=== PATIENT | male | born 1945 | race Caucasian/White ===

== ENCOUNTER → 2023-10-05 12:52 | Outpatient (REF) | payer MEDICARE, OTHER, SELFPAY | LOC: REG 12:52 | PROVIDERS: ATTENDING PHYSICIAN Orthopaedic Surgery; FAMILY PHYSICIAN Internal Medicine | DX: R05.3 Chronic cough (principal); Z96.652 Presence of left artificial knee joint; M97.12XA Periprosthetic fracture around internal prosthetic left knee joint, initial encounter | CPT/HCPCS: 71046; 73552; 73564 ==

== ENCOUNTER 2023-10-26 14:13 | Emergency (ER) | payer MEDICARE, OTHER, SELFPAY ==
[2023-10-26] VITALS (8 sets, daily range): BP systolic 136–202; BP diastolic 71–86
--- NOTE | 2023-10-26 14:41 | ED.GENMED ---
History of Present Illness
General
Chief Complaint: Urinary Symptoms
Source: patient
Exam Limitations: none
Time Seen by Provider: 10/26/23 14:14
Nursing documentation reviewed up to this point in time: agreed with
Travel History
Have you had any contact with someone who has COVID-19?: No
Do you have any symptoms of coronavirus? Fever > 100 degrees, chills, cough, shortness of breath, sore throat, loss of taste or smell, muscle aches, or headache?: No
History of Present Illness
History of Present Illness:
This is a 78-year-old male with a past medical history of stroke, myasthenia gravis, Parkinson's, A-fib on Eliquis, femoral shaft fracture presenting to emergency department today with concerns of dark-colored urine. Patient states that he
currently is being seen by a home nurse to help with his recovery from his recent hospitalization. Patient states that he was discharged from the hospital on September 07 for a femoral periprosthetic fracture. Patient was admitted for pain control
and no Ortho intervention at that time. Patient states that he is currently on bedrest, and today, when his urine was being collected, the nurse noted that the urine was very dark, recommended coming to the emergency department for further
evaluation. Patient himself notes that his urine started out as a little dark a few days ago, and has been progressively getting darker. Patient denies dysuria, flank pain, fevers or chills, chest pain, shortness of breath, left femur pain, lower
extremity swelling, or other concerning signs or symptoms.
Past History
Past History
ED Past Medical History: GERD, HTN, Hypercholesterolemia and Other (Parkinson's disease, myasthenia gravis)
ED Past Surgical History: Orthopedic
Patient has exhibited threatening behavior?: No
Social History
Tobacco: Non-smoker
Alcohol: None
Drug: None
Personal:
Living: with family
Employment: Retired
Family History
Family History: Other
Review of Systems
Review of Systems
All Other Systems: ROS reviewed and negative except as documented in HPI and ROS
Phy Exam
Physical Exam
Physical Exam:
General: Patient is well-appearing and is in no acute distress
Skin: Warm and dry, no rashes or lesions
Cardiac: Heart rate is bradycardic, no murmurs
Peripheral vascular: Patient has no lower extremity edema, patient has 2+ dorsalis pedis and posterior tibial pulses.
Pulm: Normal respiratory effort, no wheezes, no rales, no rhonchi
Abdomen: No abdominal tenderness
Musculoskeletal: Left leg seen in immobilizer, no bony tenderness to palpation
Neuro: Patient is awake and alert x 3. Patient does have some word finding difficulties which she states is a part of his baseline deficit from previous stroke.
Course
Orders/Labs/Results
Orders:
Orders
10/26/23 14:34
CPK [Creatine Phosphokinase] Urgent
Complete Blood Count/With Diff Urgent
Comprehensive Metabolic Panel Urgent
Urinalysis Reflex To Culture Urgent
Date Specimen was Collected: 10/26/23
Time Specimen was Collected: 14:28
Urine Microscopic Reflex Cult Urgent
Urine Culture Urgent
GERMAN Source: U
Specimen Description:
Date Specimen was Collected: 10/26/23
Time Specimen was Collected: 14:28
10/26/23 16:05
CT Abd/pel Without Iv Or Oral Urgent
Comment:
Reason For Exam: painless hematuria
Abnormal Lab Results
10/26/23
14:34
RBC 4.45 L 10^6/uL
(4.70-6.10)
RDW 15.0 H %
(11.5-14.5)
Immature Gran % 0.6 H %
(0-0.5)
Lymphocytes % 18.1 L %
(20.5-51.1)
Chloride 111 H mmol/L
(98-107)
BUN 21 H mg/dl
(9-20)
Creatine Kinase 43 L U/L
(55-170)
Urine Ketones Trace A
(Negative)
Ur Occult Blood Reflex 4+ A
(Negative)
Urine Bilirubin 1+ A
(Negative)
Leukocyte Esterase Rfl Trace A
(Negative)
Urine RBC >100 A /HPF
(0-2)
Urine WBC (Reflex) 11-15 A /HPF
(0-5)
Urine Albumin (Reflex) 1+ A
(Neg - Trace)
10/26/23 14:34
10/26/23 14:34
Vital Signs
Initial and Last Documented VS:
Initial Vital Signs
Pulse Resp BP
55 9 136/73
10/26/23 14:16 10/26/23 14:16 10/26/23 14:16
Last Documented Vital Signs
Temp Pulse Resp BP Pulse Ox
98 F 55 16 185/81 99
10/26/23 14:18 10/26/23 18:00 10/26/23 17:45 10/26/23 18:00 10/26/23 18:00
MDM/Problems Addressed
Differential Diagnosis Includes:
Differentials include dehydration, nephrolithiasis, acute cystitis, rhabdomyolysis, biliary obstruction
MDM/Problems Addressed:
Dark-colored urine
Chronic conditions affecting care: HTN, Arrhythmia, Neurological disorder (Parkinson's, myasthenia gravis) and Other (Hyperlipidemia on atorvastatin)
Acute Exacerbation and/or Progression of Chronic Illness: HTN
*Pulse Oximetry
Patient hypoxic: no
*Critical Care Note
Total Time (30-74mins, 75-104mins- exclusive of procedures): Not Applicable
Data Reviewed
Review of Other/Old Records Reveals: Records (Reviewed discharge summary from 09/07/2023)
Patient Management
Escalation/DeEscalation of care consider admission/obs:
This is a 78-year-old male with a past medical history of stroke, myasthenia gravis, Parkinson's, A-fib on Eliquis, femoral shaft fracture presenting to emergency department today with concerns of dark-colored urine. Patient himself notes that his
urine started out as a little dark a few days ago, and has been progressively getting darker. Patient denies dysuria, flank pain, fevers or chills, chest pain, shortness of breath, left femur pain, lower extremity swelling. Urinalysis and micro
revealed red blood cells but no evidence of UTI. Urine culture pending. CT of the abdomen and pelvis revealed bilateral nephrolithiasis but no ureteral obstruction. also showed moderate distention of the rectum, as well as bilateral pleural
effusions. No findings on CT to explain hematuria. Patient does take Xarelto for clot prevention following femur fracture. This is prescribed by Dr. Santos. Saw patient with Dr. Cade, we believe that his current hematuria as a result of
spontaneous bleeding from his Xarelto. Due to the risk of decreased urinary output and clot from patient, advised patient to stop his Xarelto for 3 days and follow-up with Dr. Santos regarding when to restart the Xarelto. We made cardiology
physician on-call aware of this plan, she will forward plan and information Dr. Santos. Patient medically stable for discharge.
ED Attending Note
-
Portions of this chart may have been created with voice recognition software.� Occasional wrong word or��sound alike� substitutions may have occurred due to the inherent limitations of voice recognition software.
Discharge Plan
Departure
Patient Disposition: Home (Routine Discharge)
Date of Disposition: 10/26/23
Time of Disposition: 19:17
Patient with high blood pressure during this ER visit?: Yes
Condition: Good
Discharge Problem:
Hematuria
Instructions: Blood in the Urine (Hematuria), Adult (DC), Cough, Adult (DC), BLOOD PRESSURE
Prescriptions:
No Action
prednisone 10 MG tablet
12 mg PO Q48H
mycophenolate mofetil 500 MG tablet
1,000 mg PO Q12H
pyridostigmine bromide 60 MG tablet
30 mg PO HS
Rx Instructions:
Give at 2200
docusate sodium 100 MG capsule
300 mg PO PRN PRN (Reason: CONSTIPATION)
pyridostigmine bromide 60 MG tablet
90 mg PO TID@,,16
amiodarone [Pacerone] 200 MG tablet
100 mg PO DAILY
losartan 50 MG tablet
100 mg PO HS
escitalopram oxalate 10 MG tablet
10 mg PO DAILY
melatonin 5 MG tablet
5 mg PO HS
acetaminophen [Tylenol Extra Strength] 500 mg tablet
1,000 mg PO Q6HPRN PRN (Reason: mild pain) Qty: 1 0RF
atorvastatin 20 mg Tablet
20 mg PO QPM
carbidopa-levodopa 50-200 mg Tablet Extended Release
1 tab PO HS
Rx Instructions:
give at 2200
carbidopa-levodopa 25-100 mg Tablet
1.5 tab PO TID@,,16
polyethylene glycol 3350 [Miralax] 17 gram/dose powder
4 g PO DAILY PRN (Reason: CONSTIPATION)
hydrocodone-acetaminophen 5-325 mg Tablet
1 tab PO Q4H PRN (Reason: pain)
lorazepam 0.5 mg Tablet
0.5 mg PO BID PRN (Reason: left knee pain)
memantine 5 mg Tablet
5 mg PO BID
Xarelto 20 mg Tablet
20 mg PO DAILY
quetiapine 25 mg Tablet
12.5 mg PO HS Qty: 0 0RF
Rx Instructions:
can attempt to wean off
Referrals:
Tomas Venegas DO [Family Provider] -
Activity Restrictions/Additional Instructions:
Please follow up with your primary care provider.
Please withhold your Xarelto for 3 days. Please follow up with Dr. Santos regarding when to restart the xarelto.
Please return to the emergency department should you experience DECREASED URINARY OUTPUT, CLOTS IN YOUR URINE, PAIN WITH URINATION, CHEST PAIN, SHORTNESS OF BREATH, FLANK PAIN, DIZZINESS OR OTHER CONCERNING SIGNS OR SYMPTOMS.
Interventions
Interventions:
*Risk Screen - Suicide Last Done: 10/26/23 14:18
*General Assessment Last Done: 10/26/23 14:18
*Neglect/Abuse Screening Last Done: 10/26/23 14:18
ED- Fall Risk Assessment Last Done: 10/26/23 14:18
*ED COVID-19 Vaccine History Last Done: 10/26/23 14:18
ED-Male Genitourinary Assessment Last Done: 10/26/23 14:22
[2023-10-26 14:47] LABS: % Basophils 0.3 % (0-2); % Eosinophils 2.7 % (0-6); % Immature Granulocytes 0.6 % (0-0.5); % Lymphocytes 18.1 % (20.5-51.1); % Monocytes 7.9 % (1.7-9.3); % Neutrophils 70.4 % (42.2-75.2); Absolute Eosinophils 0.2 10^3/uL (0-0.7); Absolute Lymphocytes 1.2 10^3/uL (1.2-3.4); Absolute Monocytes 0.5 10^3/uL (0.1-0.6); Absolute Neutrophils 4.6 10^3/uL (1.4-6.5); Hematocrit 39.1 % (39.0-52.0); Mean Corp Hgb Conc. 33.2 g/dL (33.0-37.0); Mean Corpuscular Hgb 29.2 pg (27.0-31.0); Mean Corpuscular Volume 87.9 fL (80.0-94.0); Mean Platelet Volume 9.1 fL (7.4-10.4); Nucleated Red Blood Cells % 0 % (-); Platelet Count 186 10^3/uL (130-400); Red Blood Cell Count 4.45 10^6/uL (4.70-6.10); White Blood Cell Count 6.6 10^3/uL (4.8-10.8)
[2023-10-26 14:49] LABS: Urine Albumin 1+ (Neg - Trace); Urine Bilirubin 1+ (Negative); Urine Character Very Cloudy (Clear); Urine Color Yellow; Urine Glucose Negative (Negative); Urine Ketone Trace (Negative); Urine Leukocyte Trace (Negative); Urine Nitrite Negative (Negative); Urine Occult Blood 4+ (Negative); Urine Specific Gravity 1.025 (<1.030); Urine Urobilinogen Negative (Neg - 1+)
[2023-10-26 15:03] LABS: Urine Calcium Oxalate Crystals Present
[2023-10-26 15:05] LABS: Urine Red Blood Cell >100 /HPF (0-2)
[2023-10-26 15:06] LABS: ALT (SGPT) < 10 U/L (0-50); AST (SGOT) 23 U/L (17-59); Albumin 3.7 g/dl (3.5-5.0); Alkaline Phosphatase 109 U/L (38-126); Blood Urea Nitrogen 21 mg/dl (9-20); Calcium 8.6 mg/dl (8.4-10.2); Carbon Dioxide 27 mmol/L (22-30); Chloride 111 mmol/L (98-107); Creatine Phosphokinase 43 U/L (55-170); Glucose 77 mg/dl (70-99); Potassium 4.1 mmol/L (3.5-5.1); Sodium 137 mmol/L (135-145); Total Protein 6.4 g/dl (6.3-8.2); eGFR > 60.00
== END 2023-10-26 19:31 | disposition home or self-care (01) ==
LOC: EMR 14:13
PROVIDERS: Physician Assistant; EMERGENCY PHYSICIAN Emergency Medicine; FAMILY PHYSICIAN Internal Medicine
DX: R31.9 Hematuria, unspecified (principal); I10 Essential (primary) hypertension; G70.00 Myasthenia gravis without (acute) exacerbation; G20.A1 Parkinson's disease without dyskinesia, without mention of fluctuations; E78.00 Pure hypercholesterolemia, unspecified
CPT/HCPCS: 99284; 74176; 80053; 81003; 81015; 82550; 85025; 87086

== ENCOUNTER → 2024-03-21 13:05 | Outpatient (REF) | payer MEDICARE, OTHER, SELFPAY | LOC: RCS 13:05 | PROVIDERS: ATTENDING PHYSICIAN Internal Medicine Interventional Cardiology; FAMILY PHYSICIAN Internal Medicine | DX: I35.0 Nonrheumatic aortic (valve) stenosis (principal) | CPT/HCPCS: 93306 ==

== ENCOUNTER 2024-04-04 14:40 | Emergency (ER) | payer MEDICARE, OTHER, SELFPAY ==
[2024-04-04 14:48] VITALS: BP 105/57
[2024-04-04 15:20] LABS: % Basophils 0.2 % (0-2); % Eosinophils 0.2 % (0-6); % Immature Granulocytes 0.4 % (0-0.5); % Lymphocytes 14.4 % (20.5-51.1); % Monocytes 5.3 % (1.7-9.3); % Neutrophils 79.5 % (42.2-75.2); Absolute Lymphocytes 0.8 10^3/uL (1.2-3.4); Absolute Monocytes 0.3 10^3/uL (0.1-0.6); Absolute Neutrophils 4.2 10^3/uL (1.4-6.5); Hemoglobin 13.1 g/dL (13.0-18.0); Mean Corp Hgb Conc. 34.5 g/dL (33.0-37.0); Mean Corpuscular Volume 84.3 fL (80.0-94.0); Mean Platelet Volume 9.1 fL (7.4-10.4); Nucleated Red Blood Cells % 0 % (-); Platelet Count 164 10^3/uL (130-400); Red Blood Cell Count 4.51 10^6/uL (4.70-6.10); Red Cell Dist. Width 13.4 % (11.5-14.5); White Blood Cell Count 5.3 10^3/uL (4.8-10.8)
[2024-04-04 15:36] LABS: Urine Albumin 1+ (Neg - Trace); Urine Bilirubin 1+ (Negative); Urine Character Slightly Cloudy (Clear); Urine Color Yellow; Urine Glucose Negative (Negative); Urine Ketone 1+ (Negative); Urine Leukocyte 1+ (Negative); Urine Nitrite Positive (Negative); Urine Occult Blood 4+ (Negative); Urine Urobilinogen 1+ (Neg - 1+)
[2024-04-04 15:39] LABS: ALT (SGPT) < 10 U/L (0-50); AST (SGOT) 21 U/L (17-59); Albumin 4.3 g/dl (3.5-5.0); Alkaline Phosphatase 63 U/L (38-126); Blood Urea Nitrogen 23 mg/dl (9-20); Calcium 9.1 mg/dl (8.4-10.2); Carbon Dioxide 24 mmol/L (22-30); Chloride 111 mmol/L (98-107); Glucose 95 mg/dl (70-99); Potassium 4.3 mmol/L (3.5-5.1); Sodium 138 mmol/L (135-145); Total Protein 6.6 g/dl (6.3-8.2); eGFR > 60.00
[2024-04-04 15:52] LABS: Urine Red Blood Cell >100 /HPF (0-2); Urine Squamous Cell 0-2 /LPF (Few)
[2024-04-04 15:53] LABS: Urine Bacteria Many (Negative)
[2024-04-04 16:39] VITALS: BP 158/67
[2024-04-04 18:00] VITALS: BP 171/87
--- NOTE | 2024-04-04 18:44 | ED.GENMED ---
History of Present Illness
General
Chief Complaint: Male Genito-Urinary Symptoms
Source: patient
Exam Limitations: none
Time Seen by Provider: 04/04/24 18:06
History of Present Illness
History of Present Illness:
This is a 78 year old male that comes in with c/o hematuria. States that 6-7 months ago he had blood in his urine. State that this went away and he saw Dr. Miller. State that he did have kidney stones that he took out and the blood went away.
States that he doesn't feel if he has stones. Then last month he started with bleeding again and the urine when she empties his urinal in the morning is bloody. States that he has also had some chest discomfort in the past 2 weeks and yesterday when
he was walking he had to stop and rest as he was SOB. States that he has also had a little dizziness. Denies any fever, chills, abd pain, nausea, vomiting, diarrhea, headache, urinary burning.
Past History
Past History
ED Past Medical History: Arrthythmia (Atrial fib), CVA (No residual weakness), GERD, HTN, Hypercholesterolemia, Psychiatric (Anxiety) and Other (Parkinson's disease, myasthenia gravis, Diverticulitis, Renal calculus, Left femur fracture, Vertigo)
ED Past Surgical History: Orthopedic (Hand surgery, Left total knee replacement, ) and Other (Cataracts, Right inguinal hernia)
Patient has exhibited threatening behavior?: No
Social History
Tobacco: Non-smoker
Alcohol: Occasional
Drug: None
Personal:
Living: with family
Employment: Retired
Family History
Family History: Other
Review of Systems
Review of Systems
All Other Systems: ROS reviewed and negative except as documented in HPI and ROS
Constitutional: Reports no symptoms; Denies fever or chills
EENT: Reports no symptoms
Respiratory: Reports trouble breathing; Denies cough
Cardiac: Reports chest pain
ABD/GI: Denies abdominal pain, nausea, vomiting or diarrhea
: Reports bleeding; Denies dysuria, frequency or urgency
Musculoskeletal: Reports no symptoms
Skin: Reports no symptoms
Neurological: Reports dizzy; Denies headache
Psychiatric: Reports no symptoms
Phy Exam
General Physical Exam
General Presentation: no apparent distress
General age: appears stated age
General Skin: warm and dry
General Habitus: elderly
General Mental: alert
General Hydration: appears well hydrated
ENT Exam
ENT Exam: TM's normal, pharynx normal and neck supple
Eye Exam
Eye Exam: EOMI
Cardiovascular Exam
Cardiovascular Exam: regular rate/rhythm, no edema, normal peripheral pulses and other (Murmur)
Pulmonary Exam
Pulmonary Exam: lungs clear, no respiratory distress, no rales, no crackles, no rhonchi, no wheezing and no cough
Gastrointestinal Exam
Gastrointestinal Exam: normal bowel sounds, non tender, soft, no organomegaly, no pulsatile mass and non distended
Musculoskeletal Exam
Musculoskeletal Exam: full ROM and no edema
Skin Exam
Skin Exam: normal color, warm/dry, no rash, no petechia and other (MOHs surgery left sided of the face next to nose)
Psychiatric Exam
Psychiatric Exam: normal mood/affect
Course
Orders/Labs/Results
Orders:
Orders
04/04/24 15:10
Complete Blood Count/With Diff Urgent
Comprehensive Metabolic Panel Urgent
Urinalysis Reflex To Culture Urgent
Date Specimen was Collected: 04/04/24
Time Specimen was Collected: 14:50
Urine Microscopic Reflex Cult Urgent
Urine Culture Urgent
GERMAN Source: U
Specimen Description:
Date Specimen was Collected: 04/04/24
Time Specimen was Collected: 14:50
04/04/24 18:34
CT Abd/pel Without Iv Or Oral Urgent
Comment:
Reason For Exam: Hematuria, Renal calcullus history
0.9% Sodium Chloride 1000 ml [Nss] 1,000 ml IV BOLUS
04/04/24 18:35
Electrocardiogram (*1) Urgent
Reason for Study: Shortness of Breath
EKG- Treatment ONCE
CR Chest - 2 Views Urgent
Comment:
Reason For Exam: SOB
04/04/24 19:01
Troponin I Urgent
Abnormal Lab Results
04/04/24
15:10
RBC 4.51 L 10^6/uL
(4.70-6.10)
Hct 38.0 L %
(39.0-52.0)
Absolute Lymphs (auto) 0.8 L 10^3/uL
(1.2-3.4)
Neutrophils % 79.5 H %
(42.2-75.2)
Lymphocytes % 14.4 L %
(20.5-51.1)
Chloride 111 H mmol/L
(98-107)
BUN 23 H mg/dl
(9-20)
Urine Ketones 1+ A
(Negative)
Ur Occult Blood Reflex 4+ A
(Negative)
Urine Nitrite (Reflex) Positive A
(Negative)
Urine Bilirubin 1+ A
(Negative)
Leukocyte Esterase Rfl 1+ A
(Negative)
Urine RBC >100 A /HPF
(0-2)
Urine Bacteria (Reflex) Many A
(Negative)
Urine Albumin (Reflex) 1+ A
(Neg - Trace)
04/04/24 15:10
04/04/24 15:10
Chloride slightly elevated. Dehydration. Urine negative for infection. Positive for blood, Troponin <0.012
Vital Signs
Initial and Last Documented VS:
Initial Vital Signs
Temp Pulse Resp BP Pulse Ox
98.3 F 59 18 105/57 99
04/04/24 14:48 04/04/24 14:48 04/04/24 14:48 04/04/24 14:48 04/04/24 14:48
Last Documented Vital Signs
Temp Pulse Resp BP Pulse Ox
98 F 57 19 192/78 98
04/04/24 18:00 04/04/24 20:43 04/04/24 20:43 04/04/24 19:07 04/04/24 20:43
MDM/Problems Addressed
Differential Diagnosis Includes:
Renal calculus,
MDM/Problems Addressed:
This is a 78 year old male that comes in with c/o hematuria. States that this started about a month ago and has gotten worse. State that he also was very SOB yesterday with walking and occasionally some left sided chest discomfort that patient was
thinking came from his fracture ribs a year ago.
Will get labs. chest x-ray, CT abd pelvis for stones. IV fluids and urine
Back into see patient and . Explained that his chest x-ray is negative for any acute disease. His CT shows that he has stones in the Kidney but none in the ureters. Encouraged patient to increase his water intake to 8-8oz glasses daily. Follow
up with the Urologist and his Hotel Supplies Salesperson for his SOB and chest discomfort. Return with any concerns.
Chronic conditions affecting care:
Parkinson's Myasthenia Gravis, Atrial fib, Renal calculus
Acute Exacerbation and/or Progression of Chronic Illness:
Renal calculus
*Radiology
Radiology exam reviewed: preliminary read by ED provider (Chest-Negative for active disease. ), radiology read reviewed (CT-Bilateral nephrolithiasis. No evidence for ureteral calcululs. Huperdense cyst in the left kidney, stable dating back to CT
urography examination of May 17, 2022. Stable moderate sized right renal cyst. Prostate gland is enlarged and extends into the base of the bladder. Mild to moderate) and all reviewed NAD by ED Provider (CT cont- gaseous distention of the clon
within the anterior abdomen, which likely represents sigmoid colon extending into the upper abdomen. Moderate to severe distention of the rectum with stool, transverse dimension of 7.3cm. NO convincing evidence for stercoral colitis. Bony
degenerative changes )
*Pulse Oximetry
Patient hypoxic: no
*Critical Care Note
Total Time (30-74mins, 75-104mins- exclusive of procedures): Not Applicable
ED Attending Note
-
Portions of this chart may have been created with voice recognition software.� Occasional wrong word or��sound alike� substitutions may have occurred due to the inherent limitations of voice recognition software.
Discharge Plan
Departure
Patient Disposition: Home (Routine Discharge)
Date of Disposition: 04/04/24
Time of Disposition: 21:00
Patient with high blood pressure during this ER visit?: Yes
Condition: Good
Covid-19: Not Applicable
Discharge Problem:
Hematuria
Instructions: Blood in the Urine (Hematuria), Adult (DC), BLOOD PRESSURE
Prescriptions:
No Action
prednisone 10 MG tablet
12 mg PO Q48H
mycophenolate mofetil 500 MG tablet
1,000 mg PO Q12H
pyridostigmine bromide 60 MG tablet
30 mg PO HS
Rx Instructions:
Give at 2200
docusate sodium 100 MG capsule
300 mg PO PRN PRN (Reason: CONSTIPATION)
pyridostigmine bromide 60 MG tablet
90 mg PO TID@08,12,16
amiodarone [Pacerone] 200 MG tablet
100 mg PO DAILY
losartan 50 MG tablet
100 mg PO HS
escitalopram oxalate 10 MG tablet
10 mg PO DAILY
melatonin 5 MG tablet
5 mg PO HS
acetaminophen [Tylenol Extra Strength] 500 mg tablet
1,000 mg PO Q6HPRN PRN (Reason: mild pain) Qty: 1 0RF
atorvastatin 20 mg Tablet
20 mg PO QPM
carbidopa-levodopa 50-200 mg Tablet Extended Release
1 tab PO HS
Rx Instructions:
give at 2200
carbidopa-levodopa 25-100 mg Tablet
1.5 tab PO TID@08,12,16
polyethylene glycol 3350 [Miralax] 17 gram/dose powder
4 g PO DAILY PRN (Reason: CONSTIPATION)
hydrocodone-acetaminophen 5-325 mg Tablet
1 tab PO Q4H PRN (Reason: pain)
lorazepam 0.5 mg Tablet
0.5 mg PO BID PRN (Reason: left knee pain)
memantine 5 mg Tablet
5 mg PO BID
Xarelto 20 mg Tablet
20 mg PO DAILY
quetiapine 25 mg Tablet
12.5 mg PO HS Qty: 0 0RF
Rx Instructions:
can attempt to wean off
Referrals:
Jose Miller MD [Active] - Call in 1-3 days for appt
Tomas Venegas DO [Family Provider] -
Activity Restrictions/Additional Instructions:
As discussed, your blood work shows that you are slightly Dehydrate. Please increase your water intake to 8-8oz glasses daily. Your CT shows that you have stones in the kidneys but not in the ureter. Please follow up with the Urologist. Please also
follow up with the Hotel Supplies Salesperson for your shortness of breath and the twinge you are feeling in your heart. IF YOU HAVE INCREASED PAIN, WORSENING SHORTNESS OF BREATH, OR YOU HAVE ANY OTHER CONCERNS PLEASE RETURN TO THE EMERGENCY ROOM.
Interventions
Interventions:
*Risk Screen - Suicide Last Done: 04/04/24 14:48
*General Assessment Last Done: 04/04/24 14:48
*Neglect/Abuse Screening Last Done: 04/04/24 14:48
ED- Fall Risk Assessment Last Done: 04/04/24 19:32
*ED COVID-19 Vaccine History Last Done: 04/04/24 14:48
ED-Male Genitourinary Assessment Last Done: 04/04/24 19:05
Discharge Date and Time
Print Language: BULGARIAN
[2024-04-04 18:53] VITALS: BMI 23.6
[2024-04-04] MEDS: NSS 1000 IV (19:03)
[2024-04-04 19:07] VITALS: BP 192/78
[2024-04-04 19:29] LABS: Troponin I < 0.012 ng/ml
[2024-04-04 21:03] VITALS: BP 153/70
== END 2024-04-04 21:16 | disposition home or self-care (01) ==
LOC: EMR 14:40
PROVIDERS: Clinical Nurse Specialist Family Health; Emergency Medicine; EMERGENCY PHYSICIAN Emergency Medicine; FAMILY PHYSICIAN Internal Medicine
DX: R31.9 Hematuria, unspecified (principal); I10 Essential (primary) hypertension
CPT/HCPCS: 99285; 96360; 71046; 74176; 80053; 81003; 81015; 84484; 85025; 87086; 93005

== ENCOUNTER → 2024-06-11 13:57 | Outpatient (REF) | payer MEDICARE, OTHER, SELFPAY | LOC: HWRAD 13:57 | PROVIDERS: ATTENDING PHYSICIAN Internal Medicine | DX: R05.3 Chronic cough (principal) | CPT/HCPCS: 71046 ==

== ENCOUNTER 2024-07-19 09:48 | Outpatient (REF) | payer MEDICARE, OTHER, SELFPAY | END 2024-07-20 13:18 | disposition home or self-care (01) | LOC: RST 09:48 | PROVIDERS: ATTENDING PHYSICIAN Internal Medicine; REFERRING PHYSICIAN Psychiatry & Neurology Neurology | DX: R13.10 Dysphagia, unspecified (principal); Z87.19 Personal history of other diseases of the digestive system | CPT/HCPCS: 74230; 92611 ==

== ENCOUNTER → 2024-09-20 15:52 | Outpatient (REF) | payer MEDICARE, OTHER, SELFPAY | LOC: RAD 15:52 | PROVIDERS: ATTENDING PHYSICIAN Internal Medicine | DX: R05.3 Chronic cough (principal) | CPT/HCPCS: 71260; Q9967 ==

== ENCOUNTER 2024-10-01 06:17 | Day surgery (SDC) | payer MEDICARE, OTHER, SELFPAY ==
[2024-10-01] VITALS (8 sets, daily range): BP systolic 87–164; BP diastolic 52–81; BMI 22.5
[2024-10-01 13:34] LABS: Blood Urea Nitrogen 14 mg/dl (9-20); Calcium 7.5 mg/dl (8.4-10.2); Carbon Dioxide 27 mmol/L (22-30); Chloride 104 mmol/L (98-107); Estimated Creatinine Clearance 73 ml/min; Glucose 90 mg/dl (70-99); Potassium 3.1 mmol/L (3.5-5.1); Sodium 140 mmol/L (135-145); eGFR > 60.00
[2024-10-01 19:12] LABS: Brochalveolar Lavage Color Yellow; Brochalveolar Lavage Volume 19 ml
[2024-10-01 19:13] LABS: Brochalveolar Lavage Character Turbid (Clear)
[2024-10-01 20:03] LABS: BAL Lymphocytes 0.5 %; BAL Neutrophils 99.5 %
== END 2024-10-01 17:30 | disposition home or self-care (01) ==
LOC: SDS 06:17
PROVIDERS: ATTENDING PHYSICIAN Internal Medicine Critical Care Medicine
DX: J18.9 Pneumonia, unspecified organism (principal); R05.3 Chronic cough; R09.89 Other specified symptoms and signs involving the circulatory and respiratory systems; R91.8 Other nonspecific abnormal finding of lung field
CPT/HCPCS: 31645; 31624; 88305; 71045; 80048; 87015; 87070; 87077; 87102; 87106; 87116; 87186; 87205; 88112; 89051

== ENCOUNTER → 2024-10-17 10:08 | Outpatient (REF) | payer MEDICARE, OTHER, SELFPAY | LOC: HWRCS 10:08 | PROVIDERS: ATTENDING PHYSICIAN Internal Medicine Interventional Cardiology; FAMILY PHYSICIAN Internal Medicine | DX: I10 Essential (primary) hypertension (principal); I48.0 Paroxysmal atrial fibrillation | CPT/HCPCS: 93306 ==

== ENCOUNTER → 2025-01-17 14:13 | Outpatient (REF) | payer MEDICARE, OTHER, SELFPAY | LOC: HWRAD 14:13 | PROVIDERS: ATTENDING PHYSICIAN Internal Medicine Critical Care Medicine; FAMILY PHYSICIAN Internal Medicine | DX: J47.9 Bronchiectasis, uncomplicated (principal) | CPT/HCPCS: 71046 ==

== ENCOUNTER 2025-02-13 18:39 | Emergency (ER) | payer MEDICARE, OTHER, SELFPAY ==
[2025-02-13 18:50] VITALS: BP 113/56
[2025-02-13 20:27] VITALS: BP 177/70
[2025-02-13 20:30] VITALS: BP 177/70; BMI 21.3
--- NOTE | 2025-02-13 20:37 | ED.GENMED ---
History of Present Illness
General
Chief Complaint: Fall
Time Seen by Provider: 02/13/25 20:36
History of Present Illness
History of Present Illness:
REVIEW OF OLD RECORDS
The patient has history of myasthenia gravis, Parkinson's, A-fib on Eliquis and the patient had a bronc in September 2024 related to pneumonia with abnormal CT
Note:
CHIEF COMPLAINT(S)
Fall with new bruising.
HISTORY OF PRESENT ILLNESS
The patient is a 79-year-old female with a history of Parkinsons disease, and currently on the blood thinner Eliquis (Apixaban). She presented after falling on a concrete patio. The exact mechanism of the fall is unclear to the patient, but it seems
related to a loss of balance while using her walker. Her spouse reports she was trying to step up when she stumbled backward. The patient did not strike her head and is experiencing no neck pain. She did not recall chest pain or rib pain upon the
fall. Notably, there is new bruising on the abdomen, right elbow, and right biceps area, which occurred today.
ADDITIONAL HISTORY OBTAINED FROM SOURCES OTHER THAN THE PATIENT
Per the patient�s spouse, the patient did not strike her head during the fall and had older bruising from a fall the previous Tuesday. The spouse also reported the patient has been experiencing mucus due to bronchial issues and was treated by
Pat with Levaquin recently.
CHRONIC MEDICAL CONDITIONS SIGNIFICANTLY AFFECTING CARE
- Parkinsons disease
- Coagulation modification therapy with Eliquis
- History of bronchial issues
PHYSICAL EXAM
- Musculoskeletal: Decreased range of motion at the shoulder due to a pre-existing rotator cuff issue. New bruising observed on the right elbow, right biceps area, and abdomen.
- Respiratory: Lungs are coarse, but air movement is adequate with no wheezing heard. Oxygen saturation levels are between 97-99%.
- Abdominal: Tenderness noted in the liver area with some discomfort upon palpation. Generalized bruising noted on the abdomen.
- General: Well appearing in no distress
- HEENT: Moist oral mucosa
- Cardiovascular: No murmurs, normal heart rate, regular rhythm, No chest wall tenderness
- Pulmonary: No respiratory distress, breath sounds are clear and equal
- Abdomen: Soft with no peritoneal signs, no tenderness
- Neurologic: Excellent strength all extremities, no coordination deficits
- Psychiatric: Appropriate mental status, normal insight and judgement
- Extremities: Nontender, no edema, moves all extremities equally
- Skin: Ecchymosis noted to the right side of the torso near the right upper quadrant but no significant abdominal tenderness
PROBLEM LIST
Acute:
- Fall with resultant bruising
- Recent development of bruising
Chronic:
- Parkinsons disease
- Bronchial issues
PLAN
- Proceed with a computed tomography (CT) scan with contrast to assess for any internal injuries.
- Continue monitoring oxygen saturation and pulmonary status given recent bronchial issues.
DIFFERENTIAL DIAGNOSIS
The Differential Diagnosis includes, in no particular order and is not limited to:
1. Trauma-induced internal injury
2. Coagulopathy-related bruising
3. Musculoskeletal pain due to the fall
4. Respiratory infection or continuation of bronchial issues
5. Exacerbation of a chronic condition
6. Urinary tract infection
7. Pneumonia
8. Acute kidney injury
9. Liver function alteration related to coagulation
10. Soft tissue injury
CARE-UPDATE
02/13/25 - 23:[address] scan and X-ray confirmed a small, non-displaced fracture of the seventh right rib. Despite the injury, the patient reports only moderate discomfort, declining narcotic pain relief initially, though a prescription for Percocet is
provided for potential nighttime pain management issues. There was minimal tenderness noted upon palpation, but the patient reported difficulty laying on the right side at night since the fall last week, suggesting the fracture might have occurred
during that incident. The patient will also use an incentive spirometer to exercise the lungs and is advised to follow up with a reliability technicians for ongoing respiratory concerns potentially unrelated to acute infection. A dose of Percocet is
administered in the clinic for immediate relief before the patients discharge.
CARE-UPDATE
02/13/25 - 23:15
Review of imaging confirms a right-sided rib fracture at the 7th rib and persistent pneumonia noted on CT. Further evaluation and management of the pneumonia are warranted.
Past History
Past History
ED Past Medical History: Arrthythmia (Atrial fib), CVA (No residual weakness), GERD, HTN, Hypercholesterolemia, Psychiatric (Anxiety) and Other (Parkinson's disease, myasthenia gravis, Diverticulitis, Renal calculus, Left femur fracture, Vertigo)
ED Past Surgical History: Orthopedic (Hand surgery, Left total knee replacement, ) and Other (Cataracts, Right inguinal hernia)
Patient has exhibited threatening behavior?: No
Social History
Tobacco: Non-smoker
Alcohol: Occasional
Drug: None
Personal:
Living: with family
Employment: Retired
Family History
Family History: Other
Phy Exam
Physical Exam
Physical Exam:
See HPI
Course
Orders/Labs/Results
Orders:
Orders
02/13/25 18:53
Ribs, Right 3 View W/PA Chest [CR Ribs-right 3 Vw W/pa Chest*] Urgent
Comment:
Reason For Exam: pain, fall
02/13/25 20:45
Chest/Abd/Pelvis w Contrast CT [CT Chest/abd/pel W Iv Cont] Urgent
Comment:
Reason For Exam: trauma R ecchymosis pain eliquis
02/13/25 20:47
Comprehensive Metabolic Panel Urgent
02/13/25 20:48
Complete Blood Count/With Diff Urgent
02/13/25 23:16
Oxycodone/Acetaminophen [Percocet 5/325] 1 tablet PO NOW STA
Abnormal Lab Results
02/13/25 02/13/25
20:47 20:48
RBC 3.23 L 10^6/uL
(4.70-6.10)
Hgb 8.9 L g/dL
(13.0-18.0)
Hct 27.7 L %
(39.0-52.0)
MCHC 32.1 L g/dL
(33.0-37.0)
RDW 16.7 H %
(11.5-14.5)
Abs Immat Gran (auto) 0.1 H 10^3/uL
(0-0.05)
Absolute Lymphs (auto) 0.5 L 10^3/uL
(1.2-3.4)
Immature Gran % 1.0 H %
(0-0.5)
Neutrophils % 85.4 H %
(42.2-75.2)
Lymphocytes % 7.4 L %
(20.5-51.1)
Potassium 3.2 L mmol/L
(3.5-5.1)
Chloride 111 H mmol/L
(98-107)
Calcium 7.4 L mg/dl
(8.4-10.2)
Total Protein 5.6 L g/dl
(6.3-8.2)
Albumin 3.0 L g/dl
(3.5-5.0)
02/13/25 20:48
02/13/25 20:47
Vital Signs
Initial and Last Documented VS:
Initial Vital Signs
Temp Pulse Resp BP Pulse Ox
37.0 C 65 18 113/56 95
02/13/25 18:50 02/13/25 18:50 02/13/25 18:50 02/13/25 18:50 02/13/25 18:50
Last Documented Vital Signs
Temp Pulse Resp BP Pulse Ox
36.8 C 54 18 170/76 99
02/13/25 20:30 02/13/25 21:15 02/13/25 21:15 02/13/25 21:00 02/13/25 21:15
*Pulse Oximetry
Patient hypoxic: no (98% room air)
*Communication Equipment Repairer Interpretation
Rate: normal
Interpretation: normal
Heart Rate: 55
Rhythm: sinus
*Critical Care Note
Total Time (30-74mins, 75-104mins- exclusive of procedures): Not Applicable
ED Attending Note
-
Portions of this chart may have been created with voice recognition software.� Occasional wrong word or��sound alike� substitutions may have occurred due to the inherent limitations of voice recognition software.
Discharge Plan
Departure
Patient Disposition: Home (Routine Discharge)
Date of Disposition: 02/13/25
Time of Disposition: 23:17
Patient with high blood pressure during this ER visit?: Yes
Discharge Problem:
Fractured rib
Instructions: BLOOD PRESSURE, Rib Fracture
Prescriptions:
New
oxycodone-acetaminophen [Percocet] 5-325 mg tablet
1 tab PO Q6HPRN PRN (Reason: pain) Qty: 10 0RF
No Action
prednisone 10 MG tablet
15 mg PO Q48H
mycophenolate mofetil 500 MG tablet
1,000 mg PO HS
pyridostigmine bromide 60 MG tablet
30 mg PO HS
Rx Instructions:
Give at 2200
pyridostigmine bromide 60 MG tablet
90 mg PO TID@08,12,16
amiodarone [Pacerone] 200 MG tablet
100 mg PO DAILY
losartan 50 MG tablet
100 mg PO HS
escitalopram oxalate 10 MG tablet
10 mg PO DAILY
acetaminophen [Tylenol Extra Strength] 500 mg tablet
1,000 mg PO Q6HPRN PRN (Reason: mild pain) Qty: 1 0RF
atorvastatin 20 mg Tablet
20 mg PO QPM
carbidopa-levodopa 25-100 mg Tablet
2 tab PO TID@08,,16
Xarelto 20 mg Tablet
20 mg PO DAILY
carbidopa-levodopa 50-200 mg Tablet Extended Release
1 tab PO HS
mycophenolate mofetil [CellCept] 500 mg Tablet
1,500 mg PO DAILY
pantoprazole 40 mg Tablet,Delayed Release (Dr/Ec)
40 mg PO DAILY
cholecalciferol (vitamin D3) [Vitamin D3] 25 mcg (1,000 unit) Tablet
3,000 unit PO DAILY
mecobalamin (vitamin B12) [B12 Active] 1,000 mcg Tablet,Chewable
3,000 mcg PO DAILY
ipratropium-albuterol 0.5 mg-3 mg(2.5 mg base)/3 mL Solution For Nebulization
3 ml INHALATION TID PRN (Reason: cough)
Referrals:
Tomas Venegas DO [Family Provider, Internal Medicine]
Activity Restrictions/Additional Instructions:
You have a nondisplaced fracture of the right seventh rib. Follow-up your primary care doctor and also follow-up with your reliability technicians as CT imaging continues to show signs of bibasilar pneumonia. Your white blood cell count is normal. Use the
incentive spirometer that you have at home multiple times a day. Return here if worse or other concerns.
Interventions
Interventions:
ED-Musculoskeletal Assessment Last Done: 02/13/25 20:30
ED- Neurological Assessment Last Done: 02/13/25 20:30
ED-Skin Assessment Last Done: 02/13/25 20:30
Discharge Date and Time
Print Language: ROMANSH
[2025-02-13 21:00] VITALS: BP 170/76
[2025-02-13 21:06] LABS: % Eosinophils 0.3 % (0-6); % Lymphocytes 7.4 % (20.5-51.1); % Monocytes 5.9 % (1.7-9.3); % Neutrophils 85.4 % (42.2-75.2); Absolute Immature Granulocytes 0.1 10^3/uL (0-0.05); Absolute Lymphocytes 0.5 10^3/uL (1.2-3.4); Absolute Monocytes 0.4 10^3/uL (0.1-0.6); Absolute Neutrophils 5.2 10^3/uL (1.4-6.5); Hematocrit 27.7 % (39.0-52.0); Hemoglobin 8.9 g/dL (13.0-18.0); Mean Corp Hgb Conc. 32.1 g/dL (33.0-37.0); Mean Corpuscular Hgb 27.6 pg (27.0-31.0); Mean Corpuscular Volume 85.8 fL (80.0-94.0); Mean Platelet Volume 9.1 fL (7.4-10.4); Nucleated Red Blood Cells % 0 % (-); Platelet Count 175 10^3/uL (130-400); Red Blood Cell Count 3.23 10^6/uL (4.70-6.10); Red Cell Dist. Width 16.7 % (11.5-14.5); White Blood Cell Count 6.1 10^3/uL (4.8-10.8)
[2025-02-13 21:28] LABS: ALT (SGPT) < 10 U/L (0-50); AST (SGOT) 18 U/L (17-59); Alkaline Phosphatase 62 U/L (38-126); Blood Urea Nitrogen 15 mg/dl (9-20); Calcium 7.4 mg/dl (8.4-10.2); Carbon Dioxide 26 mmol/L (22-30); Chloride 111 mmol/L (98-107); Estimated Creatinine Clearance 62 ml/min; Glucose 90 mg/dl (70-99); Potassium 3.2 mmol/L (3.5-5.1); Sodium 142 mmol/L (135-145); Total Bilirubin 1.1 mg/dl (0.2-1.3); Total Protein 5.6 g/dl (6.3-8.2); eGFR > 60.00
[2025-02-13 22:16] VITALS: BP 187/85
[2025-02-13 23:00] VITALS: BP 166/86
[2025-02-13] MEDS: PERCOCET 5/325 1 TABLET PO (23:23)
== END 2025-02-13 23:45 | disposition home or self-care (01) ==
LOC: EMR 18:39
PROVIDERS: EMERGENCY PHYSICIAN Emergency Medicine; FAMILY PHYSICIAN Internal Medicine
DX: S22.31XA Fracture of one rib, right side, initial encounter for closed fracture (principal); S30.1XXA Contusion of abdominal wall, initial encounter; S50.01XA Contusion of right elbow, initial encounter; W18.30XA Fall on same level, unspecified, initial encounter; E78.00 Pure hypercholesterolemia, unspecified; G20.A1 Parkinson's disease without dyskinesia, without mention of fluctuations; G70.00 Myasthenia gravis without (acute) exacerbation; I10 Essential (primary) hypertension; I48.91 Unspecified atrial fibrillation; Z79.01 Long term (current) use of anticoagulants; Z86.73 Personal history of transient ischemic attack (TIA), and cerebral infarction without residual deficits
CPT/HCPCS: 99284; 71101; 71260; 74177; 80053; 85025; Q9967

== ENCOUNTER 2025-03-13 15:25 | Inpatient (IN) | payer MEDICARE, OTHER, SELFPAY ==
[2025-03-13] VITALS (11 sets, daily range): BP systolic 135–172; BP diastolic 60–85; BMI 22.7
[2025-03-13 12:40] LABS: Hematocrit 28.2 % (39.0-52.0); Hemoglobin 8.8 g/dL (13.0-18.0); Mean Corp Hgb Conc. 31.2 g/dL (33.0-37.0); Mean Corpuscular Volume 88.4 fL (80.0-94.0); Nucleated Red Blood Cells % 0 % (-); Platelet Count 205 10^3/uL (130-400); Red Cell Dist. Width 15.7 % (11.5-14.5)
[2025-03-13 13:14] LABS: ALT (SGPT) < 10 U/L (0-50); AST (SGOT) 28 U/L (17-59); Albumin 3.0 g/dl (3.5-5.0); Alkaline Phosphatase 62 U/L (38-126); Blood Urea Nitrogen 18 mg/dl (9-20); Calcium 5.6 mg/dl (8.4-10.2); Carbon Dioxide 20 mmol/L (22-30); Chloride 116 mmol/L (98-107); Estimated Creatinine Clearance 67 ml/min; Glucose 94 mg/dl (70-99); Potassium 3.5 mmol/L (3.5-5.1); Sodium 142 mmol/L (135-145); Total Protein 5.5 g/dl (6.3-8.2); eGFR > 60.00
--- NOTE | 2025-03-13 13:21 | ED.GENMED ---
History of Present Illness
General
Chief Complaint: Abnormal Lab Value
Source: patient, records and spouse
Time Seen by Provider: 03/13/25 12:42
History of Present Illness
History of Present Illness:
79-year-old male with past medical history of Parkinson's disease, myasthenia gravis, previous CVA, atrial fibrillation, hypertension, hyperlipidemia, renal insufficiency presenting to the emergency department at request of primary care provider for
hypocalcemia and hypokalemia found on a outpatient labs a few days ago, noting patient has had frequent falls over the last few weeks and patient self reporting generalized weakness. Patient without any other concerns denying any fevers,
chills, rigors, nausea, vomiting, bowel changes or urinary symptoms. Patient notes that he does have a history of a low calcium but never as low as the last couple of days. No recent medication changes. No other concerns presently
Past History
Past History
ED Past Medical History: Arrthythmia (Atrial fib), CVA (No residual weakness), GERD, HTN, Hypercholesterolemia, Valvular disease, Psychiatric (Anxiety) and Other (Parkinson's disease, myasthenia gravis, Diverticulitis, Renal calculus, Left femur
fracture, Vertigo)
ED Past Surgical History: Orthopedic (Hand surgery, Left total knee replacement, ) and Other (Cataracts, Right inguinal hernia)
Patient has exhibited threatening behavior?: No
Social History
Tobacco: Non-smoker
Alcohol: Occasional
Drug: None
Personal:
Living: with family
Employment: Retired
Family History
Family History: Other
Review of Systems
Review of Systems
All Other Systems: ROS reviewed and negative except as documented in HPI and ROS
Phy Exam
Physical Exam
Physical Exam:
GENERAL: Alert , in no apparent distress, appears older than stated age
HEAD: Normocephalic atraumatic
EYE: Clear conjunctiva
NECK: Supple
ENT: o/p clr, mmm.
CARDIAC: Borderline bradycardic rate and rhythm with rates hanging around 56 bpm to 65 bpm
LUNGS:, Intermittent cough, diffuse rhonchi which patient notes is chronic due to known bronchopneumonia
ABDOMEN: Soft, without focal tenderness, no r/g, no cvat
NEUROLOGICAL: Alert and oriented, no focal neuro deficits
SKIN: Warm and dry, skin intact.
MUSCULOSKELETAL: 1+ pitting edema bilateral lower extremities to the mid lower leg, well perfused.
PSYCH: Normal and appropriate interaction.
Scores
Heart Failure Risk
Heart Failure Risk Score: Not Applicable
Heart Score for Chest Pain Patients
STEMI patient?: Not applicable
Withdrawal Assessment of Alcohol
Withdrawal Assessment Completed?: Not applicable
Course
Orders/Labs/Results
Orders:
Orders
03/13/25 12:09
Electrocardiogram (*1) Urgent
Reason for Study: Chest Pain
EKG- Treatment ONCE
03/13/25 12:11
Complete Blood Count/With Diff Urgent
Comprehensive Metabolic Panel Urgent
Magnesium Urgent
Comment: ADD ON
TSH Urgent
Comment: ADD ON
03/13/25 12:58
Add On- LAB Urgent
Tests Added?: TSH/parathyroid hormone
03/13/25 13:32
Add On- LAB Urgent
Tests Added?: magnesium
03/13/25 13:45
Calcium CHLORIDE [Calcium Chloride 10% Syringe] 1,000 mg 0.9% Sodium Chloride 50 ml [Nss] 50 ml IV NOW
03/13/25 13:59
Magnesium Sulfate 2 Gram/50 ml [Magnesium Sulfate] 2 gram in 50 ml IV NOW
03/13/25 14:21
Magnesium Oxide 500 mg PO NOW STA
03/13/25 14:26
Pft Nif [RESP] Routine
Special Instructions: q6h for 24hr
Speech Therapy Eval & Treat Routine
03/13/25 14:54
Acetaminophen [Tylenol] 1,000 mg PO Q6HPRN PRN mild pain
Tramadol HCl [Ultram] 50 mg PO Q8HPRN PRN moderarte pain
03/13/25 14:58
NEUROLOGY CONSULT Routine
Consulting Provider: Robert Rodriguez
Was physician already notified: Yes
Reason for consult: Myesthenia Gravis and Parkinsonism
03/13/25 14:59
Admit/Transfer Patient As Directed
Co-Sign Provider:
Level of Care: Inpatient admission
Assign to:: Telemetry
Physician / Group: Hospitalists
Diagnosis: Hypocalcemia, Hypomagnesemia, myasthenia gravis, Parkinson's disease
Reason for Telemetry: Arrhythmia
Other Reason for Telemetry: Hypocalcemia and hypomagnesemia monitoring QTc
Date to Stop Telemetry: 03/16/25
Time to Stop Telemetry: 11:00
Reason for Hospitalization: Hypocalcemia, Hypomagnesemia, myasthenia gravis, Parkinson's disease
Expected length of stay greater than two midnights?: Yes
ELOS- Estimated Length of Stay in days: 4
I certify the patient meets the requirements for IP care: Yes
03/13/25 15:00
PRN Pain Medication Management As Directed
May give lesser potent ordered pain med per pt: Yes
preference::
Protocol:: Medication orders for pain may be administered in a
manner that supports deferring to patient preference
when the pt is:
- Requesting an ordered lesser potent pain medication.
Least to most potent pain medications are defined
as: acetaminophen < NSAID < tramadol < opioids
(morphine, oxycodone, hydromorphone).
- Requesting a lesser dose of the same medication IF
ORDERED.
- Requesting a less intrusive route of administration
if both routes are prescribed by the provider (PO <
IV).
03/13/25 16:00
Carbidopa/Levodopa [Sinemet 25-100] 2 tablet PO TID@
Prednisone [Deltasone] 12.5 mg PO ONCE ONE
Pyridostigmine [Mestinon] 90 mg PO TID@
03/13/25 17:22
Parathyroid Hormone [Intact PTH Includes Calcium] Routine
03/13/25 17:23
Calcium, Ionized [Ionized Calcium] Urgent
03/13/25 17:25
Vitamin D, 25-OH Urgent
03/13/25 18:00
Atorvastatin [Lipitor] 20 mg PO QPM
03/13/25 20:00
Apixaban [Eliquis] 5 mg PO BID
Ipratropium/Albuterol Sulfate [Duoneb] 3 ml INH R BID
Magnesium Oxide 500 mg PO BID
03/13/25 22:00
Carbidopa/Levodopa Cr [Sinemet Cr 50/200 (Extended Release)] 1 tablet PO HS
Losartan [Cozaar] 100 mg PO HS
Melatonin 5 mg PO HS
Mycophenolate Mofetil See Dose Instructions PO HS
Pyridostigmine [Mestinon] 30 mg PO HS
03/14/25 08:00
Amiodarone [Pacerone] 100 mg PO DAILY
Cholecalciferol (Vitamin D3) [Vitamin D3 (Cholecalciferol)] 75 mcg PO DAILY
Cyanocobalamin [Vitamin B-12] 3,000 mcg PO DAILY
Escitalopram Oxalate [Lexapro] 10 mg PO DAILY
Pantoprazole [Protonix] 40 mg PO DAILY
mecobalamin (vitamin B12) [B12 Active] 3,000 mcg PO DAILY
mycophenolate mofetil See Dose Instructions PO DAILY
03/14/25 12:00
Cholecalciferol (Vitamin D3) [VITAMIN D3 (cholecalciferol)] 75,000 mcg PO DAILY@1200
03/15/25 08:00
Prednisone [Deltasone] 12.5 mg PO Q48H
03/16/25 11:00
DC Protocol for Telemetry ONCE
Abnormal Lab Results
03/13/25
12:11
RBC 3.19 L 10^6/uL
(4.70-6.10)
Hgb 8.8 L g/dL
(13.0-18.0)
Hct 28.2 L %
(39.0-52.0)
MCHC 31.2 L g/dL
(33.0-37.0)
RDW 15.7 H %
(11.5-14.5)
Absolute Lymphs (auto) 0.5 L 10^3/uL
(1.2-3.4)
Neutrophils % 82.8 H %
(42.2-75.2)
Lymphocytes % 9.3 L %
(20.5-51.1)
Chloride 116 H mmol/L
(98-107)
Carbon Dioxide 20 L mmol/L
(22-30)
Calcium 5.6 L* mg/dl
(8.4-10.2)
Magnesium 0.8 L* mg/dl
(1.6-2.3)
Total Bilirubin 1.5 H mg/dl
(0.2-1.3)
Total Protein 5.5 L g/dl
(6.3-8.2)
Albumin 3.0 L g/dl
(3.5-5.0)
03/13/25 12:11
03/13/25 12:11
Vital Signs
Initial and Last Documented VS:
Initial Vital Signs
Temp Pulse Resp BP Pulse Ox
97.8 F 59 16 135/73 99
03/13/25 12:06 03/13/25 12:06 03/13/25 12:06 03/13/25 12:06 03/13/25 12:06
Last Documented Vital Signs
Temp Pulse Resp BP Pulse Ox
98.1 F 57 18 163/72 97
03/13/25 16:39 03/13/25 16:39 03/13/25 16:39 03/13/25 16:39 03/13/25 16:39
MDM/Problems Addressed
Differential Diagnosis Includes:
Hypocalcemia
Hypomagnesemia
Medication side effects
hypoparathyroidism
Renal Insufficiency
Vitamin D Deficiency
Bowel Malabsoprtion
MDM/Problems Addressed:
79-year-old male presenting to the ER for evaluation of reportedly abnormal calcium and potassium level. I reviewed the labs from [facility] with the which showed a potassium of 3.2 and a calcium of 5.6. Patient is in no acute distress,
hemodynamically stable. EKG reviewed does show a slightly prolonged QT which could be related to his hypocalcemia. Patient is getting frequent nebulizer treatments due to known bronchopneumonia, suspect this could be a potential cause for his
slightly low potassium. Will repeat labs here. If calcium remains significantly out of normal range patient may require admission for further repletion and monitoring.
Chronic conditions affecting care: Neurological disorder and Kidney disease
Acute Exacerbation and/or Progression of Chronic Illness: Neurological disorder
*Pulse Oximetry
SaO2: 97
Oxygen Mode of Delivery: Room air
Patient hypoxic: no
*EKG
Heart Rate: 56
Rate: bradycardiac
Rhythm: sinus
Interval: first degree heart block and long QT
Ischemia: non-specific ST changes
*Coal Cutting Machine Operator Interpretation
Rate: bradycardiac
Heart Rate: 59
Rhythm: sinus
*Critical Care Note
Total Time (30-74mins, 75-104mins- exclusive of procedures): Not Applicable
Data Reviewed
Review of Other/Old Records Reveals: Labs and Records
Source: patient, records and spouse
Patient Management
Discussion with other providers: Hospitalist
Escalation/DeEscalation of care consider admission/obs:
Patient's calcium here remains 5.6, potassium within normal limits. Given his significant hypocalcemia we will plan for admission. IV repletion ordered. Additional labs ordered. Hospitalist team notified and accepts for continued evaluation and
treatment.
ED Attending Note
-
Portions of this chart may have been created with voice recognition software.� Occasional wrong word or��sound alike� substitutions may have occurred due to the inherent limitations of voice recognition software.
Discharge Plan
Departure
Patient Disposition: Admit
Date of Disposition: 03/13/25
Time of Disposition: 13:21
Presentation/result/management discussed w/ accepting MD/DO: Hospitalist
Discharge Problem:
Hypocalcemia
Interventions
Interventions:
*Risk Screen - Suicide Last Done: 03/13/25 12:06
*General Assessment Last Done: 03/13/25 12:06
*Neglect/Abuse Screening Last Done: 03/13/25 12:06
*ED- Fall Risk Assessment Last Done: 03/13/25 12:06
*ED COVID-19 Vaccine History Last Done: 03/13/25 16:26
*Nursing Disposition Last Done: 03/13/25 15:32
Discharge Date and Time
Discharge Date/Time: 03/13/25 15:56
--- NOTE | 2025-03-13 13:26 | HPS.HSE ---
Family Physician
-
Family Physician: Tomas Venegas
Chief Complaint
-
Generalized weakness
History of Present Illness
Patient is a 79-year-old man with a history of atrial fibrillation, CVA, GERD, hypertension, hypercholesterolemia, anxiety, Parkinson's, myasthenia gravis, diverticulitis, renal calculus, and vertigo who presented to the emergency department with
generalized weakness. He has been having mental haziness for approximately 1 week prior to his presentation. Around 2 days ago he had a hallucination where he was convinced that he was having a discussion with people in his house who gave him a
piece of paper in his hand. The patient was convinced that he was given a piece of paper and opened his hand to show it to his and there was nothing there. He also states that he has movements and objects that cross his vision at times and
this is occurred for the past few months. His believes that he is stating that his eyes get lazy and he gets double vision due to his myasthenia gravis. He has had recent falls and there was a bruise on his right lower leg proximal to the
popliteal fossa of his posterior thigh from a recent fall at home. He has had swollen legs for the past 3 weeks to 1 month at approximately 1+ edema. Lab work in the emergency department showed a calcium of 5.6 indicating hypocalcemia. Patient was
also hypomagnesemic with a magnesium level of 0.8. He has a raspy cough and crackles scattered throughout both lung muir. His oxygen saturation was within normal limits and vitals unremarkable. Patient had a hemoglobin of 8.8 which is his
normal baseline based on prior hospital visits. The patient was admitted for hypocalcemia, hypomagnesemia, and generalized weakness.
Medical History
Past Medical History
Past Medical History: Reports Arrhythmia (Atrial fibrillation), CVA (No residual weakness), GERD, HTN and Hypercholesterolemia
Additional Past Medical History:
Anxiety
Parkinson's disease
Myasthenia gravis
Diverticulitis
Renal calculus
Left femur fracture
Vertigo
Past Surgical History: Reports Orthopedic (Hand surgery, left total knee replacement) and Other (Right inguinal hernia repair)
Additional Past Surgical History:
Cataract surgery
Social History
Tobacco: Non-smoker
Alcohol: Occasional
Drug: None
Personal:
Living: With Family
Employment: Retired
Family History
Family History: Not pertinent
Allergies / Home Medications
Allergies reflects when Allergies were last updated in [facility].
Home Medications with original date entered in [facility]
Allergy/Medication List:
Allergies
Allergy/AdvReac Type Severity Reaction Status Date / Time
cephalexin Allergy Itching Verified 03/13/25 12:04
haloperidol (From Haldol) Allergy hallucinati Verified 03/13/25 12:04
ons
lorazepam (From Ativan) Allergy hallucinati Verified 03/13/25 12:04
ons
Home Medications
mycophenolate mofetil 500 mg tablet 1,000 mg PO HS IMMUNE suppressant 12/17/20
prednisone 10 mg tablet 15 mg PO Q48H Anti-inflammatory 12/17/20
pyridostigmine bromide 60 mg tablet 30 mg PO HS MYASTHENIA 05/04/21
pyridostigmine bromide 60 mg tablet 90 mg PO TID@,,16 MYASTHENIA 05/18/21
amiodarone 200 mg tablet (Pacerone) 100 mg PO DAILY Arrhythmia 09/23/21
escitalopram oxalate 10 mg tablet 10 mg PO DAILY Depression 03/01/22
losartan 50 mg tablet 100 mg PO HS Blood Pressure 03/01/22
acetaminophen 500 mg tablet (Tylenol Extra Strength) 1,000 mg (2 x 500 mg) PO Q6HPRN PRN mild pain #1 tab 03/18/22
atorvastatin 20 mg tablet 20 mg PO QPM High Cholesterol 07/20/22
carbidopa 25 mg-levodopa 100 mg tablet 2 tab PO TID@,,16 Neurological Condition 07/20/22
rivaroxaban 20 mg tablet (Xarelto) 20 mg PO DAILY Blood Clot Prevention/Tx 08/31/23
carbidopa ER 50 mg-levodopa 200 mg tablet,extended release 1 tab PO HS 10/01/24
cholecalciferol (vitamin D3) 25 mcg (1,000 unit) tablet (Vitamin D3) 3,000 unit PO DAILY 10/01/24
ipratropium 0.5 mg-albuterol 3 mg (2.5 mg base)/3 mL nebulization soln 3 ml inhalation TID PRN cough 10/01/24
mecobalamin (vitamin B12) 1,000 mcg chewable tablet (B12 Active) 3,000 mcg PO DAILY 10/01/24
mycophenolate mofetil 500 mg tablet (CellCept) 1,500 mg PO DAILY 10/01/24
pantoprazole 40 mg tablet,delayed release 40 mg PO DAILY 10/01/24
oxycodone-acetaminophen 5 mg-325 mg tablet (Percocet) 1 tab PO Q6HPRN PRN pain #10 tabs 02/13/25
Review of Systems
-
Constitutional: Reports No Symptoms
EENT: Reports No Symptoms
Respiratory: Reports Cough
Cardiac: Reports No Symptoms
Abdomen/GI: Reports Other (Occasional loose stools)
: Reports No Symptoms
Musculoskeletal: Reports Edema (Lower leg edema bilaterally)
Skin: Reports No Symptoms
Neurological: Reports Weakness and Other (History of recent fall)
Endocrine: Reports No Symptoms
Hematologic/Lymphatic: Reports No Symptoms
Psych: Reports Calm
Physical Exam
Vital Signs
Vital Signs
Temp Pulse Resp BP Pulse Ox
97.8 F 56 18 155/69 97
03/13/25 12:06 03/13/25 12:30 03/13/25 12:30 03/13/25 12:30 03/13/25 13:21
Physical Exam
General: Well Developed, Well Nourished, No Apparent Distress, Comfortable and Good Appetite
HEENT: NormoCephalic, Anicteric, Moist mucous membranes, Atraumatic and No Ptosis; No Hearing Impaired, Deaf or Thyromegaly
Respiratory: Rhonchi (Scattered throughout both lung muir) and Crackles (Scattered throughout both lung muir)
Cardiac: S1/S2 and Bradycardia; No Murmur, Rub, Gallop, JVD or HJR
Breast: Deferred by me
GI: Soft, Non Tender, Non Distended and Normal Bowel Sounds
Rectal: Deferred by Provider
Genito-urinary: Deferred by me
Musculoskeletal: No Clubbing, No Cyanosis, Edema, Left Lower Extremity (1+) and Edema, Right Lower Extremity (1+)
Skin: Warm and Dry; No Rash or Jaundice
Neuro: Awake, Alert, Oriented and AO x 3
Hematologic/Lymphatic: No Lymphadenopathy
Psych: Calm
Laboratory Results
-
03/13/25 12:11
03/13/25 12:11
Laboratory Results
Total Bilirubin 1.5 mg/dl (0.2-1.3) H 03/13/25 12:11
AST 28 U/L (17-59) 03/13/25 12:11
ALT < 10 U/L (0-50) 03/13/25 12:11
Alkaline Phosphatase 62 U/L (38-126) 03/13/25 12:11
Impression/Plan
-
IMPRESSION + PLAN:
- Hypocalcemia:
Replete calcium
Check parathyroid hormone
Check vitamin D
- Hypomagnesemia:
Magnesium oxide ordered
Will avoid IV magnesium for the time being as it may precipitate myasthenic crisis
- Parkinson's disease:
Continue Cabidopa-Levodopa at patient's home regimen
Neurology consulted for optimization of medications
- Myasthenia gravis:
Recent history of falls may be secondary to poorly controlled myasthenia gravis
Continue home pyridostigmine regimen
Continue prednisone home regimen
Neurology consulted for optimization of myasthenia gravis medications
- Atrial fibrillation
Continue amiodarone
Continue Xarelto
- GERD
Continue pantoprazole
- Essential hypertension
Continue losartan
- Hypercholesterolemia
Continue atorvastatin
- Anxiety
Continue escitalopram
FULL CODE STATUS
DVT prophylaxis: Xarelto
[2025-03-13 13:59] LABS: Magnesium 0.8 mg/dl (1.6-2.3)
[2025-03-13] MEDS: CALCIUM CHLORIDE 10% SYRINGE 60 MG IV (14:00)
--- NOTE | 2025-03-13 15:03 | CON.NEURO4 ---
Addendum entered and electronically signed by Robert Rodriguez MD 03/13/25 16:23:
Studies reviewed.
I have personally examined the patient. I reviewed and agree with the [employer] ASSISTANT DEPARTMENT HEAD's Note.
My addenda:
Awake, alert, interactive. No acute distress.
Speech intact.
Follows 2-step requests w/o difficulty. No tremor.
Extra-ocular movements grossly intact.
Facial movements full and symmetric. Hearing intact to normal conversational volume.
Normal UE movements bilaterally.
Neck: full ROM.
Chest: no dyspnea
Heart: no JVD
Ext: (-) Clubbing, (-) Cyanosis
IMPRESSIONS/RECOMMENDATIONS:
Abrupt onset of gait worsening with abnormal metabolic changes
Most likely secondary to orthostatic hypotension worsening in the patient with previously diagnosed parkinsonism and myasthenia gravis.
As an outpatient, patient should be considered for Rozanolixizumab
Patient should be continued on current dosing of pyridostigmine although there is the risk that this is producing sialorrhea
Patient should be continued on usual carbidopa/levodopa
Would add rotigotine patch to the patient's current therapy for Parkinson's disease as the patient has been experiencing freezing episodes by report and continued swallowing difficulty
Would avoid magnesium by IV. Instead patient should receive magnesium by mouth
Check barium swallow study and consult speech therapy due to routine underlying aspiration
Continue the patient's apixaban and atorvastatin to reduce future stroke risk
Provide abdominal binder
D/W patient / family
All questions answered.
Will continue to follow peripherally. Patient should be followed by his usual neurologists.
Original Note:
Consultation - Neurology 4
-
CONSULTING PHYSICIAN: Robert Rodriguez MD
REFERRING PHYSICIAN: Hospitalists/Dr. Alvarez MD Resident
DICTATED BY: ROVERTO Sheridan
DATE/TIME OF REQUEST: 03/13/25
DATE/TIME OF CONSULTATION: 03/13/25
Reason for Consultation: Myasthenia Gravis and magnesium repletion
History of Present Illness:
This is a 79-year-old male with a PMH of antibody positive myasthenia gravis, parkinson's disease confirmed by GUIDO scan, L MCA ischemic stroke, and Afib (apixaban) who has presented to the hospital with report of hypocalcemia and hypokalemia in
outpatient blood work. Patient is followed as an outpatient by Neurology Dr. Tomas for myasthenia gravis and Dr. Adam for parkinson's disease at [place]. Patient's notes that he has been sick for almost a year with bacterial pneumonia;
he has completed several courses of antibiotics for this. Additionally, he has fallen 7 times in the past few weeks. Lately, she notes that he has been having 'freezing' episodes several times a day lasting 1-2 minutes. He has also notes a
light-headed sensation every time he stands up, ongoing for 1.5 weeks. He has a history of orthostasis, he wears compression stockings for this. He has trouble finding his words and can be soft spoken at times, but speech has seemed at baseline. He
denies any difficulty swallowing, no coughing with oral intake. He does note frequent drooling, he always put a paper towel under his mouth to soak up the saliva. They report that he had a and it demonstrated aspiration. He has diplopia
intermittently, about 3 times per week. Short term memory isn't great. His mycophenolate was increased by 500mg in the morning about 6 months ago reportedly due to overall physical deterioration, there was no noticeable difference in the patient.
His prednisone was also decreased down to 12.5mg about 1.5 months ago. He has difficulty walking up stairs in the last 1.5 weeks as well.
Past Medical History: L MCA ischemic stroke s/p tPA 2020, myasthenia gravis, Parkinson's disease, Afib (apixaban), HTN, HLD, valvular disease, GERD, anxiety, diverticulitis, vertigo, left femur fracture, peripheral neuropathy
Surgical History: Hand surgery, L TKR, b/l cataract removal, right inguinal hernia repair
Family History: Reviewed and noncontributory.
Social History: Denies tobacco and illicit drug use. Occasional alcohol.
Allergies: Cephalexin, haloperidol, lorazepam.
Home Medications: See below.
Review of Symptoms:
Patient denies any fever, headache, chest pain, GI or symptoms.
�Per the HPI.�All systems are reviewed negative except above.
Physical Exam:
The patient is afebrile, abdomen is nondistended, breathing is labored and rhonchi audible, skin is warm and dry, +2 RLE and +1 LLE edema.
Neurologic Examination:
The patient is awake, alert and oriented x 3. He is able to follow commands and answer questions appropriately. There is no aphasia or dysarthria. On cranial nerve assessment, pupils are 3 mm bilateral, round and reactive to light and
accommodation. Visual muir are full. Extraocular movements are intact. Prolonged upgaze produces right eye exotropia, reports diplopia. No ptosis. +Masked facies. Facial sensations are intact and bilaterally symmetrical, there is no facial
asymmetry. Hearing is intact bilaterally to normal conversation volume. Tongue palate and uvula are midline. No tongue fasciculations. Motor strengths are 4/5 proximal bilateral upper extremities, 5/5 proximal right lower, and 4/5 proximal left
lower extremities on medical research [place] scale. Neck extension 4/5, neck flexion 5-/5. Distal strength in upper and lowers is 5.5. There is no drift or involuntary movement noted. Deep tendon reflexes are 2+ bilateral upper and lower
extremities and Babinski is absent bilaterally. Sensations of pain, touch, temperature and vibration are intact and bilaterally symmetrical. There was no extinction noted on double simultaneous stimulation. Coordination is intact by finger to nose
bilaterally.
Lab Results: See below.
Neuro Imaging: None.
Differentials for the patient's presentation include:
1. Concern for poor control of myasthenia gravis given recurrent pneumonia in the setting of silent aspiration and proximal weakness.
2. Parkinson's disease also contributing to aspiration. Frequent freezing episodes.
3. Orthostatic hypotension.
4. Electrolyte abnormalities.
Patient has the following risk factors for their symptoms: MG, PD, hx stroke
Recommendations:
-Would talk to Dr. Tomas about starting a more aggressive treatment for myasthenia gravis as an outpatient to get better control of his symptoms.
-Would talk to Dr. Haas about starting a rotigotine patch in addition to current carbidopa/levodopa schedule to try to get better control of his Parkinson's disease.
-Would wear an abdominal binder daily when OOB for orthostasis.
-Patient would benefit from a repeat video swallow study.
-Would prefer magnesium replacement orally if possible rather than IV.
Discussed patient care with: Dr. Rodriguez, the patient
Vital Signs and Labs
-
Vital Signs and Labs:
Vital Signs
Temp Pulse Resp BP Pulse Ox
97.8 F 66 16 136/85 98
03/13/25 12:06 03/13/25 15:32 03/13/25 15:32 03/13/25 15:32 03/13/25 15:32
Lab Results
03/13/25 12:11
03/13/25 12:11
Sodium 142 mmol/L (135-145) 03/13/25 12:11
Potassium 3.5 mmol/L (3.5-5.1) 03/13/25 12:11
BUN 18 mg/dl (9-20) 03/13/25 12:11
Glucose 94 mg/dl (70-99) 03/13/25 12:11
Calcium 5.6 mg/dl (8.4-10.2) L* 03/13/25 12:11
Medications
-
Active Medications
Generic Name Dose Route Start Last Admin
Trade Name Freq PRN Reason Stop Dose Admin
Acetaminophen 1,000 mg 03/13/25 14:54
Acetaminophen 500 Mg Tablet PO 04/10/25 14:53
Q6HPRN PRN
mild pain
Albuterol/Ipratropium 3 ml 03/13/25 20:00
Ipratropium 0.5/Albuterol 3 Mg (3 Ml Ampul) INH
R BID LISBETH
Protocol
Amiodarone HCl 100 mg 03/14/25 08:00
Amiodarone 200 Mg Tablet PO 04/11/25 07:59
DAILY LISBETH
Apixaban 5 mg 03/13/25 20:00
Apixaban (Eliquis) 5 Mg Tablet PO 04/10/25 19:59
BID LISBETH
Atorvastatin Calcium 20 mg 03/13/25 18:00
Atorvastatin (Lipitor) 20 Mg Tablet PO 04/10/25 17:59
QPM LISBETH
Carbidopa/Levodopa 1 tablet 03/13/25 22:00
Carbidopa (50 Mg)/Levodopa (200 Mg) Extended Release Tablet PO 04/10/25 21:59
HS LISBETH
Carbidopa/Levodopa 2 tablet 03/13/25 16:00
Carbidopa (25 Mg)/Levodopa (100 Mg) Regular Release Tablet PO 04/10/25 15:59
TID@08,12,16 LISBETH
Cholecalciferol 25 mcg/ 75 mcg 03/14/25 08:00
Cholecalciferol 50 mcg PO 04/11/25 07:59
DAILY LISBETH
Cyanocobalamin 3,000 mcg 03/14/25 08:00
Cyanocobalamin 1,000 Mcg Tablet PO 04/11/25 07:59
DAILY LISBETH
Escitalopram Oxalate 10 mg 03/14/25 08:00
Escitalopram 10 Mg Tablet PO 04/11/25 07:59
DAILY LISBETH
Losartan Potassium 100 mg 03/13/25 22:00
Losartan 50 Mg Tablet PO 04/10/25 21:59
HS LISBETH
Magnesium Oxide 500 mg 03/13/25 20:00
Magnesium Oxide 500 Mg Tablet PO 04/10/25 19:59
BID LISBETH
Melatonin 5 mg 03/13/25 22:00
Melatonin 5 Mg Tablet PO 04/10/25 21:59
HS LISBETH
Non-Formulary Medication 1,500 mg 03/14/25 08:00
Mycophenolate Mofetil PO 04/11/25 07:59
DAILY LISBETH
Non-Formulary Medication 1,000 mg 03/13/25 22:00
Mycophenolate Mofetil PO 04/10/25 21:59
HS LISBETH
Pantoprazole Sodium 40 mg 03/14/25 08:00
Pantoprazole 40 Mg Delayed Release Tablet PO 04/11/25 07:59
DAILY LISBETH
Prednisone 10 mg/ Prednisone 2 12.5 mg 03/15/25 08:00
.5 mg PO 04/12/25 07:59
Q48H LISBETH
Prednisone 10 mg/ Prednisone 2 12.5 mg 03/13/25 16:00
.5 mg PO 03/13/25 16:01
ONCE ONE
Pyridostigmine Barnard 30 mg 03/13/25 22:00
Pyridostigmine 60 Mg Tablet PO 04/10/25 21:59
HS LISBETH
Pyridostigmine Barnard 90 mg 03/13/25 16:00
Pyridostigmine 60 Mg Tablet PO 04/10/25 15:59
TID@ LISBETH
Tramadol HCl 50 mg 03/13/25 14:54
Tramadol Hcl 50 Mg Tablet PO 04/10/25 14:53
Q8HPRN PRN
moderate pain
Home Medications
�Medication �Instructions �Recorded
mycophenolate mofetil 500 mg tablet 1,000 mg PO HS IMMUNE suppressant 12/17/20
prednisone 10 mg tablet 12.5 mg PO Q48H Anti-inflammatory 12/17/20
pyridostigmine bromide 60 mg tablet 30 mg PO HS MYASTHENIA 05/04/21
pyridostigmine bromide 60 mg tablet 90 mg PO TID@08,,16 MYASTHENIA 05/18/21
amiodarone 200 mg tablet (Pacerone) 100 mg PO DAILY Arrhythmia 09/23/21
escitalopram oxalate 10 mg tablet 10 mg PO DAILY Depression 03/01/22
losartan 50 mg tablet 100 mg PO HS Blood Pressure 03/01/22
acetaminophen 500 mg tablet 1,000 mg (2 x 500 mg) PO Q6HPRN 03/18/22
(Tylenol Extra Strength) PRN mild pain #1 tab
atorvastatin 20 mg tablet 20 mg PO QPM High Cholesterol 07/20/22
carbidopa 25 mg-levodopa 100 mg 2 tab PO TID@08,12,16 Neurological 07/20/22
tablet Condition
carbidopa ER 50 mg-levodopa 200 mg 1 tab PO HS 10/01/24
tablet,extended release
cholecalciferol (vitamin D3) 25 3,000 unit PO DAILY@1200 10/01/24
mcg (1,000 unit) tablet (Vitamin
D3)
ipratropium 0.5 mg-albuterol 3 mg 3 ml inhalation R BID 10/01/24
(2.5 mg base)/3 mL nebulization
soln
mecobalamin (vitamin B12) 1,000 3,000 mcg PO DAILY 10/01/24
mcg chewable tablet (B12 Active)
mycophenolate mofetil 500 mg 1,500 mg PO DAILY 10/01/24
tablet (CellCept)
pantoprazole 40 mg tablet,delayed 40 mg PO DAILY 10/01/24
release
apixaban 5 mg tablet (Eliquis) 5 mg PO BID 03/13/25
melatonin 5 mg tablet 5 mg PO HS 03/13/25
tramadol 50 mg tablet 50 mg PO Q8HPRN PRN moderarte pain 03/13/25
[2025-03-13 15:51] LABS: TSH 0.99 uIU/ml (0.47-4.68)
--- NOTE | 2025-03-13 16:05 | CM ---
CM met with pt and spouse bedside
They reside in a 2SH with 1 [place], full flight to 2nd floor
Pt is indep at baseline
Has a WW/SPC and shower chair for use as needed
[facility]
If VN needs on dc, [facility] is provider choice
PCP- Tomas Yanez
Rx- [facility]
Discharge Disposition- home, follow for needs
[2025-03-13] MEDS: MESTINON PO (16:39)
[2025-03-13] MEDS: SINEMET 25-100 PO (16:39)
--- NOTE | 2025-03-13 16:45 | PTCARENOTE ---
Received pt from ED via stretcher. Stretcher placed next to bed, pt able to stand and pivot into bed with assist x1 and RW. Assessed and oriented to room. quality assurance monitor final placed. Pt at bedside. Will cont to monitor.
[2025-03-13] MEDS: MAGNESIUM OXIDE 500 MG PO ×2 (17:34→20:28)
[2025-03-13 17:48] LABS: Calcium 6.5 mg/dl (8.4-10.2)
--- NOTE | 2025-03-13 17:50 | PTCARENOTE ---
Lab informed this RN of critical calcium value, result= 6.5. Resident made aware.
[2025-03-13 18:03] LABS: Vitamin D, 25-OH*** 48.9 ng/mL (30-80)
[2025-03-13] MEDS: DUONEB 3 ML INH (19:15)
[2025-03-13] MEDS: SINEMET CR 50/200 (EXTENDED RELEASE) 1 TABLET PO (20:25)
[2025-03-13] MEDS: COZAAR 100 MG PO (20:26)
[2025-03-13] MEDS: MESTINON 30 MG PO (20:27)
[2025-03-13] MEDS: LIPITOR 20 MG PO (20:27)
[2025-03-13] MEDS: MELATONIN 5 MG PO (20:28)
[2025-03-13] MEDS: ELIQUIS 5 MG PO (20:28)
[2025-03-13] MEDS: NON-FORMULARY ITEM PO (20:29)
[2025-03-13] MEDS: NON-FORMULARY ITEM 1000 MG PO (20:39)
[2025-03-14 02:52] VITALS: BP 164/76
--- NOTE | 2025-03-14 07:25 | W.PN.HOSP.TC ---
Addendum entered and electronically signed by Tomasz Branch DO 03/15/25 12:00:
CDI: Chronic anemia, paroxysmal AF, neurogenic orthostatic hypotension presumed
Original Note:
Today's Communication/Plan
-
Continue magnesium and calcium repletion -follow with labs
Appreciate neurology recommendations -will avoid IV magnesium
Neurology added rotigotine patch for Parkinson's disease
Speech and swallow recommended regular diet with thin liquids
Will provide an abdominal binder due to history of orthostatic hypotension
Consideration of midodrine 5 mg 3 times a day if patient remains hemodynamically unstable despite abdominal binder
Assessment / Plan
Assessment / Plan
HPI: This is a 79-year-old male with a PMH of antibody positive myasthenia gravis, parkinson's disease confirmed by GUIDO scan, L MCA ischemic stroke, and Afib (apixaban) who has presented to the hospital with report of hypocalcemia and hypokalemia in
outpatient blood work.
Assessment/Plan:
- Symptomatic hypocalcemia: Unresolved�improving
Replete calcium -IV calcium given
Parathyroid hormone within normal limits
Vitamin D levels within normal limits
Calcium was 6.5 with ionized calcium at 0.95 on 03/13/2025
- Symptomatic hypomagnesemia: Unresolved�monitoring
Magnesium oxide ordered
Will avoid IV magnesium for the time being as it may precipitate myasthenic crisis
- Parkinson's disease: Monitoring
Continue Cabidopa-Levodopa at patient's home regimen
Neurology consulted for optimization of medications
Appreciate neurology recommendations -they are under the impression that worsening gait may be secondary to orthostatic hypotension worsening in this patient diagnosed with parkinsonism and myasthenia gravis. They recommend consideration of
outpatient Rozanolixizumab. They recommend continuing current dose of pyridostigmine and his usual carbidopa/levodopa.
Neurology added rotigotine patch for the patient's Parkinson's disease as the patient has been experience frequent freezing episodes and continued swallowing difficulty
Speech and swallow study ordered due to concerns of microaspiration -they recommended regular solids and thin liquids
- Myasthenia gravis: Monitoring
Recent history of falls may be secondary to poorly controlled myasthenia gravis
Continue home pyridostigmine regimen
Continue prednisone home regimen
Neurology consulted for optimization of myasthenia gravis medications
- Atrial fibrillation: Monitoring
Continue amiodarone
Continue Xarelto
- GERD: Monitoring
Continue pantoprazole
- Essential hypertension: Monitoring
Continue losartan
- Hypercholesterolemia: Monitoring
Continue atorvastatin
- Anxiety: Monitoring
Continue escitalopram
FULL CODE STATUS
Stress Ulcer Prophylaxis: Pantoprazole
DVT Prophylaxis: Xarelto
Imaging:
Procedures:
Anticipated Discharge: 24 - 48 hours
Subjective/Interval History
-
Date of Service: March 14, 2025
Met with patient at the bedside. He is polite in conversation but clearly a bit frustrated due to the fact that he did not eat this morning or last night. I informed the patient that we held off on placing diet orders until we had a speech and
swallow evaluation done. I discussed with the patient that we will select a diet appropriate for him as there is concerns that he may be aspirating some of his food which may be the reason for his ongoing respiratory infections.
Objective Data
-
Labs:
Labs
03/14/25 08:31
03/14/25 08:31
Vital Signs:
Vital Signs
Temp Pulse Resp BP Pulse Ox
97.1 F 57 14 164/76 94
03/14/25 02:52 03/14/25 07:39 03/14/25 07:39 03/14/25 02:52 03/14/25 07:39
I&O
03/13/25 03/14/25 03/15/25
06:59 06:59 06:59
Output Total 275 / 275
Balance -275 / -275
Review of Systems
-
History Source: Patient
Constitutional: Reports No Symptoms
Respiratory: Reports Cough
Cardiac: Reports No Symptoms
Abdomen/GI: Reports No Symptoms
Breast: Reports No Symptoms
Genitourinary: Reports No Symptoms
Musculoskeletal: Reports Muscle Weakness
Skin: Reports No Symptoms
Neuro: Reports No Symptoms
Endocrine: Reports No Symptoms
Physical Exam
-
General: Well Developed, Well Nourished, No Apparent Distress and Comfortable
HEENT: Normocephalic, Atraumatic and Moist Mucous Membranes
Respiratory: Rhonchi, Crackles and Decreased Breath Sounds (Bilaterally in the lung bases)
Cardiac: Regular Rhythm; Negative Murmur, Rub or Gallop
GI: Soft, Nontender, Nondistended and Normal Bowel Sounds
Musculoskeletal: No Clubbing, No Cyanosis and No Edema
Skin: Warm and Dry; Negative Rash, Ulcers or Lesions
Neuro: Awake, Alert, Oriented and AO x 3
Psych: Calm
[2025-03-14 07:30] VITALS: BP 171/76
[2025-03-14] MEDS: DUONEB 3 ML INH ×2 (07:36→19:42)
--- NOTE | 2025-03-14 07:52 | W.PN.NEURO.1 ---
Today's Communication / Plan
-
.
Neuro Assessment/Plan
Assessment
Abrupt onset of gait worsening with abnormal metabolic changes
Most likely secondary to orthostatic hypotension worsening in the patient with previously diagnosed parkinsonism and myasthenia gravis.
Plan
As an outpatient, patient should be considered for Rozanolixizumab
Patient should be continued on current dosing of pyridostigmine although there is the risk that this is producing sialorrhea
Patient should be continued on usual carbidopa/levodopa
Added rotigotine patch to the patient's current therapy for Parkinson's disease as the patient has been experiencing freezing episodes by report and continued swallowing difficulty
Would avoid magnesium by IV. Instead patient should receive magnesium by mouth
Check barium swallow study and consult speech therapy due to routine underlying aspiration
Continue the patient's apixaban and atorvastatin to reduce future stroke risk
Provide abdominal binder due to prior history of orthostatic hypotension
Would add midodrine 5 mg 3 times a day if systolic blood pressure less than or equal to 90 at any time
Will follow as needed.
Subjective/Objective
Subjective Data
Date of Service: March 14, 2025
Objective Data
Vital Signs
Temp Pulse Resp BP Pulse Ox
36.2 C 57 14 164/76 94
03/14/25 02:52 03/14/25 07:39 03/14/25 07:39 03/14/25 02:52 03/14/25 07:39
Lab Results
03/13/25 12:11
03/13/25 12:11
Sodium 142 mmol/L (135-145) 03/13/25 12:11
Potassium 3.5 mmol/L (3.5-5.1) 03/13/25 12:11
BUN 18 mg/dl (9-20) 03/13/25 12:11
Glucose 94 mg/dl (70-99) 03/13/25 12:11
Calcium 6.5 mg/dl (8.4-10.2) L* 03/13/25 17:22
Patient Allergies
cephalexin Allergy (Verified 03/13/25 17:09)
ItchingAND REDNESS
haloperidol (From Haldol) Allergy (Verified 03/13/25 12:04)
hallucinations
lorazepam (From Ativan) Allergy (Verified 03/13/25 12:04)
hallucinations
Data Reviewed
-
Labs: Report Reviewed
Reviewed with: Nurse Practioner
Old Records: Summarized
Past History
Past History
ED Past Medical History: Arrthythmia (Atrial fib), CVA (No residual weakness), GERD, HTN, Hypercholesterolemia, Valvular disease, Psychiatric (Anxiety) and Other (Parkinson's disease, myasthenia gravis, Diverticulitis, Renal calculus, Vertigo,
orthostatic hypotension)
ED Past Surgical History: Orthopedic (Hand surgery, Left total knee replacement, left femoral fracture) and Other (Cataracts, Right inguinal hernia)
Patient has exhibited threatening behavior?: No
Social History
Tobacco: Non-smoker
Alcohol: Occasional
Drug: None
Personal:
Living: with family
Employment: Retired
Family History
Family History: Other (Reviewed and noncontributory)
Medications
-
Medications:
Generic Name Dose Route Start Last Admin
Trade Name Freq PRN Reason Stop Dose Admin
Acetaminophen 1,000 mg 03/13/25 14:54
Acetaminophen 500 Mg Tablet PO 04/10/25 14:53
Q6HPRN PRN
mild pain
Albuterol/Ipratropium 3 ml 03/13/25 20:00 03/14/25 07:36
Ipratropium 0.5/Albuterol 3 Mg (3 Ml Ampul) INH 3 ml
R BID LISBETH Administration
Protocol
Amiodarone HCl 100 mg 03/14/25 08:00
Amiodarone 200 Mg Tablet PO 04/11/25 07:59
DAILY LISBETH
Apixaban 5 mg 03/13/25 20:00 03/13/25 20:28
Apixaban (Eliquis) 5 Mg Tablet PO 04/10/25 19:59 5 mg
BID LISBETH Administration
Atorvastatin Calcium 20 mg 03/13/25 20:00 03/13/25 20:27
Atorvastatin (Lipitor) 20 Mg Tablet PO 04/10/25 19:59 20 mg
QPM LISBETH Administration
Carbidopa/Levodopa 1 tablet 03/13/25 22:00 03/13/25 20:25
Carbidopa (50 Mg)/Levodopa (200 Mg) Extended Release Tablet PO 04/10/25 21:59 1 tablet
HS LISBETH Administration
Carbidopa/Levodopa 2 tablet 03/13/25 16:00 03/13/25 16:39
Carbidopa (25 Mg)/Levodopa (100 Mg) Regular Release Tablet PO 04/10/25 15:59 Not Given
TID@08,12,16 LISBETH
Cholecalciferol 25 mcg/ 75 mcg 03/14/25 08:00
Cholecalciferol 50 mcg PO 04/11/25 07:59
DAILY LISBETH
Cyanocobalamin 3,000 mcg 03/14/25 08:00
Cyanocobalamin 1,000 Mcg Tablet PO 04/11/25 07:59
DAILY LISBETH
Escitalopram Oxalate 10 mg 03/14/25 08:00
Escitalopram 10 Mg Tablet PO 04/11/25 07:59
DAILY LISBETH
Losartan Potassium 100 mg 03/13/25 22:00 03/13/25 20:26
Losartan 50 Mg Tablet PO 04/10/25 21:59 100 mg
HS LISBETH Administration
Magnesium Oxide 500 mg 03/13/25 20:00 03/13/25 20:28
Magnesium Oxide 500 Mg Tablet PO 04/10/25 19:59 500 mg
BID LISBETH Administration
Melatonin 5 mg 03/13/25 22:00 03/13/25 20:28
Melatonin 5 Mg Tablet PO 04/10/25 21:59 5 mg
HS LISBETH Administration
Mycophenolate 0 mg 03/14/25 08:00
Mofetil 1500 Mg (3 X PO 04/11/25 07:59
500 Mg Tablets)Po DAILY LISBETH
Daily
Mycophenolate 0 mg 03/13/25 22:00 03/13/25 20:39
Mofetil 1,000 Mg ( 2 PO 04/10/25 21:59 1,000 mg
X 500 Mg Tablets)Po HS LISBETH Administration
Hs
Pantoprazole Sodium 40 mg 03/14/25 08:00
Pantoprazole 40 Mg Delayed Release Tablet PO 04/11/25 07:59
DAILY LISBETH
Prednisone 10 mg/ Prednisone 2 12.5 mg 03/15/25 08:00
.5 mg PO 04/12/25 07:59
Q48H LISBETH
Pyridostigmine [place] 30 mg 03/13/25 22:00 03/13/25 20:27
Pyridostigmine 60 Mg Tablet PO 04/10/25 21:59 30 mg
HS LISBETH Administration
Pyridostigmine [place] 90 mg 03/13/25 16:00 03/13/25 16:39
Pyridostigmine 60 Mg Tablet PO 04/10/25 15:59 Not Given
TID@08,12,16 LISBETH
Sodium Chloride 0 flush 03/13/25 18:00
Sodium Chloride 0.9% (Flush) Syringe IV 04/10/25 17:59
PER PROTOCOL LISBETH
Tramadol HCl 50 mg 03/13/25 14:54
Tramadol Hcl 50 Mg Tablet PO 04/10/25 14:53
Q8HPRN PRN
moderate pain
[2025-03-14] MEDS: NON-FORMULARY ITEM 1500 MG PO (08:50)
[2025-03-14] MEDS: ELIQUIS 5 MG PO ×2 (08:51→20:33)
[2025-03-14] MEDS: MAGNESIUM OXIDE 500 MG PO (08:51)
[2025-03-14] MEDS: VITAMIN D3 (cholecalciferol) 75 MCG PO (08:52)
[2025-03-14] MEDS: PACERONE 100 MG PO (08:54)
[2025-03-14] MEDS: LEXAPRO 10 MG PO (08:55)
[2025-03-14] MEDS: VITAMIN B-12 3000 MCG PO (08:55)
[2025-03-14] MEDS: PROTONIX 40 MG PO (08:55)
[2025-03-14] MEDS: NEUPRO 1 MG TRANSDERM (08:57)
[2025-03-14] MEDS: MESTINON 90 MG PO ×3 (09:00→15:50)
[2025-03-14] MEDS: SINEMET 25-100 2 TABLET PO ×3 (09:01→15:51)
--- NOTE | 2025-03-14 09:15 | PTOTSP ---
Speech Language Pathology
Pt seen for clinical bedside swallow evaluation. Known to [employer] service at from 2 previous VSEs (07/19/24 and 07/06/16) in addition to outpatient therapy for voice and aphasia and during inpatient hospitalizations. Most recent VSE completed
07/19/24 with findings of mild pharyngeal dysphagia. Varying degrees of penetration noted with no aspiration, and recommendations were for regular solids/thin liquids. Also recommended GI given backflow from esophagus into pyriform sinuses.
This date, P.O. trials of puree, regular solids, and thin liquids provided. Adequate mastication, bolus formation, and A-P transit noted with no oral residue. No overt signs of aspiration.
Recommend:
(1) Regular solids/thin liquids
(2) General aspiration precautions
(3) Esophageal precautions
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 Please reconsult as indicated
[2025-03-14 09:51] LABS: Hematocrit 28.7 % (39.0-52.0); Hemoglobin 9.1 g/dL (13.0-18.0); Mean Corp Hgb Conc. 31.7 g/dL (33.0-37.0); Mean Corpuscular Volume 87.5 fL (80.0-94.0); Platelet Count 208 10^3/uL (130-400); Red Cell Dist. Width 15.5 % (11.5-14.5)
[2025-03-14 10:06] LABS: ALT (SGPT) 12 U/L (0-50); AST (SGOT) 25 U/L (17-59); Albumin 3.1 g/dl (3.5-5.0); Alkaline Phosphatase 88 U/L (38-126); Blood Urea Nitrogen 15 mg/dl (9-20); Calcium 6.0 mg/dl (8.4-10.2); Carbon Dioxide 20 mmol/L (22-30); Chloride 115 mmol/L (98-107); Estimated Creatinine Clearance 67 ml/min; Glucose 70 mg/dl (70-99); Magnesium 0.8 mg/dl (1.6-2.3); Potassium 3.0 mmol/L (3.5-5.1); Sodium 143 mmol/L (135-145); Total Protein 5.6 g/dl (6.3-8.2); eGFR > 60.00
--- NOTE | 2025-03-14 10:20 | PTCARENOTE ---
Critical lab result received for patient.
Calcium 6.0
Magnesium .08
Provider informed via tiger text and acknowledgement received. Patient shows not acute distress or alteration in mental status.
[2025-03-14] MEDS: MAGNESIUM OXIDE 1000 MG PO ×3 (10:41→20:37)
[2025-03-14] MEDS: CALCIUM CHLORIDE 10% SYRINGE 60 MG IV ×2 (10:45→20:32)
--- NOTE | 2025-03-14 10:53 | CM ---
Patient seen at bedside
Regular diet today
PLAN: home, CM to follow for needs
--- NOTE | 2025-03-14 10:59 | CM ---
Patient seen at bedside
seen by ST
Regular diet this am
neurology consult
tt hospitalist PT/OT orders
states has had [facility] in past
PLAN: tbd, follow hospital progress, CM to follow for needs
[2025-03-14 11:30] VITALS: BP 118/60
[2025-03-14] MEDS: KCL 270 MEQ IV ×2 (12:02→16:14)
--- NOTE | 2025-03-14 13:04 | PTCARENOTE ---
Critical lab result received
Calcium 6.0
Magnesium .08
Provider informed via tiger text and acknowledgement received.
[2025-03-14 16:00] VITALS: BP 157/73
[2025-03-14] MEDS: LIPITOR PO (18:23)
[2025-03-14 19:21] VITALS: BP 157/77
[2025-03-14 19:45] LABS: Hepatitis C Antibody Negative (Negative)
[2025-03-14] MEDS: MESTINON 30 MG PO (20:32)
[2025-03-14] MEDS: COZAAR 100 MG PO (20:33)
[2025-03-14] MEDS: LIPITOR 20 MG PO (20:33)
[2025-03-14] MEDS: MELATONIN 5 MG PO (20:38)
[2025-03-14] MEDS: SINEMET CR 50/200 (EXTENDED RELEASE) 1 TABLET PO (20:39)
[2025-03-14] MEDS: NON-FORMULARY ITEM 1000 MG PO (21:02)
[2025-03-14 23:43] VITALS: BP 151/72
[2025-03-15] VITALS (8 sets, daily range): BP systolic 87–182; BP diastolic 49–88; PULSE 73–76
[2025-03-15] MEDS: DUONEB 3 ML INH ×2 (07:28→22:00)
--- NOTE | 2025-03-15 07:30 | W.PN.HOSP.TC ---
Today's Communication/Plan
-
Continuing to replete calcium. It was 6.2 today.
Magnesium improved today to 1.0 - continue to replete
Patient diet regular solids with thin liquids based on swallow study
Assessment / Plan
Assessment / Plan
HPI: This is a 79-year-old male with a PMH of antibody positive myasthenia gravis, parkinson's disease confirmed by GUIDO scan, L MCA ischemic stroke, and Afib (apixaban) who has presented to the hospital with report of hypocalcemia and hypokalemia in
outpatient blood work.
Assessment/Plan:
- Symptomatic hypocalcemia: Unresolved�improving
Replete calcium -IV calcium given
Parathyroid hormone within normal limits
Vitamin D levels within normal limits
Calcium was 6.5 with ionized calcium at 0.95 on 03/13/2025, calcium 6.2 on 03/15/2025
- Symptomatic hypomagnesemia: Unresolved�monitoring
Magnesium oxide 1000 mg 3 times daily
Will avoid IV magnesium for the time being as it may precipitate myasthenic crisis
Magnesium was 1.0 on 03/15/2025
-Leukopenia: Monitoring
Patient was leukopenic on 03/15/2025 with a white blood cell count of 3.6
Likely secondary due to hemodilution as the patient has been receiving copious fluids with calcium supplementation
- Parkinson's disease: Monitoring
Continue Cabidopa-Levodopa at patient's home regimen
Neurology consulted for optimization of medications
Appreciate neurology recommendations -they are under the impression that worsening gait may be secondary to orthostatic hypotension worsening in this patient diagnosed with parkinsonism and myasthenia gravis. They recommend consideration of
outpatient Rozanolixizumab. They recommend continuing current dose of pyridostigmine and his usual carbidopa/levodopa.
Neurology added rotigotine patch for the patient's Parkinson's disease as the patient has been experience frequent freezing episodes and continued swallowing difficulty
Speech and swallow study ordered due to concerns of microaspiration -they recommended regular solids and thin liquids. Spoke to [employer] about consideration of video swallow study and they did not feel that it was warranted based on prior studies
conducted in July.
- Myasthenia gravis: Monitoring
Recent history of falls may be secondary to poorly controlled myasthenia gravis
Continue home pyridostigmine regimen
Continue prednisone home regimen
Neurology consulted for optimization of myasthenia gravis medications
- Atrial fibrillation: Monitoring
Continue amiodarone
Continue Xarelto
- GERD: Monitoring
Continue pantoprazole
- Essential hypertension: Monitoring
Continue losartan
- Hypercholesterolemia: Monitoring
Continue atorvastatin
- Anxiety: Monitoring
Continue escitalopram
FULL CODE STATUS
Stress Ulcer Prophylaxis: Pantoprazole
DVT Prophylaxis: Xarelto
Anticipated Discharge: > 48 hours
Subjective/Interval History
-
Date of Service: March 15, 2025
Met with patient at the bedside. He is feeling much better today and believes that he is approaching his baseline. He is happy that he got to eat this morning and has been eating regularly since his diet was ordered. His will join him later
on in the afternoon and he is happy about that. He hopes to get out of bed and be able to walk if possible.
Objective Data
-
Labs:
Laboratory Results
03/15/25
08:02
WBC 3.6 L
Hgb 8.0 L
Hct 25.3 L
Plt Count 177
Sodium 143
Potassium 3.4 L
Chloride 119 H
Carbon Dioxide 22
BUN 11
Creatinine 0.9
Glucose 72
Calcium 6.2 L*
Total Bilirubin 1.3
AST 19
ALT < 10
Alkaline Phosphatase 75
Vital Signs:
Vital Signs
Temp Pulse Resp BP Pulse Ox
97.9 F 60 20 182/81 95
03/15/25 07:30 03/15/25 07:58 03/15/25 07:30 03/15/25 07:58 03/15/25 07:28
I&O
03/14/25 03/15/25 03/16/25
06:59 06:59 06:59
Intake Total 1100 / 1100
Output Total 275 / 275 175 / 175
Balance -275 / -275 925 / 925
Review of Systems
-
History Source: Patient
Constitutional: Reports No Symptoms
EENT: Reports No Symptoms Reported
Respiratory: Reports Cough
Cardiac: Reports No Symptoms
Abdomen/GI: Reports No Symptoms
Breast: Reports No Symptoms
Genitourinary: Reports No Symptoms
Musculoskeletal: Reports No Symptoms
Skin: Reports No Symptoms
Neuro: Reports No Symptoms
Endocrine: Reports No Symptoms
Hematologic / Lymphatic: Reports No Symptoms
Allergy / Immunology: Reports No Symptoms
Physical Exam
-
General: Well Developed, Well Nourished, No Apparent Distress and Comfortable
HEENT: Normocephalic, Atraumatic and Moist Mucous Membranes
Respiratory: Clear to Auscultation, Rhonchi and Crackles; Negative Wheezes or Rales
Cardiac: Regular Rhythm and S1/S2
Breast: Deferred by me
GI: Soft, Nontender, Nondistended and Normal Bowel Sounds
Musculoskeletal: No Clubbing, No Cyanosis and No Edema
Skin: Warm and Dry
Neuro: Awake, Alert, Oriented and AO x 3
Psych: Calm
[2025-03-15] MEDS: MAGNESIUM OXIDE 1000 MG PO ×3 (07:56→21:36)
[2025-03-15] MEDS: PROTONIX 40 MG PO (07:56)
[2025-03-15] MEDS: DELTASONE 12.5 MG PO (07:57)
[2025-03-15] MEDS: LEXAPRO 10 MG PO (07:57)
[2025-03-15] MEDS: VITAMIN B-12 3000 MCG PO (07:57)
[2025-03-15] MEDS: ELIQUIS 5 MG PO ×2 (07:57→21:36)
[2025-03-15] MEDS: PACERONE 100 MG PO (07:58)
[2025-03-15] MEDS: VITAMIN D3 (cholecalciferol) 75 MCG PO (07:58)
[2025-03-15] MEDS: NEUPRO 1 MG TRANSDERM (07:58)
[2025-03-15] MEDS: NON-FORMULARY ITEM 1500 MG PO (07:59)
[2025-03-15] MEDS: MESTINON 90 MG PO ×3 (08:01→16:34)
[2025-03-15] MEDS: SINEMET 25-100 2 TABLET PO ×3 (08:04→16:33)
[2025-03-15 08:30] LABS: Hematocrit 25.3 % (39.0-52.0); Hemoglobin 8.0 g/dL (13.0-18.0); Mean Corp Hgb Conc. 31.6 g/dL (33.0-37.0); Mean Corpuscular Volume 89.1 fL (80.0-94.0); Platelet Count 177 10^3/uL (130-400); Red Cell Dist. Width 15.2 % (11.5-14.5)
[2025-03-15 09:20] LABS: ALT (SGPT) < 10 U/L (0-50); AST (SGOT) 19 U/L (17-59); Albumin 2.8 g/dl (3.5-5.0); Alkaline Phosphatase 75 U/L (38-126); Blood Urea Nitrogen 11 mg/dl (9-20); Calcium 6.2 mg/dl (8.4-10.2); Carbon Dioxide 22 mmol/L (22-30); Chloride 119 mmol/L (98-107); Estimated Creatinine Clearance 74 ml/min; Glucose 72 mg/dl (70-99); Magnesium 1.0 mg/dl (1.6-2.3); Potassium 3.4 mmol/L (3.5-5.1); Sodium 143 mmol/L (135-145); Total Protein 5.2 g/dl (6.3-8.2); eGFR > 60.00
[2025-03-15] MEDS: CALCIUM CHLORIDE 10% SYRINGE 70 MG IV ×2 (10:12→15:47)
[2025-03-15] MEDS: KCL 270 MEQ IV ×2 (10:12→15:39)
--- NOTE | 2025-03-15 10:57 | CM ---
Addendum entered by Stephanie Fletcher 03/15/25 15:11:
Met with patient and
Daughter Silvia called ([phone]) requested clinicals to be faxed to [facility] as they will review (Daughter works at [employer])
Spoke with Maggie at [facility] and faxed clinicals to [phone] and stated they will review & that the social media marketing manager Ashley will get back to (Ashley [phone])
Original Note:
Patient seen at bedside
PT rec SNF
options reviewed with patient and
[email or web address].gov packet left in patient room as would like to look at this & will let CM know what facilities to add in careport.
no pre-auth required
IMM explained & signed. In chart
PLAN: SNF, pending acceptance/bed availability, when stable
--- NOTE | 2025-03-15 11:31 | PN.CDI ---
CDI
- -
CDI:
Physician Documentation Request
Admit Date: 03/13/25 15:25
Dear Doctor Alvarez,
Patient presents to ED with abnormal outpatient lab work and complaints of generalized weakness.
Patient found to have hypocalcemia, hypomagnesemia. Patient has a history of Parkinson's disease and Myasthenia gravis.
Neurology consulted and states 'abrupt onset of gait worsening with abnormal metabolic changes. Most likely secondary to orthostatic hypotension worsening in the patient with previously diagnosed parkinsonism and myasthenia gravis'
Could you please further specify regarding orthostatic hypotension
Neurogenic orthostatic hypotension
Orthostatic hypotension only
Other
Use of terms such as suspected, likely, concern for, or probable (associated with a specific diagnosis that is being evaluated, monitored, or treated as if it exists) are acceptable and can be coded in the inpatient setting, when documented at the
time of discharge.
Thank you,
Kimberly Dawson RN BSN
CDI Specialist
tiger text
Please use your independent medical judgment in providing your response.
--- NOTE | 2025-03-15 11:45 | PN.CDI ---
CDI
- -
CDI:
Physician Documentation Request
Admit Date: 03/13/25 15:25
Dear Doctor Alvarez,
Progress notes include a diagnosis of 'Atrial fibrillation: monitoring continue amiodarone, continue Xarelto'
Please provide further specificity regarding atrial fibrillation:
Paroxysmal atrial fibrillation - terminates spontaneously or with intervention within 7 days of onset
Persistent atrial fibrillation - episodes of continuous AF that last more than 7 days and do not self-terminate
Other - please specify
Use of terms such as suspected, likely, concern for, or probable (associated with a specific diagnosis that is being evaluated, monitored, or treated as if it exists) are acceptable and can be coded in the inpatient setting, when documented at the
time of discharge.
Thank you,
Kimberly Dawson RN, BSN
CDI Specialist
tiger text
Please use your independent medical judgment in providing your response.
--- NOTE | 2025-03-15 11:50 | PN.CDI ---
CDI
- -
CDI:
Physician Documentation Request
Admit Date: 03/13/25 15:25
Dear Doctor Alvarez,
Patient admitted with hypocalcemia and hypomagnesemia.
H/H results:
Laboratory Tests
03/13/25 03/14/25 03/15/25
12:11 08:31 08:02
Hgb 8.8 L 9.1 L 8.0 L
Hct 28.2 L 28.7 L 25.3 L
Could you please provide a diagnosis that supports the above lab abnormalities and additional evaluation, monitoring:
Anemia - please specify type
Abnormal lab value clinically insignificant
Other
Use of terms such as suspected, likely, concern for, or probable (associated with a specific diagnosis that is being evaluated, monitored, or treated as if it exists) are acceptable and can be coded in the inpatient setting, when documented at the
time of discharge.
Thank you,
Kimberly Dawson RN, BSN
CDI Specialist
tiger text
Please use your independent medical judgment in providing your response.
[2025-03-15] MEDS: DUONEB INH (19:32)
[2025-03-15] MEDS: LIPITOR 20 MG PO (21:36)
[2025-03-15] MEDS: SINEMET CR 50/200 (EXTENDED RELEASE) 1 TABLET PO (21:36)
[2025-03-15] MEDS: COZAAR 100 MG PO (21:36)
[2025-03-15] MEDS: MELATONIN 5 MG PO (21:37)
[2025-03-15] MEDS: MESTINON 30 MG PO (21:37)
[2025-03-15] MEDS: NON-FORMULARY ITEM 1000 MG PO (21:37)
[2025-03-16] VITALS (7 sets, daily range): BP systolic 91–172; BP diastolic 56–78; PULSE 64
[2025-03-16 05:47] LABS: Hematocrit 24.3 % (39.0-52.0); Hemoglobin 7.7 g/dL (13.0-18.0); Mean Corp Hgb Conc. 31.7 g/dL (33.0-37.0); Mean Corpuscular Volume 89.3 fL (80.0-94.0); Platelet Count 172 10^3/uL (130-400); Red Cell Dist. Width 15.3 % (11.5-14.5)
[2025-03-16 06:20] LABS: ALT (SGPT) < 10 U/L (0-50); AST (SGOT) 19 U/L (17-59); Albumin 2.7 g/dl (3.5-5.0); Alkaline Phosphatase 70 U/L (38-126); Blood Urea Nitrogen 13 mg/dl (9-20); Calcium 7.8 mg/dl (8.4-10.2); Carbon Dioxide 25 mmol/L (22-30); Chloride 117 mmol/L (98-107); Estimated Creatinine Clearance 74 ml/min; Glucose 91 mg/dl (70-99); Magnesium 1.3 mg/dl (1.6-2.3); Potassium 4.1 mmol/L (3.5-5.1); Sodium 141 mmol/L (135-145); Total Protein 5.1 g/dl (6.3-8.2); eGFR > 60.00
[2025-03-16] MEDS: DUONEB 3 ML INH ×2 (07:17→19:36)
[2025-03-16] MEDS: VITAMIN D3 (cholecalciferol) 75 MCG PO (09:36)
[2025-03-16] MEDS: PROTONIX 40 MG PO (09:37)
[2025-03-16] MEDS: VITAMIN B-12 3000 MCG PO (09:37)
[2025-03-16] MEDS: PACERONE 100 MG PO (09:37)
[2025-03-16] MEDS: MAGNESIUM OXIDE 1000 MG PO ×3 (09:37→21:19)
[2025-03-16] MEDS: LEXAPRO 10 MG PO (09:37)
[2025-03-16] MEDS: NEUPRO 1 MG TRANSDERM (09:38)
[2025-03-16] MEDS: ELIQUIS 5 MG PO ×2 (09:38→21:21)
[2025-03-16] MEDS: NON-FORMULARY ITEM 1500 MG PO (09:40)
[2025-03-16] MEDS: CALCIUM CHLORIDE 10% SYRINGE 60 MG IV ×2 (09:45→21:27)
[2025-03-16] MEDS: SINEMET 25-100 2 TABLET PO ×3 (10:19→17:09)
--- NOTE | 2025-03-16 10:52 | W.PN.HOSP.TC ---
Today's Communication/Plan
-
Continue to replete patient's calcium and magnesium.
Transition from IV calcium to oral calcium for repletion.
Monitor clinical status, calcium level, and magnesium level to assess response to therapy.
Assessment / Plan
Assessment / Plan
HPI: This is a 79-year-old male with a PMH of antibody positive myasthenia gravis, parkinson's disease confirmed by GUIDO scan, L MCA ischemic stroke, and Afib (apixaban) who has presented to the hospital with report of hypocalcemia and hypokalemia in
outpatient blood work.
Assessment/Plan:
- Symptomatic hypocalcemia: Unresolved�improving
Etiology�suspected secondary to hypomagnesemia
Replete calcium - continue IV calcium today; plan to transition to p.o. calcium tomorrow
Parathyroid hormone within normal limits
Vitamin D levels within normal limits
Calcium was 6.5 with ionized calcium at 0.95 (03/13), Ca 6.2 03/15/25, Ca 7.8 today
- Symptomatic hypomagnesemia: Unresolved�improving
Magnesium oxide 1000 mg 3 times daily
Will avoid IV magnesium for the time being as it may precipitate myasthenic crisis
Magnesium 1.3 today (03/16), improving from 1.0 yesterday (03/15)
-Leukopenia: Monitoring
WBC 4.2 today (03/16), slightly increased from 3.6 yesterday
Etiology�likely secondary due to hemodilution as the patient has been receiving copious fluids with calcium supplementation
- Parkinson's disease: Monitoring
Continue Cabidopa-Levodopa at patient's home regimen
Neurology consulted for optimization of medications
Appreciate neurology recommendations -they are under the impression that worsening gait may be secondary to orthostatic hypotension worsening in this patient diagnosed with parkinsonism and myasthenia gravis. They recommend consideration of
outpatient Rozanolixizumab. They recommend continuing current dose of pyridostigmine and his usual carbidopa/levodopa.
Neurology added rotigotine patch for the patient's Parkinson's disease as the patient has been experience frequent freezing episodes and continued swallowing difficulty
Speech and swallow study ordered due to concerns of microaspiration - they recommended regular solids and thin liquids. Spoke to [employer]PER[employer] about consideration of video swallow study and they did not feel that it was warranted based on prior studies
conducted in July.
- Myasthenia gravis: Monitoring
Recent history of falls may be secondary to poorly controlled myasthenia gravis
Continue home pyridostigmine regimen
Continue prednisone home regimen
Neurology consulted for optimization of myasthenia gravis medications
- Atrial fibrillation: Monitoring
Continue amiodarone
Continue apixaban
- GERD: Monitoring
Continue pantoprazole
- Essential hypertension: Monitoring
Losartan dose reduced from 100 mg p.o. HS to 50 mg p.o. HS due to hypotension
- Hypercholesterolemia: Monitoring
Continue atorvastatin
- Anxiety: Monitoring
Continue escitalopram
FULL CODE STATUS
Stress Ulcer Prophylaxis: Pantoprazole
DVT Prophylaxis: Apixaban
Anticipated Discharge: Within 24 hours
Subjective/Interval History
-
Date of Service: March 16, 2025
Patient is seen at the bedside on hospital day #4. Nursing reports NAEO. Patient reports he has been feeling weak the last few days. Patient states that overall he feels 'a little bit better.'
Objective Data
-
Labs:
Laboratory Results
03/16/25
05:30
WBC 4.2 L
Hgb 7.7 L
Hct 24.3 L
Plt Count 172
Sodium 141
Potassium 4.1
Chloride 117 H
Carbon Dioxide 25
BUN 13
Creatinine 0.9
Glucose 91
Calcium 7.8 L D
Total Bilirubin 1.1
AST 19
ALT < 10
Alkaline Phosphatase 70
Vital Signs:
Vital Signs
Temp Pulse Resp BP Pulse Ox
97.7 F 49 17 163/78 97
03/16/25 07:48 03/16/25 07:48 03/16/25 07:48 03/16/25 07:48 03/16/25 07:48
I&O
03/15/25 03/16/25 03/17/25
06:59 06:59 06:59
Intake Total 1100 / 1100 1520 / 1520
Output Total 175 / 175 850 / 850
Balance 925 / 925 670 / 670
Review of Systems
-
History Source: Patient
Constitutional: Denies Fever, Fatigue or Chills
EENT: Reports No Symptoms Reported
Respiratory: Reports Cough
Cardiac: Denies Chest Pain, Palpitations or Syncope
Abdomen/GI: Denies Abdominal Pain, Nausea, Vomiting or Diarrhea
Neuro: Reports Weakness (Weakness 'last few days')
Physical Exam
-
General: No Apparent Distress and Comfortable
HEENT: Normocephalic, Atraumatic and Other (Patient reports subjective twitching after tapping on his cheeks (facial nerve) bilaterally ([place] sign))
Respiratory: Clear to Auscultation, Crackles (Fine crackles at the lung bases posteriorly) and Non Labored Respirations; Negative Wheezes or Accessory Resp Muscle Use
Cardiac: Regular Rhythm, S1/S2 and Murmur (Soft precordial systolic murmur); Negative Rub, Gallop, Tachycardic or Bradycardic
GI: Soft, Nontender and Normal Bowel Sounds
Musculoskeletal: No Cyanosis and No Edema
Skin: Warm and Dry
Neuro: AO x 3
Psych: Calm
[2025-03-16] MEDS: MESTINON 90 MG PO ×3 (10:59→17:06)
[2025-03-16] MEDS: MESTINON 30 MG PO (21:19)
[2025-03-16] MEDS: COZAAR 50 MG PO (21:20)
[2025-03-16] MEDS: SINEMET CR 50/200 (EXTENDED RELEASE) 1 TABLET PO (21:20)
[2025-03-16] MEDS: MELATONIN 5 MG PO (21:20)
[2025-03-16] MEDS: LIPITOR 20 MG PO (21:21)
[2025-03-16] MEDS: NON-FORMULARY ITEM 1000 MG PO (21:22)
[2025-03-17] VITALS (8 sets, daily range): BP systolic 102–177; BP diastolic 60–85; PULSE 60
[2025-03-17 05:51] LABS: Hematocrit 25.1 % (39.0-52.0); Hemoglobin 7.8 g/dL (13.0-18.0); Mean Corp Hgb Conc. 31.1 g/dL (33.0-37.0); Mean Corpuscular Volume 90.0 fL (80.0-94.0); Platelet Count 182 10^3/uL (130-400); Red Cell Dist. Width 15.3 % (11.5-14.5)
[2025-03-17 06:20] LABS: ALT (SGPT) 11 U/L (0-50); AST (SGOT) 18 U/L (17-59); Albumin 2.8 g/dl (3.5-5.0); Alkaline Phosphatase 74 U/L (38-126); Blood Urea Nitrogen 12 mg/dl (9-20); Calcium 8.0 mg/dl (8.4-10.2); Carbon Dioxide 24 mmol/L (22-30); Chloride 116 mmol/L (98-107); Estimated Creatinine Clearance 74 ml/min; Glucose 74 mg/dl (70-99); Magnesium 1.5 mg/dl (1.6-2.3); Potassium 4.3 mmol/L (3.5-5.1); Sodium 142 mmol/L (135-145); Total Protein 5.1 g/dl (6.3-8.2); eGFR > 60.00
[2025-03-17] MEDS: DUONEB 3 ML INH (07:38)
[2025-03-17] MEDS: ELIQUIS 5 MG PO ×2 (08:08→21:20)
[2025-03-17] MEDS: VITAMIN D3 (cholecalciferol) 75 MCG PO (08:08)
[2025-03-17] MEDS: OSCAL CAL 500 500 MG PO ×2 (08:14→21:21)
[2025-03-17] MEDS: MAGNESIUM OXIDE 1000 MG PO ×3 (08:14→21:21)
[2025-03-17] MEDS: DELTASONE 12.5 MG PO (08:14)
[2025-03-17] MEDS: PACERONE 100 MG PO (08:15)
[2025-03-17] MEDS: LEXAPRO 10 MG PO (08:15)
[2025-03-17] MEDS: PROTONIX 40 MG PO (08:15)
[2025-03-17] MEDS: VITAMIN B-12 3000 MCG PO (08:15)
[2025-03-17] MEDS: NEUPRO 1 MG TRANSDERM (08:16)
[2025-03-17] MEDS: NON-FORMULARY ITEM 1500 MG PO (08:22)
[2025-03-17] MEDS: MESTINON 90 MG PO ×3 (08:29→16:16)
[2025-03-17] MEDS: SINEMET 25-100 2 TABLET PO ×3 (08:29→16:20)
--- NOTE | 2025-03-17 09:22 | W.PN.HOSP.TC ---
Today's Communication/Plan
-
Improving calcium and magnesium levels. Continue oral calcium and magnesium repletion.
Monitor clinical status, calcium level, and magnesium level to assess response to therapy.
Plan for discharge to SNF later today.
Assessment / Plan
Assessment / Plan
HPI: This is a 79-year-old male with a PMH of antibody positive myasthenia gravis, parkinson's disease confirmed by GUIDO scan, L MCA ischemic stroke, and Afib (apixaban) who has presented to the hospital with report of hypocalcemia and hypokalemia in
outpatient blood work.
Assessment/Plan:
- Symptomatic hypocalcemia: Unresolved�improving
Etiology�suspected secondary to hypomagnesemia
Replete calcium -start p.o. calcium today; discontinued IV calcium yesterday
Parathyroid hormone within normal limits
Vitamin D levels within normal limits
Calcium was 6.5 with ionized calcium at 0.95 (03/13), improving to calcium of 8.0 today
- Symptomatic hypomagnesemia: Unresolved�improving
Magnesium oxide 1000 mg 3 times daily
Will avoid IV magnesium for the time being as it may precipitate myasthenic crisis
Magnesium 1.3 today (03/16), improving from 1.0 yesterday (03/15)
Plan for follow-up upon discharge, as follows:
- Continue magnesium oxide 1000 mg 3 times daily
- Repeat magnesium levels at 3 days and 7 days after discharge
- Once magnesium is within normal range, decrease magnesium oxide dosage to 1000 mg daily, or per PCP recommendation
-Leukopenia: Monitoring
WBC 4.4 today (03/17), slightly increased from 4.2 yesterday
Etiology�likely secondary due to hemodilution as the patient has been receiving copious fluids with calcium supplementation
- Parkinson's disease: Monitoring
Continue Cabidopa-Levodopa at patient's home regimen
Neurology consulted for optimization of medications
Appreciate neurology recommendations -they are under the impression that worsening gait may be secondary to orthostatic hypotension worsening in this patient diagnosed with parkinsonism and myasthenia gravis. They recommend consideration of
outpatient Rozanolixizumab. They recommend continuing current dose of pyridostigmine and his usual carbidopa/levodopa.
Neurology added rotigotine patch for the patient's Parkinson's disease as the patient has been experience frequent freezing episodes and continued swallowing difficulty
Speech and swallow study ordered due to concerns of microaspiration - they recommended regular solids and thin liquids. Spoke to [employer] about consideration of video swallow study and they did not feel that it was warranted based on prior studies
conducted in July.
- Myasthenia gravis: Monitoring
Recent history of falls may be secondary to poorly controlled myasthenia gravis
Continue home pyridostigmine regimen
Continue prednisone home regimen
Neurology consulted for optimization of myasthenia gravis medications
- Atrial fibrillation: Monitoring
Continue amiodarone
Continue apixaban
- GERD: Monitoring
Continue pantoprazole
Recommend gastroenterology follow-up outpatient for dysphagia workup
- Essential hypertension: Monitoring
Continue losartan 50 mg p.o. HS (reduced dose yesterday due to hypotension)
- Hypercholesterolemia: Monitoring
Continue atorvastatin
- Anxiety: Monitoring
Continue escitalopram
- Lower extremity edema bilaterally
Compression stockings to improve circulation
FULL CODE STATUS
Stress Ulcer Prophylaxis: Pantoprazole
DVT Prophylaxis: Apixaban
Disposition: SNF placement pending, per CM
Anticipated Discharge: Today
Subjective/Interval History
-
Date of Service: March 17, 2025
Patient seen at the bedside on hospital day #5. Nursing reports NAEO. Patient states he is 'not bad, can't complain. Feeling a little bit better.' No current complaints.
Objective Data
-
Labs:
Laboratory Results
03/17/25
05:03
WBC 4.4 L
Hgb 7.8 L
Hct 25.1 L
Plt Count 182
Sodium 142
Potassium 4.3
Chloride 116 H
Carbon Dioxide 24
BUN 12
Creatinine 0.9
Glucose 74
Calcium 8.0 L
Total Bilirubin 0.9
AST 18
ALT 11
Alkaline Phosphatase 74
Vital Signs:
Vital Signs
Temp Pulse Resp BP Pulse Ox
97.8 F 60 16 155/72 96
03/17/25 07:00 03/17/25 07:38 03/17/25 07:38 03/17/25 07:00 03/17/25 07:00
I&O
03/16/25 03/17/25 03/18/25
06:59 06:59 06:59
Intake Total 1520 / 1520 540 / 540 240 / 240
Output Total 850 / 850 550 / 550 550 / 550
Balance 670 / 670 -10 / -10 -310 / -310
Review of Systems
-
History Source: Patient
Constitutional: Denies Fever, Fatigue or Chills
EENT: Reports No Symptoms Reported
Respiratory: Reports Cough (Chronic cough, unchanged) and Wheezing; Denies Trouble Breathing
Cardiac: Denies Chest Pain, Palpitations or Syncope
Abdomen/GI: Denies Abdominal Pain, Nausea, Vomiting or Diarrhea
Genitourinary: Reports No Symptoms
Musculoskeletal: Denies Muscle Pain, Muscle Weakness or Other (Denies muscle spasms)
Skin: Reports No Symptoms
Physical Exam
-
General: Well Developed, Well Nourished, No Apparent Distress and Comfortable
HEENT: Normocephalic and Atraumatic
Respiratory: Clear to Auscultation, Wheezes (Diffuse) and Non Labored Respirations; Negative Crackles or Accessory Resp Muscle Use
Cardiac: Regular Rhythm, S1/S2 and Murmur (Soft systolic murmur heard loudest precordial)
Musculoskeletal: Edema, Right Lower Extrem (2+ pitting edema into willis) and Edema, Left Lower Extrem (2+ pitting edema into willis); Negative No Cyanosis
Skin: Warm and Dry
Neuro: Awake, AO x 3, No Motor Deficits and No Sensory Deficits; Negative Slurred Speech
Psych: Calm
--- NOTE | 2025-03-17 14:07 | CM ---
Pt is cleared for discharge to [facility], however they do not take admissions over the weekend.
CM spoke with pt's daughter who works at the facility who advised that transfer can take place tomorrow.
CM will f/u in AM to confirm acceptance and arrange transport.
[2025-03-17] MEDS: SINEMET CR 50/200 (EXTENDED RELEASE) 1 TABLET PO (21:22)
[2025-03-17] MEDS: COZAAR 50 MG PO (21:22)
[2025-03-17] MEDS: MELATONIN 5 MG PO (21:22)
[2025-03-17] MEDS: LIPITOR 20 MG PO (21:22)
[2025-03-17] MEDS: MESTINON 30 MG PO (21:23)
[2025-03-17] MEDS: NON-FORMULARY ITEM 2 MG PO (21:23)
[2025-03-18 03:05] VITALS: BP 158/75
[2025-03-18 06:37] LABS: Hematocrit 24.6 % (39.0-52.0); Hemoglobin 7.7 g/dL (13.0-18.0); Mean Corp Hgb Conc. 31.3 g/dL (33.0-37.0); Mean Corpuscular Volume 90.1 fL (80.0-94.0); Nucleated Red Blood Cells % 0 % (-); Platelet Count 184 10^3/uL (130-400); Red Cell Dist. Width 15.1 % (11.5-14.5)
[2025-03-18 07:00] LABS: Blood Urea Nitrogen 13 mg/dl (9-20); Calcium 7.5 mg/dl (8.4-10.2); Carbon Dioxide 30 mmol/L (22-30); Chloride 114 mmol/L (98-107); Estimated Creatinine Clearance 83 ml/min; Glucose 81 mg/dl (70-99); Potassium 4.1 mmol/L (3.5-5.1); Sodium 141 mmol/L (135-145); eGFR > 60.00
--- NOTE | 2025-03-18 07:27 | W.PN.HOSP.TC ---
Addendum entered and electronically signed by Keya Devlin MD 03/18/25 15:50:
I saw and evaluated the patient independently. I reviewed the resident�s note and agree with findings and plan as documented by Dr. Pino.
GENERAL: well developed, well nourished, male in no apparent distress
HEENT: NC/AT
HEART: regular rate and rhythm, +S1, +S2, murmur
LUNGS : clear to auscultation bilaterally--loose sounding cough
ABDOM: soft, nontender, nondistended, + bowel sounds
EXT: no cyanosis, clubbing-- + pedal edema
NEUROLOGIC: sitting in the chair--nonfocal
Symptomatic hypocalcemia--unclear cause--possibly due to hypomagnesemia--repleting all--on oral meds--off IV--Parathyroid hormone within normal limits--Vitamin D levels within normal limits
Symptomatic hypomagnesemia-- Unresolved�improving--cont repletion--Repeat magnesium levels at 3 days and 7 days after discharge- Once magnesium is within normal range, decrease magnesium oxide dosage to 1000 mg daily, or per PCP recommendation
Leukopenia--resolved--likely secondary due to hemodilution as the patient has been receiving copious fluids with calcium supplementation
Parkinson's disease-�stable--cont sinemet--apprec neuro--worsening gait may be secondary to orthostatic hypotension worsening in this patient diagnosed with parkinsonism and myasthenia gravis--cont pyridostigmine and added rotigotine patch
Myasthenia gravis--�stable--falls may be secondary to poorly controlled myasthenia gravis--cont pyridostigmine, prednisone
Orthostatic hypotension�stable--losartan reduced
Paroxysmal Atrial fibrillation--cont amio, eliquis
GERD--cont PPI--f/u with GI
Essential hypertension--losartan at reduced dose
Hypercholesterolemia--cont lipitor
Anxiety--cont lexapro
Lower extremity edema bilaterally--Compression stockings to improve circulation
DVT proph
code status--FULL CODE STATUS
Original Note:
Today's Communication/Plan
-
Patient is medically stable and appropriate for discharge�we will move forward with discharge planning
Magnesium now within normal limits and calcium continues to follow -continue oral supplementation -plan to reduce magnesium to once daily after 3 days postdischarge.
Losartan reduced to 50 mg
Assessment / Plan
Assessment / Plan
HPI: This is a 79-year-old male with a PMH of antibody positive myasthenia gravis, parkinson's disease confirmed by GUIDO scan, L MCA ischemic stroke, and Afib (apixaban) who has presented to the hospital with report of hypocalcemia and hypokalemia in
outpatient blood work.
Assessment/Plan:
- Symptomatic hypocalcemia: Unresolved�improving
Etiology�suspected secondary to hypomagnesemia
Replete calcium -start p.o. calcium today; discontinued IV calcium yesterday
Parathyroid hormone within normal limits
Vitamin D levels within normal limits
Calcium was 6.5 with ionized calcium at 0.95 (03/13), stable at 7.5 on 03/18/2025
- Symptomatic hypomagnesemia: Unresolved�improving
Magnesium oxide 1000 mg 3 times daily
Will avoid IV magnesium for the time being as it may precipitate myasthenic crisis
Magnesium 1.3 on 03/16, improved to 1.9 on 03/18/2025
Plan for follow-up upon discharge, as follows:
- Continue magnesium oxide 1000 mg 3 times daily
- Repeat magnesium levels at 3 days and 7 days after discharge
- Once magnesium is within normal range, decrease magnesium oxide dosage to 1000 mg daily, or per PCP recommendation
-Leukopenia: Monitoring-resolved
WBC 4.8 today (03/18), slightly increased from 4.4 yesterday
Etiology�likely secondary due to hemodilution as the patient has been receiving copious fluids with calcium supplementation
- Parkinson's disease: Monitoring�stable
Continue Cabidopa-Levodopa at patient's home regimen
Neurology consulted for optimization of medications
Appreciate neurology recommendations -they are under the impression that worsening gait may be secondary to orthostatic hypotension worsening in this patient diagnosed with parkinsonism and myasthenia gravis. They recommend consideration of
outpatient Rozanolixizumab. They recommend continuing current dose of pyridostigmine and his usual carbidopa/levodopa.
Neurology added rotigotine patch for the patient's Parkinson's disease as the patient has been experience frequent freezing episodes and continued swallowing difficulty
Speech and swallow study ordered due to concerns of microaspiration - they recommended regular solids and thin liquids. Spoke to C[employer]IED [employer]ICAL [employer]IM[employer]ST about consideration of video swallow study and they did not feel that it was warranted based on prior studies
conducted in July.
- Myasthenia gravis: Monitoring�stable
Recent history of falls may be secondary to poorly controlled myasthenia gravis
Continue home pyridostigmine regimen
Continue prednisone home regimen
Neurology consulted for optimization of myasthenia gravis medications
-Orthostatic hypotension: Monitoring�stable
Minimally symptomatic though positive on orthostatic vitals
Losartan has been reduced to 50 mg to maintain hemodynamics
- Atrial fibrillation: Monitoring�stable
Continue amiodarone
Continue apixaban
- GERD: Monitoring�stable
Continue pantoprazole
Recommend gastroenterology follow-up outpatient for dysphagia workup
- Essential hypertension: Monitoring�stable
Continue losartan 50 mg p.o. HS (reduced dose yesterday due to hypotension)
- Hypercholesterolemia: Monitoring
Continue atorvastatin
- Anxiety: Monitoring
Continue escitalopram
- Lower extremity edema bilaterally
Compression stockings to improve circulation
FULL CODE STATUS
Stress Ulcer Prophylaxis: Pantoprazole
DVT Prophylaxis: Apixaban
Disposition: SNF
Anticipated Discharge: Today
Subjective/Interval History
-
Date of Service: March 18, 2025
Met with patient at the bedside. Overall, he is doing well and offers no complaints at the present time. He is aware that he is likely to be discharged today to a long-term facility and is looking forward to his upcoming discharge. He
believes that he is ready to go home and hopes that he will be able to gain more strength in the outpatient setting and possibly return home.
Objective Data
-
Labs:
Laboratory Results
03/18/25
06:16
WBC 4.8
Hgb 7.7 L
Hct 24.6 L
Plt Count 184
Sodium 141
Potassium 4.1
Chloride 114 H
Carbon Dioxide 30
BUN 13
Creatinine 0.8
Glucose 81
Calcium 7.5 L
Vital Signs:
Vital Signs
Temp Pulse Resp BP Pulse Ox
97.6 F 54 16 158/75 98
03/18/25 03:05 03/18/25 03:05 03/18/25 03:05 03/18/25 03:05 03/18/25 03:05
I&O
03/17/25 03/18/25 03/19/25
06:59 06:59 06:59
Intake Total 540 / 540 1200 / 1200
Output Total 550 / 550 1150 / 1150
Balance -10 / -10 50 / 50
Physical Exam
-
General: Well Developed, Well Nourished and No Apparent Distress
HEENT: Normocephalic and Atraumatic
Respiratory: Wheezes, Rhonchi and Crackles; Negative Clear to Auscultation or Rales
Cardiac: S1/S2 and Murmur (Systolic murmur over the second right intercostal space)
GI: Soft, Nontender, Nondistended and Normal Bowel Sounds
Skin: Warm and Dry; Negative Rash or Ulcers
Neuro: Awake, Alert, Oriented and AO x 3
Psych: Calm
[2025-03-18 07:42] VITALS: BP 167/78
[2025-03-18] MEDS: NON-FORMULARY ITEM 1500 MG PO (08:07)
[2025-03-18] MEDS: MAGNESIUM OXIDE 1000 MG PO (08:11)
[2025-03-18] MEDS: VITAMIN D3 (cholecalciferol) 75 MCG PO (08:11)
[2025-03-18] MEDS: VITAMIN B-12 3000 MCG PO (08:12)
[2025-03-18] MEDS: PACERONE 100 MG PO (08:13)
[2025-03-18] MEDS: PROTONIX 40 MG PO (08:13)
[2025-03-18] MEDS: LEXAPRO 10 MG PO (08:14)
[2025-03-18] MEDS: ELIQUIS 5 MG PO (08:14)
[2025-03-18] MEDS: OSCAL CAL 500 500 MG PO (08:14)
[2025-03-18] MEDS: NEUPRO 1 MG TRANSDERM (08:15)
[2025-03-18] MEDS: SINEMET 25-100 2 TABLET PO ×2 (08:19→12:36)
[2025-03-18] MEDS: MESTINON 90 MG PO ×2 (08:19→12:34)
[2025-03-18 10:05] LABS: Magnesium 1.9 mg/dl (1.6-2.3)
--- NOTE | 2025-03-18 10:41 | CM ---
Addendum entered by Stephanie Fletcher 03/18/25 12:29:
transport 3:30pm. Shelley notified
Original Note:
Patient seen at bedside
IMM explained & in chart
spoke with Daughter Shelley ([phone]) at [facility] (admissions today)
daughter works at [facility]
stated can accept today & bed available at [facility] 7th floor
PLAN: [facility]
Report #: [phone]
Fax #: [phone]
transportation forms on chart, requested 3pm transport
[2025-03-18 11:13] VITALS: BP 117/62
[2025-03-18 15:00] VITALS: BP 156/77
--- NOTE | 2025-03-18 15:00 | W.DCSUMMARY ---
Addendum entered and electronically signed by Keya Devlin MD 03/18/25 15:53:
Read, reviewed, and agree. See same day progress note for additional details. Time spent coordinating care, DC planning, review of DC plan of care with resident, transition of care, review of records in EMR, med rec, consults, notes, d/w
consultants, nursing, family, and CM = 40 minutes
Patient is actually being discharged to acute rehab at [facility] as documented below.
Original Note:
Discharge Summary
Discharge Data
Date of Admission: 03/13/25
Date of Discharge: 03/18/25
-
Pending Results: No
Hospital Course
Discharging Physician : Dr. Devlin
Disposition : SNF
Primary care physician : Tomas Venegas
Principal Discharge diagnosis : Symptomatic hypocalcemia
Chronic Discharge diagnosis :
Atrial fibrillation
CVA
GERD
Hypertension
Hypercholesterolemia
Anxiety
Parkinson's disease
Diverticulitis
Renal calculus
Left femur fracture
Vertigo
Hospital Course : Patient is a 79-year-old man with a history of atrial fibrillation, CVA, GERD, hypertension, hypercholesterolemia, anxiety, Parkinson's, myasthenia gravis, diverticulitis, renal calculus, and vertigo who presented to the emergency
department with generalized weakness. He has been having mental haziness for approximately 1 week prior to his presentation. Around 2 days ago he had a hallucination where he was convinced that he was having a discussion with people in his house
who gave him a piece of paper in his hand. The patient was convinced that he was given a piece of paper and opened his hand to show it to his and there was nothing there. He also states that he has movements and objects that cross his vision
at times and this is occurred for the past few months. His believes that he is stating that his eyes get lazy and he gets double vision due to his myasthenia gravis. He has had recent falls and there was a bruise on his right lower leg
proximal to the popliteal fossa of his posterior thigh from a recent fall at home. He has had swollen legs for the past 3 weeks to 1 month at approximately 1+ edema. Lab work in the emergency department showed a calcium of 5.6 indicating
hypocalcemia. Patient was also hypomagnesemic with a magnesium level of 0.8. He has a raspy cough and crackles scattered throughout both lung muir. His oxygen saturation was within normal limits and vitals unremarkable. Patient had a
hemoglobin of 8.8 which is his normal baseline based on prior hospital visits. The patient was admitted for symptomatic hypocalcemia, symptomatic hypomagnesemia, and generalized weakness.
Upon admission the patient was given IV calcium with oral magnesium supplementation. IV magnesium was avoided due to risk of precipitating a myasthenic crisis. There was also consideration of worsening orthostasis due to the history of generalized
weakness with frequent falls. Orthostatic vitals were taken and were found to be positive for orthostatic hypotension. Patient remained on his home medication regimen of prednisone, pyridostigmine, MMF. Neurology was consulted for further
optimization of his myasthenia gravis medications and they recommended addition of outpatient Rozanolixizumab. Throughout his hospital course the patient had coarse lung sounds with rhonchi and crackles spread throughout bilateral lung muir.
Patient maintained adequate oxygen saturation throughout his hospital visit and stated that he has been having this cough with lung symptoms for over 8 months. He was not on any antibiotic. There was possible consideration of pneumonia due to
aspiration secondary to to his neuromuscular disorders and his speech and swallow evaluation was ordered. Patient passed the speech and swallow evaluation and had a recent video swallow exam done which was unremarkable. Speech had concerns of risk
of reverse aspiration and we recommend that the patient follow-up with gastroenterology in the outpatient setting after discharge. The patient believes that he is ready for discharge to a half-way facility and would like to be discharged.
The patient has reached maximal benefit from this hospital admission and the patient is appropriate for discharge at the present time. There are no barriers that would impede the patient from being discharged from the hospital at the present time.
The patient should follow-up with their primary care provider within 1 week following discharge. Patient should follow-up with his neurologist within 1 to 2 weeks after discharge. It is recommended that the patient follow-up with gastroenterology
after his discharge for further assessment of reverse aspiration. Rotigotine added by neurology for the patient's Parkinson's disease as the patient has been experiencing frequent freezing episodes and continued swallowing difficulty. Repeat BMP and
magnesium in 3 days AND again in 7 days for follow-up evaluation of electrolyte levels.
Important imaging findings : Not applicable
Procedure findings : Not applicable
Discharge Plan
-
Patient Disposition: Residential/SNF
Discharge Diagnosis/Procedures: Hypocalcemia; Hypomagnesemia
Condition: Fair
Diet: As tolerated
Activity: As tolerated
Driving Restrictions: As prior to admission
Bathing Restrictions: None
Blood Work: Repeat BMP and magnesium in 3 days AND again in 7 days for follow-up evaluation of electrolyte levels
Others Tests: High-resolution CT scan to evaluate for interstitial lung disease related to possible amiodarone toxicity
Activity Restrictions/Additional Instructions:
Patient is encouraged to obtain follow-up care, as detailed below:
Follow-up with PCP in 1 week for evaluation of electrolytes following repeat BMPs. Once magnesium levels are within normal limits, consider reducing magnesium oxide supplement to 1000 mg p.o. daily.
Follow-up with PCP in 1 week for consideration of high-resolution CT scan to evaluate for interstitial lung disease related to possible amiodarone toxicity. Consider pulmonology follow-up based on the results.
Follow-up with gastroenterology for consideration of EGD, upper GI series, and manometry due to concern for reverse aspiration and/or chronic dysphagia.
Follow-up with neurology for consideration of Rozanolixizumab for myasthenia gravis.
Referrals:
Robert Rodriguez MD [Active, Neurology]
Tomas Venegas DO [Family Provider, Internal Medicine]
Additional Discharge Medication Instructions: Continue magnesium oxide 1000 mg p.o. 3 times daily for magnesium repletion until follow-up magnesium levels are obtained. Once magnesium levels are within normal limits, reduce magnesium oxide
supplement to 1000 mg p.o. daily.
Continue calcium carbonate 500 mg p.o. twice daily for calcium maintenance.
Continue new reduced dose of losartan 50 mg p.o. at bedtime, as orthostatic hypotension was present on prior dose of losartan 100 mg p.o. at bedtime.
Continue new medication of rotigotine, pending follow-up with neurology.
Prescriptions:
New
magnesium oxide 500 mg magnesium Tablet
1,000 mg PO TID 7 Days Qty: 42 0RF
calcium carbonate 500 mg calcium (1,250 mg) Tablet
500 mg PO BID 90 Days Qty: 180 0RF
Neupro 1 mg/24 hour Patch 24 Hour
1 mg transdermal DAILY 30 Days Qty: 30 0RF
losartan 50 mg Tablet
50 mg PO HS 90 Days Qty: 90 0RF
Continued
prednisone 10 MG tablet
12.5 mg PO Q48H
mycophenolate mofetil 500 MG tablet
1,000 mg PO HS
pyridostigmine bromide 60 MG tablet
30 mg PO HS
pyridostigmine bromide 60 MG tablet
90 mg PO TID@,,16
amiodarone [Pacerone] 200 MG tablet
100 mg PO DAILY
escitalopram oxalate 10 MG tablet
10 mg PO DAILY
acetaminophen [Tylenol Extra Strength] 500 mg tablet
1,000 mg PO Q6HPRN PRN (Reason: mild pain) Qty: 1 0RF
atorvastatin 20 mg Tablet
20 mg PO QPM
carbidopa-levodopa 25-100 mg Tablet
2 tab PO TID@,,16
carbidopa-levodopa 50-200 mg Tablet Extended Release
1 tab PO HS
mycophenolate mofetil [CellCept] 500 mg Tablet
1,500 mg PO DAILY
pantoprazole 40 mg Tablet,Delayed Release (Dr/Ec)
40 mg PO DAILY
cholecalciferol (vitamin D3) [Vitamin D3] 25 mcg (1,000 unit) Tablet
3,000 unit PO DAILY@1200
mecobalamin (vitamin B12) [B12 Active] 1,000 mcg Tablet,Chewable
3,000 mcg PO DAILY
ipratropium-albuterol 0.5 mg-3 mg(2.5 mg base)/3 mL Solution For Nebulization
3 ml INHALATION R BID
tramadol 50 mg Tablet
50 mg PO Q8HPRN PRN (Reason: moderate pain)
melatonin 5 mg Tablet
5 mg PO HS
Eliquis 5 mg Tablet
5 mg PO BID
Discontinued
losartan 50 MG tablet
100 mg PO HS
Discharge Orders:
Discharge Patient (As Directed); Ordered 03/18/25
Ordered By: Yoly Pino
Discharge Date and Time
Print Language: ARMENIAN
== END 2025-03-18 16:14 | DRG 57 ==
LOC: 3 WEST ACU 15:25
PROVIDERS: Physician Assistant Medical; ADMITTING PHYSICIAN Internal Medicine; ATTENDING PHYSICIAN Internal Medicine; CONSULT PHYSICIAN Psychiatry & Neurology Neurology; EMERGENCY PHYSICIAN Student in an Organized Health Care Education/Training Program; FAMILY PHYSICIAN Internal Medicine
DX: G90.3 Multi-system degeneration of the autonomic nervous system (principal); G20.A1 Parkinson's disease without dyskinesia, without mention of fluctuations; G70.00 Myasthenia gravis without (acute) exacerbation; E83.51 Hypocalcemia; Z91.81 History of falling; K21.9 Gastro-esophageal reflux disease without esophagitis; I12.9 Hypertensive chronic kidney disease with stage 1 through stage 4 chronic kidney disease, or unspecified chronic kidney disease; N18.30 Chronic kidney disease, stage 3 unspecified; E78.00 Pure hypercholesterolemia, unspecified; F41.9 Anxiety disorder, unspecified; E83.42 Hypomagnesemia; I48.0 Paroxysmal atrial fibrillation; Z79.01 Long term (current) use of anticoagulants; Z11.52 Encounter for screening for COVID-19
CPT/HCPCS: 80048; 80053; 82306; 82330; 83735; 83970; 84100; 84443; 85025; 85027; 86803; 92610; 93005; 94640; 96365; 97116; 97162; 97167; 99285

== ENCOUNTER 2025-05-31 16:57 | Inpatient (IN) | payer MEDICARE, OTHER, SELFPAY ==
[2025-05-31] VITALS (8 sets, daily range): BP systolic 96–151; BP diastolic 59–78; BMI 23.6
[2025-05-31 12:07] LABS: Hematocrit 24.8 % (39.0-52.0); Hemoglobin 7.9 g/dL (13.0-18.0); Mean Corp Hgb Conc. 31.9 g/dL (33.0-37.0); Mean Corpuscular Volume 82.9 fL (80.0-94.0); Platelet Count 178 10^3/uL (130-400); Red Cell Dist. Width 15.6 % (11.5-14.5)
[2025-05-31 12:14] LABS: COVID-19 Antigen Negative (Negative)
[2025-05-31 12:16] LABS: ALT (SGPT) < 10 U/L (0-50); AST (SGOT) 17 U/L (17-59); Albumin 2.9 g/dl (3.5-5.0); Alkaline Phosphatase 59 U/L (38-126); Blood Urea Nitrogen 28 mg/dl (9-20); Calcium 7.9 mg/dl (8.4-10.2); Carbon Dioxide 23 mmol/L (22-30); Chloride 111 mmol/L (98-107); Estimated Creatinine Clearance 53 ml/min; Glucose 85 mg/dl (70-99); Potassium 3.7 mmol/L (3.5-5.1); Sodium 137 mmol/L (135-145); Total Protein 5.4 g/dl (6.3-8.2); eGFR > 60.00
--- NOTE | 2025-05-31 12:44 | ED.GENMED ---
History of Present Illness
<Ember Martinez [employer] - Last Filed: 05/31/25 19:19>
General
Chief Complaint: Abnormal Lab Value
Source: patient
Exam Limitations: none
Time Seen by Provider: 05/31/25 12:04
Nursing documentation reviewed up to this point in time: agreed with
History of Present Illness
History of Present Illness:
79-year-old male with history of CVA, expressive aphasia, myasthenia gravis, A-fib on Eliquis, HTN, HLD, GERD, renal insufficiency presents for abnormal WBC on lab work done yesterday.
has lab results from yesterday: WBC 2.3 Hgb 7.5 (copy of report scanned into chart).
Pt states he feels 'tired.' His appetite has been 'OK' per family. Denies fever/chills, n/v/d/c. Denies CP, SOB, abdominal pain.
and daughter state he's had blood in his urine intermittently for past week and he's been more weak and lethargic past week.
at bedside reports for past year pt has had a cough, found to have Pseudomonas by bronchoscopy and treated, has had chronic junky cough since. Followed by pulmonary. On nebulizations, Percussion vest ATBX as needed.
He also has had low Hgb for past year and 'they can't find out why.' Has had comprehensive workup with no answers. PCP has referred them to GI and they haven't yet made appointment.
Past History
<Ember Martinez [employer] - Last Filed: 05/31/25 19:19>
Past History
ED Past Medical History: Arrthythmia (Atrial fib), CVA (No residual weakness), GERD, HTN, Hypercholesterolemia, Valvular disease, Psychiatric (Anxiety) and Other (Parkinson's disease, myasthenia gravis, Diverticulitis, Renal calculus, Vertigo,
orthostatic hypotension)
ED Past Surgical History: Orthopedic (Hand surgery, Left total knee replacement, left femoral fracture) and Other (Cataracts, Right inguinal hernia)
Patient has exhibited threatening behavior?: No
Social History
Tobacco: Non-smoker
Alcohol: Occasional
Drug: None
Personal:
Living: with family
Employment: Retired
Family History
Family History: Other (Reviewed and noncontributory)
Review of Systems
<Ember Martinez, [employer] - Last Filed: 05/31/25 19:19>
Review of Systems
Allergies reviewed?: Yes
All Other Systems: ROS reviewed and negative except as documented in HPI and ROS
Phy Exam
<Ember Martinez, [employer] - Last Filed: 05/31/25 19:19>
Physical Exam
Physical Exam:
GENERAL: No acute distress. A&Ox3.
CONSTITUTIONAL: Afebrile.
EYES: clear, conjunctivae normal
ENMT: moist mucus membranes, Pharynx nl
RESPIRATORY: Regular respirations, nonlabored, lungs with coarse rhonchi on expiration, intermittent junky cough. No hypoxemia
CARDIOVASCULAR: Regular rate and rhythm, no murmurs, no rubs.
GI: Soft, nontender, normal BS
Rectal: stool heme neg
MUSCULOSKELETAL: Moves with ease. Well perfused. No edema
SKIN: Warm, dry, pink, cheeks flushed
PSYCH: Depressed mood and affect. Well kept, interactive and appropriate
NEUROLOGIC: Awake, mildly ill-appearing, oriented. No focal neurological deficits
Course
<Ember Martinez, [employer] - Last Filed: 05/31/25 19:19>
Orders/Labs/Results
Orders:
Orders
05/31/25 Breakfast
Cholesterol Lowering
At Your Request: Full Participation
05/31/25 11:44
Type And Crossmatch [Type+Screen] Urgent
COVID-19 Antigen Urgent
Source: Nasal Swab
Complete Blood Count/With Diff Urgent
Comprehensive Metabolic Panel Urgent
Ferritin Urgent
Folate Urgent
Comment: ADDON
Iron Urgent
Comment: ADDON
Magnesium Urgent
Comment: ADD ON
TSH Reflex To Free T4 Urgent
Comment: ADD ON
Total Iron Binding Urgent
Comment: ADDON
Vitamin B12 Urgent
Comment: ADDON
Influenza A+B Rapid Molecular Urgent
GERMAN Source: Nasal Swab
Specimen Description:
05/31/25 11:45
CR Chest - 2 Views Urgent
Comment:
Reason For Exam: cough
05/31/25 14:06
CT Abd/pelvis W Iv Cont Urgent
Comment:
Reason For Exam: hematuria
05/31/25 14:24
Urinalysis Reflex To Culture Urgent
Date Specimen was Collected: 05/31/25
Time Specimen was Collected: 14:23
Urine Microscopic Reflex Cult Urgent
Urine Culture Urgent
GERMAN Source: U
Specimen Description:
Date Specimen was Collected: 05/31/25
Time Specimen was Collected: 14:23
05/31/25 14:25
NT-proBNP Urgent
Troponin I Urgent
05/31/25 15:26
Furosemide [Lasix] 40 mg IV NOW STA
05/31/25 15:28
Electrocardiogram (*1) Urgent
Reason for Study: Fatigue / Weakness
EKG- Treatment ONCE
05/31/25 16:10
Ciprofloxacin 400 mg/[id number] [Cipro 400 mg] 200 ml IV NOW
05/31/25 16:34
Add On- LAB Stat
Tests Added?: iron, b12, ferritin, folate, TIBC
Hemetest Stools As Directed
05/31/25 16:36
Admit/Transfer Patient As Directed
Co-Sign Provider:
Level of Care: Inpatient admission
Assign to:: Telemetry
Physician / Group: [facility]
Diagnosis: UTI
Reason for Telemetry: Arrhythmia
Date to Stop Telemetry: 06/03/25
Time to Stop Telemetry: 11:00
Reason for Hospitalization: UTi
Expected length of stay greater than two midnights?: Yes
ELOS- Estimated Length of Stay in days: 4
I certify the patient meets the requirements for IP care: Yes
PRN Pain Medication Management As Directed
May give lesser potent ordered pain med per pt: Yes
preference::
Protocol:: Medication orders for pain may be administered in a
manner that supports deferring to patient preference
when the pt is:
- Requesting an ordered lesser potent pain medication.
Least to most potent pain medications are defined
as: acetaminophen < NSAID < tramadol < opioids
(morphine, oxycodone, hydromorphone).
- Requesting a lesser dose of the same medication IF
ORDERED.
- Requesting a less intrusive route of administration
if both routes are prescribed by the provider (PO <
IV).
05/31/25 16:38
Code Status As Directed
Resuscitation Status: Full Code
05/31/25 16:46
Add On- LAB Routine
Tests Added?: mag level
05/31/25 17:37
Acetaminophen [Tylenol] 650 mg PO Q4HPRN PRN
Bisacodyl [Dulcolax] 10 mg RECTAL [id number] PRN
Docusate W/Senna [Senokot-S] 1 tablet PO BIDPRN PRN
Polyethylene Glycol Powder [Miralax] 17 grams PO DAILYPRN PRN
05/31/25 17:37
CARDIOLOGY CONSULT Routine
Consulting Provider: Dante Song
Was physician already notified: Yes
Activity As Directed
Activity Level: As Tolerated
Intake/ Output As Directed
Frequency: Per unit guidelines
Vital Signs As Directed
Frequency: Per unit guidelines
Weight As Directed
Frequency: Daily
Ot Eval And Treat Routine
Pt Eval And Treat Routine
Activity Level: As Tolerated
05/31/25 18:00
Atorvastatin [Lipitor] 20 mg PO QPM
Piperacillin/Tazo 3.375 Gram [Zosyn] 3.375 gram in 50 ml IV Q6H
Polyethylene Glycol Powder [Miralax] 17 grams PO DAILY
05/31/25 19:30
Calcium Carbonate/Vitamin D3 [Oscal 500 + D] 1,000 mg PO BID@1229,1930
05/31/25 20:00
Apixaban [Eliquis] 5 mg PO BID
Docusate Sodium [Colace] 100 mg PO BID
Magnesium Oxide 800 mg PO BID
Sennosides [Senokot] 8.6 mg PO BID
05/31/25 22:00
Carbidopa/Levodopa Cr [Sinemet Cr 50/200 (Extended Release)] 1 tablet PO HS
Losartan [Cozaar] 100 mg PO HS
Melatonin 5 mg PO HS
Mycophenolate Mofetil 1,000 mg PO HS
Pyridostigmine [Mestinon] 30 mg PO HS
06/01/25 06:00
Basic Metabolic Panel IN AM
Cardiovascular Evaluation IN AM
Complete Blood Count/No Diff IN AM
Magnesium IN AM
06/01/25 08:00
Escitalopram Oxalate [Lexapro] 10 mg PO DAILY
FOLic ACID [Folvite] 1 mg PO DAILY
Mycophenolate Mofetil 1,500 mg PO DAILY
Pantoprazole [Protonix] 40 mg PO DAILY
Prednisone [Deltasone] 10 mg PO Q48H
Pyridostigmine [Mestinon] 90 mg PO TID@08,12,1630
06/01/25 08:30
Carbidopa/Levodopa [Sinemet 25-100] 2 tablet PO TID@0830,1230,1630
06/01/25 12:30
Cyanocobalamin [Vitamin B-12] 3,000 mcg PO DAILY@1230
06/02/25 06:00
Basic Metabolic Panel IN AM
Complete Blood Count/No Diff IN AM
06/03/25 06:00
Basic Metabolic Panel IN AM
Complete Blood Count/No Diff IN AM
06/03/25 11:00
DC Protocol for Telemetry ONCE
06/04/25 06:00
Basic Metabolic Panel IN AM
06/05/25 06:00
Basic Metabolic Panel IN AM
Abnormal Lab Results
05/31/25 05/31/25
11:44 14:24
WBC 3.7 L 10^3/uL
(4.8-10.8)
RBC 2.99 L 10^6/uL
(4.70-6.10)
Hgb 7.9 L g/dL
(13.0-18.0)
Hct 24.8 L %
(39.0-52.0)
MCH 26.4 L pg
(27.0-31.0)
MCHC 31.9 L g/dL
(33.0-37.0)
RDW 15.6 H %
(11.5-14.5)
Absolute Lymphs (auto) 0.2 L 10^3/uL
(1.2-3.4)
Neutrophils % 82.8 H %
(42.2-75.2)
Lymphocytes % 5.1 L %
(20.5-51.1)
Monocytes % 11.0 H %
(1.7-9.3)
Chloride 111 H mmol/L
(98-107)
BUN 28 H mg/dl
(9-20)
Calcium 7.9 L mg/dl
(8.4-10.2)
Magnesium 1.4 L mg/dl
(1.6-2.3)
Iron 30 L ug/dl
(49-181)
TIBC 180 L ug/dl
(261-462)
% Saturation 16 L %
(20-50)
Ferritin 571.0 H ng/ml
(17.9-464.0)
Total Protein 5.4 L g/dl
(6.3-8.2)
Albumin 2.9 L g/dl
(3.5-5.0)
Vitamin B12 > 1000 H pg/ml
(239-931)
Urine Ketones 1+ A
(Negative)
Ur Occult Blood Reflex 4+ A
(Negative)
Urine Nitrite (Reflex) Positive A
(Negative)
Leukocyte Esterase Rfl 1+ A
(Negative)
Urine RBC >100 A /HPF
(0-2)
Urine Bacteria (Reflex) Many A
(Negative)
Urine Albumin (Reflex) 3+ A
(Neg - Trace)
05/31/25 11:44
05/31/25 11:44
Vital Signs
Initial and Last Documented VS:
Initial Vital Signs
Temp Pulse Resp BP Pulse Ox
97.6 F 61 16 105/61 95
05/31/25 11:25 05/31/25 11:25 05/31/25 11:25 05/31/25 11:25 05/31/25 11:25
Last Documented Vital Signs
Temp Pulse Resp BP Pulse Ox
97.5 F 57 18 141/69 96
05/31/25 17:51 05/31/25 17:51 05/31/25 17:51 05/31/25 17:51 05/31/25 17:51
Promotions Assistant consulted with Physician
Promotions Assistant consulted with physician?: Yes
Name of Physician Consulted: Salma
<Cally Marsh MD - Last Filed: 05/31/25 16:52>
Orders/Labs/Results
Orders:
Orders
05/31/25 Breakfast
Cholesterol Lowering
At Your Request: Full Participation
05/31/25 11:44
Type And Crossmatch [Type+Screen] Urgent
COVID-19 Antigen Urgent
Source: Nasal Swab
Complete Blood Count/With Diff Urgent
Comprehensive Metabolic Panel Urgent
Ferritin Urgent
Folate Urgent
Comment: ADDON
Iron Urgent
Comment: ADDON
Magnesium Urgent
Comment: ADD ON
TSH Reflex To Free T4 Urgent
Comment: ADD ON
Total Iron Binding Urgent
Comment: ADDON
Vitamin B12 Urgent
Comment: ADDON
Influenza A+B Rapid Molecular Urgent
GERMAN Source: Nasal Swab
Specimen Description:
05/31/25 11:45
CR Chest - 2 Views Urgent
Comment:
Reason For Exam: cough
05/31/25 14:06
CT Abd/pelvis W Iv Cont Urgent
Comment:
Reason For Exam: hematuria
05/31/25 14:24
Urinalysis Reflex To Culture Urgent
Date Specimen was Collected: 05/31/25
Time Specimen was Collected: 14:23
Urine Microscopic Reflex Cult Urgent
Urine Culture Urgent
GERMAN Source: U
Specimen Description:
Date Specimen was Collected: 05/31/25
Time Specimen was Collected: 14:23
05/31/25 14:25
NT-proBNP Urgent
Troponin I Urgent
05/31/25 15:26
Furosemide [Lasix] 40 mg IV NOW STA
05/31/25 15:28
Electrocardiogram (*1) Urgent
Reason for Study: Fatigue / Weakness
EKG- Treatment ONCE
05/31/25 16:10
Ciprofloxacin 400 mg/[id number] [Cipro 400 mg] 200 ml IV NOW
05/31/25 16:34
Add On- LAB Stat
Tests Added?: iron, b12, ferritin, folate, TIBC
Hemetest Stools As Directed
05/31/25 16:36
Admit/Transfer Patient As Directed
Co-Sign Provider:
Level of Care: Inpatient admission
Assign to:: Telemetry
Physician / Group: [facility]
Diagnosis: UTI
Reason for Telemetry: Arrhythmia
Date to Stop Telemetry: 06/03/25
Time to Stop Telemetry: 11:00
Reason for Hospitalization: UTi
Expected length of stay greater than two midnights?: Yes
ELOS- Estimated Length of Stay in days: 4
I certify the patient meets the requirements for IP care: Yes
PRN Pain Medication Management As Directed
May give lesser potent ordered pain med per pt: Yes
preference::
Protocol:: Medication orders for pain may be administered in a
manner that supports deferring to patient preference
when the pt is:
- Requesting an ordered lesser potent pain medication.
Least to most potent pain medications are defined
as: acetaminophen < NSAID < tramadol < opioids
(morphine, oxycodone, hydromorphone).
- Requesting a lesser dose of the same medication IF
ORDERED.
- Requesting a less intrusive route of administration
if both routes are prescribed by the provider (PO <
IV).
05/31/25 16:38
Code Status As Directed
Resuscitation Status: Full Code
05/31/25 16:46
Add On- LAB Routine
Tests Added?: mag level
05/31/25 17:37
Acetaminophen [Tylenol] 650 mg PO Q4HPRN PRN
Bisacodyl [Dulcolax] 10 mg RECTAL [id number] PRN
Docusate W/Senna [Senokot-S] 1 tablet PO BIDPRN PRN
Polyethylene Glycol Powder [Miralax] 17 grams PO DAILYPRN PRN
05/31/25 17:37
CARDIOLOGY CONSULT Routine
Consulting Provider: Dante Song
Was physician already notified: Yes
Activity As Directed
Activity Level: As Tolerated
Intake/ Output As Directed
Frequency: Per unit guidelines
Vital Signs As Directed
Frequency: Per unit guidelines
Weight As Directed
Frequency: Daily
Ot Eval And Treat Routine
Pt Eval And Treat Routine
Activity Level: As Tolerated
05/31/25 18:00
Atorvastatin [Lipitor] 20 mg PO QPM
Piperacillin/Tazo 3.375 Gram [Zosyn] 3.375 gram in 50 ml IV Q6H
Polyethylene Glycol Powder [Miralax] 17 grams PO DAILY
05/31/25 19:30
Calcium Carbonate/Vitamin D3 [Oscal 500 + D] 1,000 mg PO BID@1230,1930
05/31/25 20:00
Apixaban [Eliquis] 5 mg PO BID
Docusate Sodium [Colace] 100 mg PO BID
Magnesium Oxide 800 mg PO BID
Sennosides [Senokot] 8.6 mg PO BID
05/31/25 22:00
Carbidopa/Levodopa Cr [Sinemet Cr 50/200 (Extended Release)] 1 tablet PO HS
Losartan [Cozaar] 100 mg PO HS
Melatonin 5 mg PO HS
Mycophenolate Mofetil 1,000 mg PO HS
Pyridostigmine [Mestinon] 30 mg PO HS
06/01/25 06:00
Basic Metabolic Panel IN AM
Cardiovascular Evaluation IN AM
Complete Blood Count/No Diff IN AM
Magnesium IN AM
06/01/25 08:00
Escitalopram Oxalate [Lexapro] 10 mg PO DAILY
FOLic ACID [Folvite] 1 mg PO DAILY
Mycophenolate Mofetil 1,500 mg PO DAILY
Pantoprazole [Protonix] 40 mg PO DAILY
Prednisone [Deltasone] 10 mg PO Q48H
Pyridostigmine [Mestinon] 90 mg PO TID@08,12,1630
06/01/25 08:30
Carbidopa/Levodopa [Sinemet 25-100] 2 tablet PO TID@0830,1230,1630
06/01/25 12:30
Cyanocobalamin [Vitamin B-12] 3,000 mcg PO DAILY@1230
06/02/25 06:00
Basic Metabolic Panel IN AM
Complete Blood Count/No Diff IN AM
06/03/25 06:00
Basic Metabolic Panel IN AM
Complete Blood Count/No Diff IN AM
06/03/25 11:00
DC Protocol for Telemetry ONCE
06/04/25 06:00
Basic Metabolic Panel IN AM
06/05/25 06:00
Basic Metabolic Panel IN AM
Abnormal Lab Results
05/31/25 05/31/25
11:44 14:24
WBC 3.7 L 10^3/uL
(4.8-10.8)
RBC 2.99 L 10^6/uL
(4.70-6.10)
Hgb 7.9 L g/dL
(13.0-18.0)
Hct 24.8 L %
(39.0-52.0)
MCH 26.4 L pg
(27.0-31.0)
MCHC 31.9 L g/dL
(33.0-37.0)
RDW 15.6 H %
(11.5-14.5)
Absolute Lymphs (auto) 0.2 L 10^3/uL
(1.2-3.4)
Neutrophils % 82.8 H %
(42.2-75.2)
Lymphocytes % 5.1 L %
(20.5-51.1)
Monocytes % 11.0 H %
(1.7-9.3)
Chloride 111 H mmol/L
(98-107)
BUN 28 H mg/dl
(9-20)
Calcium 7.9 L mg/dl
(8.4-10.2)
Magnesium 1.4 L mg/dl
(1.6-2.3)
Iron 30 L ug/dl
(49-181)
TIBC 180 L ug/dl
(261-462)
% Saturation 16 L %
(20-50)
Ferritin 571.0 H ng/ml
(17.9-464.0)
Total Protein 5.4 L g/dl
(6.3-8.2)
Albumin 2.9 L g/dl
(3.5-5.0)
Vitamin B12 > 1000 H pg/ml
(239-931)
Urine Ketones 1+ A
(Negative)
Ur Occult Blood Reflex 4+ A
(Negative)
Urine Nitrite (Reflex) Positive A
(Negative)
Leukocyte Esterase Rfl 1+ A
(Negative)
Urine RBC >100 A /HPF
(0-2)
Urine Bacteria (Reflex) Many A
(Negative)
Urine Albumin (Reflex) 3+ A
(Neg - Trace)
05/31/25 11:44
05/31/25 11:44
Vital Signs
Initial and Last Documented VS:
Initial Vital Signs
Temp Pulse Resp BP Pulse Ox
97.6 F 61 16 105/61 95
05/31/25 11:25 05/31/25 11:25 05/31/25 11:25 05/31/25 11:25 05/31/25 11:25
Last Documented Vital Signs
Temp Pulse Resp BP Pulse Ox
97.5 F 57 18 141/69 96
05/31/25 17:51 05/31/25 17:51 05/31/25 17:51 05/31/25 17:51 05/31/25 17:51
<Ember Martinez [employer] - Last Filed: 05/31/25 19:19>
MDM/Problems Addressed
Differential Diagnosis Includes:
kidney stones, UTI, bladder cancer
CHF, pneumonia
MDM/Problems Addressed:
79-year-old male with history of CVA, expressive aphasia, myasthenia gravis, A-fib on Eliquis, HTN, HLD, GERD, renal insufficiency presents for abnormal WBC on lab work done yesterday.
has lab results from yesterday: WBC 2.3 Hgb 7.5 (copy of report scanned into chart).
Pt states he feels 'tired.' His appetite has been 'OK' per family. Denies fever/chills, n/v/d/c. Denies CP, SOB, abdominal pain.
and daughter state he's had blood in his urine intermittently for past week and he's been more weak and lethargic past week.
at bedside reports for past year pt has had a cough, found to have Pseudomonas by bronchoscopy and treated, has had chronic junky cough since. Followed by pulmonary. On nebulizations, Percussion vest ATBX as needed.
He also has had low Hgb for past year and 'they can't find out why.' Has had comprehensive workup with no answers. PCP has referred them to GI and they haven't yet made appointment.
CBC: WBC 3.7 Hgb 7.9
CMP: No clinically significant abnormality.
COVID-negative
2:20 p.m.
Pt urinated 300 ml tea colored urine
Awaiting CT scan
CXR report: Findings suggest congestive heart failure
3:10 PM:
EKG: Junctional rhythm, new since EKG of 03/2025 of NSR
UA: 4+ occult blood, greater than 100 RBCs, positive nitrates, positive leukocytes., Many bacteria, unable to count white blood cells due to field obscured by RBCs.
BNP 3230
Troponin 0.012
CT abd/pelvis w IV contrast Radiology report read: There are consolidations in both lower lobes which were seen previously and appear unchanged. This makes acute pneumonia unlikely, and more likely chronic atelectasis
There is a calculus in the right hemipelvis which appears to be in the bladder lumen versus right UVJ. There is no hydronephrosis to suggest renal obstruction.
There is much stool in the colon suggesting constipation
Plan: Treat for CHF, UTI/Hemorrhagic Cystitis, ?R UVJ calclulus vs bladder calculus, EKG w new Junctional Rhythm
Cipro IV, allergy to cephalexin listed, he's had fluoroquinolones in the past, normal QT interval
Case Discussed with Dr. Marsh who agrees with assessment and plan
4:00 P>M>
Hospitalist notified of admission
<Ember Martinez NP - Last Filed: 05/31/25 19:19>
*Pulse Oximetry
SaO2: 95
Oxygen Mode of Delivery: Room air
Patient hypoxic: no
*Critical Care Note
Total Time (30-74mins, 75-104mins- exclusive of procedures): Not Applicable
ED Attending Note
<Ember Martinez NP - Last Filed: 05/31/25 19:19>
-
Portions of this chart may have been created with voice recognition software.� Occasional wrong word or��sound alike� substitutions may have occurred due to the inherent limitations of voice recognition software.
<Cally Marsh MD - Last Filed: 05/31/25 16:52>
ED Attending Note
Patient seen and examined by attending physician: Yes
I performed the substantive portion of visit, reviewed & personally made and approve the management plan that is documented in note by myself or ANNAMARIE.: Yes
ED Attending Note:
Patient appears chronically ill and pale. Patient complains of blood in his urine. CAT scan report reviewed by me which shows a likely renal calculus and bladder.
Patient appears comfortable in no acute distress. He is breathing comfortably. Abdomen is soft and nontender throughout
Discharge Plan
Departure
Patient Disposition: Admit
Date of Disposition: 05/31/25
Time of Disposition: 15:54
Presentation/result/management discussed w/ accepting MD/DO: Hospitalist
Discharge Problem:
CHF (congestive heart failure), Hematuria, Acute UTI
Interventions
Interventions:
*Risk Screen - Suicide Last Done: 05/31/25 11:25
*General Assessment Last Done: 05/31/25 11:25
*Neglect/Abuse Screening Last Done: 05/31/25 11:25
*ED- Fall Risk Assessment Last Done: 05/31/25 11:30
*ED COVID-19 Vaccine History Last Done: 05/31/25 11:30
*Nursing Disposition Last Done: 05/31/25 17:25
Discharge Date and Time
Discharge Date/Time: 05/31/25 17:26
[2025-05-31 12:54] LABS: Nucleated Red Blood Cells % 0 % (-)
[2025-05-31 14:35] LABS: Urine Character Slightly Cloudy (Clear)
[2025-05-31 14:55] LABS: Urine Red Blood Cell >100 /HPF (0-2)
[2025-05-31 14:56] LABS: Troponin I < 0.012 ng/ml
--- NOTE | 2025-05-31 16:02 | HPS.HSE ---
Addendum entered and electronically signed by Stacy Frederick MD 05/31/25 16:49:
see update note for addendum
Original Note:
Family Physician
-
Family Physician: Tomas Venegas
Chief Complaint
-
generalized weakness
History of Present Illness
79-year-old male with history of CVA, expressive aphasia, myasthenia gravis, A-fib on Eliquis, HTN, HLD, GERD, renal insufficiency, Pseudomonas presents for abnormal WBC on lab work done yesterday. his wbc was 2.63 and hgb of 7.5. Pt states he feels
'tired and weak. As per , his cheeks are flushed which is abnormal for him. His temperature the beginning of the week was normal. Patient has a chronic cough. Noted blood in the urine at times this week. Denies fever/chills, n/v/d/c. Denies
CP, SOB, abdominal pain. Patient last 20 pounds in 6 months.
Concern for urinary tract infection. Patient received a dose of Lasix, Cipro in the ER. Admitted for further management
Medical History
Past Medical History
Past Medical History: Reports Other
Additional Past Medical History:
GERD, hypertension, colon polyps, hypercholesteremia, TIA, diverticulosis, change pain, Parkinson disease, myasthenia gravis, A-fib, CVA, renal insufficiency, kidney stones, bacterial pneumonia
Past Surgical History: Reports Other
Additional Past Surgical History:
Tonsillectomy, repair of middle finger left hand, left wrist surgery, left TKR, open right inguinal hernia repair #, right knee injury,
Social History
Tobacco: Non-smoker
Alcohol: None
Drug: None
Personal:
Living: With Family
Family History
Family History: Not pertinent
Allergies / Home Medications
Allergies reflects when Allergies were last updated in [employer].
Home Medications with original date entered in [employer]
Allergy/Medication List:
Allergies
Allergy/AdvReac Type Severity Reaction Status Date / Time
cephalexin Allergy ItchingAND Verified 05/31/25 11:30
REDNESS
haloperidol (From Haldol) Allergy hallucinati Verified 05/31/25 11:30
ons
lorazepam (From Ativan) Allergy hallucinati Verified 05/31/25 11:30
ons
Home Medications
mycophenolate mofetil 500 mg tablet 1,000 mg PO HS Autoimmune Disorder 12/17/20
prednisone 10 mg tablet 12.5 mg PO Q48H Anti-inflammatory 12/17/20
pyridostigmine bromide 60 mg tablet 30 mg PO HS myasthenia gravis 05/04/21
pyridostigmine bromide 60 mg tablet 90 mg PO TID@08,12,1630 myasthenia gravis 05/18/21
amiodarone 200 mg tablet (Pacerone) 100 mg PO DAILY Arrhythmia 09/23/21
escitalopram oxalate 10 mg tablet 10 mg PO DAILY Depression 03/01/22
atorvastatin 20 mg tablet 20 mg PO QPM High Cholesterol 07/20/22
mycophenolate mofetil 500 mg tablet (CellCept) 1,500 mg PO DAILY Autoimmune Disorder 10/01/24
pantoprazole 40 mg tablet,delayed release 40 mg PO DAILY Gastrointestinal Issue 10/01/24
melatonin 5 mg tablet 5 mg PO HS Sleep 03/13/25
apixaban 5 mg tablet (Eliquis) 5 mg PO BID 05/31/25
calcium 600 mg (as carbonate)-vitamin D3 10 mcg (400 unit) tablet (Calcium 600 + D(3)) 2 tab PO BID@1230,1930 05/31/25
carbidopa 25 mg-levodopa 100 mg tablet 2 tab PO TID@0830,1230,1630 05/31/25
carbidopa ER 50 mg-levodopa 200 mg tablet,extended release 1 tab PO HS 05/31/25
cyanocobalamin (vitamin B-12) 1,000 mcg tablet 3,000 mcg PO DAILY@1230 05/31/25
folic acid 1 mg tablet 1 mg PO DAILY 05/31/25
losartan 50 mg tablet 100 mg PO HS 05/31/25
magnesium oxide 800 mg PO BID 05/31/25
Review of Systems
-
Constitutional: Reports No Symptoms
EENT: Reports No Symptoms
Respiratory: Reports No Symptoms
Cardiac: Reports No Symptoms
Abdomen/GI: Reports No Symptoms
: Reports Bleeding and Dark Urine
Musculoskeletal: Reports No Symptoms
Skin: Reports No Symptoms
Neurological: Reports Weakness
Endocrine: Reports No Symptoms
Hematologic/Lymphatic: Reports No Symptoms
Psych: Reports No Symptoms
Physical Exam
Vital Signs
Vital Signs
Temp Pulse Resp BP Pulse Ox
97.6 F 55 18 137/67 97
05/31/25 11:25 05/31/25 15:30 05/31/25 15:30 05/31/25 15:00 05/31/25 15:30
Physical Exam
General: Well Developed, Well Nourished and No Apparent Distress
HEENT: NormoCephalic, Moist mucous membranes and Atraumatic
Respiratory: Rhonchi
Cardiac: S1/S2 and Regular Rhythm; No Murmur or Rub
GI: Soft, Non Tender, Non Distended and Normal Bowel Sounds; No Organomegaly
Rectal: Deferred by Provider
Musculoskeletal: No Clubbing, No Cyanosis and Other (Bilateral lower extremities edema)
Skin: No Rash
Neuro: Nonfocal/grossly intact
Laboratory Results
-
05/31/25 11:44
05/31/25 11:44
Laboratory Results
Total Bilirubin 0.7 mg/dl (0.2-1.3) 05/31/25 11:44
AST 17 U/L (17-59) 05/31/25 11:44
ALT < 10 U/L (0-50) 05/31/25 11:44
Alkaline Phosphatase 59 U/L (38-126) 05/31/25 11:44
Troponin I < 0.012 ng/ml 05/31/25 14:25
Data Reviewed
-
Diagnostic Radiology: Report Reviewed by me
CT Scan: Report Reviewed by me
Lab Data: Labs Reviewed by me
Impression/Plan
-
# Generalized weakness secondary to urinary tract infection
- IV Zosyn continued
- Tylenol p.o. for fever or pain
- PT/OT consulted
- CT abdomen pelvis with impression There are consolidations in both lower lobes which were seen previously and appear unchanged. This makes acute pneumonia unlikely, and more likely chronic atelectasisThere is a calculus in the right hemipelvis
which appears to be in the bladder lumen versus right UVJ. There is no hydronephrosis to suggest renal obstruction.There is much stool in the colon suggesting constipation
- Chest x-ray with congestive heart failure
#New junctional rhythm
-EKG with junctional rhythm
- Cardiology consulted
# Concern for CHF
- Patient received a dose of Lasix in ER
- Strict DEVONTE, daily weight
- Recent echo with impression of EF of 555 to 60%
-cards consulted
# Anemia of chronic disease
#leukopenia
- Hemoglobin stable at 7.9,wbc 2.7
- No active bleeding
- Continue to monitor
-obtain iron, TIBC,b12, ferritin, folate
-hemetest stool
#Parkinson's disease
- Carbidopa continue
#chronic cough secondary pseudomonas aeruginosa
-follows pulmonary as outpatient.
#Myasthenia gravis--�stable
-cont pyridostigmine, prednisone
#Paroxysmal Atrial fibrillation--cont amio, eliquis
#GERD
-cont PPI
#Essential hypertension
-losartan continued
#Hypercholesterolemia--cont Lipitor
#Anxiety--cont lexapro
#DVT proph-eliquis
#code status--FULL CODE STATUS
[2025-05-31] MEDS: LASIX 40 MG IV (16:29)
[2025-05-31] MEDS: CIPRO 400 MG 200 IV (16:29)
--- NOTE | 2025-05-31 16:37 | W.PN.UPDATE ---
Update Note
Progress Note Update
I saw and examined the patient.
The QC TECH Yomi's note was reviewed and I agree with the note.
Comment: 79 y/o M, hx of PD, Myasthenia gravis, Anxiety, GERD, HLD, PAF, CVA with aphasia presents to ER for abnormal CBC. Patient was noted to have Hb of 7.5. Family reports chronic anemia without answer but no GI evaluation performed as of yet.
For the past week, patient has felt tired and had limited appetite. Family notes that patients urine has had intermittent mix of blood. No fever/chills/abd pain, no CP or SOB.
Recently patient was treated with abx for pseudomonas in lungs diagnosed after bronchoscopy procedure; has lingering 'junky cough' - takes nebs and percussive therapy at home.
in ER, patient ruled in for acute CHF and also UTI - started on IV abx and IV Lasix. Cardiology consulted.
Exam:
General: Well Developed, Well Nourished and No Apparent Distress, lower body weight
HEENT: Normocephalic, Moist mucous membranes and Atraumatic
Respiratory: Rhonchi, no wheeze or crackles
Cardiac: S1/S2 and Regular Rhythm; No Murmur or Rub
GI: Soft, Non Tender, Non Distended and Normal Bowel Sounds; No Organomegaly
Rectal: Deferred by Provider
Musculoskeletal: No Clubbing, No Cyanosis and Other (Bilateral lower extremities edema)
Skin: No Rash
Neuro: Nonfocal/grossly intact
Assessment:
Generalized weakness
acute UTI With hematuria
- empiric Zosyn, pending culture
- CT with calculus in the right hemipelvis which appears to be in the bladder lumen versus right UVJ. There is no hydronephrosis to suggest renal obstruction
- PT/OT
New Junctional rhythm on EKG
HX of Parox A. Fib
- check lytes
- continue Eliquis
- hold Amiodarone
- [facility] cards consulted
- concern for CHF on labs/imaging but not specifically on exam - s/p IV Lasix. Follow Cards recs. May obtain Echo Tuesday.
acute blood loss anemia from hematuria on top of Chronic anemia
- unclear etiology
- anemia workup; heme test stools
- hematology evaluation
- eventual OP GI workup
History of Parkinson's disease
- continue Sinemet scheduled
History of hypomagnesemia - on replacement
Hx of Pseudomonas in respiratory cultures
- completed antibiotics
- continue nebs
- did not tolerate VEST therapy in past
- OP pulm f/u
Hx of Myasthenia gravis
- continue pyridostigmine, prednisone, CellCept
GERD - PPI
Essential HTN - continue ARB
Hypercholesterolemia
- continue statin
Anxiety/Depression - Lexapro
Hx of CVA with aphasia
DVT ppx: Eliquis
Code: Full
--- NOTE | 2025-05-31 17:01 | CON.CAR ---
Addendum entered and electronically signed by Dante Song MD 05/31/25 18:01:
I saw and examined the patient.
The Insulation Board Calender Operator's note was reviewed and I agree with the note.
Comment: Briefly, 79-year-old man past medical history of paroxysmal atrial fibrillation, prior CVA, moderate /AR, Parkinson's disease, myasthenia and bronchiectasis with prior Pseudomonas infection resents for evaluation of weakness, lethargy and
hematuria admitted for treatment of urinary tract infection. Initial ECG appeared to show a junctional rhythm and cardiology was consulted further evaluation.
Initial ECG with junctional rhythm at 55 bpm
Telemetry showing sinus bradycardia with heart rate in the 50s
Okay to hold amiodarone for now and monitor on telemetry
Also noted to have elevated proBNP greater than 3000
Patient does report dyspnea and received a dose of IV Lasix in the ER
Okay to continue gentle diuresis and monitor response�would plan for once daily IV Lasix
Follow renal function, electrolytes and daily weights
Rest per Amelia Rivera
Original Note:
Consultation
Consultation Request
Date/Time Consultation Performed: 05/31/25
Requesting Provider: Dr. Frederick
Performing Provider: Amelia Rivera PA-C for Dr. Song
Reason for Consultation: bradycardia
Medical History
-
Chief Complaint: fatigue, weakness
History of Present Illness:
Patient is a 79-year-old male with past medical history of paroxysmal atrial fibrillation on chronic Eliquis and amiodarone 100 mg daily, hypertension, aortic stenosis, hyperlipidemia, history of CVA, Parkinson's disease, bronchiectasis with
cultures growing out Pseudomonas in the past who presented to [facility] for evaluation of weakness and fatigue noted since this past weekend. He denies associated fevers or chills, chest pain. reports some noted dyspnea on exertion. She states
that his feet do have swelling at times. He denies palpitations or dizziness. By EKG, concern for junctional rhythm. He has known history of sinus bradycardia on his amiodarone. Being treated for UTI as urinalysis abnormal. Cardiology consulted
for evaluation
PMH:
Paroxysmal atrial fibrillation
Chronic amiodarone therapy
Chronic Eliquis therapy
Anemia
Aortic stenosis
Hypertension
Hyperlipidemia
History of CVA
History of intermittent hematuria
Parkinson's disease
Myasthenia gravis
Bronchiectasis with prior Pseudomonas infection
Past Medical History
Past Medical History: Other (in HPI)
Social History
Tobacco: Non-Smoker
Alcohol: Occasional
Personal:
Living: With Family
Employment: Retired
Family History
Family History: Diabetes and Hypertension
Allergies / Home Medications
Allergy/AdvReac Type Severity Reaction Status Date / Time
cephalexin Allergy ItchingAND Verified 05/31/25 11:30
REDNESS
haloperidol (From Haldol) Allergy hallucinati Verified 05/31/25 11:30
ons
lorazepam (From Ativan) Allergy hallucinati Verified 05/31/25 11:30
ons
�Medication �Instructions �Recorded �Confirmed �Type
mycophenolate mofetil 500 mg tablet 1,000 mg PO HS Autoimmune Disorder 12/17/20 05/31/25 History
prednisone 10 mg tablet 12.5 mg PO Q48H Anti-inflammatory 12/17/20 05/31/25 History
pyridostigmine bromide 60 mg tablet 30 mg PO HS myasthenia gravis 05/04/21 05/31/25 History
pyridostigmine bromide 60 mg tablet 90 mg PO TID@08,12,1630 myasthenia 05/18/21 05/31/25 History
gravis
amiodarone 200 mg tablet (Pacerone) 100 mg PO DAILY Arrhythmia 09/23/21 05/31/25 History
escitalopram oxalate 10 mg tablet 10 mg PO DAILY Depression 03/01/22 05/31/25 History
atorvastatin 20 mg tablet 20 mg PO QPM High Cholesterol 07/20/22 05/31/25 History
mycophenolate mofetil 500 mg 1,500 mg PO DAILY Autoimmune 10/01/24 05/31/25 History
tablet (CellCept) Disorder
pantoprazole 40 mg tablet,delayed 40 mg PO DAILY Gastrointestinal 10/01/24 05/31/25 History
release Issue
melatonin 5 mg tablet 5 mg PO HS Sleep 03/13/25 05/31/25 History
apixaban 5 mg tablet (Eliquis) 5 mg PO BID 05/31/25 05/31/25 History
calcium 600 mg (as 2 tab PO BID@1230,1930 05/31/25 05/31/25 History
carbonate)-vitamin D3 10 mcg (400
unit) tablet (Calcium 600 + D(3))
carbidopa 25 mg-levodopa 100 mg 2 tab PO TID@0830,1230,1630 05/31/25 05/31/25 History
tablet
carbidopa ER 50 mg-levodopa 200 mg 1 tab PO HS 05/31/25 05/31/25 History
tablet,extended release
cyanocobalamin (vitamin B-12) 3,000 mcg PO DAILY@1230 05/31/25 05/31/25 History
1,000 mcg tablet
folic acid 1 mg tablet 1 mg PO DAILY 05/31/25 05/31/25 History
losartan 50 mg tablet 100 mg PO HS 05/31/25 05/31/25 History
magnesium oxide 800 mg PO BID 05/31/25 05/31/25 History
Review of Systems
-
History Source: Patient and Family
All other systems: Negative unless noted
Physical Exam
Vital Signs
Temp Pulse Resp BP Pulse Ox
97.6 F 57 18 151/78 95
05/31/25 11:25 05/31/25 16:29 05/31/25 16:15 05/31/25 16:29 05/31/25 16:15
Lab Results
05/31/25 11:44
05/31/25 11:44
Troponin I < 0.012 ng/ml 05/31/25 14:25
Szz-R-Sjeuitnrqle Pept 3230 pg/ml 05/31/25 14:25
Physical Exam
General: No Apparent Distress, Comfortable and Other (frail appearing)
HEENT: Normocephalic, Anicteric and Moist Mucous Membranes
Respiratory: Rhonchi and Non Labored Respirations
Cardiac: S1/S2, Regular Rhythm, Murmur and Other (baylee)
GI: Soft, Non Tender, Non Distended and Normal Bowel Sounds
Musculoskeletal: No Clubbing, No Cyanosis and Edema (trace B/L LE edema)
Skin: Warm and Dry
Neuro: AO x 3
Impression / Plan
-
Primary Directional Drill Operator: Dr. Santos
Assessment:
Presentation with fatigue, weakness
Abnormal UA, concern for UTI
Sinus bradycardia
Elevated proBNP
Anemia
Paroxysmal atrial fibrillation
Chronic amiodarone therapy
Chronic Eliquis therapy
Aortic stenosis
Hypertension
Hyperlipidemia
History of CVA
History of intermittent hematuria
Parkinson's disease
Myasthenia gravis
Bronchiectasis with prior Pseudomonas infection
Hypoalbuminemia
ECHO 10/17/24: EF 55 to 60%, no regional wall motion abnormalities noted, stage II diastolic dysfunction, MAC, moderate MR, moderate with peak/mean gradients 47/30 mmHg, STEPHY 1.3 cm�, moderate TR, PAP 45 mmHg, small pericardial effusion
Plan:
- Patient presents with fatigue and weakness. UA abnormal with concern for UTI. Patient receiving IV antibiotics in ER
- Cardiology consulted as noted to have EKG with concern for junctional rhythm. On review of telemetry in ER, appears to be in his baseline sinus bradycardia. Will continue to follow on telemetry. Can consider holding outpatient Amio 100 mg daily
for now. He is not on beta-amandeep or calcium channel amandeep as an outpatient
- Continue Eliquis for now. He reports some hematuria as an outpatient, however has a history of this intermittently and is followed by Dr. Miller in the outpatient setting. hgb 7.9 and this appears to be close to baseline.
- proBNP elevated at 3200 and CXR read as findings of CHF. no evidence of effusions and patient breathing comfortably. by xray of abd/pelvis read more as atelectasis. he does not have history of CHF diagnosis, but does have mod MR//TR by last echo
10/2024. was given IV lasix 40mg x1 in ER. would hold off on additional diuresis for now and assess response
- trop negative
- check TSH
- repeat echo on Tuesday if still admitted to reassess EF and degree of known valvular disease
- PT/OT
- d/w family at bedside. d/w hospitalist
Data Reviewed
-
EKG: Tracing Personally Visualized and interpreted
Radiology: Report Reviewed by me
Medical Tests (Nuc Med, Echo etc): Report Reviewed by me
Labs: Labs Reviewed by me
Old Records: Reviewed
[2025-05-31 17:17] LABS: Iron 30 ug/dl (49-181); Magnesium 1.4 mg/dl (1.6-2.3)
[2025-05-31 17:26] LABS: Total Iron Binding Capacity 180 ug/dl (261-462)
[2025-05-31 17:53] LABS: Ferritin 571.0 ng/ml (17.9-464.0)
[2025-05-31 18:24] LABS: Folate 4.2 ng/ml (2.76-20); Vitamin B12 > 1000 pg/ml (239-931)
[2025-05-31] MEDS: MIRALAX 17 GRAMS PO (18:40)
[2025-05-31] MEDS: ZOSYN 50 IV ×2 (18:40→23:51)
[2025-05-31] MEDS: LIPITOR 20 MG PO (18:41)
[2025-05-31] MEDS: OSCAL 500 + D 1000 MG PO (20:07)
[2025-05-31] MEDS: ELIQUIS 5 MG PO (20:07)
[2025-05-31] MEDS: MAGNESIUM OXIDE 800 MG PO (20:07)
[2025-05-31] MEDS: SENOKOT PO (20:11)
[2025-05-31] MEDS: COLACE PO (20:11)
[2025-05-31] MEDS: MESTINON 30 MG PO (22:47)
[2025-05-31] MEDS: SINEMET CR 50/200 (EXTENDED RELEASE) 1 TABLET PO (22:48)
[2025-05-31] MEDS: COZAAR 100 MG PO (22:48)
[2025-05-31] MEDS: MELATONIN 5 MG PO (22:52)
[2025-05-31] MEDS: CELLCEPT 1000 MG PO (22:52)
[2025-06-01] VITALS (7 sets, daily range): BP systolic 83–125; BP diastolic 46–62; PULSE 55–60; O2SAT 93; BMI 22.2
--- NOTE | 2025-06-01 00:52 | PTCARENOTE ---
Received in bed and eating at change of shift. AAox3. No c/o pain or discomfort. Educated on using call pérez for assist. Call pérez within reach.
[2025-06-01] MEDS: ZOSYN 50 IV ×2 (06:07→13:04)
--- NOTE | 2025-06-01 06:32 | CON.ONC ---
Consultation
-
Date Consultation Requested: 05/31/25
Date Consultation Performed: 06/01/25
Requesting Provider: Stacy Frederick
Performing Provider: Junior
Reason for Consultation: Chronic anemia
Impression
Impression
Chronic anemia (suspect from inflammatory disease)
Parkinson's Disease
Hx CVA
UTI
Sinus bradycardia
Paroxysmal atrial fibrillation on Eliquis
Myasthenia gravis
Bronchiectasis with prior Pseudomonas infection
Plan
Plan
So far pattern suggests anemia of chronic inflammatory disease with elevated ferritin. Renal function normal.
Could be med related as a variety of his listed meds can be associated with anemia or alternatively a bone marrow disorder eg MDS.
Outpatient evaluation for bone marrow biopsy could be considered although his anemia has been pretty stable x 2 years.
He has a variety of comorbidities particularly Parkinson disease.
Await the rest of the inpatient anemia workup and we can go from there.
Will check sed rate & CRP as if they are very elevated that could be circumstantial evidence for anemia of chronic inflammatory disease.
Thanks. Will follow while inpatient.
Patient History
History of Present Illness
CC: fatigue, weakness
HPI: 79-year-old male with paroxysmal atrial fibrillation on Eliquis, history of CVA, Parkinson's disease, bronchiectasis who presented to [facility] with weakness and fatigue x few days. Possible UTI based on abnormal U/A. He denies fevers or chills.
Concern for junctional rhythm on ECG. Asked to evaluate patient for anemia which is chronic HgB ~ 8 since 08/2023. Current HgB 7.9. Patient denies bleeding.
Past-Medical/Surgical History
PMH:
Paroxysmal atrial fibrillation on amiodarone & Eliquis anticoagulation
Chronic Anemia
Parkinson's disease
Aortic stenosis
Hypertension
Hyperlipidemia
History of CVA
History of intermittent hematuria
Myasthenia gravis
Bronchiectasis with prior Pseudomonas infection
SH:
Tobacco: Non-Smoker
Alcohol: Occasional
Personal:
Living: With Family
Employment: Retired
Patient Medication
�Medication �Instructions �Recorded �Confirmed �Last Taken �Type
mycophenolate mofetil 500 mg tablet 1,000 mg PO HS Autoimmune Disorder 12/17/20 05/31/25 05/30/25 History
prednisone 10 mg tablet 12.5 mg PO Q48H Anti-inflammatory 12/17/20 05/31/25 05/30/25 History
pyridostigmine bromide 60 mg tablet 30 mg PO HS myasthenia gravis 05/04/21 05/31/25 05/30/25 History
pyridostigmine bromide 60 mg tablet 90 mg PO TID@08,12,1630 myasthenia 05/18/21 05/31/25 05/31/25 History
gravis
amiodarone 200 mg tablet (Pacerone) 100 mg PO DAILY Arrhythmia 09/23/21 05/31/25 05/31/25 History
escitalopram oxalate 10 mg tablet 10 mg PO DAILY Depression 03/01/22 05/31/25 05/31/25 History
atorvastatin 20 mg tablet 20 mg PO QPM High Cholesterol 07/20/22 05/31/25 05/30/25 History
mycophenolate mofetil 500 mg 1,500 mg PO DAILY Autoimmune 10/01/24 05/31/25 05/31/25 History
tablet (CellCept) Disorder
pantoprazole 40 mg tablet,delayed 40 mg PO DAILY Gastrointestinal 10/01/24 05/31/25 05/31/25 History
release Issue
melatonin 5 mg tablet 5 mg PO HS Sleep 03/13/25 05/31/25 05/30/25 History
apixaban 5 mg tablet (Eliquis) 5 mg PO BID 05/31/25 05/31/25 05/31/25 History
calcium 600 mg (as 2 tab PO BID@1230,1930 05/31/25 05/31/25 05/30/25 History
carbonate)-vitamin D3 10 mcg (400
unit) tablet (Calcium 600 + D(3))
carbidopa 25 mg-levodopa 100 mg 2 tab PO TID@0830,1230,1630 05/31/25 05/31/25 05/31/25 History
tablet
carbidopa ER 50 mg-levodopa 200 mg 1 tab PO HS 05/31/25 05/31/25 05/30/25 History
tablet,extended release
cyanocobalamin (vitamin B-12) 3,000 mcg PO DAILY@1230 05/31/25 05/31/25 05/31/25 History
1,000 mcg tablet
folic acid 1 mg tablet 1 mg PO DAILY 05/31/25 05/31/25 05/31/25 History
losartan 50 mg tablet 100 mg PO HS 05/31/25 05/31/25 05/31/25 History
magnesium oxide 800 mg PO BID 05/31/25 05/31/25 05/31/25 History
Active Medications
Generic Name Dose Route Start Last Admin
Trade Name Freq PRN Reason Stop Dose Admin
Acetaminophen 650 mg 05/31/25 17:37
Acetaminophen 325 Mg Tablet PO 06/28/25 17:36
Q4HPRN PRN
mild pain/SPANN/temp> 100.4F
Apixaban 5 mg 05/31/25 20:00 05/31/25 20:07
Apixaban (Eliquis) 5 Mg Tablet PO 06/28/25 19:59 5 mg
BID LISBETH Administration
Atorvastatin Calcium 20 mg 05/31/25 18:00 05/31/25 18:41
Atorvastatin (Lipitor) 20 Mg Tablet PO 06/28/25 17:59 20 mg
QPM LISBETH Administration
Bisacodyl 10 mg 05/31/25 17:37
Bisacodyl 10 Mg Rectal Suppository RECTAL 06/28/25 17:36
[id number] PRN
constipation
Calcium/Vitamin D 1,000 mg 05/31/25 19:30 05/31/25 20:07
Calcium Carbonate 500 Mg/Vitamin D 5 Mcg (200 Units) Tablet PO 06/28/25 19:29 1,000 mg
BID@1230,1930 LISBETH Administration
Carbidopa/Levodopa 1 tablet 05/31/25 22:00 05/31/25 22:48
Carbidopa (50 Mg)/Levodopa (200 Mg) Extended Release Tablet PO 06/28/25 21:59 1 tablet
HS LISBETH Administration
Carbidopa/Levodopa 2 tablet 06/01/25 08:30
Carbidopa (25 Mg)/Levodopa (100 Mg) Regular Release Tablet PO 06/29/25 08:29
TID@0830,1230,1630 LISBETH
Cyanocobalamin 3,000 mcg 06/01/25 12:30
Cyanocobalamin (Vitamin B-12) 500 Mcg Tablet PO 06/29/25 12:29
DAILY@1230 LISBETH
Docusate Sodium 100 mg 05/31/25 20:00 05/31/25 20:11
Docusate Sodium 100 Mg Capsule PO 06/28/25 19:59 Not Given
BID LISBETH
Escitalopram Oxalate 10 mg 06/01/25 08:00
Escitalopram 10 Mg Tablet PO 06/29/25 07:59
DAILY LISBETH
Folic Acid 1 mg 06/01/25 08:00
Folic Acid 1 Mg Tablet PO 06/29/25 07:59
DAILY LISBETH
Furosemide 40 mg 06/01/25 08:00
Furosemide 40 Mg (10 Mg/Ml) 4 Ml Vial IV 06/29/25 07:59
DAILY LISBETH
Piperacillin Sod/Tazobactam Sod 3.375 gram in 50 mls @ 100 mls/hr 05/31/25 18:00 06/01/25 06:07
Zosyn IV 50 mls
Q6H LISBETH Administration
Losartan Potassium 100 mg 05/31/25 22:00 05/31/25 22:48
Losartan 100 Mg Tablet PO 06/28/25 21:59 100 mg
HS LISBETH Administration
Magnesium Oxide 800 mg 05/31/25 20:00 05/31/25 20:07
Magnesium Oxide 400 Mg Tablet PO 06/28/25 19:59 800 mg
BID LISBETH Administration
Melatonin 5 mg 05/31/25 22:00 05/31/25 22:52
Melatonin 5 Mg Tablet PO 06/28/25 21:59 5 mg
HS LISBETH Administration
Mycophenolate Mofetil 1,000 mg 05/31/25 22:00 05/31/25 22:52
Mycophenolate 500 Mg Tablet PO 06/28/25 21:59 1,000 mg
HS LISBETH Administration
Mycophenolate Mofetil 1,500 mg 06/01/25 08:00
Mycophenolate 500 Mg Tablet PO 06/29/25 07:59
DAILY LISBETH
Pantoprazole Sodium 40 mg 06/01/25 08:00
Pantoprazole 40 Mg Delayed Release Tablet PO 06/29/25 07:59
DAILY LISBETH
Polyethylene Glycol 17 grams 05/31/25 17:37
Polyethylene Glycol Powder 17 Grams Packet PO 06/28/25 17:36
DAILYPRN PRN
constipation
Polyethylene Glycol 17 grams 05/31/25 18:00 05/31/25 18:40
Polyethylene Glycol Powder 17 Grams Packet PO 06/28/25 17:59 17 grams
DAILY LISBETH Administration
Prednisone 10 mg 06/01/25 08:00
Prednisone 10 Mg Tablet PO 06/29/25 07:59
Q48H LISBETH
Prednisone 2.5 mg 06/01/25 08:00
Prednisone 2.5 Mg Tablet PO 06/29/25 07:59
Q48H LISBETH
Pyridostigmine [place] 30 mg 05/31/25 22:00 05/31/25 22:47
Pyridostigmine 60 Mg Tablet PO 06/28/25 21:59 30 mg
HS LISBETH Administration
Pyridostigmine [place] 90 mg 06/01/25 08:00
Pyridostigmine 60 Mg Tablet PO 06/29/25 07:59
TID@08,12,1630 [facility]
Senna/Docusate Sodium 1 tablet 05/31/25 17:37
Docusate W/Senna (Natalie-Colace) Tablet PO 06/28/25 17:36
BIDPRN PRN
constipation
Sennosides 8.6 mg 05/31/25 20:00 05/31/25 20:11
Sennosides (Senokot) 8.6 Mg Tablet PO 06/28/25 19:59 Not Given
BID LISBETH
Sodium Chloride 0 flush 05/31/25 19:00
Sodium Chloride 0.9% (Flush) Syringe IV 06/28/25 18:59
PER PROTOCOL [facility]
Review of Systems
-
History Source: Patient
Constitutional: Reports Fatigue; Denies Fever
Respiratory: Reports No Symptoms
Cardiac: Reports No Symptoms
GI: Denies Bloody Stools or Black Stools
: Reports No Symptoms
Physical Exam
-
General: Conversant and Appears Chronically Ill
HEENT: Negative Jaundice
Cardiology: Normal Sinus Rhythm, S1, S2 and Murmur
Pulmonary: Clear
GI: Soft
Musculoskeletal: No Edema
Extremities: Other (parkinsonian rigidity)
Psych: Calm
Labs
Lab Results
WBC 3.7 10^3/uL (4.8-10.8) L 05/31/25 11:44
RBC 2.99 10^6/uL (4.70-6.10) L 05/31/25 11:44
Hgb 7.9 g/dL (13.0-18.0) L 05/31/25 11:44
Hct 24.8 % (39.0-52.0) L 05/31/25 11:44
MCV 82.9 fL (80.0-94.0) 05/31/25 11:44
MCH 26.4 pg (27.0-31.0) L 05/31/25 11:44
MCHC 31.9 g/dL (33.0-37.0) L 05/31/25 11:44
RDW 15.6 % (11.5-14.5) H 05/31/25 11:44
Plt Count 178 10^3/uL (130-400) 05/31/25 11:44
MPV 9.0 fL (7.4-10.4) 05/31/25 11:44
Abs Immat Gran (auto) 0.0 10^3/uL (0-0.05) 05/31/25 11:44
Absolute Neuts (auto) 3.1 10^3/uL (1.4-6.5) 05/31/25 11:44
Absolute Lymphs (auto) 0.2 10^3/uL (1.2-3.4) L 05/31/25 11:44
Absolute Monos (auto) 0.4 10^3/uL (0.1-0.6) 05/31/25 11:44
Absolute Eos (auto) 0.0 10^3/uL (0-0.7) 05/31/25 11:44
Absolute Basos (auto) 0.0 10^3/uL (0-0.2) 05/31/25 11:44
Immature Gran % 0.3 % (0-0.5) 05/31/25 11:44
Neutrophils % 82.8 % (42.2-75.2) H 05/31/25 11:44
Lymphocytes % 5.1 % (20.5-51.1) L 05/31/25 11:44
Monocytes % 11.0 % (1.7-9.3) H 05/31/25 11:44
Eosinophils % 0.3 % (0-6) 05/31/25 11:44
Basophils % 0.5 % (0-2) 05/31/25 11:44
Creatinine 1.1 mg/dL (0.7-1.3) 05/31/25 11:44
Vital Signs
Vital Signs
Temp Pulse Resp BP Pulse Ox
97.7 F 54 18 113/60 95
06/01/25 03:04 06/01/25 03:04 06/01/25 03:04 06/01/25 03:04 06/01/25 03:04
[2025-06-01 08:44] LABS: Hematocrit 25.8 % (39.0-52.0); Hemoglobin 8.2 g/dL (13.0-18.0); Mean Corp Hgb Conc. 31.8 g/dL (33.0-37.0); Mean Corpuscular Volume 83.0 fL (80.0-94.0); Platelet Count 179 10^3/uL (130-400); Red Cell Dist. Width 15.6 % (11.5-14.5); Reticulocyte Count 0.8 % (0.4-2.8)
[2025-06-01 09:05] LABS: Blood Urea Nitrogen 29 mg/dl (9-20); Calcium 8.1 mg/dl (8.4-10.2); Carbon Dioxide 23 mmol/L (22-30); Chloride 111 mmol/L (98-107); Estimated Creatinine Clearance 45 ml/min; Glucose 81 mg/dl (70-99); HDL Cholesterol 29 mg/dl; LDH 195 U/L (120-246); LDL Cholesterol, Calculated 19 mg/dl; Magnesium 1.6 mg/dl (1.6-2.3); Potassium 3.9 mmol/L (3.5-5.1); Sodium 138 mmol/L (135-145); Very Low Density Lipoprotein 11 mg/dl (0-30); eGFR > 60.00
[2025-06-01 09:21] LABS: C-Reactive Protein 148.60 mg/L (0.0-10.00)
[2025-06-01] MEDS: DELTASONE 2.5 MG PO (10:00)
[2025-06-01] MEDS: MAGNESIUM OXIDE 800 MG PO ×2 (10:00→21:14)
[2025-06-01] MEDS: DELTASONE 10 MG PO (10:01)
[2025-06-01] MEDS: FOLVITE 1 MG PO (10:01)
[2025-06-01] MEDS: COLACE 100 MG PO ×2 (10:01→21:14)
[2025-06-01] MEDS: LEXAPRO 10 MG PO (10:01)
[2025-06-01] MEDS: MIRALAX 17 GRAMS PO (10:01)
[2025-06-01] MEDS: CELLCEPT 1500 MG PO (10:03)
[2025-06-01] MEDS: LASIX 40 MG IV (10:03)
[2025-06-01] MEDS: ELIQUIS 5 MG PO ×2 (10:03→21:15)
[2025-06-01] MEDS: PROTONIX 40 MG PO (10:05)
[2025-06-01] MEDS: SENOKOT 8.6 MG PO ×2 (10:05→21:15)
[2025-06-01] MEDS: MESTINON 90 MG PO ×3 (10:13→17:27)
[2025-06-01] MEDS: SINEMET 25-100 2 TABLET PO ×3 (10:16→17:24)
[2025-06-01] MEDS: OSCAL 500 + D 1000 MG PO ×2 (13:07→21:16)
[2025-06-01] MEDS: VITAMIN B-12 3000 MCG PO (13:09)
--- NOTE | 2025-06-01 13:47 | W.PN.HOSP.TC ---
Today's Communication/Plan
-
IV Lasix; follow cards rec, Echo Tuesday
stop Abx with negative Urine cultures
PT/OT
Assessment / Plan
Assessment / Plan
Assessment:
Generalized weakness
acute UTI With hematuria
- Urine culture no growth, will stop Abx and observe
- CT with calculus in the right hemipelvis which appears to be in the bladder lumen versus right UVJ. There is no hydronephrosis to suggest renal obstruction
- PT/OT pending
Acute HFpEF
- CXR with pulm edema and elevated BNP
- IV Lasix 40mg daily; requires intensive monitoring of I/Os, weights, lytes
- Echo Tuesday
- DCA cards following
New Junctional rhythm on EKG
HX of Parox A. Fib
- continue Eliquis
- hold Amiodarone
- DCA cards following
acute blood loss anemia from hematuria on top of Chronic anemia - suspected anemia of chronic disease
- hematology following
- eventual OP GI workup
- monitor CBC
History of Parkinson's disease
- continue Sinemet scheduled
History of hypomagnesemia - on replacement
Hx of Pseudomonas in respiratory cultures
- completed antibiotics
- continue nebs
- did not tolerate VEST therapy in past
- OP pulm f/u
Hx of Myasthenia gravis
- continue pyridostigmine, prednisone, CellCept
GERD - PPI
Essential HTN - continue ARB
Hypercholesterolemia
- continue statin
Anxiety/Depression - Lexapro
Hx of CVA with aphasia
DVT ppx: Eliquis
Code: Full
Anticipated Discharge: > 48 hours
Subjective/Interval History
-
Date of Service: June 01, 2025
resting comfortably, no complaints at present
Objective Data
-
Labs:
Laboratory Results
06/01/25
07:45
WBC 3.5 L
Hgb 8.2 L
Hct 25.8 L
Plt Count 179
Sodium 138
Potassium 3.9
Chloride 111 H
Carbon Dioxide 23
BUN 29 H
Creatinine 1.2
Glucose 81
Calcium 8.1 L
Total Bilirubin 0.9
Vital Signs:
Vital Signs
Temp Pulse Resp BP Pulse Ox
97.7 F 56 18 102/56 98
06/01/25 11:17 06/01/25 11:17 06/01/25 11:17 06/01/25 11:17 06/01/25 11:17
I&O
05/31/25 06/01/25 06/02/25
06:59 06:59 06:59
Intake Total 1060 / 1060
Output Total 325 / 325
Balance -325 / -325 1060 / 1060
Physical Exam
-
General: No Apparent Distress
HEENT: Normocephalic and Atraumatic
Respiratory: Negative Wheezes
Cardiac: Regular Rhythm and S1/S2
GI: Soft
Neuro: AO x 3
Psych: Calm
Data Reviewed
-
Total Time Spent with Patient (in minutes): 51
Labs: Labs Reviewed by me
--- NOTE | 2025-06-01 16:35 | W.PN.CARDCBS ---
Today's Communication / Plan
-
Continue gentle IV diuresis
Hopefully transition to oral diuretic in the next 24 to 48 hours
Impression / Plan
-
Primary Director Risk: Dr. Santos
Assessment:
Presentation with fatigue, weakness
Abnormal UA, concern for UTI
Sinus bradycardia
Elevated proBNP
Anemia
Paroxysmal atrial fibrillation
Chronic amiodarone therapy
Chronic Eliquis therapy
Aortic stenosis
Hypertension
Hyperlipidemia
History of CVA
History of intermittent hematuria
Parkinson's disease
Myasthenia gravis
Bronchiectasis with prior Pseudomonas infection
Hypoalbuminemia
ECHO 10/17/24: EF 55 to 60%, no regional wall motion abnormalities noted, stage II diastolic dysfunction, MAC, moderate MR, moderate with peak/mean gradients 47/30 mmHg, STEPHY 1.3 cm�, moderate TR, PAP 45 mmHg, small pericardial effusion
Plan:
- Patient presents with fatigue and weakness. Admitted for possible UTI.
- Cardiology consulted as noted to have EKG with concern for junctional rhythm. On review of telemetry in ER, appears to be in his baseline sinus bradycardia. Will continue to follow on telemetry. Ok to hold outpatient Amio
- Continue Eliquis
- proBNP elevated at 3200 and CXR suggestive of pulmonary edema
- He does not have history of CHF diagnosis, but does have mod MR//TR by last echo 10/2024. was given IV lasix 40mg x1 in ER. would hold off on additional diuresis for now and assess response
- Continue gentle IV diuresis
- Follow renal function and electrolytes
- If still inpatient Tuesday will arrange for echo. Otherwise can be done as an outpatient.
Progress Note - Director Risk
Subjective
Date of Service: June 01, 2025
No acute overnight events. Patient is resting comfortably in bed. No cardiac complaints.
Objective
Labs:
06/01/25 07:45
06/01/25 07:45
Labs
Hgb 8.2 g/dL (13.0-18.0) L 06/01/25 07:45
Hct 25.8 % (39.0-52.0) L 06/01/25 07:45
Plt Count 179 10^3/uL (130-400) 06/01/25 07:45
Sodium 138 mmol/L (135-145) 06/01/25 07:45
Potassium 3.9 mmol/L (3.5-5.1) 06/01/25 07:45
BUN 29 mg/dl (9-20) H 06/01/25 07:45
Creatinine 1.2 mg/dL (0.7-1.3) 06/01/25 07:45
Glucose 81 mg/dl (70-99) 06/01/25 07:45
Troponins
05/31/25
14:25
Troponin I < 0.012
Vital Signs and I&O:
Vital Signs
Temp Pulse Resp BP Pulse Ox
97.7 F 57 18 88/50 97
06/01/25 11:17 06/01/25 15:39 06/01/25 15:39 06/01/25 15:39 06/01/25 15:39
Vital Signs
Temp Pulse Resp BP Pulse Ox
97.7 F 57 18 88/50 97
06/01/25 11:17 06/01/25 15:39 06/01/25 15:39 06/01/25 15:39 06/01/25 15:39
Intake & Output
05/30/25 05/31/25 06/01/25 06/02/25
06:59 06:59 06:59 06:59
Intake Total 1060 / 1060
Output Total 325 / 325
Balance -325 / -325 1060 / 1060
Physical Exam
Physical Exam
Gen: NAD, AA, frail
HEENT: NC/AT, sclera anicteric
Neck: No JVD
CV: RRR, NL s1/s2, 2/6 DOUG
Lungs: Scattered rhonchi on room air
Abd: S/ND
Ext: No LE edema
Skin: Warm, dry
Neuro: Non-focal
[2025-06-01] MEDS: LIPITOR 20 MG PO (17:27)
[2025-06-01] MEDS: COZAAR PO (21:13)
[2025-06-01] MEDS: MESTINON 30 MG PO (21:13)
[2025-06-01] MEDS: MELATONIN 5 MG PO (21:13)
[2025-06-01] MEDS: SINEMET CR 50/200 (EXTENDED RELEASE) 1 TABLET PO (21:14)
[2025-06-01] MEDS: CELLCEPT 1000 MG PO (21:15)
[2025-06-02] VITALS (7 sets, daily range): BP systolic 95–114; BP diastolic 55–76; BMI 21.5
[2025-06-02 07:49] LABS: Hematocrit 25.1 % (39.0-52.0); Hemoglobin 8.1 g/dL (13.0-18.0); Mean Corp Hgb Conc. 32.3 g/dL (33.0-37.0); Mean Corpuscular Volume 84.2 fL (80.0-94.0); Platelet Count 188 10^3/uL (130-400); Red Cell Dist. Width 15.4 % (11.5-14.5)
[2025-06-02 08:01] LABS: Blood Urea Nitrogen 25 mg/dl (9-20); Calcium 7.8 mg/dl (8.4-10.2); Carbon Dioxide 28 mmol/L (22-30); Chloride 109 mmol/L (98-107); Estimated Creatinine Clearance 44 ml/min; Glucose 103 mg/dl (70-99); Potassium 3.3 mmol/L (3.5-5.1); Sodium 138 mmol/L (135-145); eGFR > 60.00
[2025-06-02] MEDS: MIRALAX PO (09:46)
[2025-06-02] MEDS: CELLCEPT 1500 MG PO (09:47)
[2025-06-02] MEDS: COLACE 100 MG PO ×2 (09:47→19:56)
[2025-06-02] MEDS: FOLVITE 1 MG PO (09:47)
[2025-06-02] MEDS: LEXAPRO 10 MG PO (09:47)
[2025-06-02] MEDS: ELIQUIS 5 MG PO ×2 (09:47→19:56)
[2025-06-02] MEDS: SENOKOT 8.6 MG PO ×2 (09:47→19:57)
[2025-06-02] MEDS: PROTONIX 40 MG PO (09:47)
[2025-06-02] MEDS: MAGNESIUM OXIDE 800 MG PO ×2 (09:48→19:57)
[2025-06-02] MEDS: SINEMET 25-100 2 TABLET PO ×3 (09:53→17:24)
[2025-06-02] MEDS: MESTINON 90 MG PO ×3 (09:53→17:24)
--- NOTE | 2025-06-02 11:41 | W.PN.HOSP.TC ---
Today's Communication/Plan
-
compression therapy
reduce ARB
hold IV Lasix; d/w Cardiology
Echo Tuesday
Hb stable
Assessment / Plan
Assessment / Plan
Assessment:
Generalized weakness
Hematuria
- Urine culture no growth, will stop Abx and observe
- CT with calculus in the right hemipelvis which appears to be in the bladder lumen versus right UVJ. There is no hydronephrosis to suggest renal obstruction. Calculus could be cause of hematuria
- PT/OT: SNF vs home/VN
Acute HFpEF
- CXR with pulm edema and elevated BNP
- stopped IV Lasix with orthostasis
- Echo Tuesday; will help determine outpatient oral dosing
- DCA cards following
New Junctional rhythm on EKG
HX of Parox A. Fib
- continue Eliquis
- hold Amiodarone
- DCA cards following
acute blood loss anemia from hematuria on top of Chronic anemia - suspected anemia of chronic disease
- hematology following; family can follow with [place] outpatient
- eventual OP GI workup
- monitor CBC
History of Parkinson's disease
Orthostasis
- continue Sinemet scheduled
- add compression
History of hypomagnesemia - on replacement
Hx of Pseudomonas in respiratory cultures
- completed antibiotics
- continue nebs
- did not tolerate VEST therapy in past
- OP pulm f/u
Hx of Myasthenia gravis
- continue pyridostigmine, prednisone, CellCept
GERD - PPI
Essential HTN - with orthostasis; will reduce Losartan from 100mg HS to 25mg HS
Hypercholesterolemia
- continue statin
Anxiety/Depression - Lexapro
Hx of CVA with aphasia
Hypokalemia
DVT ppx: Eliquis
Code: Full
Anticipated Discharge: > 48 hours
Subjective/Interval History
-
Date of Service: June 02, 2025
slightly orthostatic last evening
Objective Data
-
Labs:
Laboratory Results
06/02/25
06:49
WBC 4.6 L
Hgb 8.1 L
Hct 25.1 L
Plt Count 188
Sodium 138
Potassium 3.3 L
Chloride 109 H
Carbon Dioxide 28
BUN 25 H
Creatinine 1.2
Glucose 103 H
Calcium 7.8 L
Vital Signs:
Vital Signs
Temp Pulse Resp BP Pulse Ox
98.4 F 55 18 105/76 99
06/02/25 11:35 06/02/25 11:35 06/02/25 11:35 06/02/25 11:35 06/02/25 11:35
I&O
06/01/25 06/02/25 06/03/25
06:59 06:59 06:59
Intake Total 1700 / 1700
Output Total 325 / 325 300 / 300
Balance -325 / -325 1400 / 1400
Physical Exam
-
General: No Apparent Distress and Appears Chronically Ill
HEENT: Normocephalic and Atraumatic
Respiratory: Rhonchi (chronic)
Cardiac: Regular Rhythm and S1/S2
GI: Soft
Genito-urinary: No Costovertebral Tender
Neuro: AO x 3
Psych: Calm
Data Reviewed
-
Total Time Spent with Patient (in minutes): 42
Labs: Labs Reviewed by me
--- NOTE | 2025-06-02 11:54 | CM ---
Per Attending, waiting for a call back from daughter on her wishes of home vs SNF
Case Management will monitor and support discharge needs when identified
Plan: home w/ Home Health/PT vs. SNF
[2025-06-02] MEDS: VITAMIN B-12 3000 MCG PO (13:24)
[2025-06-02] MEDS: OSCAL 500 + D 1000 MG PO ×2 (13:28→17:24)
--- NOTE | 2025-06-02 13:39 | W.PN.CARDCBS ---
Today's Communication / Plan
-
Agree with holding further diuretics
Check echo in a.m.
Repeat ECG
Impression / Plan
-
Primary Drupal Programmer: Dr. Santos
Assessment:
Presentation with fatigue, weakness
Abnormal UA, concern for UTI
Sinus bradycardia
Elevated proBNP
Anemia
Paroxysmal atrial fibrillation
Chronic amiodarone therapy
Chronic Eliquis therapy
Aortic stenosis
Hypertension
Hyperlipidemia
History of CVA
History of intermittent hematuria
Parkinson's disease
Myasthenia gravis
Bronchiectasis with prior Pseudomonas infection
Hypoalbuminemia
ECHO 10/17/24: EF 55 to 60%, no regional wall motion abnormalities noted, stage II diastolic dysfunction, MAC, moderate MR, moderate with peak/mean gradients 47/30 mmHg, STEPHY 1.3 cm�, moderate TR, PAP 45 mmHg, small pericardial effusion
Plan:
- Patient presents with fatigue and weakness. Admitted for possible UTI.
- Cardiology consulted as noted to have EKG with concern for junctional rhythm. On review of telemetry in ER, appears to be in his baseline sinus bradycardia. Will continue to follow on telemetry. Ok to hold outpatient amio
- Continue Eliquis
- proBNP elevated at 3200 and CXR suggestive of pulmonary edema
- He does not have history of CHF diagnosis, but does have mod MR//TR by last echo 10/2024.
- Was given IV lasix, but this is on hold for hypotension/orthostasis
- Would consider discharging on PRN lasix PO 20mg daily
- If still inpatient Tuesday will arrange for echo. Otherwise can be done as an outpatient.
Progress Note - Drupal Programmer
Subjective
Date of Service: June 02, 2025
No acute overnight events. Some low blood pressure readings this a.m. for which further Lasix and losartan were held. Patient tells me he was asymptomatic with this.
Objective
Labs:
06/02/25 06:49
06/02/25 06:49
Labs
Hgb 8.1 g/dL (13.0-18.0) L 06/02/25 06:49
Hct 25.1 % (39.0-52.0) L 06/02/25 06:49
Plt Count 188 10^3/uL (130-400) 06/02/25 06:49
Sodium 138 mmol/L (135-145) 06/02/25 06:49
Potassium 3.3 mmol/L (3.5-5.1) L 06/02/25 06:49
BUN 25 mg/dl (9-20) H 06/02/25 06:49
Creatinine 1.2 mg/dL (0.7-1.3) 06/02/25 06:49
Glucose 103 mg/dl (70-99) H 06/02/25 06:49
Troponins
05/31/25
14:25
Troponin I < 0.012
Vital Signs and I&O:
Vital Signs
Temp Pulse Resp BP Pulse Ox
98.4 F 55 18 105/76 99
06/02/25 11:35 06/02/25 11:35 06/02/25 11:35 06/02/25 11:35 06/02/25 11:35
Vital Signs
Temp Pulse Resp BP Pulse Ox
98.4 F 55 18 105/76 99
06/02/25 11:35 06/02/25 11:35 06/02/25 11:35 06/02/25 11:35 06/02/25 11:35
Intake & Output
05/31/25 06/01/25 06/02/25 06/03/25
06:59 06:59 06:59 06:59
Intake Total 1700 / 1700
Output Total 325 / 325 300 / 300
Balance -325 / -325 1400 / 1400
Physical Exam
Physical Exam
Gen: NAD, AA, frail
HEENT: NC/AT, sclera anicteric
Neck: No JVD
CV: RRR, NL s1/s2
Lungs: Scattered rhonchi on room air
Abd: S/ND
Ext: No LE edema
Skin: Warm, dry
Neuro: Non-focal
[2025-06-02] MEDS: LIPITOR 20 MG PO (17:24)
[2025-06-02] MEDS: CELLCEPT 1000 MG PO (19:58)
[2025-06-02] MEDS: MESTINON 30 MG PO (19:58)
[2025-06-02] MEDS: MELATONIN 5 MG PO (19:58)
[2025-06-02] MEDS: SINEMET CR 50/200 (EXTENDED RELEASE) 1 TABLET PO (19:58)
[2025-06-02] MEDS: COZAAR 25 MG PO (21:14)
[2025-06-03] VITALS (8 sets, daily range): BP systolic 83–136; BP diastolic 43–74; PULSE 65; BMI 21.5
[2025-06-03] MEDS: PROTONIX 40 MG PO (07:28)
[2025-06-03] MEDS: ELIQUIS 5 MG PO ×2 (07:28→21:16)
[2025-06-03] MEDS: COLACE 100 MG PO ×2 (07:28→21:16)
[2025-06-03] MEDS: LEXAPRO 10 MG PO (07:30)
[2025-06-03] MEDS: DELTASONE 10 MG PO (07:30)
[2025-06-03] MEDS: DELTASONE 2.5 MG PO (07:30)
[2025-06-03] MEDS: MAGNESIUM OXIDE 800 MG PO ×2 (07:31→21:16)
[2025-06-03] MEDS: FOLVITE 1 MG PO (07:31)
[2025-06-03] MEDS: SENOKOT 8.6 MG PO ×2 (07:31→21:16)
[2025-06-03] MEDS: CELLCEPT 1500 MG PO (07:32)
[2025-06-03] MEDS: MIRALAX PO ×2 (07:33→07:43)
[2025-06-03] MEDS: SINEMET 25-100 2 TABLET PO ×3 (07:35→17:40)
[2025-06-03] MEDS: MESTINON 90 MG PO ×3 (07:38→17:38)
[2025-06-03 07:41] LABS: Hematocrit 26.4 % (39.0-52.0); Hemoglobin 8.4 g/dL (13.0-18.0); Mean Corp Hgb Conc. 31.8 g/dL (33.0-37.0); Mean Corpuscular Volume 85.4 fL (80.0-94.0); Platelet Count 179 10^3/uL (130-400); Red Cell Dist. Width 15.4 % (11.5-14.5)
[2025-06-03 08:05] LABS: Blood Urea Nitrogen 25 mg/dl (9-20); Calcium 7.9 mg/dl (8.4-10.2); Carbon Dioxide 28 mmol/L (22-30); Chloride 109 mmol/L (98-107); Estimated Creatinine Clearance 44 ml/min; Glucose 64 mg/dl (70-99); Potassium 3.8 mmol/L (3.5-5.1); Sodium 139 mmol/L (135-145); eGFR > 60.00
--- NOTE | 2025-06-03 09:52 | W.PN.HOSP.TC ---
Today's Communication/Plan
-
.
Assessment / Plan
Assessment / Plan
Physical Exam
General: No Apparent Distress and Appears Chronically Ill
HEENT: Normocephalic and Atraumatic
Respiratory: Rhonchi (chronic)
Cardiac: Regular Rhythm and S1/S2
GI: Soft, not tender.
Genito-urinary: No Costovertebral Tender
Neuro: AO x 3
Psych: Calm
Assessment:
# Orthostatic hypotension
suspect secondary to autonomic dysregulation associated with Parkinson disease
He continued to have orthostatic hypotension despite holding BP medications, will do low dose midodrine if ACTH stimulation test is negative
Generalized weakness
Hematuria
- Urine culture no growth, dc Abx and observe
- CT with calculus in the right hemipelvis which appears to be in the bladder lumen versus right UVJ. There is no hydronephrosis to suggest renal obstruction. Calculus could be cause of hematuria
- PT/OT: SNF vs home/VN
Acute HFpEF
- CXR with pulm edema and elevated BNP
- stopped IV Lasix with orthostasis
- Echo showed left ventricular ejection fraction 55 to 60%, moderate aortic stenosis with mean pressure gradient of 25, mild to moderate aortic insufficiency, moderate tricuspid regurgitation with estimated pulmonary artery pressure of 50 mmHg.
Small pericardial effusion. No significant changes from October 2024 echocardiogram.
- DCA cards following
# HX of Parox A. Fib
tele is reviewed by cardiology, it appears to be in his baseline sinus bradycardia.
- continue Eliquis
- ok to continue holding Amiodarone
- DCA cards following
acute blood loss anemia from hematuria on top of Chronic anemia - suspected anemia of chronic disease
- hematology following; family can follow with [place] outpatient
- eventual OP GI workup
- monitor CBC
History of Parkinson's disease
- continue Sinemet scheduled
- added compression
History of hypomagnesemia - on replacement
Hx of Pseudomonas in respiratory cultures
- completed antibiotics
- continue nebs
- did not tolerate VEST therapy in past
- OP pulm f/u
Hx of Myasthenia gravis
- continue pyridostigmine, prednisone, CellCept
GERD - PPI
Essential HTN - with orthostasis; will reduce Losartan from 100mg HS to 25mg HS
Hypercholesterolemia
- continue statin
Anxiety/Depression - Lexapro
Hx of CVA with aphasia
Hypokalemia
DVT ppx: Eliquis
Code: Full
Total time spent to see the patient, examine the patient, review data lab result, discuss treatment plan with patient, nursing staff around 55 minutes
Anticipated Discharge: 24 - 48 hours
Subjective/Interval History
-
Date of Service: June 03, 2025
Objective Data
-
Labs:
Laboratory Results
06/03/25
05:53
WBC 3.8 L
Hgb 8.4 L
Hct 26.4 L
Plt Count 179
Sodium 139
Potassium 3.8
Chloride 109 H
Carbon Dioxide 28
BUN 25 H
Creatinine 1.2
Glucose 64 L
Calcium 7.9 L
Vital Signs:
Vital Signs
Temp Pulse Resp BP Pulse Ox
98.8 F 85 16 119/60 97
06/03/25 07:00 06/03/25 07:00 06/03/25 07:00 06/03/25 07:00 06/03/25 07:00
I&O
06/02/25 06/03/25 06/04/25
06:59 06:59 06:59
Intake Total 1700 / 1700
Output Total 300 / 300 200 / 200
Balance 1400 / 1400 -200 / -200
--- NOTE | 2025-06-03 11:22 | W.PN.ONC2 ---
Today's Communication / Plan
-
Monitor CBC, clinical status while inpatient
Outpatient hematology follow-up after discharge
Impression
Impression
Patient is a 79-year-old male with PMH of chronic anemia, Parkinson's disease, CVA, paroxysmal A-fib on Eliquis, myasthenia gravis on mycophenolate, and bronchiectasis with prior Pseudomonas infection who presented to the [facility] ED with weakness and
fatigue. Patient is being evaluated for possible heart failure vs infection. Heme-onc was consulted for anemia.
Chronic normocytic anemia
- Suspect anemia of chronic disease given normocytic, elevated ferritin, low iron low TIBC, normal reticulocytes, elevated inflammatory markers, no signs of hemolysis in setting of multiple comorbidities
- Anemia and mild leukopenia possibly related to long-term use of mycophenolate for MG
- Labs: Hgb 8.4, stable from 7.9 on admission; ferritin 571; TIBC 180; iron 30; MCV 85.4; CRP 148.6; ESR 98; retic 0.8; T. bili 0.9; LDH 195; WBC 3.8
Plan
Plan
Chronic normocytic anemia�suspect anemia of chronic disease
Plan for outpatient follow-up for further laboratory evaluation and possible bone marrow biopsy
Monitor CBC, clinical status while inpatient
Subjective/Objective
Chief Complaint
Fatigue, weakness
Subjective
Patient is seen at the bedside on hospital day #4. Patient states he is not feeling well. Reports fatigue and a cough approximately 1 month. Patient states he has been taking mycophenolate for myasthenia gravis for approximately 5 to 6 years.
Patient does not follow with anyone specifically for anemia. Denies lightheadedness or shortness of breath.
Vital Signs:
Vital Signs
Temp Pulse Resp BP Pulse Ox
98.8 F 85 16 119/60 97
06/03/25 07:00 06/03/25 07:00 06/03/25 07:00 06/03/25 07:00 06/03/25 07:00
Lab Results:
Laboratory Data
WBC 3.8 10^3/uL (4.8-10.8) L 06/03/25 05:53
Hgb 8.4 g/dL (13.0-18.0) L 06/03/25 05:53
Plt Count 179 10^3/uL (130-400) 06/03/25 05:53
eGFR > 60.00 06/03/25 05:53
Physical Exam
HEENT: No Jaundice
Cardiology: S1 and S2; No Murmur or Rub/gallop
Pulmonary: Clear
Extremities: Pulses Present and Other (Scattered mild bruising on upper extremities; cool upper extremities, though patient states this is normal for him); No Phlebitic Signs
Neuro: Non Focal
Review of Systems
Review of Systems
Constitutional: Reports Fatigue; Denies Fever
Respiratory: Denies Dyspnea
Hem/Lymphatic: Reports Easy Bruising
[2025-06-03] MEDS: OSCAL 500 + D 1000 MG PO ×2 (13:13→21:18)
[2025-06-03] MEDS: VITAMIN B-12 3000 MCG PO (13:13)
--- NOTE | 2025-06-03 15:19 | W.PN.CARDCBS ---
Today's Communication / Plan
-
Start midodrine
discharge on PRN low dose Lasix
Impression / Plan
-
Primary Director Speech And Hearing: Dr. Santos
Assessment:
Presentation with fatigue, weakness
Abnormal UA, concern for UTI
Sinus bradycardia
Elevated proBNP
hypotension
Anemia
Paroxysmal atrial fibrillation
Chronic amiodarone therapy
Chronic Eliquis therapy
Aortic stenosis
Hypertension
Hyperlipidemia
History of CVA
History of intermittent hematuria
Parkinson's disease
Myasthenia gravis
Bronchiectasis with prior Pseudomonas infection
Hypoalbuminemia
ECHO 10/17/24: EF 55 to 60%, no regional wall motion abnormalities noted, stage II diastolic dysfunction, MAC, moderate MR, moderate with peak/mean gradients 47/30 mmHg, STEPHY 1.3 cm�, moderate TR, PAP 45 mmHg, small pericardial effusion
Echo 06/03/2025: EF 55 to 60%, small pericardial effusion, moderate , mean gradient 25 mmHg, STEPHY 1.3 cm�, mild to moderate AI, mild MR, moderate TR, PAP 58 mmHg, no significant change compared to echo 10/2024
Plan:
- Patient presents with fatigue and weakness. Admitted for possible UTI.
- Cardiology consulted as noted to have EKG with concern for junctional rhythm. On review of telemetry in ER, appears to be in his baseline sinus bradycardia.
- Telemetry personally reviewed today, sinus rhythm/sinus bradycardia 50s to 60s. Outpatient amiodarone remains on hold, resume at discharge
- Continue Eliquis
- proBNP elevated at 3200 and CXR suggestive of pulmonary edema
-Developed hypotension/orthostasis on IV Lasix and currently Lasix on hold.
-Weight down 13 pounds since admission
-Creatinine stable at 1.2
-Home losartan is also on hold. He had been on 100 mg in the home setting and dose was reduced to 25 mg in hospital but still had low BP so med on hold.
-BP today 83/43, improved to 111/66
- He does not have history of CHF diagnosis
-Will start midodrine 5 mg 3 times daily with hope that we can restart cardiac meds with if BP higher
- He has an appointment with Dr. Santos on 06/06 that he would like to attend
Progress Note - Director Speech And Hearing
Subjective
Date of Service: June 03, 2025
No shortness of breath
Blood pressures remain low at times
Objective
Labs:
06/03/25 05:53
06/03/25 05:53
Labs
Hgb 8.4 g/dL (13.0-18.0) L 06/03/25 05:53
Hct 26.4 % (39.0-52.0) L 06/03/25 05:53
Plt Count 179 10^3/uL (130-400) 06/03/25 05:53
Sodium 139 mmol/L (135-145) 06/03/25 05:53
Potassium 3.8 mmol/L (3.5-5.1) 06/03/25 05:53
BUN 25 mg/dl (9-20) H 06/03/25 05:53
Creatinine 1.2 mg/dL (0.7-1.3) 06/03/25 05:53
Glucose 64 mg/dl (70-99) L 06/03/25 05:53
Vital Signs and I&O:
Vital Signs
Temp Pulse Resp BP Pulse Ox
97.6 F 57 20 111/66 96
06/03/25 11:25 06/03/25 11:35 06/03/25 11:25 06/03/25 11:35 06/03/25 11:25
Vital Signs
Temp Pulse Resp BP Pulse Ox
97.6 F 57 20 111/66 96
06/03/25 11:25 06/03/25 11:35 06/03/25 11:25 06/03/25 11:35 06/03/25 11:25
Intake & Output
06/01/25 06/02/25 06/03/25 06/04/25
06:59 06:59 06:59 06:59
Intake Total 1700 / 1700
Output Total 325 / 325 300 / 300 200 / 200
Balance -325 / -325 1400 / 1400 -200 / -200
Physical Exam
Physical Exam
GEN: No distress, awake, Ox3
HEENT: supple, anicteric, mmm
LUNGS: CTA, no wheezes/rales
CV: Reg, S1/S2, 2/6 systolic ejection murmur
ABD: soft, BS+, NT/ND
EXT: No edema
NEURO: Gross non-focal
SKIN: No rash
--- NOTE | 2025-06-03 16:33 | CM ---
digital community manager reviewed patient's chart and patient lives with spouse in a 2 story home with one step to enter, patient requires assist with adl's and uses a cane or walker with ambulation, patient was admitted in March and was sent to acute rehab at
[facility], housing case manager reached out to patient's daughter and she states that family would like to take patient to return to home with visiting nurses, and have selected [facility]. Referral sent.
[facility]
[phone]
[2025-06-03] MEDS: LIPITOR 20 MG PO (17:39)
[2025-06-03] MEDS: CELLCEPT 1000 MG PO (22:45)
[2025-06-03] MEDS: MELATONIN 5 MG PO (22:45)
[2025-06-03] MEDS: SINEMET CR 50/200 (EXTENDED RELEASE) 1 TABLET PO (22:48)
[2025-06-03] MEDS: MESTINON 30 MG PO (22:48)
[2025-06-04] VITALS (8 sets, daily range): BP systolic 77–114; BP diastolic 43–69; PULSE 53; O2SAT 96; BMI 21.8
--- NOTE | 2025-06-04 03:49 | PTCARENOTE ---
Pt was noted to have glucose of 64 on 06/03 day time. RN on surgical services assistant reported to DISPLAY FABRICATOR. Pt had no observed sx of hypoglycemia. Pt ate breakfast, lunch, and dinner. Pt refused glucose check. RN attempted with PCT for approx 10 min. Pt said 'I don't
want it. No, no, no.' Pt escalated in agitation even with pt education and team support. DISPLAY FABRICATOR notified of pt refusal.
--- NOTE | 2025-06-04 07:12 | PN.CDI ---
Addendum entered and electronically signed by Bebo Ann MD 06/04/25 07:33:
moderate protein calorie malnutrition of chronic illness
Original Note:
CDI
- -
CDI:
Physician Documentation Request
Admit Date: 05/31/25 16:57
Dear Doctor Marissa,
Patient admitted with generalized weakness.
06/02 Nutrition note, ' Pt's weight previous hospital visit listed as 167 lbs 04/02 reflective of a 20% weight loss in 3 months significant. With weight loss of > 7.5% in 3 months and observed muscle and fat wasting pt meets AND/ASPEN criteria for
moderate protein calorie malnutrition of chronic illness.
Please provide in your note the diagnosis associated with the above nutritional findings and your assessment:
Moderate protein calorie malnutrition
Mild protein calorie malnutrition
Other (please specify)
[place] Criteria ([facility] Hospitalist 2017)
2 or more criteria must be present for either
non severe or severe malnutrition
Note that the criteria differs related to the
presence of an acute or chronic illness
Acute Illness Chronic Illness
Energy Intake Non Severe: <75% for >7 days Non Severe: <75% for >1 month
Severe: <50% for >5 days Severe: <75% for >1 month
Weight Loss Non Severe: 1-2% over 1 week Non Severe: 5% over 1 month
5% over 1 month 7.5% over 3 months
1 year N/A 20% over 1 year
Severe: >2% over 1 week Severe: >5% over 1 month
>5% over 1 month >7.5% over 3 months
>7.5% over 3 months >10% over 6 months
1 year N/A >20% over 1 year
Body Fat Non Severe: Mild Decrease Non Severe: Mild Loss
Severe: Moderate Decrease Severe: Severe Loss
Muscle Mass Non Severe: Mild Decrease Non Severe: Mild Loss
Severe: Moderate Decrease Severe: Severe Loss
Fluid Accumulation Non Severe: Mild Accumulation Non Severe: Mild Accumulation
Severe: Moderate to severe Severe: Moderate to severe
accumulation accumulation
Reduced Chief Radiology Strength Non Severe: N/A Non Severe: N/A
Severe: Measurably reduced Severe: Measurably reduced
Use of terms such as suspected, likely, concern for, or probable (associated with a specific diagnosis that is being evaluated, monitored, or treated as if it exists) are acceptable and can be coded in the inpatient setting, when documented at the
time of discharge.
Thank you,
Tequila FUNG,RN,CCDS
CDI Specialist
Available via [place] text
Please use your independent medical judgment in providing your response.
--- NOTE | 2025-06-04 07:22 | PN.CDI ---
Addendum entered and electronically signed by Bebo Ann MD 06/04/25 07:34:
'Stage 1 bilateral buttock pressure injuries, POA.'
Original Note:
CDI
- -
CDI:
Physician Documentation Request
Admit Date: 05/31/25 16:57
Dear Doctor Marissa,
Patient admitted with generalized weakness.
06/02 Nursing skin assessment, 'Stage 1 bilateral buttock pressure injuries, POA.'
Physician documentation of the type and location of wounds is required for compliant documentation. Based on the above clinical findings and your assessment, please provide the following in your progress note:
Type (etiology) of ulcer/wound:
- Pressure (decubitus) ulcer
- Other
- Unable to determine
For a pressure ulcer, please also include the stage* of the ulcer:
- Stage 1 - Skin intact, non-blanchable redness
- Stage 2 - Partial thickness loss of dermis, includes intact or open blister
- Stage 3 - Full thickness tissue not including bone, tendon or muscle
- Stage 4 - Full thickness tissue loss, including exposed bone, tendon or muscle
- Unstageable - Full thickness loss in which the base of the ulcer is covered by slough (yellow, jerry, dooley, green or brown) and/or eschar (jerry, brown or black) in the wound bed.
- Unable to determine
Use of terms such as suspected, likely, concern for, or probable (associated with a specific diagnosis that is being evaluated, monitored, or treated as if it exists) are acceptable and can be coded in the inpatient setting, when documented at the
time of discharge.
Thank you,
Tequila FUNG,RN,CCDS
CDI Specialist
available via [place] text
Please use your independent medical judgment in providing your response.
*Source: National Pressure Ulcer Advisory Panel (NPUAP)
--- NOTE | 2025-06-04 07:32 | PN.CDI ---
Addendum entered and electronically signed by Bebo Ann MD 06/04/25 08:01:
Neurogenic orthostatic hypotension due to Parkinson disease
Original Note:
CDI
- -
CDI:
Physician Documentation Request
Admit Date: 05/31/25 16:57
Dear Doctor Marissa,
Patient admitted with generalized weakness.
06/03 PN, 'Orthostatic hypotension ....suspect secondary to autonomic dysregulation associated with Parkinson disease He continued to have orthostatic hypotension despite holding BP medications, will do low dose midodrine if ACTH stimulation test is
negative.... added compression.'
Please clarify which of the following is the most likely etiology of the above symptoms and treatment rendered:
Neurogenic orthostatic hypotension due to Parkinson disease
Autonomic dysregulation only
Other
Use of terms such as suspected, likely, concern for, or probable (associated with a specific diagnosis that is being evaluated, monitored, or treated as if it exists) are acceptable and can be coded in the inpatient setting, when documented at the
time of discharge.
Thank you,
Tequila FUNG,RN,CCDS
CDI Specialist
Available via [place] text
Please use your independent medical judgment in providing your response.
[2025-06-04 08:33] LABS: Blood Urea Nitrogen 26 mg/dl (9-20); Calcium 8.2 mg/dl (8.4-10.2); Carbon Dioxide 28 mmol/L (22-30); Chloride 110 mmol/L (98-107); Estimated Creatinine Clearance 49 ml/min; Glucose 75 mg/dl (70-99); Potassium 3.7 mmol/L (3.5-5.1); Sodium 140 mmol/L (135-145); eGFR > 60.00
[2025-06-04] MEDS: CELLCEPT 1500 MG PO (08:52)
[2025-06-04] MEDS: COLACE 100 MG PO (08:52)
[2025-06-04] MEDS: PROTONIX 40 MG PO (08:52)
[2025-06-04] MEDS: MAGNESIUM OXIDE 800 MG PO (08:54)
[2025-06-04] MEDS: SENOKOT 8.6 MG PO (08:55)
[2025-06-04] MEDS: FOLVITE 1 MG PO (08:55)
[2025-06-04] MEDS: ELIQUIS 5 MG PO (08:55)
[2025-06-04] MEDS: LEXAPRO 10 MG PO (08:56)
[2025-06-04] MEDS: MIRALAX PO (09:00)
[2025-06-04] MEDS: SINEMET 25-100 2 TABLET PO ×3 (09:05→15:41)
[2025-06-04] MEDS: MESTINON 90 MG PO ×3 (09:05→15:41)
--- NOTE | 2025-06-04 09:29 | W.PN.HOSP.TC ---
Today's Communication/Plan
-
c/w Midodrine
check ortho vitals after Midodrine dose.
Assessment / Plan
Assessment / Plan
Physical Exam
General: No Apparent Distress and Appears Chronically Ill
HEENT: Normocephalic and Atraumatic
Respiratory: Rhonchi (chronic)
Cardiac: Regular Rhythm and S1/S2
GI: Soft, not tender.
Genito-urinary: No Costovertebral Tender
Neuro: AO x 3
Psych: Calm
Assessment:
# Orthostatic hypotension
suspect secondary to autonomic dysregulation associated with Parkinson disease
He continued to have orthostatic hypotension despite holding BP medications, will do low dose midodrine.
Will update his primary neurologist at [place] [facility] [phone]
Generalized weakness
Hematuria
- Urine culture no growth, dc Abx and observe
- CT with calculus in the right hemipelvis which appears to be in the bladder lumen versus right UVJ. There is no hydronephrosis to suggest renal obstruction. Calculus could be cause of hematuria
- PT/OT: SNF vs home/VN
Acute HFpEF
- CXR with pulm edema and elevated BNP
- stopped IV Lasix with orthostasis
- Echo showed left ventricular ejection fraction 55 to 60%, moderate aortic stenosis with mean pressure gradient of 25, mild to moderate aortic insufficiency, moderate tricuspid regurgitation with estimated pulmonary artery pressure of 50 mmHg.
Small pericardial effusion. No significant changes from October 2024 echocardiogram.
- DCA cards following
# HX of Parox A. Fib
tele is reviewed by cardiology, it appears to be in his baseline sinus bradycardia.
- continue Eliquis
- ok to continue holding Amiodarone
- DCA cards following
acute blood loss anemia from hematuria on top of Chronic anemia - suspected anemia of chronic disease
- hematology following; family can follow with [facility]
- eventual OP GI workup
- monitor CBC
History of Parkinson's disease
- continue Sinemet scheduled
- added compression
History of hypomagnesemia - on replacement
Hx of Pseudomonas in respiratory cultures
- completed antibiotics
- continue nebs
- did not tolerate VEST therapy in past
- OP pulm f/u
Hx of Myasthenia gravis
- continue pyridostigmine, prednisone, CellCept
GERD - PPI
Essential HTN - with significant hypotension ( orthostatic- symptomatic). Stopped Losartan.
Hypercholesterolemia
- continue statin
Anxiety/Depression - Lexapro
Hx of CVA with aphasia
Hypokalemia
DVT ppx: Eliquis
Code: Full
Total time spent to see the patient, examine the patient, review data lab result, discuss treatment plan with patient, , nursing staff around 55 minutes
Anticipated Discharge: 24 - 48 hours
Subjective/Interval History
-
Date of Service: June 04, 2025
He is feeling better
No chest pain
No sob
Objective Data
-
Labs:
Laboratory Results
06/04/25
06:45
Sodium 140
Potassium 3.7
Chloride 110 H
Carbon Dioxide 28
BUN 26 H
Creatinine 1.1
Glucose 75
Calcium 8.2 L
Vital Signs:
Vital Signs
Temp Pulse Resp BP Pulse Ox
97.1 F 50 16 106/57 91
06/04/25 08:10 06/04/25 08:56 06/04/25 08:10 06/04/25 08:56 06/04/25 08:10
I&O
06/03/25 06/04/25 06/05/25
06:59 06:59 06:59
Intake Total 1260 / 1260
Output Total 200 / 200 150 / 150
Balance -200 / -200 1110 / 1110
[2025-06-04] MEDS: OSCAL 500 + D 1000 MG PO ×2 (12:10→21:37)
[2025-06-04] MEDS: VITAMIN B-12 3000 MCG PO (12:14)
--- NOTE | 2025-06-04 12:19 | W.PN.CARDCBS ---
Today's Communication / Plan
-
Monitor orthostatic vital signs
Midodrine 5 mg 3 times daily
Compression stockings
PT/OT
Discharge planning
Impression / Plan
-
Primary Field Service Poultry Technician: Dr. Santos
Assessment:
Presentation with fatigue, weakness
Abnormal UA, concern for UTI
Sinus bradycardia
Elevated proBNP
hypotension
Anemia
Paroxysmal atrial fibrillation
Chronic amiodarone therapy
Chronic Eliquis therapy
Aortic stenosis
Hypertension
Hyperlipidemia
History of CVA
History of intermittent hematuria
Parkinson's disease
Myasthenia gravis
Bronchiectasis with prior Pseudomonas infection
Hypoalbuminemia
ECHO 10/17/24: EF 55 to 60%, no regional wall motion abnormalities noted, stage II diastolic dysfunction, MAC, moderate MR, moderate with peak/mean gradients 47/30 mmHg, STEPHY 1.3 cm�, moderate TR, PAP 45 mmHg, small pericardial effusion
Echo 06/03/2025: EF 55 to 60%, small pericardial effusion, moderate , mean gradient 25 mmHg, STEPHY 1.3 cm�, mild to moderate AI, mild MR, moderate TR, PAP 58 mmHg, no significant change compared to echo 10/2024
Plan:
Autonomic dysfunction/orthostatic hypotension with generalized weakness with history of Parkinson's and myasthenia gravis
-Orthostatic hypotension despite holding blood pressure medications
-Agree with addition of midodrine which can be uptitrated
-Compression stockings and abdominal binder
-PT/OT.
Sinus bradycardia with history of PAF
- Outpatient amiodarone held and remains in sinus rhythm/sinus bradycardia.
- Avoid use of AV kinsey blocking agents.
- Will continue to hold amiodarone and reassess as an outpatient.
- Continue Eliquis 5mg BID
History of acute blood loss anemia from hematuria with chronic anemia
-Hemoglobin stable at 8.4 g/dL.
- Cautious monitoring on Eliquis
- Hematology consult for anemia reviewed with plan for outpatient evaluation
Mild heart failure with preserved ejection fraction/diastolic dysfunction, moderate
- proBNP elevated at 3200 and CXR suggestive of pulmonary edema
-Briefly received IV Lasix with decreased weight down 13 pounds this admission
-No further diuretics at this time. If blood pressures improved with midodrine could consider adding Lasix 20mg M/W/
Myasthenia gravis on pyridostigmine, prednisone, CellCept
Parkinson's on Sinemet
- He has an appointment with Dr. Santos on 06/06-this will likely need to be rescheduled.
Progress Note - Field Service Poultry Technician
Subjective
Date of Service: June 04, 2025
Patient seen and examined. Complains of generalized fatigue and lightheadedness. No chest pain or pressure. Denies shortness of breath.
Objective
Labs:
06/03/25 05:53
06/04/25 06:45
Labs
Hgb 8.4 g/dL (13.0-18.0) L 06/03/25 05:53
Hct 26.4 % (39.0-52.0) L 06/03/25 05:53
Plt Count 179 10^3/uL (130-400) 06/03/25 05:53
Sodium 140 mmol/L (135-145) 06/04/25 06:45
Potassium 3.7 mmol/L (3.5-5.1) 06/04/25 06:45
BUN 26 mg/dl (9-20) H 06/04/25 06:45
Creatinine 1.1 mg/dL (0.7-1.3) 06/04/25 06:45
Glucose 75 mg/dl (70-99) 06/04/25 06:45
Vital Signs and I&O:
Vital Signs
Temp Pulse Resp BP Pulse Ox
97.1 F 51 18 92/43 98
06/04/25 08:10 06/04/25 11:29 06/04/25 11:29 06/04/25 11:29 06/04/25 11:29
Vital Signs
Temp Pulse Resp BP Pulse Ox
97.1 F 51 18 92/43 98
06/04/25 08:10 06/04/25 11:29 06/04/25 11:29 06/04/25 11:29 06/04/25 11:29
Intake & Output
06/02/25 06/03/25 06/04/25 06/05/25
06:59 06:59 06:59 06:59
Intake Total 1700 / 1700 1260 / 1260
Output Total 300 / 300 200 / 200 150 / 150
Balance 1400 / 1400 -200 / -200 1110 / 1110
Physical Exam
Physical Exam
GEN: Frail 79-year-old gentleman who appears older than stated age. Awake alert and oriented x 3. On room air.
HEENT: mmm
LUNGS: Bronchovesicular breath sounds decreased but clear
CV: Reg, S1/S2, 2/6 systolic ejection murmur
ABD: soft, BS+, NT/ND
EXT: No edema
--- NOTE | 2025-06-04 12:32 | CM ---
Patient to return to home with [facility] when stable.
[facility]
[phone]
--- NOTE | 2025-06-04 13:05 | PTCARENOTE ---
Sitting BP 81/55 hr 51 Standing BP 77/46 hr 52. Pt asyptomatic . Hospitalist and Lead Simulation Modeling Engineer notified. Abd binder placed . Pt out of bed in chair denies any dizzyness.
--- NOTE | 2025-06-04 13:17 | W.PN.ONC2 ---
Today's Communication / Plan
-
Plan for outpatient hematology follow-up upon discharge
Impression
Impression
Patient is a 79-year-old male with PMH of chronic anemia, Parkinson's disease, CVA, paroxysmal A-fib on Eliquis, myasthenia gravis on mycophenolate, and bronchiectasis with prior Pseudomonas infection who presented to the [facility] ED with weakness and
fatigue. Patient is being evaluated for hypotension related to possible heart failure vs infection. Heme-onc was consulted for anemia.
Chronic normocytic anemia
- Suspect anemia of chronic disease given normocytic, elevated ferritin, low iron low TIBC, normal reticulocytes, elevated inflammatory markers, no signs of hemolysis in setting of multiple comorbidities
- Anemia and mild leukopenia possibly related to long-term use of mycophenolate for MG
- No new labs 06/04
- Prior labs: Hgb 8.4, stable from 7.9 on admission; ferritin 571; TIBC 180; iron 30; MCV 85.4; CRP 148.6; ESR 98; retic 0.8; T. bili 0.9; LDH 195; WBC 3.8
Plan
Plan
Chronic normocytic anemia�suspect anemia of chronic disease
Plan for outpatient follow-up for further laboratory evaluation and possible bone marrow biopsy
Monitor CBC, clinical status while inpatient
Subjective/Objective
Chief Complaint
Fatigue, weakness
Subjective
Patient is seen while sitting in the chair on hospital day #5. Feeling about the same as yesterday. No current complaints. Denies fatigue, shortness of breath, or lightheadedness. Discussed with patient the plan for outpatient hematology
follow-up for workup of chronic anemia.
Vital Signs:
Vital Signs
Temp Pulse Resp BP Pulse Ox
97.1 F 52 18 77/46 98
06/04/25 08:10 06/04/25 12:35 06/04/25 11:29 06/04/25 12:35 06/04/25 11:29
Lab Results:
Laboratory Data
WBC 3.8 10^3/uL (4.8-10.8) L 06/03/25 05:53
Hgb 8.4 g/dL (13.0-18.0) L 06/03/25 05:53
Plt Count 179 10^3/uL (130-400) 06/03/25 05:53
eGFR > 60.00 06/04/25 06:45
Physical Exam
HEENT: No Jaundice
Cardiology: S1 and S2
Pulmonary: Clear
Extremities: Pulses Present
Neuro: Non Focal
Review of Systems
Review of Systems
Constitutional: Denies Fever or Fatigue
Respiratory: Denies Dyspnea
Cardiovascular: Denies Other (Denies lightheadedness)
[2025-06-04] MEDS: LIPITOR 20 MG PO (17:47)
[2025-06-04] MEDS: COLACE PO ×2 (21:34→21:55)
[2025-06-04] MEDS: SENOKOT PO ×2 (21:34→21:57)
[2025-06-04] MEDS: MAGNESIUM OXIDE PO ×2 (21:34→21:56)
[2025-06-04] MEDS: ELIQUIS PO ×2 (21:34→21:56)
[2025-06-04] MEDS: CELLCEPT PO ×2 (21:37→21:57)
[2025-06-04] MEDS: MELATONIN PO ×2 (21:38→21:57)
[2025-06-04] MEDS: MESTINON PO ×2 (21:40→21:57)
[2025-06-04] MEDS: SINEMET CR 50/200 (EXTENDED RELEASE) PO ×2 (21:40→21:57)
--- NOTE | 2025-06-04 22:30 | PTCARENOTE ---
Pt was verbally combative and intentionally held prescribed medications in the mouth without swallowing. Medication pocketing was confirmed by second RN; oral cavity was checked and confirmed clear before proceeding by second RN. Pt remained
agitated and subsequently refused the remainder of medications. HOB maintained at > 30 degrees due to aspiration risk. Given pt's intentional behavior of not swallowing medications, further administration was withheld to prevent aspiration. SCREEN PRINTING PRESS OPERATOR was
notified.
[2025-06-05 03:20] VITALS: BP 98/69
[2025-06-05 06:00] VITALS: BMI 21.7
[2025-06-05 07:00] VITALS: BP 138/76
[2025-06-05] MEDS: DELTASONE 10 MG PO (09:08)
[2025-06-05] MEDS: LEXAPRO 10 MG PO (09:08)
[2025-06-05] MEDS: MIRALAX 17 GRAMS PO (09:08)
[2025-06-05] MEDS: PROTONIX 40 MG PO (09:08)
[2025-06-05] MEDS: SINEMET 25-100 2 TABLET PO ×3 (09:08→15:37)
[2025-06-05] MEDS: DELTASONE 2.5 MG PO (09:08)
[2025-06-05] MEDS: SENOKOT 8.6 MG PO (09:09)
[2025-06-05] MEDS: OSCAL 500 + D 1000 MG PO (09:09)
[2025-06-05] MEDS: COLACE 100 MG PO (09:10)
[2025-06-05] MEDS: CELLCEPT 1500 MG PO (09:10)
[2025-06-05] MEDS: FOLVITE 1 MG PO (09:10)
[2025-06-05] MEDS: MAGNESIUM OXIDE 800 MG PO (09:10)
[2025-06-05] MEDS: ELIQUIS 5 MG PO (09:11)
--- NOTE | 2025-06-05 09:27 | W.PN.HOSP.TC ---
Addendum entered and electronically signed by Bebo Ann MD 06/05/25 10:35:
Addendum
I called the and discussed discharge planning. With current PT recommending SNF, stated that her house setting is equipped to handle his status, she had similar situation before and she rather do home physical therapy. Updated case
outcomes manager staff.
Total discharge time spent to see the patient, examine the patient, review data and lab result, discuss discharge plan with patient, nursing staff around 65 minutes
Original Note:
Today's Communication/Plan
-
Possible dc today or tomorrow
Assessment / Plan
Assessment / Plan
Physical Exam
General: No Apparent Distress and Appears Chronically Ill
HEENT: Normocephalic and Atraumatic
Respiratory: Rhonchi (chronic)
Cardiac: Regular Rhythm and S1/S2
GI: Soft, not tender.
Genito-urinary: No Costovertebral Tender
Neuro: AO x 3
Psych: Calm
Assessment:
# Orthostatic hypotension
suspect secondary to autonomic dysregulation associated with Parkinson disease
He continued to have orthostatic hypotension despite holding BP medications, will do low dose midodrine.
Will update his primary neurologist at [place] Dr Kline [phone]
Generalized weakness
Hematuria
- Urine culture no growth, dc Abx and observe
- CT with calculus in the right hemipelvis which appears to be in the bladder lumen versus right UVJ. There is no hydronephrosis to suggest renal obstruction. Calculus could be cause of hematuria
- PT/OT: SNF vs home/VN
Acute HFpEF
- CXR with pulm edema and elevated BNP
- stopped IV Lasix with orthostasis
- Echo showed left ventricular ejection fraction 55 to 60%, moderate aortic stenosis with mean pressure gradient of 25, mild to moderate aortic insufficiency, moderate tricuspid regurgitation with estimated pulmonary artery pressure of 50 mmHg.
Small pericardial effusion. No significant changes from October 2024 echocardiogram.
- DCA cards following
# HX of Parox A. Fib
tele is reviewed by cardiology, it appears to be in his baseline sinus bradycardia.
- continue Eliquis
- ok to continue holding Amiodarone
- DCA cards following
acute blood loss anemia from hematuria on top of Chronic anemia - suspected anemia of chronic disease
- hematology following; family can follow with [place] outpatient
- eventual OP GI workup
- monitor CBC
History of Parkinson's disease
- continue Sinemet scheduled
- added compression
History of hypomagnesemia - on replacement
Hx of Pseudomonas in respiratory cultures
- completed antibiotics
- continue nebs
- did not tolerate VEST therapy in past
- OP pulm f/u
Hx of Myasthenia gravis
- continue pyridostigmine, prednisone, CellCept
GERD - PPI
Essential HTN - with significant hypotension ( orthostatic- symptomatic). Stopped Losartan.
Hypercholesterolemia
- continue statin
Anxiety/Depression - Lexapro
Hx of CVA with aphasia
Hypokalemia
DVT ppx: Eliquis
Code: Full
Total time spent to see the patient, examine the patient, review data lab result, discuss treatment plan with patient, , nursing staff around 55 minutes
Anticipated Discharge: Today
Subjective/Interval History
-
Date of Service: June 05, 2025
No chest pain
No sob
Objective Data
-
Labs:
Laboratory Results
06/05/25
09:10
Sodium Pending
Potassium Pending
Chloride Pending
Carbon Dioxide Pending
BUN Pending
Creatinine Pending
Glucose Pending
Calcium Pending
Vital Signs:
Vital Signs
Temp Pulse Resp BP Pulse Ox
97.5 F 54 18 138/76 93
06/05/25 07:00 06/05/25 07:00 06/05/25 07:00 06/05/25 07:00 06/05/25 07:00
I&O
06/04/25 06/05/25 06/06/25
06:59 06:59 06:59
Intake Total 1260 / 1260 720 / 720
Output Total 150 / 150
Balance 1110 / 1110 720 / 720
[2025-06-05 09:33] VITALS: BP 75/58; BP 84/44; BP 85/54; PULSE 102; PULSE 58; PULSE 59
[2025-06-05] MEDS: MESTINON 90 MG PO ×3 (09:33→15:36)
[2025-06-05 10:22] LABS: Blood Urea Nitrogen 26 mg/dl (9-20); Calcium 8.6 mg/dl (8.4-10.2); Carbon Dioxide 29 mmol/L (22-30); Chloride 109 mmol/L (98-107); Estimated Creatinine Clearance 48 ml/min; Glucose 72 mg/dl (70-99); Potassium 3.5 mmol/L (3.5-5.1); Sodium 141 mmol/L (135-145); eGFR > 60.00
[2025-06-05 11:58] VITALS: BP 85/50
--- NOTE | 2025-06-05 12:02 | W.DCSUMMARY ---
Discharge Summary
Discharge Data
Date of Admission: 05/31/25
Date of Discharge: 06/05/25
-
Pending Results: No
Hospital Course
79 years old male was admitted to the hospital with weakness, fatigue and abnormal blood counts. Patient had anemia and leukopenia. Patient was evaluated by microsoft bi developer. His leukopenia was felt to be secondary to mycophenolate. Director Of Security
recommended outpatient follow-up for further laboratory evaluation and possible bone marrow biopsy. Patient did not need blood transfusion. Lab showed Hgb 8.4, stable from 7.9 on admission; ferritin 571; TIBC 180; iron 30; MCV 85.4; CRP 148.6; ESR
98; retic 0.8; T. bili 0.9; LDH 195; WBC 3.8. Patient was diagnosed with a chronic normocytic anemia with no signs of hemolysis in the setting of multiple comorbidities. Urine culture did not show any growth. Patient did not have fever. Patient
was evaluated by motorcycle police for possible junctional rhythm. He was found to have sinus bradycardia and amiodarone was stopped. Echocardiogram showed left ventricular ejection fraction 55 to 60%, small pericardial effusion which was unchanged.
Moderate tricuspid regurgitation, estimated pulmonary artery pressure of 50 mmHg, mild concentric LVH, moderate aortic stenosis with mean pressure gradient of 25 mmHg, mild to moderate aortic insufficiency. Patient was noted to have significant
orthostatic hypotension, was secondary to neurogenic orthostasis due to underlying Parkinson disease. Patient was started on midodrine therapy. Patient felt better and was able to ambulate with assistance. Physical therapy recommended skilled
nursing facility placement. Discharge plan was discussed with patient's , caregiver. She wanted patient home with home care services and reported that house setting was appropriate for his level of function. Patient remained hemodynamically
stable. Patient was discharged home in stable condition
Discharge Plan
-
Patient Disposition: Home with Home Care
Discharge Diagnosis/Procedures: Neurogenic orthostatic hypotension due to Parkinson disease, started on midodrine therapy.
Sinus bradycardia, stopped amiodarone. You were evaluated by motorcycle police.
Anemia/leukopenia. You were evaluated by hematology and recommended outpatient follow-up.
Diet: As tolerated
Referrals:
Maco Santos MD [Active, Cardiology] - 06/06/25 1:00 pm
Tomas Venegas DO [Family Provider, Internal Medicine]
Prescriptions:
New
midodrine 5 mg Tablet
5 mg PO TID@0800,1300,1800 Qty: 90 0RF
Continued
prednisone 10 MG tablet
12.5 mg PO Q48H
mycophenolate mofetil 500 MG tablet
1,000 mg PO HS
pyridostigmine bromide 60 MG tablet
30 mg PO HS
pyridostigmine bromide 60 MG tablet
90 mg PO TID@
escitalopram oxalate 10 MG tablet
10 mg PO DAILY
atorvastatin 20 mg Tablet
20 mg PO QPM
mycophenolate mofetil [CellCept] 500 mg Tablet
1,500 mg PO DAILY
pantoprazole 40 mg Tablet,Delayed Release (Dr/Ec)
40 mg PO DAILY
melatonin 5 mg Tablet
5 mg PO HS
carbidopa-levodopa 50-200 mg Tablet Extended Release
1 tab PO HS
cyanocobalamin (vitamin B-12) 1,000 mcg Tablet
3,000 mcg PO DAILY@1230
folic acid 1 mg Tablet
1 mg PO DAILY
calcium carbonate-vitamin D3 [Calcium 600 + D(3)] 600 mg-10 mcg (400 unit) Tablet
2 tab PO BID@1229,1929
Eliquis 5 mg Tablet
5 mg PO BID
magnesium oxide 400 mg magnesium Tablet
800 mg PO BID
carbidopa-levodopa 25-100 mg Tablet
2 tab PO TID@0830,1229,1630
Discontinued
amiodarone [Pacerone] 200 MG tablet
100 mg PO DAILY
losartan 50 mg tablet
100 mg PO HS
Discharge Orders:
Discharge Patient (As Directed); Ordered 06/05/25
Ordered By: Bebo Ann
Discharge Date and Time
Discharge Date/Time: 06/05/25 17:23
Print Language: BURUNDIAN
--- NOTE | 2025-06-05 12:53 | CM ---
Updated clinicals faxed to [facility] this morning. Patient is for discharge home today with family supports and [facility]. Spouse to pick up operator later this evening, IMM completed and placed on chart.
[facility]
[phone]
[2025-06-05] MEDS: VITAMIN B-12 PO (13:15)
--- NOTE | 2025-06-05 13:34 | W.PN.CARDCBS ---
Addendum entered and electronically signed by Dante Song MD 06/05/25 13:55:
I saw and examined the patient.
The It Trainer's note was reviewed and I agree with the note.
Comment: Briefly, 79-year-old man past medical history of aortic stenosis, paroxysmal atrial fibrillation, prior CVA, bronchiectasis, myasthenia gravis, Parkinson's who presented with generalized weakness and was admitted for possible UTI
With concern for junctional rhythm amiodarone was held
Currently in sinus rhythm, okay to add back amiodarone at 100 mg daily
proBNP was initially elevated patient received 2 doses of IV Lasix
Subsequently developed hypotension and orthostasis and further diuretics were held
Echo here with normal LVEF, moderate , moderately elevated PA systolic pressures -unchanged from prior
Continue midodrine, compression stockings and abdominal binder for hypotension and orthostasis
If blood pressure does not improve may need to give a small bolus of IV fluids
Discussed with nursing at bedside
Original Note:
Today's Communication / Plan
-
Cardiology f/u arranged
Impression / Plan
-
Primary C Programmer: Dr. Santos
Assessment:
Presentation with fatigue, weakness
Abnormal UA, concern for UTI
Sinus bradycardia
Elevated proBNP
hypotension
Anemia
Paroxysmal atrial fibrillation
Chronic amiodarone therapy
Chronic Eliquis therapy
Aortic stenosis
Hypertension
Hyperlipidemia
History of CVA
History of intermittent hematuria
Parkinson's disease
Myasthenia gravis
Bronchiectasis with prior Pseudomonas infection
Hypoalbuminemia
ECHO 10/17/24: EF 55 to 60%, no regional wall motion abnormalities noted, stage II diastolic dysfunction, MAC, moderate MR, moderate with peak/mean gradients 47/30 mmHg, STEPHY 1.3 cm�, moderate TR, PAP 45 mmHg, small pericardial effusion
Echo 06/03/2025: EF 55 to 60%, small pericardial effusion, moderate , mean gradient 25 mmHg, STEPHY 1.3 cm�, mild to moderate AI, mild MR, moderate TR, PAP 58 mmHg, no significant change compared to echo 10/2024
Plan:
-Patient admitted with generalized weakness and concern for UTI on 05/31/2025 and then cardiology consulted for possible junctional rhythm.
-Telemetry reviewed by me and patient is mostly sinus bradycardia 06/05/2025.
-Outpatient dose of amiodarone 100 mg daily was stopped due to sinus bradycardia
-Patient also noted to be hypotensive and was started on midodrine 5 mg TID by hospitalist attending. Outpatient dose of losartan 50 mg daily was stopped this admission due to hypotension
-Patient felt to have autonomic dysfunction/orthostatic hypotension due to his Parkinson's disease and myasthenia gravis
-Patient with known paroxysmal A-fib and appeared to be in SR throughout this admission.
-Outpatient dose of Eliquis 5mg BID (age 79, Cre 1.1) has been continued
-Patient was seen in consultation by hematology for normocytic anemia and will follow-up with them as an outpatient
-Patient was given Lasix 40 mg IV daily on 05/31/2025 and 06/01/2025 and it was then stopped due to orthostasis, but in that time he had a 13 lb diuresis. Patient was not taking a diuretic prior to admission and he has not been started on Lasix at
time of discharge due to ongoing orthostasis
-Patient and anxious for discharge to home on 06/05/2025 because they have an appointment to see Dr. Lantigua in the office on 06-29. Patient was recommended skilled rehab, but patient and elected to go home with home PT as they are well
equipped at home to handle his needs given myasthenia gravis and Parkinson's disease diagnoses
Progress Note - C Programmer
Subjective
Date of Service: June 05, 2025
He wants to go home so he can go to outpatient cardiology appt tomorrow
Objective
Labs:
06/03/25 05:53
06/05/25 09:10
Labs
Hgb 8.4 g/dL (13.0-18.0) L 06/03/25 05:53
Hct 26.4 % (39.0-52.0) L 06/03/25 05:53
Plt Count 179 10^3/uL (130-400) 06/03/25 05:53
Sodium 141 mmol/L (135-145) 06/05/25 09:10
Potassium 3.5 mmol/L (3.5-5.1) 06/05/25 09:10
BUN 26 mg/dl (9-20) H 06/05/25 09:10
Creatinine 1.1 mg/dL (0.7-1.3) 06/05/25 09:10
Glucose 72 mg/dl (70-99) 06/05/25 09:10
Vital Signs and I&O:
Vital Signs
Temp Pulse Resp BP Pulse Ox
97.5 F 91 18 85/50 100
06/05/25 11:58 06/05/25 11:58 06/05/25 11:58 06/05/25 11:58 06/05/25 11:58
Vital Signs
Temp Pulse Resp BP Pulse Ox
97.5 F 91 18 50 100
06/05/25 11:58 06/05/25 11:58 06/05/25 11:58 06/05/25 11:58 06/05/25 11:58
Intake & Output
06/03/25 06/04/25 06/05/25 06/06/25
06:59 06:59 06:59 06:59
Intake Total 1260 / 1260 720 / 720
Output Total 200 / 200 150 / 150
Balance -200 / -200 1110 / 1110 720 / 720
[2025-06-05 16:12] VITALS: BP 106/62
== END 2025-06-05 17:23 | disposition home health service (06) | DRG 291 ==
LOC: 4 WEST ACU 16:57
PROVIDERS: Emergency Medicine; Registered Nurse; ADMITTING PHYSICIAN Internal Medicine; ATTENDING PHYSICIAN Internal Medicine; CONSULT PHYSICIAN Internal Medicine Cardiovascular Disease; EMERGENCY PHYSICIAN Emergency Medicine; FAMILY PHYSICIAN Internal Medicine; OTHER PHYSICIAN Internal Medicine Hematology & Oncology
DX: I11.0 Hypertensive heart disease with heart failure (principal); I50.31 Acute diastolic (congestive) heart failure; G90.3 Multi-system degeneration of the autonomic nervous system; D62 Acute posthemorrhagic anemia; I31.39 Other pericardial effusion (noninflammatory); E44.0 Moderate protein-calorie malnutrition; G20.A1 Parkinson's disease without dyskinesia, without mention of fluctuations; D63.8 Anemia in other chronic diseases classified elsewhere; D72.819 Decreased white blood cell count, unspecified; Z79.01 Long term (current) use of anticoagulants; G70.00 Myasthenia gravis without (acute) exacerbation; K21.9 Gastro-esophageal reflux disease without esophagitis; E78.00 Pure hypercholesterolemia, unspecified; F41.9 Anxiety disorder, unspecified; F32.A Depression, unspecified; I69.320 Aphasia following cerebral infarction; E87.6 Hypokalemia; Z88.1 Allergy status to other antibiotic agents; Z79.624 Long term (current) use of inhibitors of nucleotide synthesis; J47.9 Bronchiectasis, uncomplicated; I35.2 Nonrheumatic aortic (valve) stenosis with insufficiency; I48.0 Paroxysmal atrial fibrillation; Z96.652 Presence of left artificial knee joint; Z79.899 Other long term (current) drug therapy; Z11.52 Encounter for screening for COVID-19; L89.321 Pressure ulcer of left buttock, stage 1; L89.311 Pressure ulcer of right buttock, stage 1
CPT/HCPCS: 71046; 74177; 80048; 80053; 80061; 81003; 81015; 82247; 82248; 82607; 82728; 82746; 83010; 83540; 83550; 83615; 83735; 83880; 84443; 84484; 85025; 85027; 85045; 85652; 86140; 86850; 86880; 86900; 86901; 87086; 87502; 87811; 93005; 93306; 96374; 96375; 97163; 97167; 97530; 99285; Q9967

== ENCOUNTER 2025-06-19 16:21 | Inpatient (IN) | payer MEDICARE, OTHER, SELFPAY ==
[2025-06-19] VITALS (41 sets, daily range): BP systolic 85–135; BP diastolic 48–81; PULSE 48–52
--- NOTE | 2025-06-19 14:38 | EDRN ---
1438 Patient being prepared for intubation
Pharmacy preparing 20mg etomidate and 65mg rocuronium
1440 Time out for intubation with Dr. Lorenzana
1440 etomidate and rocuronium IVP by Dr. Lorenzana.
1443 intubation complete with 7.0 ETT 22 at lip confirmed with color change, bilateral lung sounds. Awaiting port CXR to visually confirm placement. Patient tolerated procedure.
--- NOTE | 2025-06-19 14:48 | ED.GENMED ---
History of Present Illness
General
Chief Complaint: Breathing Problem
Source: patient, records, previous radiology exam and previous hospital records
Exam Limitations: altered mental status
Time Seen by Provider: 06/19/25 14:27
Nursing documentation reviewed up to this point in time: agreed with
History of Present Illness
History of Present Illness:
79-year-old male myasthenia gravis heart failure admitted recently with congestive heart failure it appears that anemia, presents with shortness of breath pulse ox of 80% placed on supplemental oxygen and noninvasive ventilation when I evaluated the
patient he was tachypneic with shallow respirations on BiPAP appeared fatigued decision was made to intubate
His chest was loud shallow respirations very rhonchorous and lower extremity edema
Past History
Past History
ED Past Medical History: Arrthythmia (Atrial fib), CVA (No residual weakness), GERD, HTN, Hypercholesterolemia, Valvular disease, Psychiatric (Anxiety) and Other (Parkinson's disease, myasthenia gravis, Diverticulitis, Renal calculus, Vertigo,
orthostatic hypotension)
ED Past Surgical History: Orthopedic (Hand surgery, Left total knee replacement, left femoral fracture) and Other (Cataracts, Right inguinal hernia)
Patient has exhibited threatening behavior?: No
Social History
Tobacco: Non-smoker
Alcohol: Occasional
Drug: None
Personal:
Living: with family
Employment: Retired
Family History
Family History: Other (Reviewed and noncontributory)
Phy Exam
Physical Exam
Physical Exam:
Physical Exam
General: Ill-appearing male on BiPAP
Neck: JVD
Heart: Regular
Lungs: Shallow respirations with rhonchi and wheeze
Abdomen: Nontender
Neuro: Grossly nonfocal globally weak
Skin: no rash
Psychiatric: Unable to
Extremities: Edema as per
Scores
Heart Failure Risk
Heart Failure Risk Score: Yes
History of Stroke or TIA: Yes
History of intubation for respiratory distress: Yes
Heart rate on ED arrival >/= 110: No
SaO2 <90% on arrival on room air: Yes
HR >/=110 during 3min walk test (or too ill to perform test): Yes
ECG has acute ischemic changes: No
Urea >/=12mmol/L (BUN 33.6mg/dL): Yes
Serum CO2>/=35mmol/L: No
Troponin I or T elevated to NV Level (0.4mg/dL): No
NT-proBNP >/=5,000ng/L (5,000pg/ml): Yes
HF Risk Score: 8
Admission Status: VERY HIGH RISK 81.2% Consider admission to hospital
Course
Orders/Labs/Results
Orders:
Orders
06/19/25 14:27
EKG [Electrocardiogram (*1)] Urgent
Reason for Study: Chest Pain
06/19/25 14:28
EKG- Treatment ONCE
06/19/25 14:29
Cr Chest Portable [CR Chest Portable - 1 View] Urgent
Comment:
Reason For Exam: resp distress
Reason Study Needs to be Portable: Patient Unstable
06/19/25 14:30
ABG [Arterial Blood Gas] Urgent
%Oxygen/Room Air: 15
Complete Blood Count/With Diff Urgent
Comprehensive Metabolic Panel Urgent
NT-proBNP Urgent
PTT Urgent
Prothrombin Time Urgent
Troponin I Urgent
06/19/25 14:31
Etomidate [Amidate 20 mg] 20 mg IV NOW STA
Rocuronium [place] [Rocuronium] 65 mg IV NOW STA
06/19/25 14:32
Fentanyl Citrate/Pf [Sublimaze] 65 mcg IV NOW STA
06/19/25 14:45
FentaNYL 1,000 MCG/100 ML [Sublimaze] 1,000 mcg in 100 ml IV PER PROTOCOL
Indication:: Deep Sedation
Begin Infusion:: Now
Goal:: RASS </= -3, BIS 40-60, ventilator synchrony
Maximum dose in mcg/hr:: 300
Initial Dose in mcg/hr:: 20
Titration Instructions:: Titrate Q30 min until ventilator synchrony, RASS or BIS goal is met.
Titration Instructions:: If RASS >/= -2 or BIS > 60 or ventilator dyssynchrony:
Titration Instructions:: administer bolus dose and increase infusion by 25 mcg/hr.
Titration Instructions:: Administer analgesia bolus dose(s) & titrate analgesia prior to
Titration Instructions:: adjusting sedation.
Over-sedation Instructions:: if BIS < 40 and pt is synchronous with ventilator, decrease infusion by
Over-sedation Instructions:: 25 mcg/hr every 2 hours until BIS = 40-60.
Over-sedation Instructions:: Do not wean infusion to off if patient is receiving a continuous NMBA or
Over-sedation Instructions:: has received a bolus dose of NMBA within the past 3 hours.
Notify provider:: immediately if pt exhibits signs/symptoms of chest wall rigidity,
Notify provider:: hemodynamic instability, or agitation/pain despite maximum dosing.
Additional Instructions:: Patient MUST be mechanically ventilated.
06/19/25 15:03
Ipratropium/Albuterol Sulfate [Duoneb] 3 ml INH R NOW STA
06/19/25 15:29
Add On- LAB Routine
Tests Added?: differential to CBC
COVID-19 Antigen Urgent
Source: Nasal Swab
Influenza A+B Rapid Molecular Urgent
GERMAN Source: Nasal Swab
Specimen Description:
06/19/25 15:35
Blood Culture Urgent
GERMAN Source: Blood/Venous
Specimen Description:
Clindamycin Phosphate [Cleocin] 300 mg 0.9% Sodium Chloride [Nss] 50 ml IV NOW
Induced Sputum [RESP] Urgent
Quantity: 1
Abnormal Lab Results
06/19/25
14:30
WBC 1.7 L* 10^3/uL
(4.8-10.8)
RBC 2.86 L 10^6/uL
(4.70-6.10)
Hgb 7.7 L g/dL
(13.0-18.0)
Hct 24.3 L %
(39.0-52.0)
MCH 26.9 L pg
(27.0-31.0)
MCHC 31.7 L g/dL
(33.0-37.0)
RDW 16.4 H %
(11.5-14.5)
Plt Count 99 L 10^3/uL
(130-400)
PT 28.6 H Sec
(11.4-14.6)
APTT 70.5 H Sec
(23.4-35.0)
Chloride 113 H mmol/L
(98-107)
BUN 33 H mg/dl
(9-20)
Total Protein 5.6 L g/dl
(6.3-8.2)
Albumin 2.8 L g/dl
(3.5-5.0)
06/19/25 14:30
06/19/25 14:30
Vital Signs
Initial and Last Documented VS:
Initial Vital Signs
Temp Pulse Resp Pulse Ox
98.1 F 52 33 100
06/19/25 14:10 06/19/25 14:10 06/19/25 14:10 06/19/25 14:10
Last Documented Vital Signs
Temp Pulse Resp BP Pulse Ox
98.1 F 52 26 110/48 100
06/19/25 14:10 06/19/25 14:10 06/19/25 14:22 06/19/25 14:21 06/19/25 15:00
Procedures
Intubations
Procedure completed by: Brittney
Method of Intubation: glidescope
Tube size (cm): 7.5
Placement confirmed by: auscutation
Breath sounds after intubation: equal
Intubation complications: no complications
MDM/Problems Addressed
Differential Diagnosis Includes:
CHF pneumonia aspiration myasthenia combination
MDM/Problems Addressed:
Respiratory distress
Chronic conditions affecting care: Cardiomyopathy and Neurological disorder
Acute Exacerbation and/or Progression of Chronic Illness: Cardiomyopathy and Neurological disorder
*Pulse Oximetry
SaO2: 80
Oxygen Mode of Delivery: Room air
Patient hypoxic: yes
*EKG
Interpreted by ED Provider?: Yes
Interpretation: abnormal
Comparison EKG: no comparison EKG present
Heart Rate: 78
Rate: normal
Rhythm: sinus
Ischemia: non-specific ST changes
*Clinical Psychology Professor Interpretation
Interpretation: normal
Heart Rate: 78
Rhythm: sinus
*Critical Care Note
Total Time (30-74mins, 75-104mins- exclusive of procedures): 33
Data Reviewed
Review of Other/Old Records Reveals: Labs and Discharge Summary
Source: patient and ambulance crew
Update Note
Update Note:
315, update chest x-ray noted report pending labs back acute on chronic anemia proBNP and troponin are pending
Message sent to hospitalist and body shop supervisor will update family
3:25 PM discussed with she is concerned that he is aspirating he said malodorous breath, bringing up sputum
ED Attending Note
-
Portions of this chart may have been created with voice recognition software.� Occasional wrong word or��sound alike� substitutions may have occurred due to the inherent limitations of voice recognition software.
Discharge Plan
Departure
Patient Disposition: Admit
Date of Disposition: 06/19/25
Time of Disposition: 15:14
Admit to: ICU
Presentation/result/management discussed w/ accepting MD/DO: Hospitalist
Patient with high blood pressure during this ER visit?: No
Condition: Serious
Covid-19: Not Applicable
Discharge Problem:
Respiratory failure, Myasthenia gravis, Parkinson's disease, History of CVA (cerebrovascular accident), Paroxysmal A-fib, Acute diastolic (congestive) heart failure
Prescriptions:
No Action
prednisone 10 MG tablet
12.5 mg PO Q48H
mycophenolate mofetil 500 MG tablet
1,000 mg PO HS
pyridostigmine bromide 60 MG tablet
30 mg PO HS
pyridostigmine bromide 60 MG tablet
90 mg PO TID@
escitalopram oxalate 10 MG tablet
10 mg PO DAILY
atorvastatin 20 mg Tablet
20 mg PO QPM
mycophenolate mofetil [CellCept] 500 mg Tablet
1,500 mg PO DAILY
pantoprazole 40 mg Tablet,Delayed Release (Dr/Ec)
40 mg PO DAILY
melatonin 5 mg Tablet
5 mg PO HS
carbidopa-levodopa 50-200 mg Tablet Extended Release
1 tab PO HS
cyanocobalamin (vitamin B-12) 1,000 mcg Tablet
3,000 mcg PO DAILY@1230
folic acid 1 mg Tablet
1 mg PO DAILY
calcium carbonate-vitamin D3 [Calcium 600 + D(3)] 600 mg-10 mcg (400 unit) Tablet
2 tab PO BID@1229,1929
Eliquis 5 mg Tablet
5 mg PO BID
magnesium oxide 400 mg magnesium Tablet
800 mg PO BID
carbidopa-levodopa 25-100 mg Tablet
2 tab PO TID@0830,1230,1630
midodrine 5 mg Tablet
5 mg PO TID@0800,1300,1800 Qty: 90 0RF
ipratropium-albuterol 0.5 mg-3 mg(2.5 mg base)/3 mL solution for nebulization
3 ml INHALATION TID
Interventions
Interventions:
*Risk Screen - Suicide Last Done: 06/19/25 14:10
*General Assessment Last Done: 06/19/25 15:00
*Neglect/Abuse Screening Last Done: 06/19/25 15:00
*ED- Fall Risk Assessment Last Done: 06/19/25 15:00
ED- Cardiac Assessment Last Done: 06/19/25 15:00
ED- Pulmonary Assessment Last Done: 06/19/25 15:00
Discharge Date and Time
Print Language: GREEK
[2025-06-19] MEDS: SUBLIMAZE 100 IV (14:52)
[2025-06-19 14:53] LABS: Hematocrit 24.3 % (39.0-52.0); Hemoglobin 7.7 g/dL (13.0-18.0); Mean Corp Hgb Conc. 31.7 g/dL (33.0-37.0); Mean Corpuscular Volume 85.0 fL (80.0-94.0); Red Cell Dist. Width 16.4 % (11.5-14.5)
[2025-06-19 14:56] LABS: INR 2.64; PT 28.6 Sec (11.4-14.6)
[2025-06-19 14:58] LABS: APTT 70.5 Sec (23.4-35.0)
[2025-06-19] MEDS: ROCURONIUM 65 MG IV (15:01)
[2025-06-19] MEDS: AMIDATE 20 MG IV (15:01)
[2025-06-19] MEDS: SUBLIMAZE 65 MCG IV (15:05)
[2025-06-19 15:06] LABS: ALT (SGPT) < 10 U/L (0-50); AST (SGOT) 20 U/L (17-59); Albumin 2.8 g/dl (3.5-5.0); Alkaline Phosphatase 55 U/L (38-126); Blood Urea Nitrogen 33 mg/dl (9-20); Calcium 8.6 mg/dl (8.4-10.2); Carbon Dioxide 25 mmol/L (22-30); Chloride 113 mmol/L (98-107); Estimated Creatinine Clearance 58 ml/min; Glucose 76 mg/dl (70-99); Potassium 4.2 mmol/L (3.5-5.1); Sodium 139 mmol/L (135-145); Total Protein 5.6 g/dl (6.3-8.2); eGFR > 60.00
[2025-06-19 15:16] LABS: Troponin I < 0.012 ng/ml
--- NOTE | 2025-06-19 15:20 | HPS.HSE ---
Family Physician
-
Family Physician:
Chief Complaint
-
shortness of breath with SpO2 in 80's
History of Present Illness
Mr. Isac Segura is a 79 yo man with hx paroxysmal atrial fibrillation, Parkinson's disease, moderate , essential HTN, HLD, MG, bronchiectasis recent admission 05/31-06/05 for acute heart failure, pancytopenia presents to the ER with shortness of
breath and hypoxia.
Patient was placed on CPAP by EMS. He was noted to have rhonchi. Upon arrival to the ER he had shallow respirations on BiPAP and appeared fatigued, decision made to intubate.
History obtained by . Patient has a chronic cough and often needs to sleep sitting up. No recent fevers/chills. Over the past 2 days his cough became more pronounced. He has had decreased appetite over past 48 hours. No nausea/vomiting or
diarrhea. He has had progressive LE swelling which is new. He has not complained of any pain. He has balance issues from Parkinson's and myasthenia. Patient had stopped taking Midodrine because didn't see an effect on his blood pressure.
Denies significant dizziness although appeared weaker over past 2 days.
During last admission patient was felt to fluid overloaded. He was diuresed but then developed orthostatic hypotension and he was not discharged on Lasix. He was started on Midodrine. His prior amiodarone was stopped given concern for junctional
rhythm. TTE was obtained, unchanged from prior with normal LVEF and moderate .
Medical History
Past Medical History
Past Medical History: Reports Other
Additional Past Medical History:
GERD, hypertension, colon polyps, hypercholesteremia, TIA, diverticulosis, change pain, Parkinson disease, myasthenia gravis, A-fib, CVA, renal insufficiency, kidney stones, bacterial pneumonia
Past Surgical History: Reports Other
Additional Past Surgical History:
Tonsillectomy, repair of middle finger left hand, left wrist surgery, left TKR, open right inguinal hernia repair #, right knee injury,
Social History
Tobacco: Non-smoker
Alcohol: None
Drug: None
Personal:
Living: With Family
Family History
Family History: Not pertinent
Allergies / Home Medications
Allergies reflects when Allergies were last updated in [employer].
Home Medications with original date entered in [employer]
Allergy/Medication List:
Allergies
Allergy/AdvReac Type Severity Reaction Status Date / Time
cephalexin Allergy ItchingAND Verified 06/19/25 14:10
REDNESS
haloperidol (From Haldol) Allergy hallucinati Verified 06/19/25 14:10
ons
lorazepam (From Ativan) Allergy hallucinati Verified 06/19/25 14:10
ons
Home Medications
mycophenolate mofetil 500 mg tablet 1,000 mg PO HS Autoimmune Disorder 12/17/20
prednisone 10 mg tablet 12.5 mg PO Q48H Anti-inflammatory 12/17/20
pyridostigmine bromide 60 mg tablet 30 mg PO HS myasthenia gravis 05/04/21
pyridostigmine bromide 60 mg tablet 90 mg PO TID@08,12,1630 myasthenia gravis 05/18/21
escitalopram oxalate 10 mg tablet 10 mg PO DAILY Depression 03/01/22
atorvastatin 20 mg tablet 20 mg PO QPM High Cholesterol 07/20/22
mycophenolate mofetil 500 mg tablet (CellCept) 1,500 mg PO DAILY Autoimmune Disorder 10/01/24
pantoprazole 40 mg tablet,delayed release 40 mg PO DAILY Gastrointestinal Issue 10/01/24
melatonin 5 mg tablet 5 mg PO HS Sleep 03/13/25
apixaban 5 mg tablet (Eliquis) 5 mg PO BID 05/31/25
calcium 600 mg (as carbonate)-vitamin D3 10 mcg (400 unit) tablet (Calcium 600 + D(3)) 2 tab PO BID@1230,1930 05/31/25
carbidopa 25 mg-levodopa 100 mg tablet 2 tab PO TID@0830,1230,1630 05/31/25
carbidopa ER 50 mg-levodopa 200 mg tablet,extended release 1 tab PO HS 05/31/25
cyanocobalamin (vitamin B-12) 1,000 mcg tablet 3,000 mcg PO DAILY@1230 05/31/25
folic acid 1 mg tablet 1 mg PO DAILY 05/31/25
magnesium oxide 800 mg PO BID 05/31/25
midodrine 5 mg tablet 5 mg PO TID@0800,1300,1800 #90 tabs 06/05/25
ipratropium 0.5 mg-albuterol 3 mg (2.5 mg base)/3 mL nebulization soln 3 ml inhalation TID Lung/Breathing Issues 06/19/25
*awaiting med rec
Review of Systems
-
History Source: Patient
A 12 point ROS was completed and negative except as noted: Yes
Physical Exam
Vital Signs
Vital Signs
Temp Pulse Resp BP Pulse Ox
98.1 F 52 26 110/48 80
06/19/25 14:10 06/19/25 14:10 06/19/25 14:22 06/19/25 14:21 06/19/25 14:52
Physical Exam
General: Other (intubated, in no distress )
HEENT: PERRLA
Respiratory: Rales (bibasile ); No Wheezes
Cardiac: S1/S2, Regular Rhythm and Murmur
GI: Soft and Non Tender
Musculoskeletal: Edema, Left Lower Extremity and Edema, Right Lower Extremity
Skin: Warm and Dry; No Rash
Neuro: AO x 3
Psych: Calm
Laboratory Results
-
06/19/25 14:30
06/19/25 14:30
Laboratory Results
PT 28.6 Sec (11.4-14.6) H 06/19/25 14:30
INR 2.64 06/19/25 14:30
APTT 70.5 Sec (23.4-35.0) H 06/19/25 14:30
Total Bilirubin 1.3 mg/dl (0.2-1.3) 06/19/25 14:30
AST 20 U/L (17-59) 06/19/25 14:30
ALT < 10 U/L (0-50) 06/19/25 14:30
Alkaline Phosphatase 55 U/L (38-126) 06/19/25 14:30
Troponin I < 0.012 ng/ml 06/19/25 14:30
Data Reviewed
-
Diagnostic Radiology: Report Reviewed by me
Lab Data: Labs Reviewed by me
Impression/Plan
-
Mr. Isac Segura is a 79 yo man with hx paroxysmal atrial fibrillation, Parkinson's disease, moderate , essential HTN, HLD, MG, bronchiectasis recent admission 05/31-06/05 for acute heart failure, pancytopenia presents to the ER with shortness of
breath and hypoxia. Patient was placed on CPAP by EMS. He was noted to have rhonchi. Upon arrival to the ER he had shallow respirations on BiPAP and appeared fatigued, decision made to intubate.
Triage VS: T 98.1, P 52, RR 33, SpO2 100%
LABS: WBC 1.7, Hg 7.7, PLT , Na 139, K+ 4.2, Cl 113, CO2 25, BUN 33, Cr 1, liver enzymes WNL, Trop < 0.012, BNP 7180
Weight up 6kg from last admission
CXR with vascular congestion
Acute Hypoxic Respiratory Failure
VDRF
Concern for Pneumonia versus Heart failure preserved EF, Acute Exacerbation
-with increased sputum production and CXR appearance will continue IV Antibiotics
-admit to ICU
-Vent management per [facility]
-Sedation with IV Fentanyl
-continue IV Zosyn, 4.5G dosing given prior history Pseudomonas
-follow up blood cultures, sputum cultures
-F/U MRSA swab, Flu/Covid
-WEEKEND ANCHOR Inhalers
-patient is on Prednisone 12.5mg q 48 hours at home, start stress dose steroids
Heart Failure preserved EF, Acute Exacerbation
-concern heart failure contributing given weight gain and CXR appearance
-follow up procalcitonin
-Cardiology consulted, will evaluate prior to administration of Lasix given past issues of hypotension and concern for infection
Acute on Chronic Pancytopenia
-suspect reaction to above
-monitor with treatment of infection
Orthostatic Hypotension
-continue WEEKEND ANCHOR Midodrine, per , patient had stopped taking at home as didn't see a difference in his blood pressure
LE swelling
-LE US ordered
Paroxysmal Atrial Fibrillation
-continue WEEKEND ANCHOR Eliquis
Myasthenia Gravis
-continue WEEKEND ANCHOR Cellcept
Hyperlipidemia - WEEKEND ANCHOR statin
Parkinson's Disease - WEEKEND ANCHOR Sinemet
DVT PPx Lovenox
GI Ppx IV Protonix
FULL CODE
Total Critical Care Time 70 minutes. I was immediately available to the patient and staff. I personally examined, reviewed labs, diagnostic images/reports, interpretations, treatment plans, discussed patient care with other providers and family
or caregivers (if patient is unable to make decisions), entered orders as appropriate and documented the medical record.
[2025-06-19 15:28] LABS: Platelet Count 99 10^3/uL (130-400)
--- NOTE | 2025-06-19 15:37 | EDRN ---
Dr. Aguilar at bedside speaking with .
Respiratory at bedside to provide breathing treatment, obtain ABG and sputum culture.
--- NOTE | 2025-06-19 15:39 | EDRN ---
Patient's informed this RN that the patient will become agitated and pull at equipment.
Dr. Aguilar at bedside to discuss DNR status with . There will be no changes from previous admission, Full code
[2025-06-19 15:46] LABS: B.E. -0.7 mmol/L; HCO3 25.3 mmol/L (21-28); O2 Saturation % 97.1 % (94-98); PCO2 48 mmHg (35-48); PO2 320 mmHg (83-108)
[2025-06-19] MEDS: DUONEB 3 ML INH (15:54)
[2025-06-19] MEDS: SUBLIMAZE 75 MCG IV (15:55)
--- NOTE | 2025-06-19 15:56 | CON.INTV ---
Consultation
Consultation Request
Date/Time Consultation Requested: 06/19/2025
Date/Time Consultation Performed: 06/19/2025
Medical History
-
Chief Complaint: Shortness of breath
History of Present Illness:
Patient is currently intubated, mechanically ventilated and sedated. Unable to provide any history. Information mostly obtained from review of records and discussion with other healthcare providers as well as patient's spouse at bedside.
Patient was discharged from the hospital about a month ago for volume overload, suspected heart failure exacerbation and pancytopenia.. Reportedly, per patient's spouse, over the last few days he was having increasing cough and shortness of breath.
Patient was having rattling secretions in his airway but was having difficulty clearing it up. Patient's spouse also reports that lately sputum had been very foul-smelling, thick and dark in color. No reported fever or chills. Over the last
couple of days patient has had significantly decreased p.o. intake, lethargy and increasing lower extremity edema. Patient sleeps in a recliner and spouse is not aware of any orthopnea. No reported sick contacts.
Patient has chronic bronchiectasis and excessive mucus production. Lately he has not been on airway clearance measures. No reported diarrhea, hematemesis, hemoptysis, melena or hematochezia.
Past Medical History
Past Medical History: Reports Other
Additional Past Medical History:
GERD, hypertension, colon polyps, hypercholesteremia, TIA, diverticulosis, change pain, Parkinson disease, myasthenia gravis, A-fib, CVA, renal insufficiency, kidney stones, bacterial pneumonia
Past Surgical History: Reports Other
Additional Past Surgical History:
Tonsillectomy, repair of middle finger left hand, left wrist surgery, left TKR, open right inguinal hernia repair #, right knee injury,
Social History
Tobacco: Non-smoker
Alcohol: None
Drug: None
Personal:
Living: With Family
Family History
Family History: Not pertinent
Allergies / Home Medications
Allergies
Allergy/AdvReac Type Severity Reaction Status Date / Time
cephalexin Allergy ItchingAND Verified 06/19/25 15:41
REDNESS;
tolerated
piperacillin-tazobactam
haloperidol (From Haldol) Allergy hallucinati Verified 06/19/25 14:10
ons
lorazepam (From Ativan) Allergy hallucinati Verified 06/19/25 14:10
ons
Home Medications
�Medication �Instructions �Recorded �Confirmed �Last Taken �Type
mycophenolate mofetil 500 mg tablet 1,000 mg PO HS Autoimmune Disorder 12/17/20 06/19/25 06/18/25 History
prednisone 10 mg tablet 12.5 mg PO Q48H Anti-inflammatory 12/17/20 06/19/25 06/17/25 History
pyridostigmine bromide 60 mg tablet 30 mg PO HS myasthenia gravis 05/04/21 06/19/25 06/18/25 History
pyridostigmine bromide 60 mg tablet 90 mg PO TID@08,12,1630 myasthenia 05/18/21 06/19/25 06/18/25 History
gravis
escitalopram oxalate 10 mg tablet 10 mg PO DAILY Depression 03/01/22 06/19/25 06/18/25 History
atorvastatin 20 mg tablet 20 mg PO QPM High Cholesterol 07/20/22 06/19/25 06/18/25 History
mycophenolate mofetil 500 mg 1,500 mg PO DAILY Autoimmune 10/01/24 06/19/25 06/18/25 History
tablet (CellCept) Disorder
pantoprazole 40 mg tablet,delayed 40 mg PO DAILY Gastrointestinal 10/01/24 06/19/25 06/18/25 History
release Issue
melatonin 5 mg tablet 5 mg PO HS Sleep 03/13/25 06/19/25 06/18/25 History
apixaban 5 mg tablet (Eliquis) 5 mg PO BID 05/31/25 06/19/25 06/19/25 History
calcium 600 mg (as 2 tab PO BID@1230,1930 05/31/25 06/19/25 06/18/25 History
carbonate)-vitamin D3 10 mcg (400
unit) tablet (Calcium 600 + D(3))
carbidopa 25 mg-levodopa 100 mg 2 tab PO TID@0830,1230,1630 05/31/25 06/19/25 06/18/25 History
tablet
carbidopa ER 50 mg-levodopa 200 mg 1 tab PO HS 05/31/25 06/19/25 06/18/25 History
tablet,extended release
cyanocobalamin (vitamin B-12) 3,000 mcg PO DAILY@1230 05/31/25 06/19/25 06/18/25 History
1,000 mcg tablet
folic acid 1 mg tablet 1 mg PO DAILY 05/31/25 06/19/25 06/18/25 History
magnesium oxide 800 mg PO BID 05/31/25 06/19/25 06/18/25 History
midodrine 5 mg tablet 5 mg PO TID@0800,1300,1800 #90 tabs 06/05/25 06/19/25 06/18/25 Rx
ipratropium 0.5 mg-albuterol 3 mg 3 ml inhalation TID Lung/Breathing 06/19/25 06/19/25 06/18/25 History
(2.5 mg base)/3 mL nebulization Issues
soln
Review of Systems
Vitals / Labs / Diagnostic Testing
Vital Signs
Temp Pulse Resp BP Pulse Ox
98.1 F 52 12 110/48 100
06/19/25 14:10 06/19/25 15:54 06/19/25 15:54 06/19/25 14:21 06/19/25 15:54
Lab Data
06/19/25 14:30
06/19/25 14:30
Laboratory Results
06/19/25 06/19/25
14:30 15:40
PT 28.6 H
INR 2.64
APTT 70.5 H
pH 7.33 L
pCO2 48
pO2 320 H
HCO3 25.3
O2 Delivery Level
Diagnostic Testing:
Physical Exam
-
HEENT: Normocephalic
Cardiovascular: S1/S2, Murmur (Pansystolic murmur) and Peripheral Edema (2+ bilateral pitting edema)
Respiratory: Rhonchi
GI: Soft and Non Distended
Neurology: Other (Currently sedated with fentanyl)
Skin: Warm
General: Comfortable
Assessment
-
#1. Acute hypoxic respiratory failure
-S/p trial of BiPAP in emergency room, subsequently intubated and mechanically ventilated, 06/19
-Suspect respiratory failure is multifactorial, primarily related to excessive respiratory secretions, pneumonia with underlying bronchiectasis, volume overload as well as neuromuscular weakness due to myasthenia gravis and parkinsonism
-Continue volume assist-control. Serial ABG, follow-up chest x-ray in a.m.
-OG tube placed, hold off initiation of tube feeding for now
-Daily SAT and SBT
-Fentanyl/propofol for sedation
#2. Acute Pneumonia with h/o Chronic bronchiectasis
- Worsening right lower lobe consolidation noted on imaging. Patient has chronically consolidated lower lobes. Previous CT images from May as well as February 2025 suggestive of chronically consolidated lower lobes with bronchiectatic changes
- Reported increased difficulty expectorating lately with large volume sputum production.
- History of chronic pseudomonal colonization. Patient also immunocompromised with chronic steroid and mycophenolate use
- Check tracheal aspirate for cultures and sensitivities. Check MRSA screen. Blood cultures
- Initiate broad-spectrum antibiotic, IV vancomycin and Zosyn.
- Follow-up chest x-ray in a.m. Depending upon clinical course will consider bronchoscopy with bronchioloalveolar lavage
- Initiate hypertonic saline, 3%, nebulizer along with albuterol 3 times daily
- Mucinex via OG tube
#3. Suspect Acute on chronic HFpEF
- Patient has significantly elevated BNP, bilateral pedal edema as well as chest x-ray suggestive of pulmonary edema. Also reported history of moderate aortic stenosis.
- Blood pressure is borderline, might need pressor support with diuresis.
- Cardiology service on case
#4. Pulmonary HTN.
- Echocardiogram in 05/2025, pulmonary artery systolic pressure around 50, moderate tricuspid regurgitation noted.
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 Might have component of group III as well considering underlying mild obstructive airway disease, chronic
bronchiectasis.
#5. Paroxysmal Atril Fibrillation
- Chronically anticoagulated with Eliquis
- Has not been on any rate control medications
- Currently noted to have sinus bradycardia
#6. History of myasthenia gravis and parkinsonism
- Place OG tube and resume oral medications for myasthenia gravis as well as parkinsonism
- Resume Sinemet, pyridostigmine
- Prednisone switched to stress dose of hydrocortisone, 50 mg IV every 6
- Continue CellCept
- Continue mechanical ventilation for now
DVT prophylaxis. Eliquis resumed via G-tube
GI prophylaxis. IV Protonix
Other medical diagnoses:
- Orthostatic hypotension. Chronically on midodrine
- History of TIA/CVA
- Hypertension, hyperlipidemia
- Moderate aortic stenosis
- GERD
- Chronic pancytopenia
Critical Care time 62 mins -- The patient is admitted for acute critical illness for the treatment of vital organ failure and/or prevention of further life-threatening conditions. Total care includes time spent in review of history, physical exam,
medications, hemodynamic/ventilator parameters, laboratory data, imaging and discussion with house staff, pharmacy, respiratory therapy, auto driver, and nursing.
Data:
CXR 06/2025: Findings suggesting moderate diffuse right-sided pneumonia. Progressed.
Probable mild left lower lobe pneumonia. Progressed.
Mild cardiomegaly. Stable
ECHO 05/2025: 1. Ejection fraction is 55-60% by visual assessment.
2. Small pericardial effusion is seen.
3. Compared to a prior transthoracic echocardiogram study from October 2024 no significant changes are seen.
4. Thickened calcified trileaflet aortic valve with decreased leaflet excursion. Moderate aortic stenosis with mean pressure gradient of 25 mmHg. Using an left ventricular outflow tract diameter of 2.0 cm., the STEPHY = 1.3 cm2. Mild to moderate
aortic insufficiency.
5. Mild concentric left ventricular hypertrophy.
6. Moderate tricuspid regurgitation. Estimated pulmonary artery pressure of 50 mmHg assuming a right atrial pressure of [address] Chest 02/2025: Trace bilateral pleural effusions. Re-demonstration of confluent consolidation within the bilateral lower lobes, progressed. Patchy subpleural tree-in-bud/groundglass nodules throughout the lower lung zones bilaterally, right
greater than left. No pericardial effusions or enlarged lymph nodes in the thorax. Nondisplaced lateral right seventh rib fracture. Old left rib deformities.
Bronchoscopy 09/2024: Copious, bilateral exudates noted throughout the tracheobronchial tree. BAL performed. Pansensitive Pseudomonas and Layla noted on bronchioloalveolar lavage.
Spirometry 03/2023: Mild obstruction noted. Normal lung volumes. Mild diffusion impairment. FEV1 of 92% predicted.
[2025-06-19 16:09] LABS: Absolute Neutrophils -Man Diff 1.4 10^3/uL (1.4-6.5)
[2025-06-19 16:12] LABS: Anisocytosis 1+; Normal RBC Morphology No; Ovalocytes 1+; Platelets Checked Yes; Total Cells Counted 100
[2025-06-19 16:28] LABS: COVID-19 Antigen Negative (Negative)
[2025-06-19] MEDS: SOLU-CORTEF 100 MG IV (16:48)
[2025-06-19 16:57] LABS: Procalcitonin 0.91 ng/ml (0.0-0.25)
--- NOTE | 2025-06-19 17:51 | PTCARENOTE ---
Pt received from ED to room 3365. During a turn, pt became bradycardic to 30 bpm. MD called to bedside. Epinephrine gtt ordered but not started d/t heart rate increased to 50. Copious oral secretions noted during turn. Approx. 50ml thick,
clear-pink secretions via oropharyngeal suctioning.
[2025-06-19] MEDS: MESTINON TUBE (18:02)
[2025-06-19] MEDS: PROTONIX IV 40 MG IV (18:05)
[2025-06-19] MEDS: LIPITOR TUBE ×2 (18:05→19:29)
[2025-06-19] MEDS: NSS (PRESERVATIVE FREE) 10 ML IV (18:05)
[2025-06-19] MEDS: ROBITUSSIN TUBE ×2 (18:05→19:29)
[2025-06-19] MEDS: SINEMET 25-100 TUBE ×2 (18:05→19:29)
[2025-06-19] MEDS: VANCOCIN 540 MG IV (18:06)
[2025-06-19] MEDS: ZOSYN 100 IV (18:06)
[2025-06-19 18:30] LABS: B.E. -0.3 mmol/L; HCO3 25.4 mmol/L (21-28); O2 Saturation % 97.3 % (94-98); PCO2 46 mmHg (35-48); PO2 137 mmHg (83-108)
--- NOTE | 2025-06-19 18:39 | PHA.VAN.IN ---
Assessment
- Assessment
Renal Function: Appears similar to baseline
Concomitant Antimicrobials: piperacillin/tazobactam
AUC Dosing Plan
- Dosing Variables
Dosing Weight (kg): 66.5
Dosing CrCl (ml/min): 58
Vd coefficient (L/kg): 0.7
- Empiric Dosing
Initial / Loading Dose: vanc 2000 mg
Maintenance Regimen: vanc 1000 mg Q24H
Estimated AUC (mcg*h/mL): 420
Estimated Peak (mcg*h/mL): 30
Estimated Trough (mcg/ml): 9
Estimated Half Life (H): 13.2
- Monitoring
No levels ordered at this time: consider levels in next few days
MRSA Screen: Ordered per protocol
Pharmacokinetics Vancomycin I
- -
Patient Age: 79
Patient Sex: Male
Vancomycin Day #: 1
Indication: Pulmonary/Respiratory
Requesting Provider: Dr. Aguilar
Pertinent Antimicrobial Allergies:
cephalexin - itching and redness; tolerated piperacillin/tazobactam
Height / Weight:
Height 6 ft
Actual Weight 66.5 kg
Pertinent Past Medical History: myasthenia gravis
- Vital Signs / Lab Results
Temp Pulse Resp BP Pulse Ox
98.1 F 50 15 109/60 97
06/19/25 14:10 06/19/25 17:46 06/19/25 17:46 06/19/25 17:45 06/19/25 17:46
Lab Results - Hematology
06/19/25
14:30
WBC 1.7 L*
Band Neutrophils 15 H
Lab Results - Chemistry
06/19/25
14:30
BUN 33 H
Creatinine 1.0
Estimated Creat Clear 58
Albumin 2.8 L
Microbiology Results
06/19/25 16:08 Gram Stain - Preliminary
Sputum - Induced
06/19/25 15:42 Influenza Types A & B ([facility]) - Final
Nasal Swab Negative for Influenza A & B, NAAT
Negative results must be combined with clinical observations
and patient history.
Nucleic Acid Amplification test (NAAT)performed on the
[employer] platform.
[2025-06-19] MEDS: ADRENALIN 250 IV (19:09)
[2025-06-19] MEDS: SODIUM CHLORIDE 3% FOR INHALATION 1 VIAL INH (20:01)
[2025-06-19] MEDS: VENTOLIN NEBULES 2.5 MG INH (20:01)
[2025-06-19 20:06] LABS: Glucose - Point of Care 107 mg/dl (70-99)
[2025-06-19] MEDS: ELIQUIS 5 MG TUBE (20:39)
[2025-06-19 20:40] LABS: Triglycerides 48 mg/dl (10-149)
[2025-06-19] MEDS: ROBITUSSIN 200 MG TUBE (20:40)
[2025-06-19] MEDS: SUBLIMAZE 50 MCG IV ×2 (21:09→23:56)
[2025-06-19] MEDS: CELLCEPT 1000 MG TUBE (21:26)
--- NOTE | 2025-06-19 22:44 | PTCARENOTE ---
Patient intubated and sedated, opened eyes to tactile stimuli, able to follow some commnds; squeezes hands on command, then returns to resting. B/L LE edema +2-3 to b/l LEs, +PP b/l. ETT 7.5 @ 25 at the lip, vent settings 16/450/40%/5, patient
tolerating vent thus far. LS noted to have coarse, scattered rhonchi throughout. Thermoster mosley intact, draining clear yellow urine. Temp 94.4 earlier this shift, discussed with Woodrow LAYNE, teresita whitehead ordered and applied, temp increasing,
currently 95.9. OGT at 60 to LIWS. Patient currently with Fentanyl and Epi running to left fa IV.
Will continue to monitor patient closely.
[2025-06-20] VITALS (13 sets, daily range): BP systolic 82–130; BP diastolic 41–75; BMI 19.4
--- NOTE | 2025-06-20 00:07 | PTCARENOTE ---
Patient assessment overall unchanged. Patient continues on Fentanyl and Epi gtts. Core temp reached 97.3, teresita hugger off at this time. Will continue to monitor patient closely.
[2025-06-20] MEDS: SOLU-CORTEF 50 MG IV ×4 (00:27→22:59)
[2025-06-20] MEDS: ZOSYN 100 IV ×5 (00:28→22:59)
--- NOTE | 2025-06-20 00:35 | W.PN.UPDATE ---
Update Note
Progress Note Update
Procedure Note: Arterial Line�
� Right Wrist Arrow 20 (11/06)�
Diagnosis:��Acute hypoxic respiratory failure
IV Line Comments: Uneventful Procedure�
Jose Eduardo completed pre-procedure: Yes�
A-Line Comments: Sterile technique as per standard protocol, Ultrasound guided insertion�
Functioning�A-line in situ: Yes�
A-line Insertion Start Time:��0005
A-line in at:��0015
[2025-06-20] MEDS: DIPRIVAN 100 IV (01:30)
--- NOTE | 2025-06-20 01:40 | PTCARENOTE ---
Patient noted to be biting tube, agitated. Discussed with Woodrow LAYNE. Patient started on Propofol at this time. Will continue to monitor and titrate as needed.
[2025-06-20 04:06] LABS: B.E. -2.0 mmol/L; HCO3 23.7 mmol/L (21-28); O2 Saturation % 93.8 % (94-98); PCO2 44 mmHg (35-48); PO2 74 mmHg (83-108)
[2025-06-20 04:07] LABS: O2 Therapy VENT
[2025-06-20] MEDS: SUBLIMAZE 100 IV ×2 (04:14→15:48)
[2025-06-20 04:22] LABS: Hematocrit 23.2 % (39.0-52.0); Hemoglobin 7.1 g/dL (13.0-18.0); Mean Corp Hgb Conc. 30.6 g/dL (33.0-37.0); Mean Corpuscular Volume 88.2 fL (80.0-94.0); Nucleated Red Blood Cells % 1.0 % (-); Platelet Count 79 10^3/uL (130-400); Red Cell Dist. Width 16.8 % (11.5-14.5)
[2025-06-20 05:08] LABS: Blood Urea Nitrogen 31 mg/dl (9-20); Calcium 8.2 mg/dl (8.4-10.2); Carbon Dioxide 23 mmol/L (22-30); Chloride 116 mmol/L (98-107); Estimated Creatinine Clearance 57 ml/min; Glucose 121 mg/dl (70-99); Magnesium 1.8 mg/dl (1.6-2.3); Potassium 4.1 mmol/L (3.5-5.1); Sodium 141 mmol/L (135-145); eGFR > 60.00
--- NOTE | 2025-06-20 05:11 | PTCARENOTE ---
Patient continues on IV Fentanyl, Propofol, and Epi. Patient suctioned multiple times for large amount of jerry secretions. Assessment overall unchanged. Will continue to monitor.
[2025-06-20] MEDS: VANCOCIN 200 IV (06:21)
[2025-06-20] MEDS: NSS (PRESERVATIVE FREE) 10 ML IV (07:56)
[2025-06-20] MEDS: PROTONIX IV 40 MG IV (07:56)
[2025-06-20] MEDS: SUBLIMAZE 50 MCG IV ×3 (08:06→23:00)
--- NOTE | 2025-06-20 08:24 | OR.RPT ---
Operative Report
Operative Report
Bronchoscopy and BAL
Indication: Thick, copious, purulent respiratory secretions, respiratory failure
Consent: Verbal consent obtained from patient's spouse
Procedure: Patient was intubated, mechanically ventilated and sedated with fentanyl and propofol infusions. Timeout was performed, disposable bronchoscope was advanced through the ET tube. Paige was noted to be sharp and extensive secretions were
bubbling from right mainstem. Topical lidocaine was sprayed at the level of paige. Scope was then advanced into left mainstem. Thin serous secretions were noted throughout the airway tree on the left side and suctioning was performed. Scope was
then advanced into right mainstem where thick copious purulent appearing secretions were noted. Right upper lobe segments were patent with minimal secretions. Right middle lobe appeared somewhat narrowed but I was able to intubate with the scope
and segments were open with small volume purulent secretions noted. Bronchoscope was then advanced into right lower lobe which seemed to be the source of copious thick purulent appearing secretions. Extensive suctioning was performed. Scope was
then wedged in right lower lobe basilar segments. 30 mL of saline was injected and about 20 mL of cloudy appearing fluid was collected and sent for Gram stain and cultures. No active bleeding was noted at the end of procedure. Additional
suctioning was performed until airway tree appeared relatively open. Scope was then withdrawn and procedure completed
Time spent: 20 minutes
Complications: None
Date of procedure: 06/20/2025
[2025-06-20] MEDS: VENTOLIN NEBULES 2.5 MG INH ×3 (08:41→20:22)
[2025-06-20] MEDS: SODIUM CHLORIDE 3% FOR INHALATION 1 VIAL INH ×3 (08:41→20:22)
[2025-06-20] MEDS: SINEMET 25-100 2 TABLET TUBE ×3 (08:52→18:05)
[2025-06-20] MEDS: CELLCEPT 1500 MG TUBE (08:52)
[2025-06-20] MEDS: ROBITUSSIN 200 MG TUBE ×4 (08:52→20:19)
[2025-06-20] MEDS: LEXAPRO 10 MG TUBE (08:52)
[2025-06-20] MEDS: ELIQUIS 5 MG TUBE ×2 (08:52→20:19)
[2025-06-20] MEDS: MIRALAX 17 GRAMS TUBE (08:52)
[2025-06-20] MEDS: FOLVITE 1 MG TUBE (08:52)
--- NOTE | 2025-06-20 09:30 | PHA.VAN.FU ---
Vancomycin Assessment / Plan
- Assessment
Renal Function: Stable
Neutropenia: ANC 1900
Concomitant Antimicrobials: piperacillin/tazobactam
- Dosing Plan
Continue: Vanc 1000mg Q24H
- Monitoring Plan
No level(s) ordered at this time: consider levels in next few days
- Follow Up
Pharmacy will continue to follow.
Vancomycin Follow UP
- -
Patient Age: 79
Patient Sex: Male
Vancomycin Day #: 2
Indication: Pulmonary/Respiratory
Requesting Provider: Dr. Aguilar
Pertinent Antimicrobial Allergies:
cephalexin - itching and redness; tolerated piperacillin/tazobactam
Height / Weight:
Height 6 ft
Actual Weight 64.8 kg
IBW in k.6
Pertinent Past Medical History: myasthenia gravis, BMI ~19.4
- Vital Signs / Lab Results
Temp Pulse Resp BP Pulse Ox
99.3 F 68 18 106/65 93
06/20/25 08:00 06/20/25 08:44 06/20/25 08:44 06/20/25 04:00 06/20/25 08:45
Lab Results - Hematology
06/19/25 06/20/25
14:30 03:58
WBC 1.7 L* 2.0 L*
Band Neutrophils 15 H
Lab Results - Chemistry
06/19/25 06/20/25
14:30 03:58
BUN 33 H 31 H
Creatinine 1.0 1.0
Estimated Creat Clear 58 57
Albumin 2.8 L
Microbiology Results
06/19/25 16:08 Gram Stain - Preliminary
Sputum - Induced
06/19/25 15:42 Influenza Types A & B (LIVIER) - Final
Nasal Swab Negative for Influenza A & B, NAAT
Negative results must be combined with clinical observations
and patient history.
Nucleic Acid Amplification test (NAAT)performed on the
[employer] platform.
--- NOTE | 2025-06-20 11:31 | W.PN.HOSP.TC ---
Addendum entered and electronically signed by Curry Resendez MD 06/20/25 12:52:
Attending�addendum:
I saw and evaluated the patient. I reviewed the resident�s note and agree with findings and plan as documented in the resident�s note.��patient seen and examined at bedside, patient is intubated, sedated, admitted overnight with acute hypoxic
respiratory left secondary to CHF/pneumonia.
Physical�exam:
GENERAL : Patient is intubated
HEENT: Endotracheal tube in place
CHEST: Chest wall is nontender.
HEART: Regular rate and rhythm without murmurs.
LUNGS: Diffuse bilateral Rales and wheezing
ABDOMEN: Soft, positive bowel sounds, nontender, no organomegaly.
RECTAL: Deferred.
MUSCLES/EXTREMITIES: No abnormal range of motion, no swelling.SKIN: No rash, no excessive bruising, petechiae, or purpura.
NEUROLOGIC: Intubated
�
Assessment/plan:
Acute hypoxic respiratory failure secondary to CHF/pneumonia.
Continue mechanical ventilation.
Continue sedation/pressors.
IV antibiotic.
Status post bronchoscopy-pending BAL culture
Pancytopenia.
Likely secondary to mycophenolate
Paroxysmal A-fib.
Currently sinus
CODE STATUS: Full code
DVT prophylaxis: Eliquis
Diet: Tube feed
Disposition: Continue antibiotic, mechanical ventilation
�
Total time spent on today�s encounter was 74 minutes which included time spent in counseling the patient/family regarding diagnosis and treatment plan as listed above, goals of care, and symptom management. Case was discussed with nursing staff,
specialists, and care coordinators/case management. All labs and imaging personally reviewed by me. Remainder the time spent in detailed review of previous records, lab data, imaging, and other medical provider documentation.
Original Note:
Today's Communication/Plan
-
Bronchoscopic bronchoalveolar lavage
plan for lasix
Assessment / Plan
Assessment / Plan
Patient is a 79-year-old male with past medical history of paroxysmal atrial fibrillation on chronic Eliquis and amiodarone 100 mg daily, hypertension, aortic stenosis, hyperlipidemia, history of CVA, Parkinson's disease, bronchiectasis with
cultures growing out Pseudomonas in the past who was admitted to [facility] from 06/01 - 06/05/2025 and was treated for UTI as well as for CHF. CHF was felt to be new diagnosis, and patient was not on diuretic therapy prior to last
admission. patient received 2 doses of IV Lasix 40 mg daily and then became hypotensive prompting discontinuation of diuretic. He was not discharged on diuretic therapy. Echocardiogram showed preserved EF with moderate /AI and moderate TR.
Patient presents back to [facility] today due to worsening shortness of breath particularly over the last 1 to 2 days per . She also notes patient has a persistent cough which has been chronic, however significantly worsened over the last 48 hours.
She also notes that he had lower extremity edema as well as left upper extremity swelling in the same timeframe. She does not note fevers or chills, but poor appetite. He was started on midodrine last admission for orthostasis, however per
stopped taking as OP as did not see noticeable difference in BPs.
At ER Initially treated with noninvasive positive pressure ventilation but ultimately was intubated for increased work of breathing. Cardiology is consulted for acute heart failure with preserved ejection fraction.
Assessment and Plan:
Acute hypoxic respiratory failure
-S/p trial of BiPAP in emergency room, subsequently intubated and mechanically ventilated, 06/19
-Suspect respiratory failure secondary to pneumonia with underlying bronchiectasis, neuromuscular weakness due to myasthenia gravis and parkinsonism, volume overload from heart failure
-Xray on 06/20 :Bilateral opacities which base and part could represent pneumonia, without significant change.
-Continue volume assist-control
-Serial ABG
-Daily SAT and SBT
-Fentanyl/propofol for sedation
Acute Pneumonia with h/o Chronic bronchiectasis
- Worsening right lower lobe consolidation noted on imaging. Patient has chronically consolidated lower lobes. Previous CT images from May as well as February 2025 suggestive of chronically consolidated lower lobes with bronchiectatic changes
- Reported increased difficulty expectorating lately with large volume sputum production.
- History of chronic pseudomonal colonization
- Check tracheal aspirate for cultures and sensitivities. Check MRSA screen. Blood cultures
- continue IV vancomycin and Zosyn.
- Xray on 06/20 :Bilateral opacities which base and part could represent pneumonia, without significant change.
-bronchoscopy with bronchioloalveolar lavage on 06/20
- Initiate hypertonic saline, 3%, nebulizer along with albuterol 3 times daily
- Mucinex via OG tube
Suspect Acute on chronic HFpEF
- Patient has significantly elevated BNP
- bilateral pedal edema
- hx of moderate aortic stenosis.
- continue pressor and may need Lasix
- Cardiology service on case
#progressive Pancytopenia
Patient has a hx of pancytopenia that progressed on this admission
likely secondary to the above conditions vs medication related (mycophenolate mofetil)
Paroxysmal Atril Fibrillation
- Currently noted to have sinus bradycardia
- Chronically anticoagulated with Eliquis
- Has not been on any rate control medications
History of myasthenia gravis and parkinsonism
- Place OG tube and resume oral medications for myasthenia gravis as well as parkinsonism
- Resume Sinemet, pyridostigmine
- Prednisone switched to stress dose of hydrocortisone, 50 mg IV every 6
- Continue CellCept
- Continue mechanical ventilation for now
Other medical diagnoses:
- Orthostatic hypotension. Chronically on midodrine
- History of TIA/CVA
- Hypertension, hyperlipidemia
- Moderate aortic stenosis
- GERD
- Chronic pancytopenia
DVT prophylaxis. Eliquis resumed via G-tube
GI prophylaxis. IV Protonix
status full code
Anticipated Discharge: > 48 hours
Subjective/Interval History
-
Date of Service: June 20, 2025
Objective Data
-
Labs:
Laboratory Results
06/20/25
03:58
WBC 2.0 L*
Hgb 7.1 L
Hct 23.2 L
Plt Count 79 L D
HCO3 23.7
Sodium 141
Potassium 4.1
Chloride 116 H
Carbon Dioxide 23
BUN 31 H
Creatinine 1.0
Glucose 121 H
Calcium 8.2 L
Vital Signs:
Vital Signs
Temp Pulse Resp BP Pulse Ox
99.3 F 68 18 106/65 93
06/20/25 08:00 06/20/25 08:44 06/20/25 08:44 06/20/25 04:00 06/20/25 08:45
I&O
06/19/25 06/20/25 06/21/25
06:59 06:59 06:59
Intake Total 209.5 / 230.9 117.1 / 117.1
Output Total 700 / 700 530 / 530
Balance -490.5 / -469.1 -412.9 / -412.9
[2025-06-20] MEDS: MESTINON 90 MG TUBE ×2 (12:14→18:05)
--- NOTE | 2025-06-20 13:27 | W.PN.INTV ---
Today's Communication / Plan
Recommendations
- Status post bronchoscopy and BAL, follow-up on cultures
- Continue airway clearance with hypertonic saline, Mucinex and albuterol
- Initiate tube feeding
- Resume pyridostigmine
- Follow-up chest x-ray, ABG in a.m.
- SAT/SBT in a.m. if continues to improve
Assessment
-
Patient is currently intubated, mechanically ventilated and sedated. Unable to provide any history. Information mostly obtained from review of records and discussion with other healthcare providers as well as patient's spouse at bedside.
Patient was discharged from the hospital about a month ago for volume overload, suspected heart failure exacerbation and pancytopenia.. Reportedly, per patient's spouse, over the last few days he was having increasing cough and shortness of breath.
Patient was having rattling secretions in his airway but was having difficulty clearing it up. Patient's spouse also reports that lately sputum had been very foul-smelling, thick and dark in color. No reported fever or chills. Over the last
couple of days patient has had significantly decreased p.o. intake, lethargy and increasing lower extremity edema. Patient sleeps in a recliner and spouse is not aware of any orthopnea. No reported sick contacts.
Patient has chronic bronchiectasis and excessive mucus production. Lately he has not been on airway clearance measures. No reported diarrhea, hematemesis, hemoptysis, melena or hematochezia.
06/20 overview: Patient currently intubated, mechanically ventilated and sedated. Current infusions IV fentanyl, propofol and epinephrine infusion. Mechanical ventilation 450/16/40%/5, arterial blood gas 7.30 /. Copious thick secretions
noted through ET tube. Bronchoscopy and BAL performed with extensive suctioning of thick purulent secretions.
#1. Acute hypoxic respiratory failure
-S/p trial of BiPAP in emergency room, subsequently intubated and mechanically ventilated, 06/19
-Suspect respiratory failure is multifactorial, primarily related to excessive respiratory secretions, pneumonia with underlying bronchiectasis, volume overload as well as neuromuscular weakness due to myasthenia gravis and parkinsonism
-Continue volume assist-control. Serial ABG, follow-up chest x-ray in a.m.
-Fentanyl/propofol for sedation
-SAT/SBT in AM if respiratory status improving
#2. Shock with Acute Pneumonia with h/o Chronic bronchiectasis
- Worsening right lower lobe consolidation noted on imaging. Patient has chronically consolidated lower lobes. Previous CT images from May as well as February 2025 suggestive of chronically consolidated lower lobes with bronchiectatic changes
- Reported increased difficulty expectorating lately with large volume sputum production prior to admission
- Requiring low-dose epinephrine infusion. A-line in place. pH 7.34
- History of chronic pseudomonal colonization. Patient also immunocompromised with chronic steroid and mycophenolate use
- 06/20, bronchoscopy performed, BAL performed at right lower lobe. Preliminary gram-negative rods noted on tracheal aspirate.
- Continue IV vancomycin and cefepime. Follow-up on cultures
- Continue hypertonic saline, 3%, nebulizer along with albuterol 3 times daily
- Mucinex via OG tube
#3. Suspect Acute on chronic HFpEF
- Patient has significantly elevated BNP, bilateral pedal edema as well as chest x-ray suggestive of pulmonary edema. Also reported history of moderate aortic stenosis.
- Blood pressure is borderline, requiring intermittent pressor support, hold off diuresis for now
- Cardiology service on case
#4. Pulmonary HTN.
- Echocardiogram in 05/2025, pulmonary artery systolic pressure around 50, moderate tricuspid regurgitation noted.
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 Might have component of group III as well considering underlying mild obstructive airway disease, chronic
bronchiectasis.
#5. Paroxysmal Atril Fibrillation
- Chronically anticoagulated with Eliquis
- Has not been on any rate control medications
- Currently noted to have sinus bradycardia, improved since initiation of epinephrine infusion
- Continue to hold amiodarone and midodrine in view of bradycardia. Resume pyridostigmine
#6. History of myasthenia gravis and parkinsonism
- Placed OG tube and resumed oral medications for myasthenia gravis as well as parkinsonism
- Resume Sinemet, pyridostigmine
- Prednisone switched to stress dose of hydrocortisone, 50 mg IV every 6
- Continue CellCept
- Continue mechanical ventilation for now
DVT prophylaxis. Eliquis resumed via G-tube
GI prophylaxis. IV Protonix
Other medical diagnoses:
- Orthostatic hypotension. Chronically on midodrine
- History of TIA/CVA
- Hypertension, hyperlipidemia
- Moderate aortic stenosis
- GERD
- Chronic pancytopenia
Critical Care time 42 mins -- The patient is admitted for acute critical illness for the treatment of vital organ failure and/or prevention of further life-threatening conditions. Total care includes time spent in review of history, physical exam,
medications, hemodynamic/ventilator parameters, laboratory data, imaging and discussion with house staff, pharmacy, respiratory therapy, recreation adviser, and nursing.
Data:
CXR 06/2025: Findings suggesting moderate diffuse right-sided pneumonia. Progressed.
Probable mild left lower lobe pneumonia. Progressed.
Mild cardiomegaly. Stable
ECHO 05/2025: 1. Ejection fraction is 55-60% by visual assessment.
2. Small pericardial effusion is seen.
3. Compared to a prior transthoracic echocardiogram study from October 2024 no significant changes are seen.
4. Thickened calcified trileaflet aortic valve with decreased leaflet excursion. Moderate aortic stenosis with mean pressure gradient of 25 mmHg. Using an left ventricular outflow tract diameter of 2.0 cm., the STEPHY = 1.3 cm2. Mild to moderate
aortic insufficiency.
5. Mild concentric left ventricular hypertrophy.
6. Moderate tricuspid regurgitation. Estimated pulmonary artery pressure of 50 mmHg assuming a right atrial pressure of [address] Chest 02/2025: Trace bilateral pleural effusions. Re-demonstration of confluent consolidation within the bilateral lower lobes, progressed. Patchy subpleural tree-in-bud/groundglass nodules throughout the lower lung zones bilaterally, right
greater than left. No pericardial effusions or enlarged lymph nodes in the thorax. Nondisplaced lateral right seventh rib fracture. Old left rib deformities.
Bronchoscopy 09/2024: Copious, bilateral exudates noted throughout the tracheobronchial tree. BAL performed. Pansensitive Pseudomonas and Layla noted on bronchioloalveolar lavage.
Spirometry 03/2023: Mild obstruction noted. Normal lung volumes. Mild diffusion impairment. FEV1 of 92% predicted.
Subjective Dataa
Subjective Data
Date of Service:
Date of Service: June 20, 2025
Subjective:
Patient continues to be intubated, mechanically ventilated and sedated. Having copious thick secretions through ET tube
Review of Systems
General: Other (Unable to obtain, patient intubated)
Genitourinary: Other
Objective Data
Data Reviewed
Vital Signs / I&O / Oxygen:
Vital Signs
Temp Pulse Resp BP Pulse Ox
99.4 F 81 18 86/57 96
06/20/25 12:00 06/20/25 12:33 06/20/25 12:33 06/20/25 12:33 06/20/25 12:30
Intake and Output
06/19/25 06/20/25 06/21/25
06:59 06:59 06:59
Intake Total 209.5 / 230.9 157.8 / 157.8
Output Total 700 / 700 670 / 670
Balance -490.5 / -469.1 -512.2 / -512.2
SaO2 [A/C] 91
SaO2 96
Physical Exam
General: Comfortable
HEENT: Normocephalic
Cardiovascular: S1-S2
Respiratory: Rhonchi
GI: Soft and Non Distended
Neurology: Other (Sedated)
Skin: Warm
Labs/Micro/Reports
Lab Data
06/20/25 03:58
06/20/25 03:58
Laboratory Results
06/19/25 06/19/25 06/19/25
14:30 15:40 18:08
PT 28.6 H
INR 2.64
APTT 70.5 H
pH 7.33 L 7.35
pCO2 48 46
pO2 320 H 137 H
HCO3 25.3 25.4
O2 Delivery Level
06/20/25
03:58
PT
INR
APTT
pH 7.34 L
pCO2 44
pO2 74 L
HCO3 23.7
O2 Delivery Level Vent
Microbiology
06/19/25 16:08 Sputum - Induced Respiratory Culture - Preliminary
Gram negative bacilli
06/19/25 16:08 Sputum - Induced Gram Stain - Preliminary
06/20/25 08:25 Urine Legionella Urinary Antigen - Final
Negative for Legionella pneumophila Serogroup 1 antigen.
A negative result does not rule out the possiblity of
Legionella infection due to other serogroups or species of
Legionella. Clinical correlation is recommended.
06/20/25 08:25 Urine Streptococcus pneumoniae Antigen (M - Final
Negative for Streptococcus pneumoniae antigen.
A negative result does not exclude infection with
Streptococcus pneumoniae. Clinical correlation is
recommended.
06/20/25 08:25 Nose Nasal Screen MRSA (PCR) - Final
MRSA not detected - performed by PCR methodology.
06/19/25 15:42 Nasal Swab Influenza Types A & B (LIVIER) - Final
Negative for Influenza A & B, NAAT
Negative results must be combined with clinical observations
and patient history.
Nucleic Acid Amplification test (NAAT)performed on the
[employer] platform.
--- NOTE | 2025-06-20 13:44 | W.PN.CARDCBS ---
Today's Communication / Plan
-
Continue epinephrine drip for pressor support
Will add Lasix 40 mg IV daily to try to diurese gently.
Continue broad-spectrum antibiotics and Mestinon for pneumonia/myasthenia
Echo was reviewed from last admission which has a preserved ejection fraction and moderate aortic stenosis
Hemoglobin down to 7.1. May need transfusion. Patient is now pancytopenic.
Okay to continue Eliquis for now but if drops further may need to hold
Impression / Plan
-
[facility] Supervisor Shearing: Dr. Santos
Assessment:
Presentation with SOB
PNA
Elevated proBNP with concern for acute HFpEF
Hypotension
Pancytopenia
Admission to 06/01 - 06/05/2025 for UTI, CHF
Sinus bradycardia
Paroxysmal atrial fibrillation
Chronic amiodarone therapy
Chronic Eliquis therapy
Aortic stenosis/insufficiency by echo 06/03/25
History of hypertension
Hyperlipidemia
History of CVA
History of intermittent hematuria
Parkinson's disease
Myasthenia gravis
Bronchiectasis with prior Pseudomonas infection
Hypoalbuminemia
ECHO 10/17/24: EF 55 to 60%, no regional wall motion abnormalities noted, stage II diastolic dysfunction, MAC, moderate MR, moderate with peak/mean gradients 47/30 mmHg, STEPHY 1.3 cm�, moderate TR, PAP 45 mmHg, small pericardial effusion
Echo 06/03/2025: EF 55 to 60%, small pericardial effusion, moderate , mean gradient 25 mmHg, STEPHY 1.3 cm�, mild to moderate AI, mild MR, moderate TR, PAP 58 mmHg, no significant change compared to echo 10/2024
Plan:
- Patient presents back to [facility] after recent admission 2 weeks ago for UTI and CHF, now with worsening shortness of breath, anemia, hypotension. covid/flu negative
-Patient remains intubated and sedated. Continue ventilatory care.
-Blood pressure remains marginal. Continue epinephrine drip.
-I suspect his symptoms are combination of pneumonia along with some level of acute heart failure with preserved ejection fraction
-Will start Lasix 40 mg IV daily. Creatinine currently stable.
-Echo from last admission was reviewed which shows moderate aortic stenosis and a preserved ejection fraction. PA pressure in that study was 58 and elevated.
-Lower extremity Dopplers reviewed which revealed no DVT
-Hemoglobin down to 7.1 with pancytopenia. Could consider transfusion.
-Continue Mestinon for myasthenia.
- d/w ER nursing. d/w patient's family at bedside.
Critical care time 37 minutes
Progress Note - Supervisor Shearing
Subjective
Date of Service: June 20, 2025
Remains intubated and sedated. On epinephrine drip to support blood pressure.
Objective
Labs:
06/20/25 03:58
06/20/25 03:58
Labs
Hgb 7.1 g/dL (13.0-18.0) L 06/20/25 03:58
Hct 23.2 % (39.0-52.0) L 06/20/25 03:58
Plt Count 79 10^3/uL (130-400) L D 06/20/25 03:58
PT 28.6 Sec (11.4-14.6) H 06/19/25 14:30
INR 2.64 06/19/25 14:30
APTT 70.5 Sec (23.4-35.0) H 06/19/25 14:30
Sodium 141 mmol/L (135-145) 06/20/25 03:58
Potassium 4.1 mmol/L (3.5-5.1) 06/20/25 03:58
BUN 31 mg/dl (9-20) H 06/20/25 03:58
Creatinine 1.0 mg/dL (0.7-1.3) 06/20/25 03:58
Glucose 121 mg/dl (70-99) H 06/20/25 03:58
Troponins
06/19/25
14:30
Troponin I < 0.012
Vital Signs and I&O:
Vital Signs
Temp Pulse Resp BP Pulse Ox
99.4 F 81 18 86/57 96
06/20/25 12:00 06/20/25 12:33 06/20/25 12:33 06/20/25 12:33 06/20/25 12:30
Vital Signs
Temp Pulse Resp BP Pulse Ox
99.4 F 81 18 86/57 96
06/20/25 12:00 06/20/25 12:33 06/20/25 12:33 06/20/25 12:33 06/20/25 12:30
Intake & Output
06/18/25 06/19/25 06/20/25 06/21/25
06:59 06:59 06:59 06:59
Intake Total 209.5 / 230.9 157.8 / 157.8
Output Total 700 / 700 670 / 670
Balance -490.5 / -469.1 -512.2 / -512.2
Physical Exam
Physical Exam
GEN: No distress, intubated/sedated
HEENT: supple, anicteric, mmm, ET tube
LUNGS: rhonchi
CV: Reg, S1/S2, 2/6 syst LSB, no gallop
ABD: soft, BS+, NT/ND
EXT: No edema
NEURO: Gross non-focal
SKIN: No rash
--- NOTE | 2025-06-20 14:11 | CM ---
Patient recent admission 05/31/25 to 06/05/25 UTI. Currently intubated. Initial assessment completed with daughter and son. Patient lives with his in a 2 story home plus basement, B/B on 2nd w stair glide, 1/2 bath on , 1 step to enter. 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
patient required assistance with ADL's and now
requires a RW or w/ch for mobility. DME in home is RW, W/CH, stair glide, commode, shower chair and transfer bench. [facility] and [facility] [phone] and [phone]. Patient has declined the PT/OT services.
Unknown if has HC-POA. PCP is Dr. Tomas Venegas. Pharmacy is [facility] in [place]. Discharge POC: TBD. Will send [facility] referral for resumption of care.
[2025-06-20] MEDS: LASIX 40 MG IV (15:47)
[2025-06-20] MEDS: LIPITOR 20 MG TUBE (18:05)
[2025-06-20] MEDS: MESTINON 30 MG TUBE (20:18)
--- NOTE | 2025-06-20 21:41 | PTCARENOTE ---
Received patient at change of shift. Patient intubated/sedated, opens eyes at times and is minimally responsive intermittently. Edema remains to b/l UE and b/l LE, elevation with pillow utilized. Patient LS diminished and coarse throughout. Pox
97-99% on vent a/c 16/450/40/5. Suctioned x3 for blood tinged, jerry secretions. HR remains in the 60's since start of shift. Cade cath remains intact, draining large amounts of clear, yellow urine. Foam intact on sacrum for prevention. Will continue
to monitor patient closely.
[2025-06-20] MEDS: CELLCEPT 1000 MG TUBE (22:13)
[2025-06-21] VITALS (13 sets, daily range): BP systolic 119–146; BP diastolic 57–94; PULSE 46–90; BMI 19.2; BMI 18.6
[2025-06-21] MEDS: DIPRIVAN 100 IV ×2 (00:22→17:25)
--- NOTE | 2025-06-21 00:31 | PTCARENOTE ---
Patient alert with eyes open, attempting to grab ETT. Patient able to squeeze hands to confirm discomfort and agitation noted. Propofol started, will monitor for results.
--- NOTE | 2025-06-21 03:25 | PTCARENOTE ---
Hygiene provided. Mosley catheter noted to be leaking on to saurabh, mosley continues to drain yellow urine to mosley bag as well. New sacral foam applied d/to soilage from leakage. Patient continues on IV Epi, Prop, and Fentanyl. Will continue to
monitor patient closely.
[2025-06-21] MEDS: SUBLIMAZE 100 IV (04:20)
[2025-06-21 04:43] LABS: B.E. 3.0 mmol/L; HCO3 27.9 mmol/L (21-28); O2 Saturation % 97.3 % (94-98); PCO2 44 mmHg (35-48); PO2 126 mmHg (83-108)
[2025-06-21] MEDS: ZOSYN 100 IV ×3 (04:54→17:06)
[2025-06-21 04:57] LABS: Hematocrit 21.4 % (39.0-52.0); Hemoglobin 6.7 g/dL (13.0-18.0); Mean Corp Hgb Conc. 31.3 g/dL (33.0-37.0); Mean Corpuscular Volume 83.9 fL (80.0-94.0); Platelet Count 71 10^3/uL (130-400); Red Cell Dist. Width 17.1 % (11.5-14.5)
[2025-06-21 05:18] LABS: ALT (SGPT) < 10 U/L (0-50); AST (SGOT) 14 U/L (17-59); Albumin 2.6 g/dl (3.5-5.0); Alkaline Phosphatase 51 U/L (38-126); Blood Urea Nitrogen 29 mg/dl (9-20); Calcium 8.1 mg/dl (8.4-10.2); Carbon Dioxide 28 mmol/L (22-30); Chloride 112 mmol/L (98-107); Estimated Creatinine Clearance 45 ml/min; Glucose 127 mg/dl (70-99); Potassium 3.3 mmol/L (3.5-5.1); Sodium 143 mmol/L (135-145); Total Protein 5.1 g/dl (6.3-8.2); eGFR > 60.00
[2025-06-21] MEDS: KCL ELIXIR 40 MEQ TUBE (05:41)
--- NOTE | 2025-06-21 05:41 | W.PN.UPDATE ---
Update Note
Progress Note Update
One unit of RBC ordered, type and screen and consent complete.
--- NOTE | 2025-06-21 05:46 | PTCARENOTE ---
Patient titrated off Epi gtt. Arterial MAP 87, sustained 80's. Type and screen drawn and sent to lab. Will continue to monitor.
[2025-06-21 05:50] LABS: Nucleated Red Blood Cells % 0 % (-)
[2025-06-21] MEDS: VENTOLIN NEBULES 2.5 MG INH ×3 (07:31→20:03)
[2025-06-21] MEDS: SODIUM CHLORIDE 3% FOR INHALATION 1 VIAL INH ×3 (07:31→20:03)
[2025-06-21] MEDS: SOLU-CORTEF 50 MG IV ×2 (07:47→15:05)
[2025-06-21] MEDS: ROBITUSSIN 200 MG TUBE ×4 (07:47→22:50)
[2025-06-21] MEDS: LASIX 40 MG IV (07:47)
[2025-06-21] MEDS: LEXAPRO 10 MG TUBE (07:47)
[2025-06-21] MEDS: FOLVITE 1 MG TUBE (07:47)
[2025-06-21] MEDS: PROTONIX IV 40 MG IV (07:47)
[2025-06-21] MEDS: MIRALAX 17 GRAMS TUBE (07:47)
[2025-06-21] MEDS: NSS (PRESERVATIVE FREE) 10 ML IV (07:48)
--- NOTE | 2025-06-21 08:47 | PTCARENOTE ---
report received, assessments per work list. Work Counselor at bedside. sedation off, placed on wean by RT. patient drowsy, does follow simple commands. no gag, copious oral secretions. lungs with rhonchi, crackles throughout. epi per work list. heart
rate variable, 50-80's. right radial arterial line with cuff correlation. unit prbc initiated without signs reaction. mosley draining yellow urine. ogt placement verified for medication administration. patient rigid arms and legs. restraints
maintained for patient safety
--- NOTE | 2025-06-21 08:56 | W.PN.CARDCBS ---
Today's Communication / Plan
-
Remains intubated and sedated.
Continue epinephrine drip and wean as tolerated
Continue Lasix 40 mg IV daily. Creatinine stable at 1.2. Replete potassium
Continue broad-spectrum antibiotics and Mestinon
Hemoglobin down to 6.7. Agree with transfusion. Will continue Eliquis for now but if has overt bleeding could hold for several days.
Continues to have pancytopenia. Etiology?
Impression / Plan
-
[facility] Sleeve Ironer: Dr. Santos
Assessment:
Presentation with SOB
PNA
Elevated proBNP with concern for acute HFpEF
Hypotension
Pancytopenia
Admission to 06/01 - 06/05/2025 for UTI, CHF
Sinus bradycardia
Paroxysmal atrial fibrillation
Chronic amiodarone therapy
Chronic Eliquis therapy
Aortic stenosis/insufficiency by echo 06/03/25
History of hypertension
Hyperlipidemia
History of CVA
History of intermittent hematuria
Parkinson's disease
Myasthenia gravis
Bronchiectasis with prior Pseudomonas infection
Hypoalbuminemia
ECHO 10/17/24: EF 55 to 60%, no regional wall motion abnormalities noted, stage II diastolic dysfunction, MAC, moderate MR, moderate with peak/mean gradients 47/30 mmHg, STEPHY 1.3 cm�, moderate TR, PAP 45 mmHg, small pericardial effusion
Echo 06/03/2025: EF 55 to 60%, small pericardial effusion, moderate , mean gradient 25 mmHg, STEPHY 1.3 cm�, mild to moderate AI, mild MR, moderate TR, PAP 58 mmHg, no significant change compared to echo 10/2024
Plan:
- Patient presents back to [facility] after recent admission 2 weeks ago for UTI and CHF, now with worsening shortness of breath, anemia, hypotension. covid/flu negative
-Patient remains intubated and sedated. Continue ventilatory care.
-Blood pressure slowly improving. Continue to wean epinephrine
-I suspect his symptoms are combination of pneumonia along with some level of acute heart failure with preserved ejection fraction
-He diuresed well yesterday. Will continue with IV Lasix. Weight is overall down to 136 pounds
-Echo from last admission was reviewed which shows moderate aortic stenosis and a preserved ejection fraction. PA pressure in that study was 58 and elevated.
-Lower extremity Dopplers reviewed which revealed no DVT
-Hemoglobin down to 6.7. Agree with transfusion. He continues with pancytopenia. Remains on Eliquis with no overt bleeding. Would continue for now and continue to follow counts.
-Continue pip-tazo for pneumonia per
-Continue Mestinon for myasthenia.
Critical care time 32 minutes
Progress Note - Sleeve Ironer
Subjective
Date of Service: June 21, 2025
Remains intubated and sedated. Remains on epinephrine drip but dose has been reduced. Getting 1 unit of packed red blood cells
Objective
Labs:
06/21/25 04:33
06/21/25 04:33
Labs
Hgb 6.7 g/dL (13.0-18.0) L* 06/21/25 04:33
Hct 21.4 % (39.0-52.0) L 06/21/25 04:33
Plt Count 71 10^3/uL (130-400) L 06/21/25 04:33
PT 28.6 Sec (11.4-14.6) H 06/19/25 14:30
INR 2.64 06/19/25 14:30
APTT 70.5 Sec (23.4-35.0) H 06/19/25 14:30
Sodium 143 mmol/L (135-145) 06/21/25 04:33
Potassium 3.3 mmol/L (3.5-5.1) L 06/21/25 04:33
BUN 29 mg/dl (9-20) H 06/21/25 04:33
Creatinine 1.2 mg/dL (0.7-1.3) 06/21/25 04:33
Glucose 127 mg/dl (70-99) H 06/21/25 04:33
Troponins
06/19/25
14:30
Troponin I < 0.012
Vital Signs and I&O:
Vital Signs
Temp Pulse Resp BP Pulse Ox
97.6 F 79 13 139/57 100
06/21/25 08:17 06/21/25 08:50 06/21/25 08:50 06/21/25 08:17 06/21/25 08:50
Vital Signs
Temp Pulse Resp BP Pulse Ox
97.6 F 79 13 139/57 100
06/21/25 08:17 06/21/25 08:50 06/21/25 08:50 06/21/25 08:17 06/21/25 08:50
Intake & Output
06/19/25 06/20/25 06/21/25 06/22/25
06:59 06:59 06:59 06:59
Intake Total 209.5 / 230.9 514.9 / 514.9 0 / 0
Output Total 700 / 700 3955 / 3955
Balance -490.5 / -469.1 -3440.1 / -3440.1 0 / 0
Physical Exam
Physical Exam
GEN: No distress, intubated and sedated
HEENT: supple, anicteric, ET tube
LUNGS: scatt rhonchi
CV: Reg, S1/S2, 2/6 syst LSB, no gallop
ABD: soft, BS+, NT/ND
EXT: No edema
NEURO: Gross non-focal
SKIN: No rash
[2025-06-21] MEDS: SINEMET 25-100 2 TABLET TUBE ×3 (08:58→16:13)
[2025-06-21] MEDS: ELIQUIS TUBE (09:00)
[2025-06-21] MEDS: MESTINON 90 MG TUBE ×3 (09:00→16:13)
[2025-06-21] MEDS: CELLCEPT 1500 MG TUBE (09:16)
[2025-06-21] MEDS: SUBLIMAZE 50 MCG IV ×6 (10:56→22:44)
[2025-06-21] MEDS: ROBINUL 1 MG TUBE ×2 (11:14→19:08)
[2025-06-21] MEDS: ELIQUIS 5 MG TUBE ×2 (11:16→19:08)
--- NOTE | 2025-06-21 11:56 | W.PN.INTV ---
Today's Communication / Plan
Recommendations
- Transfuse PRBC x 1
- Daily SAT/SBT
- Switch to ASV mechanical ventilation mode at 100%
- Start glycopyrrolate twice a day for excessive oral secretions
- Follow-up ABG
Assessment
-
Patient is currently intubated, mechanically ventilated and sedated. Unable to provide any history. Information mostly obtained from review of records and discussion with other healthcare providers as well as patient's spouse at bedside.
Patient was discharged from the hospital about a month ago for volume overload, suspected heart failure exacerbation and pancytopenia.. Reportedly, per patient's spouse, over the last few days he was having increasing cough and shortness of breath.
Patient was having rattling secretions in his airway but was having difficulty clearing it up. Patient's spouse also reports that lately sputum had been very foul-smelling, thick and dark in color. No reported fever or chills. Over the last
couple of days patient has had significantly decreased p.o. intake, lethargy and increasing lower extremity edema. Patient sleeps in a recliner and spouse is not aware of any orthopnea. No reported sick contacts.
Patient has chronic bronchiectasis and excessive mucus production. Lately he has not been on airway clearance measures. No reported diarrhea, hematemesis, hemoptysis, melena or hematochezia.
06/21 overview: Patient currently intubated, mechanically ventilated and sedated. Current infusions IV fentanyl, propofol and epinephrine infusion. SAT/SBT attempted, patient more awake, pulling good volumes on pressure support. Very weak cough.
Overall significant weakness, not ready for extubation.
#1. Acute hypoxic respiratory failure
- S/p trial of BiPAP in emergency room, subsequently intubated and mechanically ventilated, 06/19
- Suspect respiratory failure is multifactorial, primarily related to excessive respiratory secretions, pneumonia with underlying bronchiectasis, volume overload as well as neuromuscular weakness due to myasthenia gravis and parkinsonism
- Switch to ASV mode
- Wean off sedation, Daily SAT/SBT
- Weak cough, patient not ready for extubation
#2. Shock with Acute Pneumonia with h/o Chronic bronchiectasis
- Worsening right lower lobe consolidation noted on imaging. Patient has chronically consolidated lower lobes. Previous CT images from May as well as February 2025 suggestive of chronically consolidated lower lobes with bronchiectatic changes
- Reported increased difficulty expectorating lately with large volume sputum production prior to admission
- Requiring low-dose epinephrine infusion. A-line in place
- History of chronic pseudomonal colonization. Patient also immunocompromised with chronic steroid and mycophenolate use
- 06/20, bronchoscopy performed, BAL performed at right lower lobe. Pseudomonas noted on tracheal aspirate and BAL
- Vancomycin discontinued, continue Zosyn for now. Eventually will transition to ciprofloxacin, target total 14 days of treatment.
- Continue hypertonic saline, 3%, nebulizer along with albuterol 3 times daily
- Mucinex via OG tube
- In view of excessive oral secretions, start glycopyrrolate 1 mg twice daily via feeding tube.
#3. Suspect Acute on chronic HFpEF
- Patient has significantly elevated BNP, bilateral pedal edema as well as chest x-ray suggestive of pulmonary edema. Also reported history of moderate aortic stenosis.
- Tolerating IV Lasix
- Cardiology service on case
#4. Pulmonary HTN.
- Echocardiogram in 05/2025, pulmonary artery systolic pressure around 50, moderate tricuspid regurgitation noted.
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 Might have component of group III as well considering underlying mild obstructive airway disease, chronic
bronchiectasis.
#5. Paroxysmal Atril Fibrillation
- Chronically anticoagulated with Eliquis
- Has not been on any rate control medications
- Currently noted to have sinus bradycardia, improved since initiation of epinephrine infusion
- Continue to hold amiodarone and midodrine in view of bradycardia. Resume pyridostigmine
#6. History of myasthenia gravis and parkinsonism
- Placed OG tube and resumed oral medications for myasthenia gravis as well as parkinsonism
- Resume Sinemet, pyridostigmine
- Prednisone switched to stress dose of hydrocortisone, 50 mg IV every 6
- Continue CellCept
- Continue mechanical ventilation for now
#7. Pancytopenia.
- Reviewed hematology college evaluation during last visit. Frederick to be multifactorial related to illness, chronic inflammation, medications particularly steroid, mycophenolate. Also concern for bone marrow disorder including MDS.
- Continue supportive transfusion as needed for now
DVT prophylaxis. Eliquis resumed via G-tube
GI prophylaxis. IV Protonix
Other medical diagnoses:
- Orthostatic hypotension. Chronically on midodrine
- History of TIA/CVA
- Hypertension, hyperlipidemia
- Moderate aortic stenosis
- GERD
- Chronic pancytopenia
Critical Care time 38 mins -- The patient is admitted for acute critical illness for the treatment of vital organ failure and/or prevention of further life-threatening conditions. Total care includes time spent in review of history, physical exam,
medications, hemodynamic/ventilator parameters, laboratory data, imaging and discussion with house staff, pharmacy, respiratory therapy, evp strategy, and nursing.
Data:
CXR 06/2025: Findings suggesting moderate diffuse right-sided pneumonia. Progressed.
Probable mild left lower lobe pneumonia. Progressed.
Mild cardiomegaly. Stable
ECHO 05/2025: 1. Ejection fraction is 55-60% by visual assessment.
2. Small pericardial effusion is seen.
3. Compared to a prior transthoracic echocardiogram study from October 2024 no significant changes are seen.
4. Thickened calcified trileaflet aortic valve with decreased leaflet excursion. Moderate aortic stenosis with mean pressure gradient of 25 mmHg. Using an left ventricular outflow tract diameter of 2.0 cm., the STEPHY = 1.3 cm2. Mild to moderate
aortic insufficiency.
5. Mild concentric left ventricular hypertrophy.
6. Moderate tricuspid regurgitation. Estimated pulmonary artery pressure of 50 mmHg assuming a right atrial pressure of [address] 02/2025: Trace bilateral pleural effusions. Re-demonstration of confluent consolidation within the bilateral lower lobes, progressed. Patchy subpleural tree-in-bud/groundglass nodules throughout the lower lung zones bilaterally, right
greater than left. No pericardial effusions or enlarged lymph nodes in the thorax. Nondisplaced lateral right seventh rib fracture. Old left rib deformities.
Bronchoscopy 09/2024: Copious, bilateral exudates noted throughout the tracheobronchial tree. BAL performed. Pansensitive Pseudomonas and Layla noted on bronchioloalveolar lavage.
Spirometry 03/2023: Mild obstruction noted. Normal lung volumes. Mild diffusion impairment. FEV1 of 92% predicted.
Subjective Dataa
Subjective Data
Date of Service:
Date of Service: June 21, 2025
Subjective:
Continues to be intubated, mechanically ventilated and sedated
Review of Systems
General: Unobtainable - Sedation and Other (Currently intubated and sedated)
Genitourinary: Other
Objective Data
Data Reviewed
Vital Signs / I&O / Oxygen:
Vital Signs
Temp Pulse Resp BP Pulse Ox
98.2 F 55 13 140/58 99
06/21/25 10:44 06/21/25 10:44 06/21/25 10:44 06/21/25 10:44 06/21/25 10:44
Intake and Output
06/20/25 06/21/25 06/22/25
06:59 06:59 06:59
Intake Total 209.5 / 230.9 514.9 / 536.5 747.0 / 747.0
Output Total 700 / 700 3955 / 3955 500 / 500
Balance -490.5 / -469.1 -3440.1 / -3418.5 247.0 / 247.0
SaO2 [CPAP/PSV] 99
SaO2 [A/C] 98
SaO2 99
Physical Exam
General: Comfortable
HEENT: Normocephalic
Cardiovascular: S1-S2
Respiratory: Rhonchi
GI: Soft and Non Distended
Neurology: Other (Sedated)
Skin: Warm
Labs/Micro/Reports
Lab Data
06/21/25 04:33
06/21/25 04:33
Laboratory Results
06/21/25
04:33
pH 7.41
pCO2 44
pO2 126 H
HCO3 27.9
O2 Delivery Level
Microbiology
06/20/25 08:25 Bronch Right Lower Lobe Respiratory Culture - Final
Pseudomonas aeruginosa
06/20/25 08:25 Bronch Right Lower Lobe Gram Stain - Final
06/19/25 16:08 Sputum - Induced Respiratory Culture - Final
Pseudomonas aeruginosa
Pseudomonas aeruginosa#2
06/19/25 16:08 Sputum - Induced Gram Stain - Final
06/19/25 15:42 Blood/Venous Blood Culture - Preliminary
No Growth in 24 hours- Final report to follow
06/20/25 08:25 Urine Legionella Urinary Antigen - Final
Negative for Legionella pneumophila Serogroup 1 antigen.
A negative result does not rule out the possiblity of
Legionella infection due to other serogroups or species of
Legionella. Clinical correlation is recommended.
06/20/25 08:25 Urine Streptococcus pneumoniae Antigen (M - Final
Negative for Streptococcus pneumoniae antigen.
A negative result does not exclude infection with
Streptococcus pneumoniae. Clinical correlation is
recommended.
06/20/25 08:25 Nose Nasal Screen MRSA (PCR) - Final
MRSA not detected - performed by PCR methodology.
06/19/25 15:42 Nasal Swab Influenza Types A & B (LIVIER) - Final
Negative for Influenza A & B, NAAT
Negative results must be combined with clinical observations
and patient history.
Nucleic Acid Amplification test (NAAT)performed on the
[employer] platform.
--- NOTE | 2025-06-21 12:01 | W.PN.HOSP.TC ---
Addendum entered and electronically signed by Curry Resendez MD 06/21/25 13:57:
- Severe sepsis with acute organ dysfunction.
Patient meets sepsis criteria admission, source of infection is pneumonia, severe organ dysfunction with acute hypoxic respiratory failure.
- Patient does not have symptomatic encephalopathy, cannot assess since patient under sedation
Addendum entered and electronically signed by Curry Resendez MD 06/21/25 12:22:
Attending�addendum:
I saw and evaluated the patient. I reviewed the resident�s note and agree with findings and plan as documented in the resident�s note.��patient seen and examined at bedside, patient remains intubated, weaning off sedation, aborted tube feed via OG
tube.
Physical�exam:
GENERAL : Patient is intubated
HEENT: Endotracheal tube in place
CHEST: Chest wall is nontender.
HEART: Regular rate and rhythm without murmurs.
LUNGS: Diffuse bilateral Rales and wheezing
ABDOMEN: Soft, positive bowel sounds, nontender, no organomegaly.
RECTAL: Deferred.
MUSCLES/EXTREMITIES: No abnormal range of motion, no swelling.SKIN: No rash, no excessive bruising, petechiae, or purpura.
NEUROLOGIC: Intubated
�
Assessment/plan:
Acute hypoxic respiratory failure secondary to CHF/pneumonia.
Continue mechanical ventilation.
Continue to wean sedation
IV antibiotic.
Status post bronchoscopy- BAL culture with Pseudomonas
Pancytopenia.
Likely secondary to mycophenolate
Acute on chronic anemia.
Status post blood transfusion
Paroxysmal A-fib.
Currently sinus
CODE STATUS: Full code
DVT prophylaxis: Eliquis
Diet: Tube feed
Disposition: Continue antibiotic, weaning sedation, blood transfusion
�
Total time spent on today�s encounter was 74 minutes which included time spent in counseling the patient/family regarding diagnosis and treatment plan as listed above, goals of care, and symptom management. Case was discussed with nursing staff,
specialists, and care coordinators/case management. All labs and imaging personally reviewed by me. Remainder the time spent in detailed review of previous records, lab data, imaging, and other medical provider documentation.
Original Note:
Today's Communication/Plan
-
- waning off the ventilator
-Transfuse PRBC x 1
- Continue dialy SAT/SBT
- off sedation
- Started glycopyrrolate twice a day for excessive oral secretions
- Follow-up ABG
- k repleted
- Continue Lasix 40 mg IV daily.
- Continue broad-spectrum antibiotics and Mestinon
Assessment / Plan
Assessment / Plan
Patient is a 79-year-old male with past medical history of paroxysmal atrial fibrillation on chronic Eliquis and amiodarone 100 mg daily, hypertension, aortic stenosis, hyperlipidemia, history of CVA, Parkinson's disease, bronchiectasis with
cultures growing out Pseudomonas in the past who was admitted to [facility] from 06/01 - 06/05/2025 and was treated for UTI as well as for CHF. CHF was felt to be new diagnosis, and patient was not on diuretic therapy prior to last
admission. patient received 2 doses of IV Lasix 40 mg daily and then became hypotensive prompting discontinuation of diuretic. He was not discharged on diuretic therapy. Echocardiogram showed preserved EF with moderate /AI and moderate TR.
Patient presents back to [facility] today due to worsening shortness of breath particularly over the last 1 to 2 days per . She also notes patient has a persistent cough which has been chronic, however significantly worsened over the last 48 hours.
She also notes that he had lower extremity edema as well as left upper extremity swelling in the same timeframe. She does not note fevers or chills, but poor appetite. He was started on midodrine last admission for orthostasis, however per
stopped taking as OP as did not see noticeable difference in BPs.
At ER Initially treated with noninvasive positive pressure ventilation but ultimately was intubated for increased work of breathing. Cardiology is consulted for acute heart failure with preserved ejection fraction.
Assessment and Plan:
Acute hypoxic respiratory failure
-S/p trial of BiPAP in emergency room, subsequently intubated and mechanically ventilated, 06/19
-Suspect respiratory failure secondary to pneumonia with underlying bronchiectasis, neuromuscular weakness due to myasthenia gravis and parkinsonism, volume overload from heart failure
-Xray on 06/20, 06/21 :Bilateral opacities which base and part could represent pneumonia, without significant change.
-Continue volume assist-control
-Serial ABG
-Daily SAT and SBT
-Fentanyl/propofol for sedation , off sedation today
Acute Pneumonia with h/o Chronic bronchiectasis
- Worsening right lower lobe consolidation noted on imaging. Patient has chronically consolidated lower lobes. Previous CT images from May as well as February 2025 suggestive of chronically consolidated lower lobes with bronchiectatic changes
- Reported increased difficulty expectorating lately with large volume sputum production.
- History of chronic pseudomonal colonization
- Check tracheal aspirate for cultures and sensitivities. Check MRSA screen. Blood cultures
- continue IV vancomycin and Zosyn.
- Xray on 06/20 :Bilateral opacities which base and part could represent pneumonia, without significant change.
-bronchoscopy with bronchioloalveolar lavage on 06/20
- Initiate hypertonic saline, 3%, nebulizer along with albuterol 3 times daily
- Mucinex via OG tube
Suspect Acute on chronic HFpEF
- Patient has significantly elevated BNP
- bilateral pedal edema
- hx of moderate aortic stenosis.
- continue pressor and may need Lasix
- Cardiology service on case
#progressive Pancytopenia
Patient has a hx of pancytopenia that progressed on this admission
likely secondary to the above conditions vs medication related (mycophenolate mofetil)
Paroxysmal Atril Fibrillation
- Currently noted to have sinus bradycardia
- Chronically anticoagulated with Eliquis
- Has not been on any rate control medications
History of myasthenia gravis and parkinsonism
- Place OG tube and resume oral medications for myasthenia gravis as well as parkinsonism
- Resume Sinemet, pyridostigmine
- Prednisone switched to stress dose of hydrocortisone, 50 mg IV every 6
- Continue CellCept
- Continue mechanical ventilation for now
Other medical diagnoses:
- Orthostatic hypotension. Chronically on midodrine
- History of TIA/CVA
- Hypertension, hyperlipidemia
- Moderate aortic stenosis
- GERD
- Chronic pancytopenia
DVT prophylaxis. Eliquis resumed via G-tube
GI prophylaxis. IV Protonix
status full code
Anticipated Discharge: > 48 hours
Subjective/Interval History
-
Date of Service: June 21, 2025
Patient is intubated and on mechanical ventilation with OG tube and urine catheter.
Objective Data
-
Labs:
Laboratory Results
06/21/25 06/21/25
04:33 13:00
WBC 2.3 L*
Hgb 6.7 L*
Hct 21.4 L
Plt Count 71 L
HCO3 27.9 Pending
Sodium 143
Potassium 3.3 L
Chloride 112 H
Carbon Dioxide 28
BUN 29 H
Creatinine 1.2
Glucose 127 H
Calcium 8.1 L
Total Bilirubin 1.5 H
AST 14 L
ALT < 10
Alkaline Phosphatase 51
Vital Signs:
Vital Signs
Temp Pulse Resp BP Pulse Ox
98.2 F 55 13 140/58 99
06/21/25 10:44 06/21/25 10:44 06/21/25 10:44 06/21/25 10:44 06/21/25 10:44
I&O
06/20/25 06/21/25 06/22/25
06:59 06:59 06:59
Intake Total 209.5 / 230.9 514.9 / 536.5 747.0 / 747.0
Output Total 700 / 700 3955 / 3955 500 / 500
Balance -490.5 / -469.1 -3440.1 / -3418.5 247.0 / 247.0
Review of Systems
-
Unable to obtain full review of systems at this time due to: Patient Intubation
Physical Exam
-
General: Intubated
HEENT: Normocephalic and Atraumatic
Respiratory: Rhonchi (bilateral , right more than left )
Cardiac: Regular Rhythm and S1/S2
GI: Soft and Nontender
Musculoskeletal: Edema, Left Lower Extrem and Normal Gait & Station
Skin: Warm and Dry
Neuro: Sedated
--- NOTE | 2025-06-21 12:38 | PTCARENOTE ---
Unit prbc completed without signs transfusion reaction. epi and sedation weaned to off. 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 OGT removed and Dobbhoff placed
right nare without issues. placement verified by xray and air auscultation. transferred to pulmonary sport bed, percussion initiated. restless with percussion, fentanyl bolus per NOV. tube feeds initiated. care provided. restraints maintained per
patient safety. daughter updated with changes and plan of [email or web address]
[2025-06-21 13:23] LABS: B.E. 5.6 mmol/L; HCO3 29.8 mmol/L (21-28); O2 Saturation % 97.5 % (94-98); PCO2 41 mmHg (35-48); PO2 159 mmHg (83-108)
--- NOTE | 2025-06-21 13:41 | PN.CDI ---
CDI
- -
CDI:
Physician Documentation Request
Admit Date: 06/19/25 16:21
Dear Doctor Dipti/Resident,
Please review the following and provide your response in the progress notes.
Clinical Indicators:
Pt admitted with Acute on Chronic HFpEF/PNA pt on IV Zosyn/Acute hypoxic Respiratory Failure currently on ventilator
On admission Temp 94.4,WBC 1.7, Respirations 34, Bands 15
Please clarify which of the following most accurately describes the status of the patient's infection:
Sepsis-POA
- Systemic manifestations of infection, with 2 or more SIRS criteria which include:
- Fever >100.9 degrees F or hypothermia < 96.8 degrees F
- Leukocytosis - WBC > 12,000 or leukopenia - WBC < 4,000 or > 10% bands
- Tachycardia > 90 beats per minute
- Tachypnea - RR > 20 breaths per minute or PaCO2 , 32mmHg
Source: [employer] Manual 2013
PNA Only, Without Systemic Illness
Other ( please specify)
Use of terms such as suspected, likely, concern for, or probable (associated with a specific diagnosis that is being evaluated, monitored, or treated as if it exists) are acceptable and can be coded in the inpatient setting, when documented at the
time of discharge.
Thank you,
Breonna Zendejas RN
CDI Specialist
[facility]
Please use your independent medical judgment in providing your response.
--- NOTE | 2025-06-21 13:46 | PN.CDI ---
CDI
- -
CDI:
Physician Documentation Request
Admit Date: 06/19/25 16:21
Dear Doctor Dipti/Resident,
Please review the following and provide your response in the progress notes.
Clinical Indicators:
Pt admitted with Acute on Chronic HFpEF/PNA pt on IV Zosyn/Acute hypoxic Respiratory Failure currently on ventilator
Pt care note 06/20@0140,' Patient noted to be biting tube, agitated. Discussed with Woodrow LAYNE. Patient started on Propofol at this time. Will continue to monitor and titrate as needed. ...'
Pt care note 06/21@0031,' Patient alert with eyes open, attempting to grab ETT. Patient able to squeeze hands to confirm discomfort and agitation noted. Propofol started, will monitor for results. ...'
Based on the above, could you clarify in the Progress Notes and Discharge Summary which, if any of the following, is the most likely etiology of the confusion/altered mental status.
Metabolic Encephalopathy
Toxic Metabolic Encephalopathy
Other ( please specify)
Use of terms such as suspected, likely, concern for, or probable (associated with a specific diagnosis that is being evaluated, monitored, or treated as if it exists) are acceptable and can be coded in the inpatient setting, when documented at the
time of discharge.
Thank you,
Breonna Zendejas RN
CDI Specialist
[place] [facility]
Please use your independent medical judgment in providing your response.
--- NOTE | 2025-06-21 13:54 | PN.CDI ---
CDI
- -
CDI:
Physician Documentation Request
Admit Date: 06/19/25 16:21
Dear Doctor Dipti/Resident,
Please review the following and provide your response in the progress notes.
Clinical Indicators:
Pt admitted with Acute on Chronic HFpEF/PNA pt on IV Zosyn/Acute hypoxic Respiratory Failure currently on ventilator
Nutrition consult 06/20 , ' CBW: 142 lbs. 13.753 oz., BMI: 19.4 (10-16) wt on previous admission (06-05) 134 lbs. 5 oz. and (-) 167 lbs. 8.821 oz. this reflects a 18% wt loss in 3 months (significant). pt family also reports decreased appetite
past 48 hours. Pt meets AND/ASPEN criteria for malnutrition.....Severe protein calorie malnutrition chronic illness >7.5% in 3 months .... Assessment muscle loss over clavicle Severe ...'
Based on the above information and your assessment, which of the following most accurately represents the patient's nutritional status?
Severe protein Calorie Malnutrition
Other (please specify)
[place] Criteria (ACP Hospitalist 2017)
2 or more criteria must be present for either
non severe or severe malnutrition
Note that the criteria differs related to the
presence of an acute or chronic illness
Acute Illness Chronic Illness
Energy Intake Non Severe: <75% for >7 days Non Severe: <75% for >1 month
Severe: <50% for >5 days Severe: <75% for >1 month
Weight Loss Non Severe: 1-2% over 1 week Non Severe: 5% over 1 month
5% over 1 month 7.5% over 3 months
7.5% over 3 months 10% over 6 months
1 year N/A 20% over 1 year
Severe: >2% over 1 week Severe: >5% over 1 month
>5% over 1 month >7.5% over 3 months
>7.5% over 3 months >10% over 6 months
1 year N/A >20% over 1 year
Body Fat Non Severe: Mild Decrease Non Severe: Mild Loss
Severe: Moderate Decrease Severe: Severe Loss
Muscle Mass Non Severe: Mild Decrease Non Severe: Mild Loss
Severe: Moderate Decrease Severe: Severe Loss
Fluid Accumulation Non Severe: Mild Accumulation Non Severe: Mild Accumulation
Severe: Moderate to severe Severe: Moderate to severe
accumulation accumulation
Reduced Elementary Supervisor Strength Non Severe: N/A Non Severe: N/A
Severe: Measurably reduced Severe: Measurably reduced
Use of terms such as suspected, likely, concern for, or probable (associated with a specific diagnosis that is being evaluated, monitored, or treated as if it exists) are acceptable and can be coded in the inpatient setting, when documented at the
time of discharge.
Thank you,
Breonna Zendejas RN
CDI Specialist
[place] [employer]
Please use your independent medical judgment in providing your response.
--- NOTE | 2025-06-21 13:59 | PN.CDI ---
CDI
- -
CDI:
Physician Documentation Request
Admit Date: 06/19/25 16:21
Dear Doctor,
Please review the following and provide your response in the progress notes.
Current documentation includes a diagnosis of hypotension.
Clinical Indicators:
Pt admitted with Acute on Chronic HFpEF/PNA pt on IV Zosyn/Acute hypoxic Respiratory Failure currently on ventilator
Inside Tester note 06/21, ' Shock with Acute Pneumonia with h/o Chronic bronchiectasis...'
Cardiology note 06/21, '...Hypotension....-Blood pressure slowly improving. Continue to wean epinephrine...'
Selected Entries
06/19/25
15:00 06/19/25
16:20 06/19/25
16:40
Blood pressure 91/61 86/53 85/56
06/19/25
16:43 06/19/25
16:43 06/19/25
17:00
Blood pressure 86/52 86/52 89/61
06/20/25
10:25 06/20/25
10:25 06/20/25
12:33
Blood pressure 82/54 86/57
MAP (J-Jlyh-Sffxuiz Monitor) 49
Please clarify which of the following is the most likely etiology of the above symptoms and treatment rendered/use of epinephrine:
Cardiogenic shock
Septic shock
Other ( please specify)
Use of terms such as suspected, likely, concern for, or probable (associated with a specific diagnosis that is being evaluated, monitored, or treated as if it exists) are acceptable and can be coded in the inpatient setting, when documented at the
time of discharge.
Thank you,
Breonna Zendejas RN
CDI Specialist
[place] [employer]
Please use your independent medical judgment in providing your response.
--- NOTE | 2025-06-21 14:28 | CM ---
Remains intubated, daily SAT/SBT, 1 U PRBC today. Discharge POC: TBD.
--- NOTE | 2025-06-21 16:59 | PTCARENOTE ---
patient reassessed. patient follows commands, but attempts to pull at lines with restraints off. tolerating ASV, percussion. ett secretions bloody, lungs with coarse breath sounds, crackles bilaterally
[2025-06-21] MEDS: LIPITOR 20 MG TUBE (17:06)
[2025-06-21] MEDS: SENOKOT-S 1 TABLET TUBE (17:06)
--- NOTE | 2025-06-21 17:31 | PTCARENOTE ---
Addendum entered by Nicky Infante RN 06/21/25 17:51:
patient calm and sedate with propofol. medicated with prn dose senna for constipation
Original Note:
patient more restless. d/w material coordinator. propofol resumed@low dose per work list
--- NOTE | 2025-06-21 20:00 | PTCARENOTE ---
Received pt. at 1900. Pt. currently on ventilator and sedated. Responds to verbal stimuli. PRN medication given for pain, see MAR. Afebrile. Heart rhythm currently sinus rhythm, but intermittently has been in Afib. Pt. is on Eliquis. Blood pressure
normotensive. Ventilator settings verified. Lungs sound coarse and diminished. NPO. Tube feed running via dobhoff tube. Cade catheter in place, draining without issue. Skin as documented. Vital signs stable at this time.
[2025-06-21] MEDS: CELLCEPT 1000 MG TUBE (22:50)
[2025-06-21] MEDS: MESTINON 30 MG TUBE (22:50)
[2025-06-22] VITALS (8 sets, daily range): BP systolic 68–135; BP diastolic 43–69; PULSE 88; BMI 18.3
--- NOTE | 2025-06-22 | PTCARENOTE ---
Pt. assessment unchanged. Remains intubated and sedated. Managing pain with PRN fentanyl, see MAR. Vital signs stable at this time.
[2025-06-22] MEDS: ZOSYN 100 IV ×5 (01:08→23:49)
[2025-06-22] MEDS: SOLU-CORTEF 50 MG IV ×4 (01:09→23:49)
[2025-06-22] MEDS: DIPRIVAN 100 IV (02:49)
[2025-06-22 03:36] LABS: Hematocrit 21.5 % (39.0-52.0); Hemoglobin 7.0 g/dL (13.0-18.0); Mean Corp Hgb Conc. 32.6 g/dL (33.0-37.0); Mean Corpuscular Volume 84.0 fL (80.0-94.0); Nucleated Red Blood Cells % 0 % (-); Platelet Count 69 10^3/uL (130-400); Red Cell Dist. Width 16.5 % (11.5-14.5)
--- NOTE | 2025-06-22 04:00 | PTCARENOTE ---
Pt. assessment remains unchanged. AM labs drawn. Vital signs stable at this time.
[2025-06-22] MEDS: APRESOLINE 10 MG IV (04:20)
[2025-06-22] MEDS: KCL ELIXIR 40 MEQ TUBE (04:20)
[2025-06-22] MEDS: SUBLIMAZE 50 MCG IV ×2 (04:27→06:46)
[2025-06-22 04:30] LABS: ALT (SGPT) < 10 U/L (0-50); AST (SGOT) 12 U/L (17-59); Albumin 2.5 g/dl (3.5-5.0); Alkaline Phosphatase 42 U/L (38-126); Blood Urea Nitrogen 33 mg/dl (9-20); Calcium 7.9 mg/dl (8.4-10.2); Carbon Dioxide 28 mmol/L (22-30); Chloride 111 mmol/L (98-107); Estimated Creatinine Clearance 49 ml/min; Glucose 134 mg/dl (70-99); Magnesium 2.2 mg/dl (1.6-2.3); Potassium 3.2 mmol/L (3.5-5.1); Sodium 142 mmol/L (135-145); Total Protein 4.9 g/dl (6.3-8.2); Triglycerides 65 mg/dl (10-149); eGFR > 60.00
[2025-06-22] MEDS: ADRENALIN 250 IV (05:36)
[2025-06-22] MEDS: PROTONIX IV 40 MG IV (07:12)
[2025-06-22] MEDS: ELIQUIS TUBE (07:12)
[2025-06-22] MEDS: NSS (PRESERVATIVE FREE) 10 ML IV (07:13)
[2025-06-22] MEDS: MIRALAX 17 GRAMS TUBE (07:13)
[2025-06-22] MEDS: LASIX 40 MG IV (07:13)
[2025-06-22] MEDS: ROBINUL 1 MG TUBE ×2 (07:14→19:40)
[2025-06-22] MEDS: ROBITUSSIN 200 MG TUBE ×4 (07:14→21:23)
[2025-06-22] MEDS: LEXAPRO 10 MG TUBE (07:14)
[2025-06-22] MEDS: FOLVITE 1 MG TUBE (07:14)
[2025-06-22] MEDS: DULCOLAX 10 MG RECTAL (07:14)
[2025-06-22] MEDS: MESTINON 90 MG TUBE ×3 (07:16→16:39)
[2025-06-22] MEDS: SINEMET 25-100 2 TABLET TUBE ×3 (07:16→16:39)
[2025-06-22] MEDS: SODIUM CHLORIDE 3% FOR INHALATION 1 VIAL INH ×3 (07:31→20:59)
[2025-06-22] MEDS: VENTOLIN NEBULES 2.5 MG INH ×3 (07:31→20:59)
--- NOTE | 2025-06-22 07:33 | W.PN.INTV ---
Today's Communication / Plan
Recommendations
- Tolerated SAT and SBT well, extubated to nasal cannula
- PT/OT/speech therapy
- Hold Eliquis in view of trace hematuria, discontinue Cade catheter
Assessment
-
Patient is currently intubated, mechanically ventilated and sedated. Unable to provide any history. Information mostly obtained from review of records and discussion with other healthcare providers as well as patient's spouse at bedside.
Patient was discharged from the hospital about a month ago for volume overload, suspected heart failure exacerbation and pancytopenia.. Reportedly, per patient's spouse, over the last few days he was having increasing cough and shortness of breath.
Patient was having rattling secretions in his airway but was having difficulty clearing it up. Patient's spouse also reports that lately sputum had been very foul-smelling, thick and dark in color. No reported fever or chills. Over the last
couple of days patient has had significantly decreased p.o. intake, lethargy and increasing lower extremity edema. Patient sleeps in a recliner and spouse is not aware of any orthopnea. No reported sick contacts.
Patient has chronic bronchiectasis and excessive mucus production. Lately he has not been on airway clearance measures. No reported diarrhea, hematemesis, hemoptysis, melena or hematochezia.
06/22 overview: Patient currently intubated, mechanically ventilated, tolerating SAT/SBT well. MAP of 90, heart rate around 59. Saturating 96% on 40% FiO2.
#1. Acute hypoxic respiratory failure
- S/p trial of BiPAP in emergency room, subsequently intubated and mechanically ventilated, 06/19 > Extubated 06/22
- Suspect respiratory failure is multifactorial, primarily related to excessive respiratory secretions, pneumonia with underlying bronchiectasis, volume overload as well as neuromuscular weakness due to myasthenia gravis and parkinsonism
- Transition to nasal cannula now. Wean O2 as tolerated.
- Continue aggressive pulmonary toilet
#2. Shock with Acute Pneumonia with h/o Chronic bronchiectasis
- Worsening right lower lobe consolidation noted on imaging. Patient has chronically consolidated lower lobes. Previous CT images from May as well as February 2025 suggestive of chronically consolidated lower lobes with bronchiectatic changes
- Reported increased difficulty expectorating lately with large volume sputum production prior to admission
- History of chronic pseudomonal colonization. Patient also immunocompromised with chronic steroid and mycophenolate use
- 06/20, bronchoscopy performed, BAL performed at right lower lobe. Pseudomonas noted on tracheal aspirate and BAL
- Vancomycin discontinued, continue Zosyn for now. Eventually will transition to ciprofloxacin, target total 14 days of treatment.
- Continue hypertonic saline, 3%, nebulizer along with albuterol 3 times daily. Mucinex p.o. Sports bed for chest percussion
- Excessive oral secretions, suspect related to Mestinon, significantly improved since glycopyrrolate 1 mg p.o. twice daily was started. Continue
#3. Suspect Acute on chronic HFpEF
- Patient has significantly elevated BNP, bilateral pedal edema as well as chest x-ray suggestive of pulmonary edema. Also reported history of moderate aortic stenosis.
- Tolerating IV Lasix
- Cardiology service on case
#4. Pulmonary HTN.
- Echocardiogram in 05/2025, pulmonary artery systolic pressure around 50, moderate tricuspid regurgitation noted.
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 Might have component of group III as well considering underlying mild obstructive airway disease, chronic
bronchiectasis.
#5. Paroxysmal Atril Fibrillation
- Chronically anticoagulated with Eliquis
- Has not been on any rate control medications
- Currently noted to have sinus bradycardia, improved since initiation of epinephrine infusion, off epinephrine now
- Continue to hold amiodarone and midodrine in view of bradycardia. Resumed pyridostigmine
- Hold Eliquis 06/22 in view of trace hematuria
#6. History of myasthenia gravis and parkinsonism
- Placed OG tube and resumed oral medications for myasthenia gravis as well as parkinsonism
- Resumed Sinemet, pyridostigmine
- Prednisone switched to stress dose of hydrocortisone, 50 mg IV every 6. Will transition to oral home dosing in coming days
- Continue CellCept
- Extubated 06/22
#7. Pancytopenia.
- Reviewed hematology college evaluation during last visit. [place] to be multifactorial related to illness, chronic inflammation, medications particularly steroid, mycophenolate. Also concern for bone marrow disorder including MDS.
- Continue supportive transfusion as needed for now
DVT prophylaxis. Eliquis held in view of trace hematuria.
GI prophylaxis. IV Protonix
Other medical diagnoses:
- Orthostatic hypotension. Chronically on midodrine
- History of TIA/CVA
- Hypertension, hyperlipidemia
- Moderate aortic stenosis
- GERD
- Chronic pancytopenia
Critical Care time 42 mins -- The patient is admitted for acute critical illness for the treatment of vital organ failure and/or prevention of further life-threatening conditions. Total care includes time spent in review of history, physical exam,
medications, hemodynamic/ventilator parameters, laboratory data, imaging and discussion with house staff, pharmacy, respiratory therapy, levers lace machine operator, and nursing.
Data:
CXR 06/2025: Findings suggesting moderate diffuse right-sided pneumonia. Progressed.
Probable mild left lower lobe pneumonia. Progressed.
Mild cardiomegaly. Stable
ECHO 05/2025: 1. Ejection fraction is 55-60% by visual assessment.
2. Small pericardial effusion is seen.
3. Compared to a prior transthoracic echocardiogram study from October 2024 no significant changes are seen.
4. Thickened calcified trileaflet aortic valve with decreased leaflet excursion. Moderate aortic stenosis with mean pressure gradient of 25 mmHg. Using an left ventricular outflow tract diameter of 2.0 cm., the STEPHY = 1.3 cm2. Mild to moderate
aortic insufficiency.
5. Mild concentric left ventricular hypertrophy.
6. Moderate tricuspid regurgitation. Estimated pulmonary artery pressure of 50 mmHg assuming a right atrial pressure of [address] Chest 02/2025: Trace bilateral pleural effusions. Re-demonstration of confluent consolidation within the bilateral lower lobes, progressed. Patchy subpleural tree-in-bud/groundglass nodules throughout the lower lung zones bilaterally, right
greater than left. No pericardial effusions or enlarged lymph nodes in the thorax. Nondisplaced lateral right seventh rib fracture. Old left rib deformities.
Bronchoscopy 09/2024: Copious, bilateral exudates noted throughout the tracheobronchial tree. BAL performed. Pansensitive Pseudomonas and Layla noted on bronchioloalveolar lavage.
Spirometry 03/2023: Mild obstruction noted. Normal lung volumes. Mild diffusion impairment. FEV1 of 92% predicted.
Subjective Dataa
Subjective Data
Date of Service:
Date of Service: June 22, 2025
Subjective:
Patient intubated, mechanically ventilated, off sedation
Review of Systems
General: Other (Intubated)
Objective Data
Data Reviewed
Vital Signs / I&O / Oxygen:
Vital Signs
Temp Pulse Resp BP Pulse Ox
97.7 F 62 22 105/43 97
06/22/25 04:00 06/22/25 07:13 06/22/25 06:30 06/22/25 07:13 06/22/25 06:30
Intake and Output
06/21/25 06/22/25 06/23/25
06:59 06:59 06:59
Intake Total 514.9 / 536.5 2511.9 / 2511.9
Output Total 3955 / 3955 3110 / 3110
Balance -3440.1 / -3418.5 -598.1 / -598.1
SaO2 [ASV] 100
SaO2 [CPAP/PSV] 99
SaO2 [A/C] 98
SaO2 97
Physical Exam
General: Comfortable
HEENT: Normocephalic
Cardiovascular: S1-S2
Respiratory: Clear and Rhonchi (Minimal residual rhonchi, significant improvement)
GI: Soft and Non Distended
Neurology: Other (Sedated)
Skin: Warm
Labs/Micro/Reports
Lab Data
06/22/25 03:23
06/22/25 03:23
Laboratory Results
06/21/25
13:00
pH 7.47 H
pCO2 41
pO2 159 H
HCO3 29.8 H
O2 Delivery Level
Microbiology
06/19/25 15:42 Blood/Venous Blood Culture - Preliminary
No Growth in 48 hours- Final report to follow
06/20/25 08:25 Bronch Right Lower Lobe Respiratory Culture - Final
Pseudomonas aeruginosa
06/20/25 08:25 Bronch Right Lower Lobe Gram Stain - Final
06/19/25 16:08 Sputum - Induced Respiratory Culture - Final
Pseudomonas aeruginosa
Pseudomonas aeruginosa#2
06/19/25 16:08 Sputum - Induced Gram Stain - Final
06/20/25 08:25 Urine Legionella Urinary Antigen - Final
Negative for Legionella pneumophila Serogroup 1 antigen.
A negative result does not rule out the possiblity of
Legionella infection due to other serogroups or species of
Legionella. Clinical correlation is recommended.
06/20/25 08:25 Urine Streptococcus pneumoniae Antigen (M - Final
Negative for Streptococcus pneumoniae antigen.
A negative result does not exclude infection with
Streptococcus pneumoniae. Clinical correlation is
recommended.
06/20/25 08:25 Nose Nasal Screen MRSA (PCR) - Final
MRSA not detected - performed by PCR methodology.
06/19/25 15:42 Nasal Swab Influenza Types A & B (LIVIER) - Final
Negative for Influenza A & B, NAAT
Negative results must be combined with clinical observations
and patient history.
Nucleic Acid Amplification test (NAAT)performed on the
[employer] platform.
--- NOTE | 2025-06-22 07:54 | W.PN.CARDCBS ---
Today's Communication / Plan
-
Will continue IV Lasix for another 24 hours. He has diuresed well.
Creatinine at 1.1. Replete potassium.
Continue antibiotics and ventilatory support.
Wean epinephrine as tolerated
Hemoglobin remains markedly anemic. Hemoglobin at 7.0
Platelet count down to 69,000. Will discuss with courtesy booth cashier but may need to hold Eliquis.
He remains in sinus rhythm but has history of A-fib with stroke
Impression / Plan
-
[facility] Property Insurance Claims Examiner: Dr. Santos
Assessment:
Presentation with SOB
PNA
Elevated proBNP with concern for acute HFpEF
Hypotension
Pancytopenia
Admission to 06/01 - 06/05/2025 for UTI, CHF
Sinus bradycardia
Paroxysmal atrial fibrillation
Chronic amiodarone therapy
Chronic Eliquis therapy
Aortic stenosis/insufficiency by echo 06/03/25
History of hypertension
Hyperlipidemia
History of CVA
History of intermittent hematuria
Parkinson's disease
Myasthenia gravis
Bronchiectasis with prior Pseudomonas infection
Hypoalbuminemia
ECHO 10/17/24: EF 55 to 60%, no regional wall motion abnormalities noted, stage II diastolic dysfunction, MAC, moderate MR, moderate with peak/mean gradients 47/30 mmHg, STEPHY 1.3 cm�, moderate TR, PAP 45 mmHg, small pericardial effusion
Echo 06/03/2025: EF 55 to 60%, small pericardial effusion, moderate , mean gradient 25 mmHg, STEPHY 1.3 cm�, mild to moderate AI, mild MR, moderate TR, PAP 58 mmHg, no significant change compared to echo 10/2024
Plan:
- Patient presents back to [facility] after recent admission 2 weeks ago for UTI and CHF, now with worsening shortness of breath, anemia, hypotension. covid/flu negative
-Patient remains intubated and sedated. Continue ventilatory care. Hopefully can wean off pressors and consider weaning trials over next 24 to 48 hours.
-Blood pressure slowly improving. Remains on very low-dose epinephrine drip. Hopefully can wean off over next 24 hours.
-I suspect his symptoms are combination of pneumonia along with some level of acute heart failure with preserved ejection fraction
-He diuresed well yesterday. Will continue with IV Lasix. Weight is overall down to 134 lbs. we will check repeat proBNP. Likely convert to p.o. Lasix tomorrow.
-Echo from last admission was reviewed which shows moderate aortic stenosis and a preserved ejection fraction. PA pressure in that study was 58 and elevated.
-Lower extremity Dopplers reviewed which revealed no DVT
-Hemoglobin at 7. Unfortunately remains pancytopenic. Platelet count at 69,000. No overt signs of bleeding. May need to hold Eliquis if counts continue to drop.
-He has paroxysmal atrial fibrillation with a history of stroke. He remains in sinus rhythm
-Continue pip-tazo for pneumonia.
-Continue Mestinon for myasthenia.
Critical care time 35 minutes
Progress Note - Property Insurance Claims Examiner
Subjective
Date of Service: June 22, 2025
Remains vented and sedated. No new fevers. Remains on very low-dose epinephrine drip
Objective
Labs:
06/22/25 03:23
06/22/25 03:23
Labs
Hgb 7.0 g/dL (13.0-18.0) L 06/22/25 03:23
Hct 21.5 % (39.0-52.0) L 06/22/25 03:23
Plt Count 69 10^3/uL (130-400) L 06/22/25 03:23
PT 28.6 Sec (11.4-14.6) H 06/19/25 14:30
INR 2.64 06/19/25 14:30
APTT 70.5 Sec (23.4-35.0) H 06/19/25 14:30
Sodium 142 mmol/L (135-145) 06/22/25 03:23
Potassium 3.2 mmol/L (3.5-5.1) L 06/22/25 03:23
BUN 33 mg/dl (9-20) H 06/22/25 03:23
Creatinine 1.1 mg/dL (0.7-1.3) 06/22/25 03:23
Glucose 134 mg/dl (70-99) H 06/22/25 03:23
Troponins
06/19/25
14:30
Troponin I < 0.012
Vital Signs and I&O:
Vital Signs
Temp Pulse Resp BP Pulse Ox
98.2 F 62 18 105/43 98
06/22/25 07:39 06/22/25 07:45 06/22/25 07:45 06/22/25 07:13 06/22/25 07:45
Vital Signs
Temp Pulse Resp BP Pulse Ox
98.2 F 62 18 105/43 98
06/22/25 07:39 06/22/25 07:45 06/22/25 07:45 06/22/25 07:13 06/22/25 07:45
Intake & Output
06/20/25 06/21/25 06/22/25 06/23/25
06:59 06:59 06:59 06:59
Intake Total 209.5 / 230.9 514.9 / 536.5 2511.9 / 2511.9
Output Total 700 / 700 3955 / 3955 3110 / 3110
Balance -490.5 / -469.1 -3440.1 / -3418.5 -598.1 / -598.1
Physical Exam
Physical Exam
GEN: No distress, intubated/sedated
HEENT: supple, anicteric, mmm, ET tube
LUNGS: bilat rhonchi
CV: Reg, S1/S2, 2/6 syst LSB, no gallop
ABD: soft, BS+, NT/ND
EXT: No edema
NEURO: Gross non-focal
SKIN: No rash
--- NOTE | 2025-06-22 08:37 | PTCARENOTE ---
report reeived, assessments per work list. sedation off, epi off per work list. placed on cpap/ps wean by RT@[id number]. thermodynamics professor at bedside, tube feeds placed on hold for pending extubation. abg sent. no bowel movement since admission. suppository
given. large amount hard fecal matter noted in rectal vault. mosley draining bloody urine, thermodynamics professor updated. am dose eliquis not given. post lasix, urine now clear yellow. Mosley catheter removed per thermodynamics professor.
[2025-06-22 08:41] LABS: B.E. 6.7 mmol/L; HCO3 30.4 mmol/L (21-28); O2 Saturation % 96.4 % (94-98); PCO2 39 mmHg (35-48); PO2 108 mmHg (83-108)
--- NOTE | 2025-06-22 09:21 | PTCARENOTE ---
Addendum entered by Nicky Infante RN 06/22/25 10:48:
condom cath replaced X2, not able to maintain due to patient anatomy. fecal pouch placed over genitalia to collect urine. adhesive not used. pouch just lying over penis. incontinent large formed hard jerry yellow pale colored stool. care completed.
strong cough, suctions orally for large amount secretions.
Original Note:
patient extubated without issue to 6 liter nasal cannula with pricing supervisor at bedside. patient voice haorse. oriented to person, states he is in [facility] not oriented to time or situation.
[2025-06-22] MEDS: CELLCEPT 1500 MG TUBE (10:25)
--- NOTE | 2025-06-22 12:13 | PTCARENOTE ---
patient incontinent of very large formed hard stool followed by copious amount liquid stool. incontinent of large amount urine, complete care given. rectal trumpet inserted. continuing pulmonary toileting frequently. more alert and oriented.
cooperative
--- NOTE | 2025-06-22 13:25 | PTCARENOTE ---
patient in atrial fib, heart rate 90-110. systolic BP 80-100's. map 55-65. TT to drier and evaporator operator, commission specialist. awaiting orders
--- NOTE | 2025-06-22 14:08 | W.PN.HOSP.TC ---
Addendum entered and electronically signed by Curry Resendez MD 06/23/25 09:16:
Severe protein Calorie Malnutrition
Addendum entered and electronically signed by Curry Resendez MD 06/22/25 14:25:
Attending�addendum:
I saw and evaluated the patient. I reviewed the resident�s note and agree with findings and plan as documented in the resident�s note.��patient seen and examined at bedside, patient remains intubated, weaning off sedation, aborted tube feed via OG
tube.
Physical�exam:
GENERAL : Patient is intubated
HEENT: Endotracheal tube in place
CHEST: Chest wall is nontender.
HEART: Regular rate and rhythm without murmurs.
LUNGS: Diffuse bilateral Rales and wheezing
ABDOMEN: Soft, positive bowel sounds, nontender, no organomegaly.
RECTAL: Deferred.
MUSCLES/EXTREMITIES: No abnormal range of motion, no swelling.SKIN: No rash, no excessive bruising, petechiae, or purpura.
NEUROLOGIC: Intubated
�
Assessment/plan:
Acute hypoxic respiratory failure secondary to CHF/pneumonia.
Continue mechanical ventilation.
Continue to wean sedation
IV antibiotic.
Status post bronchoscopy- BAL culture with Pseudomonas
06/22 for extubation today
Pancytopenia.
Likely secondary to mycophenolate
Acute on chronic anemia.
Status post blood transfusion
Paroxysmal A-fib.
Currently sinus
CODE STATUS: Full code
DVT prophylaxis: Eliquis
Diet: Tube feed
Disposition: Continue antibiotic, extubation today
�
Total time spent on today�s encounter was 74 minutes which included time spent in counseling the patient/family regarding diagnosis and treatment plan as listed above, goals of care, and symptom management. Case was discussed with nursing staff,
specialists, and care coordinators/case management. All labs and imaging personally reviewed by me. Remainder the time spent in detailed review of previous records, lab data, imaging, and other medical provider documentation.
Original Note:
Today's Communication/Plan
-
Tolerated SAT and SBT well, extubated to nasal cannula
PT/OT/speech therapy
Hold Eliquis in view of trace hematuria, discontinue Cade catheter
continue IV Lasix for another 24 hours
Creatinine at 1.1. Replete potassium.
Continue antibiotics
Wean epinephrine as tolerated
Assessment / Plan
Assessment / Plan
Patient is a 79-year-old male with past medical history of paroxysmal atrial fibrillation on chronic Eliquis and amiodarone 100 mg daily, hypertension, aortic stenosis, hyperlipidemia, history of CVA, Parkinson's disease, bronchiectasis with
cultures growing out Pseudomonas in the past who was admitted to [facility] from 06/01 - 06/05/2025 and was treated for UTI as well as for CHF. CHF was felt to be new diagnosis, and patient was not on diuretic therapy prior to last
admission. patient received 2 doses of IV Lasix 40 mg daily and then became hypotensive prompting discontinuation of diuretic. He was not discharged on diuretic therapy. Echocardiogram showed preserved EF with moderate /AI and moderate TR.
Patient presents back to [facility] today due to worsening shortness of breath particularly over the last 1 to 2 days per . She also notes patient has a persistent cough which has been chronic, however significantly worsened over the last 48 hours.
She also notes that he had lower extremity edema as well as left upper extremity swelling in the same timeframe. She does not note fevers or chills, but poor appetite. He was started on midodrine last admission for orthostasis, however per
stopped taking as OP as did not see noticeable difference in BPs.
At ER Initially treated with noninvasive positive pressure ventilation but ultimately was intubated for increased work of breathing. Cardiology is consulted for acute heart failure with preserved ejection fraction.
Assessment and Plan:
Acute hypoxic respiratory failure
-S/p trial of BiPAP in emergency room, subsequently intubated and mechanically ventilated, 06/19
- tolerated SAT and SBT well, extubated to nasal cannula on 06/22/2025
-Suspect respiratory failure secondary to pneumonia with underlying bronchiectasis, neuromuscular weakness due to myasthenia gravis and parkinsonism, volume overload from heart failure
-Xray on 06/20, 06/21 :Bilateral opacities which base and part could represent pneumonia, without significant change.
-Serial ABG
-Daily SAT and SBT
-Fentanyl/propofol for sedation , off sedation today
Sever sepsis with acute Pneumonia as a source
-h/o Chronic bronchiectasis, MG, Parkinson dis which all contributed kristin neuromuscular weakness of the respiratory muscles
- Worsening right lower lobe consolidation noted on imaging. Patient has chronically consolidated lower lobes. Previous CT images from May as well as February 2025 suggestive of chronically consolidated lower lobes with bronchiectatic
changes
- Reported increased difficulty expectorating lately with large volume sputum production.
- History of chronic pseudomonal colonization
- Check tracheal aspirate for cultures and sensitivities. Check MRSA screen. Blood cultures
- continue IV vancomycin and Zosyn.
- Xray on 06/20 :Bilateral opacities which base and part could represent pneumonia, without significant change.
-bronchoscopy with bronchioloalveolar lavage on 06/20
- Initiate hypertonic saline, 3%, nebulizer along with albuterol 3 times daily
- Mucinex via OG tube
Suspect Acute on chronic HFpEF
- Patient has significantly elevated BNP
- bilateral pedal edema
- hx of moderate aortic stenosis.
- continue Lasix as needed
- Cardiology service on case
#progressive Pancytopenia
Patient has a hx of pancytopenia that progressed on this admission
Hb Today 7
likely secondary to the above conditions vs medication related (mycophenolate mofetil)
Paroxysmal Atril Fibrillation
- Currently noted to have sinus bradycardia
- hold Eliquis due to hematuria and Platelet count down to 69,000
- Has not been on any rate control medications
History of myasthenia gravis and parkinsonism
- Place OG tube and resume oral medications for myasthenia gravis as well as parkinsonism
- Resume Sinemet, pyridostigmine
- Prednisone switched to stress dose of hydrocortisone, 50 mg IV every 6
- Continue CellCept
- Continue mechanical ventilation for now
Other medical diagnoses:
- Orthostatic hypotension. Chronically on midodrine
- History of TIA/CVA
- Hypertension, hyperlipidemia
- Moderate aortic stenosis
- GERD
- Chronic pancytopenia
DVT prophylaxis. Eliquis resumed via G-tube
GI prophylaxis. IV Protonix
status full code
Anticipated Discharge: > 48 hours
Subjective/Interval History
-
Date of Service: June 22, 2025
Patient is awake and making eye contact, following commands.
Objective Data
-
Labs:
Laboratory Results
06/22/25 06/22/25 06/22/25
03:23 08:33 09:41
WBC 1.8 L* Cancelled
Hgb 7.0 L Cancelled
Hct 21.5 L Cancelled
Plt Count 69 L Cancelled
HCO3 30.4 H
Sodium 142 Cancelled
Potassium 3.2 L Cancelled
Chloride 111 H Cancelled
Carbon Dioxide 28 Cancelled
BUN 33 H Cancelled
Creatinine 1.1 Cancelled
Glucose 134 H Cancelled
Calcium 7.9 L Cancelled
Total Bilirubin 1.3 Cancelled
AST 12 L Cancelled
ALT < 10 Cancelled
Alkaline Phosphatase 42 Cancelled
Vital Signs:
Vital Signs
Temp Pulse Resp BP Pulse Ox
98.6 F 106 18 116/63 95
06/22/25 12:29 06/22/25 14:02 06/22/25 14:02 06/22/25 12:26 06/22/25 14:02
I&O
06/21/25 06/22/25 06/23/25
06:59 06:59 06:59
Intake Total 514.9 / 536.5 2511.9 / 2592.5 730.6 / 730.6
Output Total 3955 / 3955 3110 / 3110 900 / 900
Balance -3440.1 / -3418.5 -598.1 / -517.5 -169.4 / -169.4
--- NOTE | 2025-06-22 14:36 | PTCARENOTE ---
efrain in afib. rate 90's. blood pressures improved without interventions. systolic 90-110. MAP >65
--- NOTE | 2025-06-22 15:36 | PTOTSP ---
Speech Therapy Evaluation
Pt seen for bedside swallow assessment. Pt at an increased risk of aspiration given recent extubation (few hours prior to swallow assessment) and PMH of CVA, GERD, diverticular disease�myasthenia gravis, parkinsonism, and being immunocompromised. Pt
previously had VSE in (07/19/24 and 07/06/16) along with outpatient therapy for voice and aphasia. Most recent VSE 07/19/24 revealed mild pharyngeal dysphagia. Varying degrees of penetration but no aspiration. Regular solids and thin liquids were
recommended. Pt's family also stated that a VSE was completed back in March of 2025 at another location with a recommendation of regular solids and thin liquids.
At bedside pt managed regular solids with prolonged oral phase, residue dispersed throughout oral cavity, and cough response (aspiration vs ?baseline cough). Pt managed thin liquids and ground texture (minced and moist) with no overt s/sx of
aspiration.�Pt unable to self-feed due to UE weakness.
Recommend:
1. IDDSI 5 Minced and moist with IDDSI 0 Thin liquids with supervision and only when alert
2. Medication as best tolerated
3. Standard aspiration precautions
4. HASH SLINGER to follow for diet tolerance and advance as appropriate
[2025-06-22] MEDS: NEO-SYNEPHRINE 250 IV (16:30)
--- NOTE | 2025-06-22 16:52 | PTCARENOTE ---
patient rectal trumpet leaking stool. removed. fecal pouch placed. incontinent of large amount abraham blood tinged urine. complete are given. remains in afib, hypotensive now. MAP 40's. epi initiated briefly, resultant tachycardia noted. Afib. D/W
tie sawyer. orders received. Dae gtt initiated with effect. oriented to self only. 'What is the name of this ship'. cooperative does not attempt to remove lines or tubes. frequent oral care and pulmonary toileting
[2025-06-22] MEDS: LIPITOR 20 MG TUBE (17:25)
--- NOTE | 2025-06-22 20:00 | PTCARENOTE ---
Received pt. at 1900. Pt. currently in bed. Drowsy but arouses to voice. Alert and oriented to self and place. Confusion at times. Denies pain/discomfort. Afebrile. Heart rhythm Afib (chronic). Neosynephrine gtt infusing to maintain MAP >65.
Currently on nasal cannula. Lungs sound coarse. Blood tinged jerry secretions suctioned. Incontinent of bowel and bladder. Skin as documented. Discussed plan of care. Vital signs stable at this time.
[2025-06-22] MEDS: MESTINON 30 MG TUBE (21:23)
[2025-06-22] MEDS: CELLCEPT 1000 MG TUBE (21:23)
[2025-06-23] VITALS (12 sets, daily range): BP systolic 86–142; BP diastolic 67–90; PULSE 89; O2SAT 98; BMI 17.9
--- NOTE | 2025-06-23 | PTCARENOTE ---
Pt. assessment unchanged. Remains on neosynephrine gtt to support blood pressure. No complaints of pain/discomfort. Vital signs stable at this time.
--- NOTE | 2025-06-23 04:00 | PTCARENOTE ---
Pt. assessment remains unchanged. AM labs drawn. Vital signs stable at this time.
[2025-06-23 04:13] LABS: Hematocrit 25.5 % (39.0-52.0); Hemoglobin 8.1 g/dL (13.0-18.0); Mean Corp Hgb Conc. 31.8 g/dL (33.0-37.0); Mean Corpuscular Volume 83.1 fL (80.0-94.0); Nucleated Red Blood Cells % 0 % (-); Platelet Count 107 10^3/uL (130-400); Red Cell Dist. Width 16.6 % (11.5-14.5)
[2025-06-23 04:22] LABS: ALT (SGPT) 11 U/L (0-50); AST (SGOT) 15 U/L (17-59); Albumin 2.6 g/dl (3.5-5.0); Alkaline Phosphatase 47 U/L (38-126); Blood Urea Nitrogen 32 mg/dl (9-20); Calcium 8.0 mg/dl (8.4-10.2); Carbon Dioxide 32 mmol/L (22-30); Chloride 109 mmol/L (98-107); Estimated Creatinine Clearance 59 ml/min; Glucose 114 mg/dl (70-99); Potassium 2.8 mmol/L (3.5-5.1); Sodium 141 mmol/L (135-145); Total Protein 5.2 g/dl (6.3-8.2); eGFR > 60.00
[2025-06-23] MEDS: KCL ELIXIR 40 MEQ TUBE (05:07)
[2025-06-23] MEDS: ZOSYN 100 IV (05:07)
[2025-06-23] MEDS: KCL 270 MEQ IV (06:24)
[2025-06-23] MEDS: SODIUM CHLORIDE 3% FOR INHALATION 1 VIAL INH ×2 (07:10→11:05)
[2025-06-23] MEDS: VENTOLIN NEBULES 2.5 MG INH ×2 (07:10→11:05)
--- NOTE | 2025-06-23 07:48 | W.PN.CARDCBS ---
Today's Communication / Plan
-
He is back in atrial fibrillation. Will try adding very low-dose carvedilol 3.125 mg p.o. twice daily.
Will switch Lasix to 40 mg p.o. daily. Replete potassium.
Add midodrine 5 mg p.o. 3 times daily.
He is now off pressors. Continue antibiotics and pulmonary care.
Continue Eliquis. Hemoglobin slightly improved at 8.0. Platelet count improving.
Would treat aortic stenosis conservatively for now.
Impression / Plan
-
[facility] [employer]S Assistant: Dr. Santos
Assessment:
Presentation with SOB
PNA
Elevated proBNP with concern for acute HFpEF
Hypotension
Pancytopenia
Admission to 06/01 - 06/05/2025 for UTI, CHF
Sinus bradycardia
Paroxysmal atrial fibrillation
Chronic amiodarone therapy
Chronic Eliquis therapy
Aortic stenosis/insufficiency by echo 06/03/25
History of hypertension
Hyperlipidemia
History of CVA
History of intermittent hematuria
Parkinson's disease
Myasthenia gravis
Bronchiectasis with prior Pseudomonas infection
Hypoalbuminemia
ECHO 10/17/24: EF 55 to 60%, no regional wall motion abnormalities noted, stage II diastolic dysfunction, MAC, moderate MR, moderate with peak/mean gradients 47/30 mmHg, STEPHY 1.3 cm�, moderate TR, PAP 45 mmHg, small pericardial effusion
Echo 06/03/2025: EF 55 to 60%, small pericardial effusion, moderate , mean gradient 25 mmHg, STEPHY 1.3 cm�, mild to moderate AI, mild MR, moderate TR, PAP 58 mmHg, no significant change compared to echo 10/2024
Plan:
- Patient presents back to [facility] after recent admission 2 weeks ago for UTI and CHF, now with worsening shortness of breath, anemia, hypotension. covid/flu negative
- He is now extubated and doing better. He is off epinephrine.
-I suspect his symptoms are combination of pneumonia along with some level of acute heart failure with preserved ejection fraction
-He diuresed well. Weight is down significantly. Will convert to Lasix 40 mg p.o. daily.
-Echo from last admission was reviewed which shows moderate aortic stenosis and a preserved ejection fraction. PA pressure in that study was 58 and elevated.
-Lower extremity Dopplers reviewed which revealed no DVT
-Hemoglobin at 8. Unfortunately remains pancytopenic. Platelet count at up to 107,000. No overt signs of bleeding. Cont Eliquis
-He is back in atrial fibrillation today. Blood pressure remains very marginal. Ideally would add low-dose carvedilol if blood pressure tolerates. Would restart midodrine 5 mg p.o. 3 times daily.
-Continue pip-tazo for pneumonia.
-Continue Mestinon for myasthenia.
Critical care time 31 min
Progress Note - Furniture Rem[employer]ist'S Assistant
Subjective
Date of Service: June 23, 2025
Awake and extubated. Went into atrial fibrillation yesterday. Ventricular rates are controlled. Now off epinephrine and pressors.
Objective
Labs:
06/23/25 03:30
06/23/25 03:30
Labs
Hgb 8.1 g/dL (13.0-18.0) L 06/23/25 03:30
Hct 25.5 % (39.0-52.0) L 06/23/25 03:30
Plt Count 107 10^3/uL (130-400) L D 06/23/25 03:30
PT 28.6 Sec (11.4-14.6) H 06/19/25 14:30
INR 2.64 06/19/25 14:30
APTT 70.5 Sec (23.4-35.0) H 06/19/25 14:30
Sodium 141 mmol/L (135-145) 06/23/25 03:30
Potassium 2.8 mmol/L (3.5-5.1) L 06/23/25 03:30
BUN 32 mg/dl (9-20) H 06/23/25 03:30
Creatinine 0.9 mg/dL (0.7-1.3) 06/23/25 03:30
Glucose 114 mg/dl (70-99) H 06/23/25 03:30
Vital Signs and I&O:
Vital Signs
Temp Pulse Resp BP Pulse Ox
97.8 F 102 18 68/43 98
06/23/25 07:30 06/23/25 07:13 06/23/25 07:13 06/22/25 16:29 06/23/25 07:13
Vital Signs
Temp Pulse Resp BP Pulse Ox
97.8 F 102 18 68/43 98
06/23/25 07:30 06/23/25 07:13 06/23/25 07:13 06/22/25 16:29 06/23/25 07:13
Intake & Output
06/21/25 06/22/25 06/23/25 06/24/25
06:59 06:59 06:59 06:59
Intake Total 514.9 / 536.5 2511.9 / 2592.5 2239.1 / 2239.1
Output Total 3955 / 3955 3110 / 3110 1300 / 1300
Balance -3440.1 / -3418.5 -598.1 / -517.5 939.1 / 939.1
Physical Exam
Physical Exam
GEN: No distress, awake,
HEENT: supple, anicteric, mmm
LUNGS: CTA, no wheezes/rales
CV: Irreg, S1/S2, 2/6 syst LSB, no gallop
ABD: soft, BS+, NT/ND
EXT: No edema
NEURO: Gross non-focal
SKIN: No rash
--- NOTE | 2025-06-23 08:30 | PTCARENOTE ---
Assumed care of pt at 0715 following shift report. Pt drowsy but easily arousable to name. Denies c/o pain or SOB. Received on O2 at 4l/min w/ Pox 99%. Pt w/ moist sounding, harsh non-productive cough. Pulling 250ml on IS w/ encouragement. Physical
assessment completed. Pt oriented to person only- confused conversation, reorients w/ some difficulty. Denies c/o pain. Rt radial [place] leveled and zero-balanced, waveform wnl. Neosynephrine gtt infusing to maintain MAP >65 per order. Pt found to be
incontinent of bowel/bladder. Rectal pouch seal no longer intact- removed and pericare provided. #25 short condom catheter applied. Assisted in ordering breakfast.
[2025-06-23] MEDS: FOLVITE 1 MG TUBE (09:20)
[2025-06-23] MEDS: COREG 3.125 MG PO ×2 (09:20→19:59)
[2025-06-23] MEDS: LEXAPRO 10 MG TUBE (09:20)
[2025-06-23] MEDS: ROBINUL 1 MG TUBE ×2 (09:20→19:59)
[2025-06-23] MEDS: ROBITUSSIN 200 MG TUBE ×3 (09:21→17:28)
[2025-06-23] MEDS: NSS (PRESERVATIVE FREE) 10 ML IV (09:21)
[2025-06-23] MEDS: SOLU-CORTEF 50 MG IV (09:21)
[2025-06-23] MEDS: PROTONIX IV 40 MG IV (09:21)
[2025-06-23] MEDS: SINEMET 25-100 2 TABLET TUBE ×3 (10:00→17:27)
[2025-06-23] MEDS: MESTINON 90 MG TUBE ×3 (10:00→17:28)
[2025-06-23] MEDS: MIRALAX TUBE (10:42)
--- NOTE | 2025-06-23 10:56 | W.PN.INTV ---
Addendum entered and electronically signed by Tim Suarez MD 06/28/25 09:15:
#. Septic shock due to Acute Pneumonia.
Original Note:
Today's Communication / Plan
Recommendations
- Discontinue tube feeding, initiate oral feeding
- Discontinue IV hydrocortisone, initiate prednisone 7.5 mg daily
- Add flutter valve twice a day along with vest therapy
- Continue to wean pressors as tolerated
- PT/OT
Assessment
-
Patient is currently intubated, mechanically ventilated and sedated. Unable to provide any history. Information mostly obtained from review of records and discussion with other healthcare providers as well as patient's spouse at bedside.
Patient was discharged from the hospital about a month ago for volume overload, suspected heart failure exacerbation and pancytopenia.. Reportedly, per patient's spouse, over the last few days he was having increasing cough and shortness of breath.
Patient was having rattling secretions in his airway but was having difficulty clearing it up. Patient's spouse also reports that lately sputum had been very foul-smelling, thick and dark in color. No reported fever or chills. Over the last
couple of days patient has had significantly decreased p.o. intake, lethargy and increasing lower extremity edema. Patient sleeps in a recliner and spouse is not aware of any orthopnea. No reported sick contacts.
Patient has chronic bronchiectasis and excessive mucus production. Lately he has not been on airway clearance measures. No reported diarrhea, hematemesis, hemoptysis, melena or hematochezia.
06/23 overview: Patient extubated to nasal cannula. Currently saturating 98% on 4 L supplemental oxygen. MAP of 74. Weaned off pressors.
#1. Acute hypoxic respiratory failure
- S/p trial of BiPAP in emergency room, subsequently intubated and mechanically ventilated, 06/19 > Extubated 06/22
- Suspect respiratory failure is multifactorial, primarily related to excessive respiratory secretions, pneumonia with underlying bronchiectasis, volume overload as well as neuromuscular weakness due to myasthenia gravis and parkinsonism
- Transition to nasal cannula now. Wean O2 as tolerated.
- Continue aggressive pulmonary toilet
#2. Shock with Acute Pneumonia with h/o Chronic bronchiectasis
- Worsening right lower lobe consolidation noted on imaging. Patient has chronically consolidated lower lobes. Previous CT images from May as well as February 2025 suggestive of chronically consolidated lower lobes with bronchiectatic changes
- Reported increased difficulty expectorating lately with large volume sputum production prior to admission
- History of chronic pseudomonal colonization. Patient also immunocompromised with chronic steroid and mycophenolate use
- 06/20, bronchoscopy performed, BAL performed at right lower lobe. Pseudomonas noted on tracheal aspirate and BAL
- Vancomycin discontinued, has been receiving Zosyn so far, transition to ciprofloxacin twice a day. Need to complete 14 days of antibiotic therapy.
- Continue hypertonic saline, 3%, nebulizer along with albuterol 3 times daily. Mucinex p.o. Sports bed for chest percussion. Add flutter valve and vest therapy twice a day. Stressed the need for ongoing airway clearance particularly with
underlying bronchiectasis and neuromuscular weakness
- Excessive oral secretions, suspect related to Mestinon, significantly improved since glycopyrrolate 1 mg p.o. twice daily was started. Continue current therapy
- Intermittently required phenylephrine for hypotension, currently off all pressors
#3. Suspect Acute on chronic HFpEF
- Patient has significantly elevated BNP, bilateral pedal edema as well as chest x-ray suggestive of pulmonary edema. Also reported history of moderate aortic stenosis.
- Has been on IV Lasix, now transition to p.o.
- Cardiology service on case
#4. Pulmonary HTN.
- Echocardiogram in 05/2025, pulmonary artery systolic pressure around 50, moderate tricuspid regurgitation noted.
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 Might have component of group III as well considering underlying mild obstructive airway disease, chronic
bronchiectasis.
#5. Paroxysmal Atril Fibrillation
- Chronically anticoagulated with Eliquis
- Has not been on any rate control medications
- Intermittently bradycardic required epinephrine infusion, currently off.
- Midodrine resumed, started on Coreg low-dose per cardiology service. Continue Mestinon
- Continue Eliquis
#6. History of myasthenia gravis and parkinsonism
- After intubation, Placed OG tube and resumed oral medications for myasthenia gravis as well as parkinsonism
- Resumed Sinemet, pyridostigmine
- Prednisone switched to stress dose of hydrocortisone, 50 mg IV every 6. At home takes 12.5 mg every other day, will initiate 7.5 mg daily of prednisone
- Continue CellCept
- Extubated 06/22
- Speech therapy eval, once he starts taking p.o., will discontinue tube feeding
#7. Pancytopenia.
- Reviewed hematology college evaluation during last visit. [place] to be multifactorial related to illness, chronic inflammation, medications particularly steroid, mycophenolate. Also concern for bone marrow disorder including MDS.
- Continue supportive transfusion as needed for now
- Improving
DVT prophylaxis. Eliquis resumed
GI prophylaxis. IV Protonix
Other medical diagnoses:
- Orthostatic hypotension. Chronically on midodrine
- History of TIA/CVA
- Hypertension, hyperlipidemia
- Moderate aortic stenosis
- GERD
- Chronic pancytopenia
Critical Care time 38 mins -- The patient is admitted for acute critical illness for the treatment of vital organ failure and/or prevention of further life-threatening conditions. Total care includes time spent in review of history, physical exam,
medications, hemodynamic/ventilator parameters, laboratory data, imaging and discussion with house staff, pharmacy, respiratory therapy, negative assembler, and nursing.
Data:
CXR 06/2025: Findings suggesting moderate diffuse right-sided pneumonia. Progressed.
Probable mild left lower lobe pneumonia. Progressed.
Mild cardiomegaly. Stable
ECHO 05/2025: 1. Ejection fraction is 55-60% by visual assessment.
2. Small pericardial effusion is seen.
3. Compared to a prior transthoracic echocardiogram study from October 2024 no significant changes are seen.
4. Thickened calcified trileaflet aortic valve with decreased leaflet excursion. Moderate aortic stenosis with mean pressure gradient of 25 mmHg. Using an left ventricular outflow tract diameter of 2.0 cm., the STEPHY = 1.3 cm2. Mild to moderate
aortic insufficiency.
5. Mild concentric left ventricular hypertrophy.
6. Moderate tricuspid regurgitation. Estimated pulmonary artery pressure of 50 mmHg assuming a right atrial pressure of [address] Chest 02/2025: Trace bilateral pleural effusions. Re-demonstration of confluent consolidation within the bilateral lower lobes, progressed. Patchy subpleural tree-in-bud/groundglass nodules throughout the lower lung zones bilaterally, right
greater than left. No pericardial effusions or enlarged lymph nodes in the thorax. Nondisplaced lateral right seventh rib fracture. Old left rib deformities.
Bronchoscopy 09/2024: Copious, bilateral exudates noted throughout the tracheobronchial tree. BAL performed. Pansensitive Pseudomonas and Layla noted on bronchioloalveolar lavage.
Spirometry 03/2023: Mild obstruction noted. Normal lung volumes. Mild diffusion impairment. FEV1 of 92% predicted.
Subjective Dataa
Subjective Data
Date of Service:
Date of Service: June 23, 2025
Subjective:
Patient more awake, alert and interactive.
Review of Systems
Genitourinary: Other (All 14 systems reviewed and negative except as stated above in the history of present illness.)
Objective Data
Data Reviewed
Vital Signs / I&O / Oxygen:
Vital Signs
Temp Pulse Resp BP Pulse Ox
97.8 F 85 18 115/62 98
06/23/25 07:30 06/23/25 09:20 06/23/25 07:13 06/23/25 09:20 06/23/25 07:13
Intake and Output
06/22/25 06/23/25 06/24/25
06:59 06:59 06:59
Intake Total 2511.9 / 2592.5 2239.1 / 2239.1
Output Total 3110 / 3110 1300 / 1300
Balance -598.1 / -517.5 939.1 / 939.1
SaO2 [ASV] 100
SaO2 [CPAP/PSV] 98
SaO2 [A/C] 98
SaO2 98
Nasal Cannula flow liters per 2
minute
Physical Exam
General: Comfortable
HEENT: Normocephalic
Cardiovascular: S1-S2 and Peripheral Edema (Nearly resolved pedal edema)
Respiratory: Clear and Rhonchi (Minimal residual rhonchi, significant improvement)
GI: Soft and Non Distended
Neurology: Awake and Alert
Skin: Warm
Labs/Micro/Reports
Lab Data
06/23/25 03:30
06/23/25 03:30
Microbiology
06/19/25 15:42 Blood/Venous Blood Culture - Preliminary
No Growth in 72 hours- Final report to follow
06/20/25 08:25 Bronch Right Lower Lobe Respiratory Culture - Final
Pseudomonas aeruginosa
06/20/25 08:25 Bronch Right Lower Lobe Gram Stain - Final
06/19/25 16:08 Sputum - Induced Respiratory Culture - Final
Pseudomonas aeruginosa
Pseudomonas aeruginosa#2
06/19/25 16:08 Sputum - Induced Gram Stain - Final
06/20/25 08:25 Urine Legionella Urinary Antigen - Final
Negative for Legionella pneumophila Serogroup 1 antigen.
A negative result does not rule out the possiblity of
Legionella infection due to other serogroups or species of
Legionella. Clinical correlation is recommended.
06/20/25 08:25 Urine Streptococcus pneumoniae Antigen (M - Final
Negative for Streptococcus pneumoniae antigen.
A negative result does not exclude infection with
Streptococcus pneumoniae. Clinical correlation is
recommended.
06/20/25 08:25 Nose Nasal Screen MRSA (PCR) - Final
MRSA not detected - performed by PCR methodology.
--- NOTE | 2025-06-23 11:00 | PTCARENOTE ---
Tube feeding stopped at 0915 and Dobhoff Tube removed per order Dr Suarez. Pt complete feed for breakfast- requires frequent reminders to open his eyes. No evidence of difficulty swallowing. Pt w/ notable generalized weakness. Pt's son visiting at
bedside, update on pt's present condition/plan of care. Adjustments to Neosynephrine as documented in work list intervention. No additional changes from previous assessment findings.
[2025-06-23] MEDS: CELLCEPT 1500 MG TUBE (11:08)
[2025-06-23] MEDS: DELTASONE 7.5 MG PO (11:11)
[2025-06-23] MEDS: LASIX IV (11:17)
[2025-06-23] MEDS: LASIX 40 MG PO (11:50)
--- NOTE | 2025-06-23 11:59 | W.PN.HOSP.TC ---
Addendum entered and electronically signed by Curry Resendez MD 06/23/25 12:41:
Attending�addendum:
I saw and evaluated the patient. I reviewed the resident�s note and agree with findings and plan as documented in the resident�s note.��patient seen and examined at bedside, patient extubated.
Denies chest pain.
Still cough
Physical�exam:
GENERAL : Patient is awake but not fully oriented
HEENT: Normocephalic
CHEST: Chest wall is nontender.
HEART: irregular rate and rhythm without murmurs.
LUNGS: Diffuse bilateral Rales and wheezing
ABDOMEN: Soft, positive bowel sounds, nontender, no organomegaly.
RECTAL: Deferred.
MUSCLES/EXTREMITIES: No abnormal range of motion, no swelling.SKIN: No rash, no excessive bruising, petechiae, or purpura.
NEUROLOGIC: Intubated
�
Assessment/plan:
Acute hypoxic respiratory failure secondary to CHF/pneumonia.
Continue mechanical ventilation.
Continue to wean sedation
IV antibiotic.
Status post bronchoscopy- BAL culture with Pseudomonas
06/22 extubated
Pancytopenia.
Likely secondary to mycophenolate
Improved
Acute on chronic anemia.
Status post blood transfusion
Stable
Paroxysmal A-fib.
Back to A-fib today, added midodrine
CODE STATUS: Full code
DVT prophylaxis: Eliquis
�
Total time spent on today�s encounter was 74 minutes which included time spent in counseling the patient/family regarding diagnosis and treatment plan as listed above, goals of care, and symptom management. Case was discussed with nursing staff,
specialists, and care coordinators/case management. All labs and imaging personally reviewed by me. Remainder the time spent in detailed review of previous records, lab data, imaging, and other medical provider documentation.
Original Note:
Today's Communication/Plan
-
restart midodrine 5 mg p.o. 3 times daily for low blood pressure
started low-dose carvedilol
continue antibiotics IV
Assessment / Plan
Assessment / Plan
Patient is a 79-year-old male with past medical history of paroxysmal atrial fibrillation on chronic Eliquis and amiodarone 100 mg daily, hypertension, aortic stenosis, hyperlipidemia, history of CVA, Parkinson's disease, bronchiectasis with
cultures growing out Pseudomonas in the past who was admitted to [facility] from 06/01 - 06/05/2025 and was treated for UTI as well as for CHF. CHF was felt to be new diagnosis, and patient was not on diuretic therapy prior to last
admission. patient received 2 doses of IV Lasix 40 mg daily and then became hypotensive prompting discontinuation of diuretic. He was not discharged on diuretic therapy. Echocardiogram showed preserved EF with moderate /AI and moderate TR.
Patient presents back to [facility] today due to worsening shortness of breath particularly over the last 1 to 2 days per . She also notes patient has a persistent cough which has been chronic, however significantly worsened over the last 48 hours.
She also notes that he had lower extremity edema as well as left upper extremity swelling in the same timeframe. She does not note fevers or chills, but poor appetite. He was started on midodrine last admission for orthostasis, however per
stopped taking as OP as did not see noticeable difference in BPs.
At ER Initially treated with noninvasive positive pressure ventilation but ultimately was intubated for increased work of breathing. Cardiology is consulted for acute heart failure with preserved ejection fraction.
Assessment and Plan:
Acute hypoxic respiratory failure
-S/p trial of BiPAP in emergency room, subsequently intubated and mechanically ventilated, 06/19
- tolerated SAT and SBT well, extubated to nasal cannula on 06/22/2025
-Suspect respiratory failure secondary to pneumonia with underlying bronchiectasis, neuromuscular weakness due to myasthenia gravis and parkinsonism, volume overload from heart failure
-Xray on 06/20, 06/21 :Bilateral opacities which base and part could represent pneumonia, without significant change.
-Serial ABG
-off sedation , off sedation
Sever sepsis with acute Pneumonia as a source
-h/o Chronic bronchiectasis, MG, Parkinson dis which all contributed kristin neuromuscular weakness of the respiratory muscles
- Worsening right lower lobe consolidation noted on imaging. Patient has chronically consolidated lower lobes. Previous CT images from May as well as February 2025 suggestive of chronically consolidated lower lobes with bronchiectatic
changes
- Reported increased difficulty expectorating lately with large volume sputum production.
- History of chronic pseudomonal colonization
- Check tracheal aspirate for cultures and sensitivities. Check MRSA screen. Blood cultures
- continue IV vancomycin and Zosyn.
- Xray on 06/20 :Bilateral opacities which base and part could represent pneumonia, without significant change.
-bronchoscopy with bronchioloalveolar lavage on 06/20
- Initiate hypertonic saline, 3%, nebulizer along with albuterol 3 times daily
- Mucinex via OG tube
#Hypotension
restart midodrine 5 mg p.o. 3 times daily.
Suspect Acute on chronic HFpEF
- Patient has significantly elevated BNP
- bilateral pedal edema
- hx of moderate aortic stenosis.
- continue Lasix as needed
- Cardiology service on case
#progressive Pancytopenia
Patient has a hx of pancytopenia that progressed on this admission
Hb Today 7
likely secondary to the above conditions vs medication related (mycophenolate mofetil)
Paroxysmal Atril Fibrillation
- Currently noted to have sinus bradycardia
- resumed Eliquis (was held due to hematuria and low plt )
- Has not been on any rate control medications
-started on carvedilol
History of myasthenia gravis and parkinsonism
- Place OG tube and resume oral medications for myasthenia gravis as well as parkinsonism
- Resume Sinemet, pyridostigmine
- Prednisone switched to stress dose of hydrocortisone, 50 mg IV every 6
- Continue CellCept
- Continue mechanical ventilation for now
Other medical diagnoses:
- Orthostatic hypotension. Chronically on midodrine
- History of TIA/CVA
- Hypertension, hyperlipidemia
- Moderate aortic stenosis
- GERD
- Chronic pancytopenia
DVT prophylaxis. Eliquis resumed via G-tube
GI prophylaxis. IV Protonix
status full code
Anticipated Discharge: > 48 hours
Subjective/Interval History
-
Date of Service: June 23, 2025
Patient is a wake and oriented. Has cough, denied shortness of breath , chest pain.
Objective Data
-
Labs:
Laboratory Results
06/23/25
03:30
WBC 2.5 L
Hgb 8.1 L
Hct 25.5 L
Plt Count 107 L D
Sodium 141
Potassium 2.8 L
Chloride 109 H
Carbon Dioxide 32 H
BUN 32 H
Creatinine 0.9
Glucose 114 H
Calcium 8.0 L
Total Bilirubin 1.5 H
AST 15 L
ALT 11
Alkaline Phosphatase 47
Vital Signs:
Vital Signs
Temp Pulse Resp BP Pulse Ox
97.8 F 91 18 103/56 96
06/23/25 07:30 06/23/25 11:50 06/23/25 11:22 06/23/25 11:50 06/23/25 11:22
I&O
06/22/25 06/23/25 06/24/25
06:59 06:59 06:59
Intake Total 2511.9 / 2592.5 2239.1 / 2308.1 550.5 / 550.5
Output Total 3110 / 3110 1300 / 1300
Balance -598.1 / -517.5 939.1 / 1008.1 550.5 / 550.5
Review of Systems
-
History Source: Patient
Respiratory: Reports Cough
Cardiac: Reports No Symptoms
Abdomen/GI: Reports No Symptoms
Genitourinary: Reports No Symptoms
Musculoskeletal: Reports No Symptoms
Neuro: Reports No Symptoms
Physical Exam
-
HEENT: Normocephalic and Atraumatic
Respiratory: Clear to Auscultation
Cardiac: S1/S2 and Irregular Rhythm
GI: Soft, Nontender and Other (OG tube )
Musculoskeletal: No Clubbing, No Cyanosis and No Edema
Skin: Warm and Dry
Neuro: Awake, Alert and Oriented
--- NOTE | 2025-06-23 14:24 | PTCARENOTE ---
Neosynephrine gtt off since 1254. Rt Radial King removed per Dr Suarez. Pressure held at site until hemostasis achieve and pressure dressing applied. Pt's at bedside to visit. Update on pt's present condition/plan of care. Pt resting quietly-
occasional moist non-productive cough. Remains on O2 a 2l/min w/ POx 99%. Placed on RA and will continue to monitor pulse Ox.
--- NOTE | 2025-06-23 16:23 | PTCARENOTE ---
Pt sit to stand at side of bed x3 w/ moderate assistx2. Tolerated increased activity w/o complaint or complication. RA Pox 95%. No additional changes from previous assessment findings.
[2025-06-23] MEDS: LIPITOR 20 MG TUBE (17:28)
[2025-06-23] MEDS: ELIQUIS 5 MG TUBE (19:59)
[2025-06-23] MEDS: CIPRO 500 MG PO (19:59)
--- NOTE | 2025-06-23 20:00 | PTCARENOTE ---
Rec'd pt drowsy, easily arousable, oriented to person/ place, needs reorientation to time, extremities rigid, Afib, BP stable, weak distal pulses, RA, sat 95, lungs coarse, moist NPC, percussion done , + bowel sounds, no bm, abd soft, no n/v, takes
pills in applesauce w/o difficulty, # 25 condom cath to str drainage bag draining abraham urine
[2025-06-23] MEDS: CELLCEPT TUBE (22:32)
[2025-06-23] MEDS: CELLCEPT 1000 MG PO (22:44)
[2025-06-23] MEDS: MESTINON 30 MG PO (22:45)
[2025-06-23] MEDS: MESTINON TUBE (23:13)
[2025-06-23] MEDS: ROBITUSSIN TUBE (23:13)
[2025-06-24] VITALS (25 sets, daily range): BP systolic 84–151; BP diastolic 58–101; PULSE 71; O2SAT 95; BMI 18.0
--- NOTE | 2025-06-24 | PTCARENOTE ---
sys reviewed, percussion done, oriented to self only, inc lg amt loose stool, rectal trumpet inserted to str drainage bag, CHG bath done, linens changed
[2025-06-24 04:11] LABS: Hematocrit 26.1 % (39.0-52.0); Hemoglobin 8.5 g/dL (13.0-18.0); Mean Corp Hgb Conc. 32.6 g/dL (33.0-37.0); Mean Corpuscular Volume 84.5 fL (80.0-94.0); Platelet Count 98 10^3/uL (130-400); Red Cell Dist. Width 16.4 % (11.5-14.5)
[2025-06-24 04:16] LABS: ALT (SGPT) 15 U/L (0-50); AST (SGOT) 50 U/L (17-59); Albumin 2.5 g/dl (3.5-5.0); Alkaline Phosphatase 62 U/L (38-126); Blood Urea Nitrogen 34 mg/dl (9-20); Calcium 7.8 mg/dl (8.4-10.2); Carbon Dioxide 33 mmol/L (22-30); Chloride 112 mmol/L (98-107); Estimated Creatinine Clearance 58 ml/min; Glucose 72 mg/dl (70-99); Potassium 3.2 mmol/L (3.5-5.1); Sodium 144 mmol/L (135-145); Total Protein 5.0 g/dl (6.3-8.2); eGFR > 60.00
--- NOTE | 2025-06-24 04:18 | PTCARENOTE ---
sys reviewed, changes noted, oriented to person only
[2025-06-24] MEDS: KCL ELIXIR 40 MEQ PO (04:41)
[2025-06-24 05:19] LABS: B.E. 10.0 mmol/L; HCO3 33.2 mmol/L (21-28); O2 Saturation % 90.4 % (94-98); PCO2 38 mmHg (35-48)
[2025-06-24 05:20] LABS: PO2 56 mmHg (83-108)
--- NOTE | 2025-06-24 05:21 | PTCARENOTE ---
2 liters nc added for sat 89
--- NOTE | 2025-06-24 05:25 | PTCARENOTE ---
abg resulted- po2 56- K ALFREDITO Ragland aware, o2 incr to 4 liters, sat95%
[2025-06-24 06:11] LABS: Nucleated Red Blood Cells % 0 % (-)
[2025-06-24] MEDS: MIRALAX PO (07:30)
--- NOTE | 2025-06-24 08:16 | W.PN.INTV ---
Today's Communication / Plan
Recommendations
- Diet as per MECHANIC DRIVER
- Discontinued IV hydrocortisone on 06/23 - now on prednisone 7.5 mg daily
- Continue flutter valve twice a day along with vest therapy
- Restart nebulized 3% + DuoNebs with prn doses for breakthrough symptoms
- PT/OT
- Cipro given Pseudomonas aeruginosa seen on right lower lobe BAL from 06/20/2025
- Patient is stable for downgrade out of ICU to IMU. Pulmonary service will continue to follow along.
Assessment
-
Patient is currently intubated, mechanically ventilated and sedated. Unable to provide any history. Information mostly obtained from review of records and discussion with other healthcare providers as well as patient's spouse at bedside.
Patient was discharged from the hospital about a month ago for volume overload, suspected heart failure exacerbation and pancytopenia.. Reportedly, per patient's spouse, over the last few days he was having increasing cough and shortness of breath.
Patient was having rattling secretions in his airway but was having difficulty clearing it up. Patient's spouse also reports that lately sputum had been very foul-smelling, thick and dark in color. No reported fever or chills. Over the last
couple of days patient has had significantly decreased p.o. intake, lethargy and increasing lower extremity edema. Patient sleeps in a recliner and spouse is not aware of any orthopnea. No reported sick contacts.
Patient has chronic bronchiectasis and excessive mucus production. Lately he has not been on airway clearance measures. No reported diarrhea, hematemesis, hemoptysis, melena or hematochezia.
06/23 overview: Patient extubated to nasal cannula. Saturating 98% on 4 L supplemental oxygen. MAP of 74. Weaned off pressors.
#1. Acute hypoxic respiratory failure
- S/p trial of BiPAP in emergency room, subsequently intubated and mechanically ventilated, 06/19 > Extubated 06/22
- Suspect respiratory failure is multifactorial, primarily related to excessive respiratory secretions, pneumonia with underlying bronchiectasis, volume overload as well as neuromuscular weakness due to myasthenia gravis and parkinsonism
- Continue nasal cannula, weaning down as tolerated while keeping SpO2 >90-94%
- Continue aggressive pulmonary toilet
#2. Shock with Acute Pneumonia with h/o Chronic bronchiectasis - shock state resolved
- Worsening right lower lobe consolidation noted on imaging. Patient has chronically consolidated lower lobes (L>R). Previous CT images from May as well as February 2025 suggestive of chronically consolidated lower lobes with bronchiectatic
changes
- Reported increased difficulty expectorating lately with large volume sputum production prior to admission
- History of chronic pseudomonal colonization. Patient also immunocompromised with chronic steroid and mycophenolate use
- 06/20, bronchoscopy performed, BAL performed at right lower lobe. Pseudomonas noted on tracheal aspirate and BAL
- Vancomycin discontinued, has been receiving Zosyn so far, transition to ciprofloxacin twice a day. Need to complete 14 days of antibiotic therapy.
- Continue nebulized hypertonic 3% saline,along with DuoNebs BID. Mucinex p.o. Sports bed for chest percussion. Continue flutter valve and vest therapy twice a day. Stressed the need for ongoing airway clearance particularly with underlying
bronchiectasis and neuromuscular weakness
- Excessive oral secretions, suspect related to Mestinon, significantly improved since glycopyrrolate 1 mg p.o. twice daily was started. Continue current therapy
- Intermittently required phenylephrine for hypotension, has remained off all pressors
#3. Suspect Acute on chronic HFpEF
- Patient has significantly elevated BNP, bilateral pedal edema as well as chest x-ray suggestive of pulmonary edema. Also reported history of moderate aortic stenosis.
- Has been on IV Lasix, now transitioned to 40mg PO once daily
- Cardiology service on case
#4. Pulmonary HTN.
- Echocardiogram on 06/03/2025, pulmonary artery systolic pressure around 50mmHg (stable c/t prior echo in Oct 2024), moderate tricuspid regurgitation noted.
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 Might have component of group III as well considering underlying mild obstructive airway disease, chronic
bronchiectasis.
#5. Paroxysmal Atril Fibrillation
- Chronically anticoagulated with Eliquis
- Continue with Coreg, monitor for bradycardia as he required epinephrine infusion recently while here in the ICU; epinephrine drip has remained off since AM of 06/22
- Midodrine resumed; continue Mestinon
#6. History of myasthenia gravis and parkinsonism
- After intubation, Placed OG tube and resumed oral medications for myasthenia gravis as well as parkinsonism
- Continue Sinemet, pyridostigmine
- Prednisone switched to stress dose of hydrocortisone, 50 mg IV every 6h (started 06/19 and completed on 06/23). Home dose is 12.5 mg every other day-> now on 7.5 mg daily of since 06/23
- Continue CellCept
- Extubated 06/22
- Diet as per MECHANIC DRIVER
#7. Pancytopenia.
- Reviewed hematology evaluation during last visit. [place] to be multifactorial related to illness, chronic inflammation, medications (particularly steroids), mycophenolate. Also concern for bone marrow disorder including MDS.
- Continue to transfuse as needed to maintain Hb >7-8 g/dL, and keep platelets >10�20k
DVT prophylaxis. Eliquis
GI prophylaxis. N/A --> will resume PO PPI as he takes this at home
Other medical diagnoses:
- Orthostatic hypotension. Chronically on midodrine
- History of TIA/CVA
- Hypertension, hyperlipidemia
- Moderate aortic stenosis
- GERD
- Chronic pancytopenia
Patient is stable for downgrade out of ICU to IMU. Pulmonary service will continue to follow along.
Data:
CXR 06/2025: Findings suggesting moderate diffuse right-sided pneumonia. Progressed.
Probable mild left lower lobe pneumonia. Progressed.
Mild cardiomegaly. Stable
ECHO 05/2025: 1. Ejection fraction is 55-60% by visual assessment.
2. Small pericardial effusion is seen.
3. Compared to a prior transthoracic echocardiogram study from October 2024 no significant changes are seen.
4. Thickened calcified trileaflet aortic valve with decreased leaflet excursion. Moderate aortic stenosis with mean pressure gradient of 25 mmHg. Using an left ventricular outflow tract diameter of 2.0 cm., the STEPHY = 1.3 cm2. Mild to moderate
aortic insufficiency.
5. Mild concentric left ventricular hypertrophy.
6. Moderate tricuspid regurgitation. Estimated pulmonary artery pressure of 50 mmHg assuming a right atrial pressure of [address] Chest 02/2025: Trace bilateral pleural effusions. Re-demonstration of confluent consolidation within the bilateral lower lobes, progressed. Patchy subpleural tree-in-bud/groundglass nodules throughout the lower lung zones bilaterally, right
greater than left. No pericardial effusions or enlarged lymph nodes in the thorax. Nondisplaced lateral right seventh rib fracture. Old left rib deformities.
Bronchoscopy 09/2024: Copious, bilateral exudates noted throughout the tracheobronchial tree. BAL performed. Pansensitive Pseudomonas and Layla noted on bronchioloalveolar lavage.
Spirometry 03/2023: Mild obstruction noted. Normal lung volumes. Mild diffusion impairment. FEV1 of 92% predicted.
Total time spent today was 58 minutes for this encounter. Time includes reviewing laboratory test/imaging results, reviewing pertinent medical records, obtaining and reviewing medical history, performing an appropriate exam, ordering medications,
tests and procedures. Time also includes documentation of this encounter, coordinating patient care and communicating with other healthcare professionals. Total time does not include separately billed tests performed on this date of service.
Subjective Dataa
Subjective Data
Date of Service:
Date of Service: June 24, 2025
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
Subjective:
Patient seen and evaluated this morning. Currently on 2 L/min nasal cannula, breathing comfortably, with confusion overnight. Patient's , Tequila, present at bedside. Continues to have a wet sounding cough with difficulty handling his
secretions. He is overall improved. Currently saturating 97%, heart rate is 76 with BP 118/71.
Review of Systems
General: Other (Negative unless mentioned above)
Objective Data
Data Reviewed
Vital Signs / I&O / Oxygen:
Vital Signs
Temp Pulse Resp BP Pulse Ox
97.5 F 82 21 117/101 95
06/24/25 07:32 06/24/25 08:25 06/24/25 06:00 06/24/25 08:25 06/24/25 09:05
Intake and Output
06/23/25 06/24/25 06/25/25
06:59 06:59 06:59
Intake Total 2239.1 / 2308.1 822.0 / 822.0 120 / 120
Output Total 1300 / 1300 825 / 825
Balance 939.1 / 1008.1 -3.0 / -3.0 120 / 120
SaO2 [ASV] 100
SaO2 [CPAP/PSV] 98
SaO2 [A/C] 98
SaO2 95
Nasal Cannula flow liters per 4
minute
Physical Exam
General: Respiratory Distress (negative), Comfortable and Chills (negative)
HEENT: Normocephalic and Anicteric
Cardiovascular: Irregular Rhythm, Murmur (DOUG heard best at the LUSB) and Peripheral Edema (negative)
Respiratory: Wheeze (negative), Crackles (Left hemithorax), Rhonchi (negative), Non-Labored Respirations and Stridor (negative)
GI: Soft, Non Distended, Non Tender and Normal Bowel Sounds
Neurology: Awake, Alert, Oriented and Tremors (negative)
Skin: Warm, Dry, Cyanosis (negative) and Jaundice (negative)
Labs/Micro/Reports
Lab Data
06/24/25 03:31
Laboratory Results
06/24/25
05:08
pH 7.55 H
pCO2 38
pO2 56 L*
HCO3 33.2 H
O2 Delivery Level
Microbiology
06/19/25 15:42 Blood/Venous Blood Culture - Preliminary
No Growth in 4 days- Final report to follow
06/20/25 08:25 Bronch Right Lower Lobe Respiratory Culture - Final
Pseudomonas aeruginosa
06/20/25 08:25 Bronch Right Lower Lobe Gram Stain - Final
06/19/25 16:08 Sputum - Induced Respiratory Culture - Final
Pseudomonas aeruginosa
Pseudomonas aeruginosa#2
06/19/25 16:08 Sputum - Induced Gram Stain - Final
[2025-06-24] MEDS: NSS (PRESERVATIVE FREE) 10 ML IV (08:23)
[2025-06-24] MEDS: ROBITUSSIN 200 MG PO ×4 (08:23→22:14)
[2025-06-24] MEDS: PROTONIX IV 40 MG IV (08:23)
[2025-06-24] MEDS: ROBINUL 1 MG PO ×2 (08:24→20:23)
[2025-06-24] MEDS: DELTASONE 7.5 MG PO (08:24)
[2025-06-24] MEDS: ELIQUIS 5 MG PO ×2 (08:24→20:24)
[2025-06-24] MEDS: CIPRO 500 MG PO ×2 (08:24→20:23)
[2025-06-24] MEDS: LASIX 40 MG PO (08:24)
[2025-06-24] MEDS: LEXAPRO 10 MG PO (08:24)
[2025-06-24] MEDS: FOLVITE 1 MG PO (08:24)
[2025-06-24] MEDS: COREG 3.125 MG PO ×2 (08:25→20:23)
--- NOTE | 2025-06-24 08:30 | PTCARENOTE ---
Received pt @ change of shift. Pt. AOx1; required reorientation to time/place; confused/forgetful. Afib on monitor. SpO2 98% on 4LNC, decreased to 2LNC and tolerating. Auscultated coarse breath sounds throughout w scatt rhonchi. Percussion therapy
compelted per orders. +BS, abd soft/nt; rectal trumpet in place for liq/brown stool. IDDSI diet, appetite improving but still inadequate; tolerating meds crushed in applesauce. #[address] draining abraham urine. Natalie hygiene and repositioning
provided per protocol. PIVs patent, dressings c/d/i. Bed alarm active. Pt. instructed on how to report care concerns and call pérez w in reach.
[2025-06-24] MEDS: MESTINON 90 MG PO ×3 (08:45→16:56)
[2025-06-24] MEDS: CELLCEPT 1500 MG PO (08:45)
[2025-06-24] MEDS: SINEMET 25-100 2 TABLET PO ×3 (08:47→16:56)
--- NOTE | 2025-06-24 09:31 | W.PN.CARDCBS ---
Today's Communication / Plan
-
Remains hypoxic on 4 L
Recheck proBNP
Continue antibiotics
In rate controlled A-fib and might consider stopping amiodarone if remains in A-fib and not ideal candidate for cardioversion at present
Impression / Plan
-
[place] Insulation Worker: Dr. Santos
Assessment:
Presentation with SOB
PNA
Acute diastolic CHF
Hypotension
Pancytopenia
Admission to 06/01 - 06/05/2025 for UTI, CHF
Sinus bradycardia
Paroxysmal atrial fibrillation
Chronic amiodarone therapy
Chronic Eliquis therapy
Aortic stenosis/insufficiency by echo 06/03/25
History of hypertension
Hyperlipidemia
History of CVA
History of intermittent hematuria
Parkinson's disease
Myasthenia gravis
Bronchiectasis with prior Pseudomonas infection
Hypoalbuminemia
ECHO 10/17/24: EF 55 to 60%, no regional wall motion abnormalities noted, stage II diastolic dysfunction, MAC, moderate MR, moderate with peak/mean gradients 47/30 mmHg, STEPHY 1.3 cm�, moderate TR, PAP 45 mmHg, small pericardial effusion
Echo 06/03/2025: EF 55 to 60%, small pericardial effusion, moderate , mean gradient 25 mmHg, STEPHY 1.3 cm�, mild to moderate AI, mild MR, moderate TR, PAP 58 mmHg, no significant change compared to echo 10/2024
Plan:
He remains on 4 L of oxygen
Has been switched to oral Lasix
Difficult to determine volume status and why patient remains hypoxic
Continue treatment for pneumonia
Recheck proBNP which was 7180 on 06/19
Weight is down 14 pounds since admission with a weight of 232 pounds on 06/24
Continues with leukopenia and anemia
In rate controlled atrial fibrillation
If remains in A-fib might consider stopping amiodarone
Not ideal candidate for cardioversion at this point with severe hypoxia but could reconsider
Continue Mestinon for myasthenia.
Progress Note - Insulation Worker
Subjective
Date of Service: June 24, 2025
No complaints
Objective
Labs:
06/24/25 03:31
Labs
Hgb 8.5 g/dL (13.0-18.0) L 06/24/25 03:31
Hct 26.1 % (39.0-52.0) L 06/24/25 03:31
Plt Count 98 10^3/uL (130-400) L 06/24/25 03:31
PT 28.6 Sec (11.4-14.6) H 06/19/25 14:30
INR 2.64 06/19/25 14:30
APTT 70.5 Sec (23.4-35.0) H 06/19/25 14:30
Sodium 144 mmol/L (135-145) 06/24/25 03:31
Potassium 3.2 mmol/L (3.5-5.1) L 06/24/25 03:31
BUN 34 mg/dl (9-20) H 06/24/25 03:31
Creatinine 0.9 mg/dL (0.7-1.3) 06/24/25 03:31
Glucose 72 mg/dl (70-99) 06/24/25 03:31
Vital Signs and I&O:
Vital Signs
Temp Pulse Resp BP Pulse Ox
97.5 F 82 21 117/101 95
06/24/25 07:32 06/24/25 08:25 06/24/25 06:00 06/24/25 08:25 06/24/25 09:05
Vital Signs
Temp Pulse Resp BP Pulse Ox
97.5 F 82 21 117/101 95
06/24/25 07:32 06/24/25 08:25 06/24/25 06:00 06/24/25 08:25 06/24/25 09:05
Intake & Output
06/22/25 06/23/25 06/24/25 06/25/25
06:59 06:59 06:59 06:59
Intake Total 2511.9 / 2592.5 2239.1 / 2308.1 822.0 / 822.0 120 / 120
Output Total 3110 / 3110 1300 / 1300 825 / 825
Balance -598.1 / -517.5 939.1 / 1008.1 -3.0 / -3.0 120 / 120
Physical Exam
Physical Exam
General: Well developed, well nourished in NAD.
Neck: Supple, no JVD, HJR, carotids +2 B/L, no bruits bilaterally.
Heart: Non displaced PMI, irregular, no murmurs, No S3, S4, no rubs.
Lungs: Scattered rhonchi
Extremities: No clubbing, cyanosis or edema bilaterally.
Neuro: Grossly nonfocal, awake, alert and oriented x3.
--- NOTE | 2025-06-24 10:03 | WOUNDNOTE ---
[facility] RN note: Patient admitted with hypoxic respiratory failure. Patient lives with his .
See H&P for complete history.
PMH: chronic pancytopenia, a fib, Parkinson's, myasthenia gravis, HTN, CHF, kidney stones, renal insufficiency, R middle finger repair, L wrist surgery, L THR, R inguinal hernia repair, R knee surgery.
Wound Location and type/assessment: Patient developed upper and lower lip bruises suspect r/t low platelets and prior ETT, coccyx purple area suspect r/t pressure and low platelets (patient also was on 2 vasopressors which have recently been
discontinued) not sure is DTI vs stage 1. L buttocks red ecchymotic stage 1 pressure injury r/t rectal trumpet bedside drainage bag tubing sample port. Patient having frequent loose stools.
Appetite: just started on a diet. He had a good breakfast as per AGUSTO Toussaint. Patient appears cachectic with very bony prominences.
Pressure redistribution devices in place: Progressa air mattress. Air chair cushion.
Plan: TELEPHONE SOLICITORAGUSTO Saunders removed patient's rectal trumpet since patient in recliner chair after discussion with patient's nurse Breana. Patient's stool was leaking around rectal tube. Natalie care given and patient turned with help from AGUSTO Toussaint and
Nicky. Heels off bed with pillow and air chair cushion. Air chair cushion between knees and in recliner chair. Protective foam dressings changed on heels.
Will confirm orders with Dr. Ag. Discussed with AGUSTO Toussaint.
Care plan to be updated and will follow as needed.
Note to case management of equipment requested for discharge: Air mattress.
Recommend follow up at wound care center upon discharge.
--- NOTE | 2025-06-24 14:00 | PTCARENOTE ---
pt. worked w OT today; max x3 assisted to stand/pivot from chair to bed. Rectal trumpet removed upon transfer; megan hygiene provided. WOC RN to bedside while pt. in chair and wound dressings changed per orders. Tolerated chair position x4H.
Tolerated meals, appetite improving. S/P lunch pt. jesus lifted back to bed; repositioned per protocol. Pt.'s @ bedside, updated. BMp drawn and sent to lab; K+ resulted 3.4-> aware and received repletion orders- see MAR. Family remain @
bedside. Call beto sy w in reach.
[2025-06-24 14:13] LABS: Blood Urea Nitrogen 34 mg/dl (9-20); Calcium 7.7 mg/dl (8.4-10.2); Carbon Dioxide 31 mmol/L (22-30); Chloride 114 mmol/L (98-107); Estimated Creatinine Clearance 59 ml/min; Glucose 96 mg/dl (70-99); Potassium 3.4 mmol/L (3.5-5.1); Sodium 145 mmol/L (135-145); eGFR > 60.00
--- NOTE | 2025-06-24 14:30 | WOUNDNOTE ---
[facility] RN note: Updated Dr. Ag re: skin breakdown areas who approved local care. Care plan updated.
Patient is high risk for pressure injury despite preventative measures in place d/t overall medical condition.
[2025-06-24] MEDS: DUONEB 3 ML INH ×2 (16:01→20:33)
[2025-06-24] MEDS: LIPITOR 20 MG PO (16:56)
--- NOTE | 2025-06-24 17:14 | CM ---
Patient seen at bedside in ICU this am with physicians. patient in jesus lift sling in chair. Patient states that they have all of the needed DME at home and that he does not have home O2. Patient was able to stand and transfer per patient
. Patient had [facility] home [facility] in the past but may need SNF for supports per therapy recommendations. wanted to consider options. PAC data provided. CM will continue to follow for discharge planning needs.
Plan; SNF
[2025-06-24] MEDS: KLOR-CON 40 MEQ PO (17:45)
--- NOTE | 2025-06-24 18:18 | W.PN.HOSP.TC ---
Addendum entered and electronically signed by Keya Devlin MD 06/24/25 19:31:
I saw and evaluated the patient independently. I reviewed the resident�s note and agree with findings and plan as documented by Dr. Ag.
GENERAL: chronically ill appearing male in no apparent distress
HEENT: NC/AT--O2 NC [address]
HEART: regular rate and rhythm, +S1, +S2
LUNGS : rhonchi bilaterally with wet sounding cough
ABDOM: soft, nontender, nondistended, + bowel sounds
EXT: no cyanosis, clubbing, or edema
NEUROLOGIC: deconditioned
Acute hypoxic respiratory failure--likely from volume overload and Pseudomonas pneumonia--wean O2--intubated and now extubated--weak cough--cont diuresis, oral cipro--IS and add vest therapy--apprec pulm/cards--repeat pro BNP in AM
Suspect Acute on chronic HFpEF--Recheck proBNP
Paroxysmal Atrial Fibrillation--Continue Eliquis--consider stopping amiodarone if remains in A-fib and not ideal candidate for cardioversion at present as per cards
Pancytopenia with immunosuppression--Likely secondary to mycophenolate
Acute on chronic anemia--Status post blood transfusion 1 unit pRBC for HGB of 6.7--trend HGB
hypokalemia--replete
Myasthenia Gravis--Continue Cellcept
Parkinson's Disease--Continue Sinemet
Hyperlipidemia--Continue Statin
DVT proph-- Eliquis resumed
code status-- full code --started speaking with regarding progressive Parkinson's and feeding tubes, etc
Original Note:
Today's Communication/Plan
-
-Diet as per [employer]
- Continue flutter valve twice a day along with vest therapy
- PT/OT
- Speech Therapy
- Continue Ciprofloxacin 500 mg PO BID given Pseudomonas aeruginosa seen on right lower lobe BAL from 06/20/2025
.
Assessment / Plan
Assessment / Plan
Patient is a 79-year-old male with PMHx of paroxysmal atrial fibrillation on chronic Eliquis and amiodarone 100 mg daily, hypertension, aortic stenosis, hyperlipidemia, history of CVA, Parkinson's disease, bronchiectasis with cultures growing out
Pseudomonas in the past who was admitted to [facility] from 06/01 - 06/05/2025 and was treated for UTI as well as for CHF. CHF was felt to be new diagnosis, and patient was not on diuretic therapy prior to last admission. Patient received 2
doses of IV Lasix 40 mg daily and then became hypotensive prompting discontinuation of diuretic. He was not discharged on diuretic therapy. Echocardiogram showed preserved EF with moderate /AI and moderate TR. Patient presents back to [facility]
(06/19/2025) due to worsening shortness of breath particularly over the last 1 to 2 days per . She also notes patient has a persistent cough which has been chronic, however significantly worsened over the last 48 hours. She also notes that he
had lower extremity edema as well as left upper extremity swelling in the same timeframe. She does not note fevers or chills, but poor appetite. He was started on midodrine last admission for orthostasis, however per stopped taking as OP as
did not see noticeable difference in BPs. Patient's spouse also reports that lately sputum had been very foul-smelling, thick and dark in color. No reported fever or chills. Over the last couple of days patient has had significantly decreased p.o.
intake, lethargy and increasing lower extremity edema. Patient sleeps in a recliner and spouse is not aware of any orthopnea. No reported sick contacts. Patient has chronic bronchiectasis and excessive mucus production. Lately he has not been on
airway clearance measures. No reported diarrhea, hematemesis, hemoptysis, melena or hematochezia. Today, Patient denied any SOB but admitted to still suffering from his cough. Patient is unable to speak for most of the visit so his speaks on
his behalf.
Assessment and Plan:
Acute hypoxic respiratory failure
-Practice using incentive spirometer tool while utilizing 3-4 deep breaths each session.
Sever sepsis with acute Pneumonia as a source
-Ciprofloxacin 500 mg PO BID was started on 06/23/2025. Will continue with this Abx to treat PNA.
Suspect Acute on chronic HFpEF
Remains hypoxic on 4 L
Recheck proBNP
Continue antibiotics
In rate controlled A-fib and might consider stopping amiodarone if remains in A-fib and not ideal candidate for cardioversion at present
Paroxysmal Atril Fibrillation
-Continue Eliquis
Pancytopenia.
Likely secondary to mycophenolate
Improved
Acute on chronic anemia.
Status post blood transfusion
Stable
Myasthenia Gravis
Continue Cellcept
Parkinson's Disease
Continue Sinemet
Hyperlipidemia
Continue Statin
DVT prophylaxis. Eliquis resumed via G-tube
GI prophylaxis. IV Protonix
status full code
Anticipated Discharge: > 48 hours
Subjective/Interval History
-
Date of Service: June 24, 2025
Patient is a 79-year-old male with PMHx of paroxysmal atrial fibrillation on chronic Eliquis and amiodarone 100 mg daily, hypertension, aortic stenosis, hyperlipidemia, history of CVA, Parkinson's disease, bronchiectasis with cultures growing out
Pseudomonas in the past who was admitted to [facility] from 06/01 - 06/05/2025 and was treated for UTI as well as for CHF. CHF was felt to be new diagnosis, and patient was not on diuretic therapy prior to last admission. Patient received 2
doses of IV Lasix 40 mg daily and then became hypotensive prompting discontinuation of diuretic. He was not discharged on diuretic therapy. Echocardiogram showed preserved EF with moderate /AI and moderate TR. Patient presents back to [facility]
(06/19/2025) due to worsening shortness of breath particularly over the last 1 to 2 days per . She also notes patient has a persistent cough which has been chronic, however significantly worsened over the last 48 hours. She also notes that he
had lower extremity edema as well as left upper extremity swelling in the same timeframe. She does not note fevers or chills, but poor appetite. He was started on midodrine last admission for orthostasis, however per stopped taking as OP as
did not see noticeable difference in BPs. Patient's spouse also reports that lately sputum had been very foul-smelling, thick and dark in color. No reported fever or chills. Over the last couple of days patient has had significantly decreased p.o.
intake, lethargy and increasing lower extremity edema. Patient sleeps in a recliner and spouse is not aware of any orthopnea. No reported sick contacts. Patient has chronic bronchiectasis and excessive mucus production. Lately he has not been on
airway clearance measures. No reported diarrhea, hematemesis, hemoptysis, melena or hematochezia. Today, Patient denied any SOB but admitted to still suffering from his cough. Patient is unable to speak for most of the visit so his speaks on
his behalf.
Objective Data
-
Labs:
Laboratory Results
06/24/25
13:44
Sodium 145
Potassium 3.4 L
Chloride 114 H
Carbon Dioxide 31 H
BUN 34 H
Creatinine 0.9
Glucose 96
Calcium 7.7 L
Vital Signs:
Vital Signs
Temp Pulse Resp BP Pulse Ox
97.7 F 85 18 111/85 98
06/24/25 15:10 06/24/25 17:00 06/24/25 17:00 06/24/25 17:00 06/24/25 17:00
I&O
06/23/25 06/24/25 06/25/25
06:59 06:59 06:59
Intake Total 2239.1 / 2308.1 822.0 / 822.0 360 / 360
Output Total 1300 / 1300 825 / 825 750 / 750
Balance 939.1 / 1008.1 -3.0 / -3.0 -390 / -390
Chest X Ray (06/19/2025): Findings suggesting moderate diffuse right-sided pneumonia. (Progressed)Probable mild left lower lobe pneumonia. (Progressed) Mild cardiomegaly. (Stable)
Doppler of Bilateral Lower Extremity (06/19/2025): No evidence of deep venous thrombosis in the bilateral lower extremities
Abdominal X Ray (06/19/2025): OG tube projects over stomach.
Chest X Ray (06/20/2025): Bilateral opacities which base and part could represent pneumonia, without significant change.
Chest X Ray (06/21/2025): No significant change within the bilateral airspace opacities, likely pneumonia.
Review of Systems
-
History Source: Family ()
Constitutional: Reports Fatigue and Weakness
Respiratory: Reports Cough (Bibasilar Rhonchi)
Physical Exam
-
General: Appears in Distress, Appears Chronically Ill and Cachectic
Respiratory: Rhonchi (Bibasilar)
Psych: Anxious
Data Reviewed
-
CT Scan: Report Reviewed by me
Ultrasound: Report Reviewed by me
Labs: Labs Reviewed by me and Discussed with Physician
--- NOTE | 2025-06-24 18:29 | PTCARENOTE ---
Report given to IMU RN and pt. transported via bed on cardiac montior w belongings and /daughter. No further needs from this RN.
[2025-06-24] MEDS: SODIUM CHLORIDE 3% FOR INHALATION 1 VIAL INH (20:33)
--- NOTE | 2025-06-24 20:56 | VATNOTE ---
skin tear by this VAT RN as left forearm IV being removed. Optifoam applied and dated. PCN and pt's daughter aware.
--- NOTE | 2025-06-24 21:33 | PTCARENOTE ---
Assumed care of Pt from dayshift RN after change of shift report. Daughter at bedside visiting. pt is awake and responding to verbal stimulation, drowsy but able to verbalize name and . inc of urine, CC #30. Q2t maintained. assessment as
documented. call light in reach.
[2025-06-24] MEDS: MESTINON 30 MG PO (22:11)
[2025-06-24] MEDS: MELATONIN 3 MG TUBE (22:13)
[2025-06-24] MEDS: CELLCEPT 1000 MG PO (22:15)
[2025-06-24] MEDS: SEROQUEL 25 MG TUBE (22:32)
[2025-06-25] VITALS (18 sets, daily range): BP systolic 83–123; BP diastolic 55–104; PULSE 104; O2SAT 97; BMI 17.5
[2025-06-25 05:01] LABS: Venous Blood Gas B.E. 8.8 mmol/L (-4 to +4); Venous Blood Gas O2 Sat % 97.1 %
[2025-06-25 05:26] LABS: ALT (SGPT) 28 U/L (0-50); AST (SGOT) 42 U/L (17-59); Albumin 2.4 g/dl (3.5-5.0); Alkaline Phosphatase 66 U/L (38-126); Blood Urea Nitrogen 34 mg/dl (9-20); Calcium 7.9 mg/dl (8.4-10.2); Carbon Dioxide 31 mmol/L (22-30); Chloride 115 mmol/L (98-107); Estimated Creatinine Clearance 64 ml/min; Glucose 78 mg/dl (70-99); Magnesium 2.2 mg/dl (1.6-2.3); Potassium 3.7 mmol/L (3.5-5.1); Sodium 141 mmol/L (135-145); Total Protein 5.0 g/dl (6.3-8.2); eGFR > 60.00
[2025-06-25 05:37] LABS: Hematocrit 28.7 % (39.0-52.0); Hemoglobin 8.5 g/dL (13.0-18.0); Mean Corp Hgb Conc. 29.6 g/dL (33.0-37.0); Mean Corpuscular Volume 89.1 fL (80.0-94.0); Platelet Count 103 10^3/uL (130-400); Red Cell Dist. Width 16.7 % (11.5-14.5)
[2025-06-25 06:57] LABS: Nucleated Red Blood Cells % 0 % (-)
[2025-06-25] MEDS: DUONEB 3 ML INH (07:09)
[2025-06-25] MEDS: SODIUM CHLORIDE 3% FOR INHALATION 1 VIAL INH (07:09)
[2025-06-25] MEDS: CELLCEPT 1500 MG PO (08:50)
[2025-06-25] MEDS: ROBINUL 1 MG PO (08:51)
[2025-06-25] MEDS: FOLVITE 1 MG PO (08:51)
[2025-06-25] MEDS: ELIQUIS 5 MG PO (08:51)
[2025-06-25] MEDS: DELTASONE 7.5 MG PO (08:51)
[2025-06-25] MEDS: LEXAPRO 10 MG PO (08:52)
[2025-06-25] MEDS: ROBITUSSIN 200 MG PO (08:52)
[2025-06-25] MEDS: PREVACID 30 MG PO (08:52)
[2025-06-25] MEDS: MIRALAX 17 GRAMS PO (08:53)
[2025-06-25] MEDS: CIPRO 500 MG PO (08:53)
[2025-06-25] MEDS: MESTINON 90 MG PO (08:56)
[2025-06-25] MEDS: LASIX 40 MG PO (08:59)
[2025-06-25] MEDS: COREG 3.125 MG PO (08:59)
[2025-06-25] MEDS: SINEMET 25-100 2 TABLET PO (09:01)
--- NOTE | 2025-06-25 09:17 | W.PN.PUL3 ---
Today's Communication / Plan
-
Lethargic this AM, will add PAP therapy on nightly and PRN
Repeat proBNP, can hold lasix if no longer needed--met alkalosis noted on labs
Needing full assist to perform airway clearance, does not function well on his own
If patient is declining further post extubation, would discuss GOC with family, he is currently full code
Assessment
-
79 year old M presenting to for cough/SOB. Patient was discharged from the hospital about a month ago for volume overload, suspected heart failure exacerbation and pancytopenia. Patient was having complaints with rattling secretions in his
airway but was having difficulty clearing it up. Patient's spouse also reports that lately sputum had been very foul-smelling, thick and dark in color. No reported fever or chills. Over the last couple of days patient has had significantly
decreased p.o. intake, lethargy and increasing lower extremity edema. Was placed on BIPAP in ER for WOB/hypoxia, intubated 06/19. Admitted to ICU.
06/23 overview: Patient extubated to nasal cannula. Saturating 98% on 4 L supplemental oxygen. MAP of 74. Weaned off pressors. We are following on telemetry floor.
Acute hypoxic respiratory failure
Shock with Acute Pneumonia with h/o Chronic bronchiectasis - shock state resolved
Acute on chronic HFpEF
Lethargy
Pancytopenia, acute on chronic
Metabolic alkalosis
Conditions present prior to admission
Atrial fibrillation on anticoagulation
Hypertension/hyperlipidemia
Bronchiectasis without complication, follows with Dr Ramirez
status post bronchoscopy 10/01/24, positive Pseudomonas
Chronic L pleural effusion, with mild pleural thickening on CT, w/ RLD last TLC 84%, DLCO 55%
Mild aortic stenosis, valve area 1.8 cm� per Echo 01/26/21, now moderate (1.3 cm2)
Parkinson's disease
Myasthenia gravis on chronic immunosuppressant (prednisone, mycophenolate)
On pyridostigmine, followed by [facility] neurology
Chronic aspiration
GERD
Orthostatic hypotension. Chronically on midodrine
History of TIA/CVA
Chronic pancytopenia
Chronic kidney disease (CKD), stage III
tonsillectomy(8)
repair of middle finger left hand 1981
left wrist surgery 2015
L TKR 01/2021
open right inguinal hernia repair w/ mesh (Pellini)
DH Admit femur fracture 09/01/23
Plan
Acute hypoxic respiratory failure - S/p trial of BiPAP in emergency room, subsequently intubated and mechanically ventilated, 06/19 > Extubated 06/22
Suspect respiratory failure is multifactorial, primarily related to excessive respiratory secretions, pneumonia with underlying bronchiectasis, volume overload as well as neuromuscular weakness due to myasthenia gravis and parkinsonism
Continue nasal cannula, weaning down as tolerated while keeping SpO2 >90-94%
Continue aggressive pulmonary toilet
Continue PAP nightly and PRN
Possible PNA
Worsening right lower lobe consolidation noted on imaging. Patient has chronically consolidated lower lobes (L>R). Previous CT images from May as well as February 2025 suggestive of chronically consolidated lower lobes with bronchiectatic changes
- Reported increased difficulty expectorating lately with large volume sputum production prior to admission
- History of chronic pseudomonal colonization. Patient also immunocompromised with chronic steroid and mycophenolate use
- 06/20, bronchoscopy performed, BAL performed at right lower lobe. Pseudomonas noted on tracheal aspirate and BAL
- Vancomycin discontinued, has been receiving Zosyn so far, transition to ciprofloxacin twice a day. Need to complete 14 days of antibiotic therapy.
- Continue nebulized hypertonic 3% saline,along with DuoNebs BID. Mucinex p.o. Sports bed for chest percussion. Continue flutter valve and vest therapy twice a day. Stressed the need for ongoing airway clearance particularly with underlying
bronchiectasis and neuromuscular weakness
- Excessive oral secretions, suspect related to Mestinon, significantly improved since glycopyrrolate 1 mg p.o. twice daily was started. Continue current therapy
- Intermittently required phenylephrine for hypotension, has remained off all pressors
Acute on chronic HFpEF- Patient has significantly elevated BNP, bilateral pedal edema as well as chest x-ray suggestive of pulmonary edema. Also reported history of moderate aortic stenosis.
- Has been on IV Lasix, now transitioned to 40mg PO once daily
- Cardiology service on case
Repeat proBNP, can likely stop lasix if not needed
Pulmonary HTN- Echocardiogram on 06/03/2025, pulmonary artery systolic pressure around 50mmHg (stable c/t prior echo in Oct 2024), moderate tricuspid regurgitation noted.
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 Might have component of group III as well considering underlying mild obstructive airway disease, chronic
bronchiectasis.
Paroxysmal Atrial Fibrillation- Chronically anticoagulated with Eliquis
- Continue with Coreg, monitor for bradycardia as he required epinephrine infusion recently while here in the ICU; epinephrine drip has remained off since AM of 06/22
- Midodrine resumed; continue Mestinon
At risk for SDB if there is snoring
Recommend outpatient sleep study
History of myasthenia gravis and parkinsonism
- After intubation, Placed OG tube and resumed oral medications for myasthenia gravis as well as parkinsonism
- Continue Sinemet, pyridostigmine
- Prednisone switched to stress dose of hydrocortisone, 50 mg IV every 6h (started 06/19 and completed on 06/23). Home dose is 12.5 mg every other day-> now on 7.5 mg daily of since 06/23
- Continue CellCept
- Extubated 06/22
- Diet as per DATA SECURITY ADMINISTRATOR
Pancytopenia - Reviewed hematology evaluation during last visit.
[place] to be multifactorial related to illness, chronic inflammation, medications (particularly steroids), mycophenolate.
Also concern for bone marrow disorder including MDS.
Continue to transfuse as needed to maintain Hb >7-8 g/dL, and keep platelets >10�20k
DVT prophylaxis. Eliquis
GI prophylaxis. N/A --> will resume PO PPI as he takes this at home
Remains full code, may need GOC discussions if declining post extubation
Data:
CXR 06/2025: Findings suggesting moderate diffuse right-sided pneumonia. Progressed. Probable mild left lower lobe pneumonia. Progressed. Mild cardiomegaly. Stable
ECHO 05/2025: 1. Ejection fraction is 55-60% by visual assessment.
2. Small pericardial effusion is seen.
3. Compared to a prior transthoracic echocardiogram study from October 2024 no significant changes are seen.
4. Thickened calcified trileaflet aortic valve with decreased leaflet excursion. Moderate aortic stenosis with mean pressure gradient of 25 mmHg. Using an left ventricular outflow tract diameter of 2.0 cm., the STEPHY = 1.3 cm2. Mild to moderate
aortic insufficiency.
5. Mild concentric left ventricular hypertrophy.
6. Moderate tricuspid regurgitation. Estimated pulmonary artery pressure of 50 mmHg assuming a right atrial pressure of [address] Chest 02/2025: Trace bilateral pleural effusions. Re-demonstration of confluent consolidation within the bilateral lower lobes, progressed. Patchy subpleural tree-in-bud/groundglass nodules throughout the lower lung zones bilaterally, right
greater than left. No pericardial effusions or enlarged lymph nodes in the thorax. Nondisplaced lateral right seventh rib fracture. Old left rib deformities.
Bronchoscopy 09/2024: Copious, bilateral exudates noted throughout the tracheobronchial tree. BAL performed. Pansensitive Pseudomonas and Layla noted on bronchioloalveolar lavage.
Spirometry 03/2023: Mild obstruction noted. Normal lung volumes. Mild diffusion impairment. FEV1 of 92% predicted.
Total time spent today was 53 minutes for this encounter. Time includes reviewing laboratory test/imaging results, reviewing pertinent medical records, obtaining and reviewing medical history, performing an appropriate exam, ordering medications,
tests and procedures. Time also includes documentation of this encounter, coordinating patient care and communicating with other healthcare professionals. Total time does not include separately billed tests performed on this date of service.
Subjective Data
-
Date of Service:
Date of Service: June 25, 2025
Chief Complaint: Pulmonary Follow Up
Subjective:
In bed, lethargic/not responsive
Remains on low supplemental o2
Full assist needed for care
Objective Data
Data Reviewed
Vital Signs / I&O / Oxygen:
Vital Signs
Temp Pulse Resp BP Pulse Ox
99.8 F 97 14 90/77 97
06/25/25 07:35 06/25/25 08:59 06/25/25 07:11 06/25/25 08:59 06/25/25 07:11
Intake and Output
06/24/25 06/25/25 06/26/25
06:59 06:59 06:59
Intake Total 822.0 / 822.0 360 / 360
Output Total 825 / 825 1300 / 1300
Balance -3.0 / -3.0 -940 / -940
SaO2 [ASV] 100
SaO2 [CPAP/PSV] 98
SaO2 [A/C] 98
SaO2 97
Nasal Cannula flow liters per 2
minute
Physical Exam
General: Poor Appetite and Other (chronically ill appearing, minimally responsive)
HEENT: Normocephalic, Anicteric and Other (dry MM, mouth open)
Cardiovascular: S1-S2 and Regular Rhythm
Respiratory: Clear (decreased overall) and Non-Labored Respirations
GI: Soft, Non Distended and Non Tender
Neurology: Lethargic and Non Verbal (not responding much at this time)
Skin: Warm and Dry
Labs/Micro/Reports
Lab Data
06/25/25 04:45
06/25/25 04:45
Microbiology
06/19/25 15:42 Blood/Venous Blood Culture - Final
No Growth - Final Report
--- NOTE | 2025-06-25 09:49 | PN.CDI ---
CDI
- -
CDI:
Physician Documentation Request
Admit Date: 06/19/25 16:21
Dear Doctor Claus/Resident,
Please review the following and provide your response in the progress notes.
Clinical Indicators:
Pt admitted with Acute on Chronic HFpEF/PNA pt on IV Zosyn/Acute hypoxic Respiratory Failure currently on ventilator
Documented per WOCN note 06/24, ' ...coccyx purple area suspect r/t pressure and low platelets (patient also was on 2 vasopressors which have recently been discontinued) not sure is DTI vs stage 1. L buttocks red ecchymotic stage 1 pressure injury
r/t rectal trumpet bedside drainage bag tubing sample port....Pressure redistribution devices in place: Progress air mattress. Air chair cushion....'
Physician documentation of the type and location of wounds is required for compliant documentation. Based on the above clinical findings and your assessment, please provide the following in your progress note:
1. Location of the ulcer/wound, including laterality.
2. Type (etiology) of ulcer/wound:
- Pressure (decubitus) ulcer
- Non-pressure ulcer
- Other ( please specify)
Use of terms such as suspected, likely, concern for, or probable (associated with a specific diagnosis that is being evaluated, monitored, or treated as if it exists) are acceptable and can be coded in the inpatient setting, when documented at the
time of discharge.
Thank you,
Breonna Zendejas RN
CDI Specialist
[facility]
Please use your independent medical judgment in providing your response.
*Source: National Pressure Ulcer Advisory Panel (NPUAP)
--- NOTE | 2025-06-25 11:36 | CON.ID ---
Consultation
-
Date/Time Consultation Requested: 06/25/2025 0834
Date/Time Consultation Performed: 06/25/2025 1137
Requesting Provider: Dr. Ag
Performing Provider: Dr. Wolfe
Reason for Consultation: Pneumonia
Chief Complaint / Past History
History of Present Illness
Nils Segura is a 79-year-old man with a significant past medical history of Parkinson's disease and myasthenia gravis being evaluated regarding positive sputum culture for Pseudomonas aeruginosa. History is obtained from chart review alone, as
the patient could not provide any meaningful history to me.
The patient initially presented to the ER on 06/19/2025 with shortness of breath and hypoxemia. Despite being placed on CPAP he continued to have respiratory decompensation and ultimately was intubated and admitted to the ICU. Per reviewed history
over the prior 2 days before admission he had developed a worsening cough, along with decreased appetite. He additionally had progressive lower extremity swelling.
Respiratory status improved, and the patient was extubated yesterday. Chest imaging revealed a worsening right lower lobe consolidation on top of a chronic infiltrate in the area. Bronchoscopy had been performed on 06/10, and Pseudomonas was
recovered. At this time the patient has been transition to oral ciprofloxacin.
Past History
Additional Past Medical History:
A-fib
Hx CVA
GERD
HTN
HLD
Valvular disease
Anxiety
Parkinson's disease
Myasthenia gravis
Diverticulitis
Nephrolithiasis
Vertigo
Orthostatic hypotension
Allergy History:
cephalexin Allergy (Verified 06/19/25 15:41)
ItchingAND REDNESS; tolerated piperacillin-tazobactam
haloperidol (From Haldol) Allergy (Verified 06/19/25 14:10)
hallucinations
lorazepam (From Ativan) Allergy (Verified 06/19/25 14:10)
hallucinations
Medications Reviewed: Yes
Current Antibiotics:
Ciprofloxacin 500 mg p.o. BID
Social History
Tobacco: Non-Smoker
Alcohol: Occasional
Drug: None
Personal:
Living: With Family
Employment: Retired
Family History
Family History: Not Pertinent
Review of Systems
Vital Signs
Temp Pulse Resp BP Pulse Ox
99.8 F 97 14 90/77 93
06/25/25 07:35 06/25/25 08:59 06/25/25 07:11 06/25/25 08:59 06/25/25 09:49
Physical Exam
Physical Exam
Constitutional: Comfortable, Chronically Ill, Non-toxic and Cachetic (mild-mod)
Head: Normocephalic
Eyes: Pupils Equal, Pupils Round, No Conjunctival Hemorrhage and Sclera Anicteric
Oral: No Thrush and No Ulcers
Cardiovascular: Irregular Rate and S1/S2; Negative S3/S4
Pulmonary: Rhonchi (Scattered; poor effort), Coarse and Non Labored
Gastrointestinal: Soft, Non Tender and Non Distended
Genito-Urinary: Cade and Clear Urine; Negative Turbid Urine
Extremities: Edema (1+ bilateral lower extremities); Negative Erythema
Skin: Negative Rash or Jaundice
Neurological: Other (Arousable; responsive to voice and touch.)
Lab / Diagnostic Study Results
06/25/25 04:45
06/25/25 04:45
Abs Immat Gran (auto) 0.0 10^3/uL (0-0.05) 06/25/25 04:45
Absolute Neuts (auto) 0.9 10^3/uL (1.4-6.5) L* 06/25/25 04:45
Absolute Lymphs (auto) 0.2 10^3/uL (1.2-3.4) L 06/25/25 04:45
Absolute Monos (auto) 0.1 10^3/uL (0.1-0.6) 06/25/25 04:45
Absolute Basos (auto) 0.0 10^3/uL (0-0.2) 06/25/25 04:45
Total Counted 100 06/19/25 14:30
Immature Gran % 0.9 % (0-0.5) H 06/25/25 04:45
Neutrophils % 74.5 % (42.2-75.2) 06/25/25 04:45
Lymphocytes % 16.7 % (20.5-51.1) L 06/25/25 04:45
Monocytes % 7.0 % (1.7-9.3) 06/25/25 04:45
Eosinophils % 0.9 % (0-6) 06/25/25 04:45
Basophils % 0.0 % (0-2) 06/25/25 04:45
Abs Neuts (Manual) 1.4 10^3/uL (1.4-6.5) 06/19/25 14:30
Segmented Neutrophils 68 % (42-75) 06/19/25 14:30
Band Neutrophils 15 % (0-3) H 06/19/25 14:30
Lymphocytes (Manual) 6 % (20-51) L 06/19/25 14:30
Eosinophils (Manual) 1 % (0-6) 06/19/25 14:30
PT 28.6 Sec (11.4-14.6) H 06/19/25 14:30
INR 2.64 06/19/25 14:30
Procalcitonin 0.91 ng/ml (0.0-0.25) H 06/19/25 16:08
Microbiology Results
Micro:
06/19/25 15:42 Blood Culture - Final
Blood/Venous No Growth - Final Report
06/20/25 08:25 Respiratory Culture - Final
Bronch Right Lower Lobe Pseudomonas aeruginosa
Gram Stain - Final
06/19/25 16:08 Respiratory Culture - Final
Sputum - Induced Pseudomonas aeruginosa
Pseudomonas aeruginosa#2
Gram Stain - Final
06/20/25 08:25 Legionella Urinary Antigen - Final
Urine Negative for Legionella pneumophila Serogroup 1 antigen.
A negative result does not rule out the possiblity of
Legionella infection due to other serogroups or species of
Legionella. Clinical correlation is recommended.
Streptococcus pneumoniae Antigen (M - Final
Negative for Streptococcus pneumoniae antigen.
A negative result does not exclude infection with
Streptococcus pneumoniae. Clinical correlation is
recommended.
06/20/25 08:25 Nasal Screen MRSA (PCR) - Final
Nose MRSA not detected - performed by PCR methodology.
06/19/25 15:42 Influenza Types A & B (LIVIER) - Final
Nasal Swab Negative for Influenza A & B, NAAT
Negative results must be combined with clinical observations
and patient history.
Nucleic Acid Amplification test (NAAT)performed on the
[employer] platform.
Imaging:
06/21/2025 CXR (portable): stable appearance of support lines and tubes. The airspace opacities projecting over the right mid/lower lung and left lower lung are similar in appearance to prior. No pleural effusion or pneumothorax. See full
dictation for additional detail. Film personally viewed.
Assessment / Plan
Acute on chronic pulmonary infiltrates
Hx bronchiectasis
Pseudomonas sputum
Neutropenia
Immunosuppression (on mycophenolate)
A-fib
Hx CVA
GERD
HTN
HLD
Valvular disease
Anxiety
Parkinson's disease
Myasthenia gravis
Diverticulitis
Nephrolithiasis
Vertigo
Orthostatic hypotension
Recommendations:
Continue with ciprofloxacin for the present (d#7 abx tx). Would complete a 14-day course in total.
Follow white count and temperature curve.
Continue with supportive measures.
Care Review
Plan reviewed with: Physician (Hospitalist)
[2025-06-25] MEDS: NSS 500 IV (12:11)
--- NOTE | 2025-06-25 13:15 | PTCARENOTE ---
Addendum entered by Kush Hill RN 06/25/25 13:21:
at the moment in time MD Devlin would like for pt to remain NPO. all noon and 1300 meds held until further instruction.
Original Note:
This Rn returning from stat CT of head. per hospitalist ; pt seamed altered mentally compared to yesterday upon her exam. This AM pt was Drowsy but able to interact with Rn, following directions and answering yes/no question. pt was able to
tolerate care provided, complete assistance with breakfast, which he had no trouble getting down, tolerated PO med pass this Am after which he fell asleep. pts son at the bedside at this time. updated on current condition. plan of care continues
to be followed. awaiting ct read.
[2025-06-25] MEDS: VITAMIN B-12 PO (13:20)
[2025-06-25] MEDS: MESTINON PO ×3 (13:20→22:21)
[2025-06-25] MEDS: SINEMET 25-100 PO ×2 (13:20→15:50)
[2025-06-25] MEDS: ROBITUSSIN PO ×3 (13:21→22:21)
[2025-06-25] MEDS: NSS 1000 IV (13:28)
--- NOTE | 2025-06-25 14:46 | W.PN.CARDCBS ---
Today's Communication / Plan
-
Workup for change in mental status, possible aspiration
Head CT and chest x-ray pending
Aspiration precautions
Will need to address CODE STATUS
Impression / Plan
-
[facility] Access Rn: Dr. Santos
Assessment:
Presentation with SOB
PNA
Acute diastolic CHF
Hypotension
Pancytopenia
Admission to 06/01 - 06/05/2025 for UTI, CHF
Sinus bradycardia
Paroxysmal atrial fibrillation
Chronic amiodarone therapy
Chronic Eliquis therapy
Aortic stenosis/insufficiency by echo 06/03/25
History of hypertension
Hyperlipidemia
History of CVA
History of intermittent hematuria
Parkinson's disease
Myasthenia gravis
Bronchiectasis with prior Pseudomonas infection
Hypoalbuminemia
ECHO 10/17/24: EF 55 to 60%, no regional wall motion abnormalities noted, stage II diastolic dysfunction, MAC, moderate MR, moderate with peak/mean gradients 47/30 mmHg, STEPHY 1.3 cm�, moderate TR, PAP 45 mmHg, small pericardial effusion
Echo 06/03/2025: EF 55 to 60%, small pericardial effusion, moderate , mean gradient 25 mmHg, STEPHY 1.3 cm�, mild to moderate AI, mild MR, moderate TR, PAP 58 mmHg, no significant change compared to echo 10/2024
Plan:
Per hospitalist, mental status has changed And he has now not conversant following breakfast provided to him by nursing staff this morning, ? aspiration event
Chest x-ray and CT of the head ordered by hospitalist
He remains on 4 L of oxygen
Volume status is overall difficult. Patient appears dry however proBNP is worse now at 12,200.
Weight is down 14 pounds since admission with a weight of 232 pounds on 06/24
Continue treatment for pneumonia; pulmonary following
Continues with leukopenia and anemia; ID following
Remains in rate controlled atrial fibrillation
- Await head CT -for now continue anticoagulation
- Given current mental status would start n.p.o. status
- No plans for cardioversion
Continue Mestinon for myasthenia.
Patient is currently full code�will need to be addressed with primary service
Progress Note - Access Rn
Subjective
Date of Service: June 25, 2025
Patient seen and examined with nursing at bedside and discussed case with hospitalist. Early afternoon after breakfast not responsive or talkative; not responding to commands.
Objective
Labs:
06/25/25 04:45
06/25/25 04:45
Labs
Hgb 8.5 g/dL (13.0-18.0) L 06/25/25 04:45
Hct 28.7 % (39.0-52.0) L 06/25/25 04:45
Plt Count 103 10^3/uL (130-400) L 06/25/25 04:45
PT 28.6 Sec (11.4-14.6) H 06/19/25 14:30
INR 2.64 06/19/25 14:30
APTT 70.5 Sec (23.4-35.0) H 06/19/25 14:30
Sodium 141 mmol/L (135-145) 06/25/25 04:45
Potassium 3.7 mmol/L (3.5-5.1) 06/25/25 04:45
BUN 34 mg/dl (9-20) H 06/25/25 04:45
Creatinine 0.8 mg/dL (0.7-1.3) 06/25/25 04:45
Glucose 78 mg/dl (70-99) 06/25/25 04:45
Vital Signs and I&O:
Vital Signs
Temp Pulse Resp BP Pulse Ox
98.2 F 98 22 108/85 96
06/25/25 13:07 06/25/25 14:00 06/25/25 14:00 06/25/25 14:00 06/25/25 14:00
Vital Signs
Temp Pulse Resp BP Pulse Ox
98.2 F 98 22 108/85 96
06/25/25 13:07 06/25/25 14:00 06/25/25 14:00 06/25/25 14:00 06/25/25 14:00
Intake & Output
06/23/25 06/24/25 06/25/25 06/26/25
06:59 06:59 06:59 06:59
Intake Total 2239.1 / 2308.1 822.0 / 822.0 360 / 360 560 / 560
Output Total 1300 / 1300 825 / 825 1300 / 1300 800 / 800
Balance 939.1 / 1008.1 -3.0 / -3.0 -940 / -940 -240 / -240
Physical Exam
Physical Exam
General: Nasal cannula O2. Mouth breathing and not following commands
Heart: Irregularly irregular. Positive S1-S2. 1 out of 6 systolic murmur
Lungs: Overall poor effort. Decreased breath sounds throughout with scattered rhonchi. He has a wet, weak cough
Extremities: No
[2025-06-25] MEDS: LIPITOR PO (15:50)
--- NOTE | 2025-06-25 17:50 | CM ---
Patient seen at bedside with and physicians. Patient for further medical work up. CM will continue to follow for discharge planning needs.
Plan; SNF
--- NOTE | 2025-06-25 17:51 | W.PN.HOSP.TC ---
Addendum entered and electronically signed by Keya Devlin MD 06/25/25 18:35:
I saw and evaluated the patient independently. I reviewed and discussed the resident�s note and agree with findings and plan as documented by Dr. Ag.
GENERAL: chronically ill appearing male in no apparent distress--this a.m., change in mental status--patient unable to speak to me, follows minimal commands (yesterday was talking and sitting in the chair)
HEENT: NC/AT--O2 NC in place
HEART: regular rate and rhythm, +S1, +S2
LUNGS : rhonchi bilaterally with wet sounding cough
ABDOM: soft, nontender, nondistended, + bowel sounds
EXT: no cyanosis, clubbing, or edema
NEUROLOGIC: deconditioned
Acute change in mental status--patient clearly different today from yesterday--spoke with who states that he CAN do this especially in the afternoons if he is getting tired--he was working with PT when we rounded again but still not like
yesterday--stat head CT was negative, CXR without change--unclear if patient had aspiration event versus stroke--Will obtain MRI of the brain
Acute hypoxic respiratory failure--likely from volume overload and Pseudomonas pneumonia--wean O2--intubated and now extubated--weak cough--cont diuresis, oral cipro--IS and add vest therapy--apprec pulm/cards--repeat pro BNP 12, 200 but pt now NPO
for possible aspiration event--will start gentle IVF--ongoing speech evals--apprec ID input--cont cipro for now
Suspect Acute on chronic HFpEF--apprec cards--weights down 14 lbs since admission
Paroxysmal Atrial Fibrillation--Continue Eliquis--consider stopping amiodarone if remains in A-fib and not ideal candidate for cardioversion at present as per cards
Pancytopenia with immunosuppression--Likely secondary to mycophenolate
Acute on chronic anemia--Status post blood transfusion 1 unit pRBC for HGB of 6.7--trend HGB
hypokalemia--replete
Myasthenia Gravis--Continue Cellcept
Parkinson's Disease--Continue Sinemet
Hyperlipidemia--Continue Statin
Wound--POA--purple area on coccyx suspect due to pressure injury as well as thrombocytopenia--could be deep tissue injury versus a stage I pressure injury--left buttock also red with an ecchymotic stage I pressure injury
DVT proph-- Eliquis resumed
code status-- full code --started speaking with regarding progressive Parkinson's and feeding tubes, etc--spoke again with patient's today regarding full CODE STATUS--she would like us to 'try one time' for resuscitative efforts so remains
full code, although did describe that towards the end, hospitalizations get longer in time between hospitalizations get shorter (this is his third visit since February)
Original Note:
Today's Communication/Plan
-
-Diet as per ASSISTED LIVING COORDINATOR
- Continue flutter valve twice a day along with vest therapy
- PT/OT
- Speech Therapy
- Continue Ciprofloxacin 500 mg PO BID given Pseudomonas aeruginosa seen on right lower lobe BAL from 06/20/2025
.
Assessment / Plan
Assessment / Plan
Patient is a 79-year-old male with PMHx of paroxysmal atrial fibrillation on chronic Eliquis and amiodarone 100 mg daily, hypertension, aortic stenosis, hyperlipidemia, history of CVA, Parkinson's disease, bronchiectasis with cultures growing out
Pseudomonas in the past who was admitted to [facility] from 06/01 - 06/05/2025 and was treated for UTI as well as for CHF. CHF was felt to be new diagnosis, and patient was not on diuretic therapy prior to last admission. Patient received 2
doses of IV Lasix 40 mg daily and then became hypotensive prompting discontinuation of diuretic. He was not discharged on diuretic therapy. Echocardiogram showed preserved EF with moderate /AI and moderate TR. Patient presents back to [facility]
(06/19/2025) due to worsening shortness of breath particularly over the last 1 to 2 days per . She also notes patient has a persistent cough which has been chronic, however significantly worsened over the last 48 hours. She also notes that he
had lower extremity edema as well as left upper extremity swelling in the same timeframe. She does not note fevers or chills, but poor appetite. He was started on midodrine last admission for orthostasis, however per stopped taking as OP as
did not see noticeable difference in BPs. Patient's spouse also reports that lately sputum had been very foul-smelling, thick and dark in color. No reported fever or chills. Over the last couple of days patient has had significantly decreased p.o.
intake, lethargy and increasing lower extremity edema. Patient sleeps in a recliner and spouse is not aware of any orthopnea. No reported sick contacts. Patient has chronic bronchiectasis and excessive mucus production. Lately he has not been on
airway clearance measures. No reported diarrhea, hematemesis, hemoptysis, melena or hematochezia.Patient denied any SOB but admitted to still suffering from his cough. Patient is unable to speak for most of the visit so his speaks on his
behalf. Today, patient had minimal response during morning interaction. As per his nurse, he had just eaten and seemed to be getting tired. Patient did not respond to any questions during the morning visit. Later in the afternoon, he was much less
obtunded and more responsive while PT was doing their assessment. His spoke with the team worrying about his recent labs work and worsening parkinsonism symptoms.
Assessment and Plan:
Acute hypoxic respiratory failure
May have aspirated on food earlier. Keep NPO until speech therapy ordered.
Put on standing fluids (NS at 100) - Reduced to (NSS at 60).
Carvedilol was stopped because patient became bradycardic.
Head CT: Negative
Brain MRI w/ or w/o IV Contrast to rule out stroke
Within 24 hours, MRI of Brain is more sensitive than Head CT.
Speech therapy ordered
PT/OT Ordered
Patients stated that she would prefer if her was at least resuscitated once in case of an emergency.
Sever sepsis with acute Pneumonia as a source
Ciprofloxacin 500 mg PO BID was started on 06/23/2025. Will continue with this Abx to treat PNA.
Repeat Chest X Ray ordered
Suspect Acute on chronic HFpEFL
proBNP increased from 7180 (06/19/2025) to 08733 (06/25/2025)
Continue antibiotics
In rate controlled A-fib and might consider stopping amiodarone if remains in A-fib and not ideal candidate for cardioversion at present
Paroxysmal Atril Fibrillation
-Continue Eliquis
Pancytopenia.
Likely secondary to mycophenolate
Neutropenia worsening- put in CDI precautions.
Acute on chronic anemia.
Status post blood transfusion
Stable
Myasthenia Gravis
Continue Cellcept
Parkinson's Disease
Continue Sinemet
Hyperlipidemia
Continue Statin
DVT prophylaxis. Eliquis resumed via G-tube
GI prophylaxis. IV Protonix
status full code
Anticipated Discharge: > 48 hours
Subjective/Interval History
-
Date of Service: June 25, 2025
Patient is a 79-year-old male with PMHx of paroxysmal atrial fibrillation on chronic Eliquis and amiodarone 100 mg daily, hypertension, aortic stenosis, hyperlipidemia, history of CVA, Parkinson's disease, bronchiectasis with cultures growing out
Pseudomonas in the past who was admitted to [facility] from 06/01 - 06/05/2025 and was treated for UTI as well as for CHF. CHF was felt to be new diagnosis, and patient was not on diuretic therapy prior to last admission. Patient received 2
doses of IV Lasix 40 mg daily and then became hypotensive prompting discontinuation of diuretic. He was not discharged on diuretic therapy. Echocardiogram showed preserved EF with moderate /AI and moderate TR. Patient presents back to [facility]
(06/19/2025) due to worsening shortness of breath particularly over the last 1 to 2 days per . She also notes patient has a persistent cough which has been chronic, however significantly worsened over the last 48 hours. She also notes that he
had lower extremity edema as well as left upper extremity swelling in the same timeframe. She does not note fevers or chills, but poor appetite. He was started on midodrine last admission for orthostasis, however per stopped taking as OP as
did not see noticeable difference in BPs. Patient's spouse also reports that lately sputum had been very foul-smelling, thick and dark in color. No reported fever or chills. Over the last couple of days patient has had significantly decreased p.o.
intake, lethargy and increasing lower extremity edema. Patient sleeps in a recliner and spouse is not aware of any orthopnea. No reported sick contacts. Patient has chronic bronchiectasis and excessive mucus production. Lately he has not been on
airway clearance measures. No reported diarrhea, hematemesis, hemoptysis, melena or hematochezia.Patient denied any SOB but admitted to still suffering from his cough. Patient is unable to speak for most of the visit so his speaks on his
behalf. Today, patient had minimal response during morning interaction. As per his nurse, he had just eaten and seemed to be getting tired. Patient did not respond to any questions during the morning visit. Later in the afternoon, he was much less
obtunded and more responsive while PT was doing their assessment. His spoke with the team worrying about his recent labs work and worsening parkinsonism symptoms.
Objective Data
-
Labs:
Microbiology Results - Entire Visit
06/19/25 15:42 Blood/Venous Blood Culture - Final
No Growth - Final Report
06/20/25 08:25 Bronch Right Lower Lobe Respiratory Culture - Final
Pseudomonas aeruginosa
06/20/25 08:25 Bronch Right Lower Lobe Gram Stain - Final
06/19/25 16:08 Sputum - Induced Respiratory Culture - Final
Pseudomonas aeruginosa
Pseudomonas aeruginosa#2
06/19/25 16:08 Sputum - Induced Gram Stain - Final
06/20/25 08:25 Urine Legionella Urinary Antigen - Final
Negative for Legionella pneumophila Serogroup 1 antigen.
A negative result does not rule out the possiblity of
Legionella infection due to other serogroups or species of
Legionella. Clinical correlation is recommended.
06/20/25 08:25 Urine Streptococcus pneumoniae Antigen (M - Final
Negative for Streptococcus pneumoniae antigen.
A negative result does not exclude infection with
Streptococcus pneumoniae. Clinical correlation is
recommended.
06/20/25 08:25 Nose Nasal Screen MRSA (PCR) - Final
MRSA not detected - performed by PCR methodology.
06/19/25 15:42 Nasal Swab Influenza Types A & B (LIVIER) - Final
Negative for Influenza A & B, NAAT
Negative results must be combined with clinical observations
and patient history.
Nucleic Acid Amplification test (NAAT)performed on the
[employer] platform.
Hematology and Coagulation - Last 24 hours
06/25/25 Range/Units
04:45
WBC 1.1 L* (4.8-10.8) 10^3/uL
RBC 3.22 L (4.70-6.10) 10^6/uL
Hgb 8.5 L (13.0-18.0) g/dL
Hct 28.7 L (39.0-52.0) %
MCV 89.1 (80.0-94.0) fL
MCH 26.4 L (27.0-31.0) pg
MCHC 29.6 L (33.0-37.0) g/dL
RDW 16.7 H (11.5-14.5) %
Plt Count 103 L (130-400) 10^3/uL
MPV 11.1 H (7.4-10.4) fL
Abs Immat Gran (auto) 0.0 (0-0.05) 10^3/uL
Absolute Neuts (auto) 0.9 L* (1.4-6.5) 10^3/uL
Absolute Lymphs (auto) 0.2 L (1.2-3.4) 10^3/uL
Absolute Monos (auto) 0.1 (0.1-0.6) 10^3/uL
Absolute Eos (auto) 0.0 (0-0.7) 10^3/uL
Absolute Basos (auto) 0.0 (0-0.2) 10^3/uL
Immature Gran % 0.9 H (0-0.5) %
Neutrophils % 74.5 (42.2-75.2) %
Lymphocytes % 16.7 L (20.5-51.1) %
Monocytes % 7.0 (1.7-9.3) %
Eosinophils % 0.9 (0-6) %
Basophils % 0.0 (0-2) %
Nucleated RBC % 0 (-) %
Blood Gas and Chemistry - Last 24 hours
06/25/25 06/25/25 Range/Units
04:45 12:08
VBG pH 7.50 H (7.32-7.43)
VBG pCO2 42 (35-48) mmHg
VBG pO2 176 H (30-50) mmHg
VBG HCO3 32.8 H (22-27) mmol/L
VBG O2 Sat (Babatunde) 97.1 %
VBG Base Excess 8.8 (-4 to +4) mmol/L
VBG O2 Therapy
Sodium 141 (135-145) mmol/L
Potassium 3.7 (3.5-5.1) mmol/L
Chloride 115 H (98-107) mmol/L
Carbon Dioxide 31 H (22-30) mmol/L
BUN 34 H (9-20) mg/dl
Creatinine 0.8 (0.7-1.3) mg/dL
Estimated Creat Clear 64 ml/min
eGFR > 60.00
Glucose 78 (70-99) mg/dl
Calcium 7.9 L (8.4-10.2) mg/dl
Phosphorus 3.0 (2.5-4.5) mg/dl
Magnesium 2.2 (1.6-2.3) mg/dl
Total Bilirubin 1.3 (0.2-1.3) mg/dl
AST 42 (17-59) U/L
ALT 28 (0-50) U/L
Alkaline Phosphatase 66 (38-126) U/L
Iyy-Q-Jaczbgratzn Pept 66931 pg/ml
Total Protein 5.0 L (6.3-8.2) g/dl
Albumin 2.4 L (3.5-5.0) g/dl
Vital Signs:
Vital Signs
Temp Pulse Resp BP Pulse Ox
99.1 F 119 20 103/62 97
06/25/25 15:23 06/25/25 17:00 06/25/25 17:00 06/25/25 16:00 06/25/25 17:00
I&O
06/24/25 06/25/25 06/26/25
06:59 06:59 06:59
Intake Total 822.0 / 822.0 360 / 360 560 / 560
Output Total 825 / 825 1300 / 1300 800 / 800
Balance -3.0 / -3.0 -940 / -940 -240 / -240
Review of Systems
-
Unable to obtain full review of systems at this time due to: Acuity
History Source: Family ()
Constitutional: Reports Fatigue and Weakness
Respiratory: Reports Cough (Bibasilar Rhonchi)
Physical Exam
-
General: Appears in Distress, Appears Chronically Ill and Cachectic
Respiratory: Rhonchi (Bibasilar)
Psych: Confused
Data Reviewed
-
CT Scan: Report Reviewed by me
Ultrasound: Report Reviewed by me
Labs: Labs Reviewed by me and Discussed with Physician
[2025-06-25] MEDS: SODIUM CHLORIDE 3% FOR INHALATION INH (19:44)
[2025-06-25] MEDS: DUONEB INH (19:44)
--- NOTE | 2025-06-25 22:10 | RESPNOTE ---
Attempted to place patient on cpap as per pulm MD order. However, patient extremely coarse with weak cough and secretions pooling in back of throat. Encouraged pt to cough; pt unable to. Orally suctioned. Pt also too weak to take mask off in case of
emergency/vomiting. After discussion with RN at bedside, decision made to keep patient on NC at this time.
[2025-06-25] MEDS: ROBINUL PO (22:21)
[2025-06-25] MEDS: CELLCEPT PO (22:21)
[2025-06-25] MEDS: CIPRO PO (22:21)
[2025-06-25] MEDS: ELIQUIS PO (22:21)
[2025-06-25] MEDS: MELATONIN TUBE (22:21)
--- NOTE | 2025-06-25 23:26 | PTCARENOTE ---
Transported pt to MRI. Monitored pt during the test. Pt non verbal for this shift; Only could shake head 'yes' or 'no'; able to follow some commands. minimal movement of arms. Only oriented to self. on 2 L NC with pulse ox at 97%. Pt has a
very wet sounding, occasional, cough. Pt placed on NPO until speech eval. No PO meds administered, as pt wasn't able to completely follow commands. Concern for continued aspiration. RT did not place pt on bipap d/t aspiration concerns. HOB
remains >30 degrees. Condom catheter replaced this shift.
[2025-06-26] VITALS (14 sets, daily range): BP systolic 89–144; BP diastolic 63–93; PULSE 123; BMI 17.2
--- NOTE | 2025-06-26 02:17 | DOWNTIME ---
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 Downtime documentation of patient's care, including medication administrations, has been reconciled in the electronic record per guidelines. Refer to the
patient's paper chart under the miscellaneous tab to see printed paper medication records and downtime forms.
[2025-06-26 06:04] LABS: Hematocrit 30.6 % (39.0-52.0); Hemoglobin 9.1 g/dL (13.0-18.0); Mean Corp Hgb Conc. 29.7 g/dL (33.0-37.0); Mean Corpuscular Volume 89.7 fL (80.0-94.0); Nucleated Red Blood Cells % 0 % (-); Platelet Count 152 10^3/uL (130-400); Red Cell Dist. Width 16.8 % (11.5-14.5)
[2025-06-26 06:25] LABS: ALT (SGPT) 25 U/L (0-50); AST (SGOT) 27 U/L (17-59); Albumin 2.4 g/dl (3.5-5.0); Alkaline Phosphatase 66 U/L (38-126); Blood Urea Nitrogen 31 mg/dl (9-20); Calcium 7.8 mg/dl (8.4-10.2); Carbon Dioxide 31 mmol/L (22-30); Chloride 113 mmol/L (98-107); Estimated Creatinine Clearance 56 ml/min; Glucose 63 mg/dl (70-99); Magnesium 2.1 mg/dl (1.6-2.3); Potassium 3.5 mmol/L (3.5-5.1); Sodium 142 mmol/L (135-145); Total Protein 4.9 g/dl (6.3-8.2); eGFR > 60.00
[2025-06-26] MEDS: SODIUM CHLORIDE 3% FOR INHALATION 1 VIAL INH ×2 (07:01→20:30)
[2025-06-26] MEDS: DUONEB 3 ML INH ×2 (07:01→20:30)
[2025-06-26] MEDS: DEXTROSE 50% SYRINGE 12.5 GRAMS IV (07:15)
[2025-06-26] MEDS: DELTASONE PO (07:45)
[2025-06-26] MEDS: CIPRO PO (07:45)
[2025-06-26] MEDS: ELIQUIS PO (07:45)
[2025-06-26] MEDS: CELLCEPT PO (07:45)
[2025-06-26] MEDS: FOLVITE PO (07:45)
[2025-06-26] MEDS: LASIX PO (07:46)
[2025-06-26] MEDS: MESTINON PO ×2 (07:46→17:25)
[2025-06-26] MEDS: LEXAPRO PO (07:46)
[2025-06-26] MEDS: MIRALAX PO (07:46)
[2025-06-26] MEDS: PREVACID PO (07:46)
[2025-06-26] MEDS: ROBINUL PO (07:47)
[2025-06-26] MEDS: SINEMET 25-100 PO ×2 (07:47→17:31)
[2025-06-26] MEDS: ROBITUSSIN PO ×2 (07:47→17:25)
--- NOTE | 2025-06-26 09:10 | PTOTSP ---
Speech Language Pathology
Pt seen for dysphagia tx. P.O. trials of ice chips, thin liquids, puree, and regular solids provided. Prolonged mastication of regular solids noted with trace diffuse oral residue. No overt signs of aspiration.
Pt remains at risk for aspiration, including silent aspiration, given significant hx for MG, CVA, Parkinson's, and GERD. However, VSE was completed at outside facility per family in March 2025 with no significant findings. Will re-initiate diet at
this time, but if difficulty noted, will plan on flexible endoscopic evaluation of swallowing (FEES).
Recommend:
(1) Re-initiate IDDSI Level 5 (minced/moist) and thin liquids
(2) Aspiration precautions: full supervision, slow rate, single sips, ensure oral care clear post P.O. intake
(3) Meds whole in puree
(4) If any difficulty noted with P.O. intake, will plan on FEES
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
--- NOTE | 2025-06-26 09:25 | WOUNDNOTE ---
WOC RN note: Joe Vazquez re: recommend an air mattress at [facility]. He has a coccyx pressure injury.
--- NOTE | 2025-06-26 09:49 | PN.CDI ---
CDI
- -
CDI:
Physician Documentation Request
Admit Date: 06/19/25 16:21
Dear Doctor,
Please review the following and provide your response in the progress notes.
Current documentation includes a diagnosis of hypotension.
Clinical Indicators:
Pt admitted with Acute on Chronic HFpEF/PNA pt on IV Zosyn/Acute hypoxic Respiratory Failure currently on ventilator
Admissions Nurse note 06/21, ' Shock with Acute Pneumonia with h/o Chronic bronchiectasis...'
Cardiology note 06/21, '...Hypotension....-Blood pressure slowly improving. Continue to wean epinephrine...'
Selected Entries
06/19/25
15:00 06/19/25
16:20 06/19/25
16:40
Blood pressure 91/61 86/53 85/56
06/19/25
16:43 06/19/25
16:43 06/19/25
17:00
Blood pressure 86/52 86/52 89/61
06/20/25
10:25 06/20/25
10:25 06/20/25
12:33
Blood pressure 82/54 86/57
MAP (D-Nnnj-Iiehuev Monitor) 49
Please clarify which of the following is the most likely etiology of the above symptoms and treatment rendered/use of epinephrine:
Cardiogenic shock
Septic shock
Other ( please specify)
Use of terms such as suspected, likely, concern for, or probable (associated with a specific diagnosis that is being evaluated, monitored, or treated as if it exists) are acceptable and can be coded in the inpatient setting, when documented at the
time of discharge.
Thank you,
Breonna Zendejas RN
CDI Specialist
[facility]
Please use your independent medical judgment in providing your response.
--- NOTE | 2025-06-26 10:01 | PTCARENOTE ---
half amp d50 given as ordered for low gluicose on am labs. pt initially lethargic but now more awake and able to work with speech therapist.
[2025-06-26] MEDS: D5/0.9% SODIUM CHLORIDE 1000 IV (11:00)
[2025-06-26] MEDS: NSS IV (11:05)
--- NOTE | 2025-06-26 11:36 | W.PN.PUL3 ---
Today's Communication / Plan
-
Weaned to 2L NC, Continue PAP at night
ProBNP higher, cards following for diuresis
Remains on Cipro for PNA
Discussed prognosis with , she is aware that decline is expected in this condition and likely to not improve
[facility] discussions recommended
Assessment
-
79 year old M presenting to for cough/SOB. Patient was discharged from the hospital about a month ago for volume overload, suspected heart failure exacerbation and pancytopenia. Patient was having complaints with rattling secretions in his
airway but was having difficulty clearing it up. Patient's spouse also reports that lately sputum had been very foul-smelling, thick and dark in color. No reported fever or chills. Over the last couple of days patient has had significantly
decreased p.o. intake, lethargy and increasing lower extremity edema. Was placed on BIPAP in ER for WOB/hypoxia, intubated 06/19. Admitted to ICU.
06/23 overview: Patient extubated to nasal cannula. Saturating 98% on 4 L supplemental oxygen. MAP of 74. Weaned off pressors. We are following on telemetry floor.
Acute hypoxic respiratory failure
Shock with Acute Pneumonia with h/o Chronic bronchiectasis - shock state resolved
Acute on chronic HFpEF
Lethargy
Pancytopenia, acute on chronic
Metabolic alkalosis
Conditions present prior to admission
Atrial fibrillation on anticoagulation
Hypertension/hyperlipidemia
Bronchiectasis without complication, follows with Dr Ramirez
status post bronchoscopy 10/01/24, positive Pseudomonas
Chronic L pleural effusion, with mild pleural thickening on CT, w/ RLD last TLC 84%, DLCO 55%
Mild aortic stenosis, valve area 1.8 cm� per Echo 01/26/21, now moderate (1.3 cm2)
Parkinson's disease
Myasthenia gravis on chronic immunosuppressant (prednisone, mycophenolate)
On pyridostigmine, followed by [facility] neurology
Chronic aspiration
GERD
Orthostatic hypotension. Chronically on midodrine
History of TIA/CVA
Chronic pancytopenia
Chronic kidney disease (CKD), stage III
tonsillectomy(8)
repair of middle finger left hand 1981
left wrist surgery 2015
L TKR 01/2021
open right inguinal hernia repair w/ mesh (Pellini)
DH Admit femur fracture 09/01/23
Plan
Acute hypoxic respiratory failure - S/p trial of BiPAP in emergency room, subsequently intubated and mechanically ventilated, 06/19 > Extubated 06/22
Suspect respiratory failure is multifactorial, primarily related to excessive respiratory secretions, pneumonia with underlying bronchiectasis, volume overload as well as neuromuscular weakness due to myasthenia gravis and parkinsonism
Continue nasal cannula, weaning down as tolerated while keeping SpO2 >90-94%, currently 96% on 2L
Continue aggressive pulmonary toilet
Continue PAP nightly and PRN
Possible PNA
Worsening right lower lobe consolidation noted on imaging. Patient has chronically consolidated lower lobes (L>R). Previous CT images from May as well as February 2025 suggestive of chronically consolidated lower lobes with bronchiectatic changes
- Reported increased difficulty expectorating lately with large volume sputum production prior to admission
- History of chronic pseudomonal colonization. Patient also immunocompromised with chronic steroid and mycophenolate use
- 06/20, bronchoscopy performed, BAL performed at right lower lobe. Pseudomonas noted on tracheal aspirate and BAL
- Vancomycin discontinued, has been receiving Zosyn so far, transition to ciprofloxacin twice a day. Need to complete 14 days of antibiotic therapy.
- Continue nebulized hypertonic 3% saline,along with DuoNebs BID. Mucinex p.o. Sports bed for chest percussion. Continue flutter valve and vest therapy twice a day. Stressed the need for ongoing airway clearance particularly with underlying
bronchiectasis and neuromuscular weakness
- Excessive oral secretions, suspect related to Mestinon, significantly improved since glycopyrrolate 1 mg p.o. twice daily was started. Continue current therapy
- Intermittently required phenylephrine for hypotension, has remained off all pressors
Acute on chronic HFpEF- Patient has significantly elevated BNP, bilateral pedal edema as well as chest x-ray suggestive of pulmonary edema. Also reported history of moderate aortic stenosis.
- Has been on IV Lasix, now transitioned to 40mg PO once daily
- Cardiology service on case
Repeat proBNP, 58616 <- 7180, worsening
Pulmonary HTN- Echocardiogram on 06/03/2025, pulmonary artery systolic pressure around 50mmHg (stable c/t prior echo in Oct 2024), moderate tricuspid regurgitation noted.
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 Might have component of group III as well considering underlying mild obstructive airway disease, chronic
bronchiectasis.
Paroxysmal Atrial Fibrillation- Chronically anticoagulated with Eliquis
- Continue with Coreg, monitor for bradycardia as he required epinephrine infusion recently while here in the ICU; epinephrine drip has remained off since AM of 06/22
- Midodrine resumed; continue Mestinon
At risk for SDB if there is snoring
Recommend outpatient sleep study
History of myasthenia gravis and parkinsonism
- After intubation, Placed OG tube and resumed oral medications for myasthenia gravis as well as parkinsonism
- Continue Sinemet, pyridostigmine
- Prednisone switched to stress dose of hydrocortisone, 50 mg IV every 6h (started 06/19 and completed on 06/23). Home dose is 12.5 mg every other day-> now on 7.5 mg daily of since 06/23
- Continue CellCept
- Extubated 06/22
- Diet as per [facility]
Pancytopenia - Reviewed hematology evaluation during last visit.
New Site to be multifactorial related to illness, chronic inflammation, medications (particularly steroids), mycophenolate.
Also concern for bone marrow disorder including MDS.
Continue to transfuse as needed to maintain Hb >7-8 g/dL, and keep platelets >10�20k
DVT prophylaxis. Eliquis
GI prophylaxis. N/A --> will resume PO PPI as he takes this at home
Remains full code, may need GOC discussions if declining post extubation
I had a meaningful discussion with his today in regards to expectations with underlying NMD, she is aware
Data:
CXR 06/2025: Findings suggesting moderate diffuse right-sided pneumonia. Progressed. Probable mild left lower lobe pneumonia. Progressed. Mild cardiomegaly. Stable
ECHO 05/2025: 1. Ejection fraction is 55-60% by visual assessment.
2. Small pericardial effusion is seen.
3. Compared to a prior transthoracic echocardiogram study from October 2024 no significant changes are seen.
4. Thickened calcified trileaflet aortic valve with decreased leaflet excursion. Moderate aortic stenosis with mean pressure gradient of 25 mmHg. Using an left ventricular outflow tract diameter of 2.0 cm., the STEPHY = 1.3 cm2. Mild to moderate
aortic insufficiency.
5. Mild concentric left ventricular hypertrophy.
6. Moderate tricuspid regurgitation. Estimated pulmonary artery pressure of 50 mmHg assuming a right atrial pressure of [address] 02/2025: Trace bilateral pleural effusions. Re-demonstration of confluent consolidation within the bilateral lower lobes, progressed. Patchy subpleural tree-in-bud/groundglass nodules throughout the lower lung zones bilaterally, right
greater than left. No pericardial effusions or enlarged lymph nodes in the thorax. Nondisplaced lateral right seventh rib fracture. Old left rib deformities.
Bronchoscopy 09/2024: Copious, bilateral exudates noted throughout the tracheobronchial tree. BAL performed. Pansensitive Pseudomonas and Layla noted on bronchioloalveolar lavage.
Spirometry 03/2023: Mild obstruction noted. Normal lung volumes. Mild diffusion impairment. FEV1 of 92% predicted.
Total time spent today was 51 minutes for this encounter. Time includes reviewing laboratory test/imaging results, reviewing pertinent medical records, obtaining and reviewing medical history, performing an appropriate exam, ordering medications,
tests and procedures. Time also includes documentation of this encounter, coordinating patient care and communicating with other healthcare professionals. Total time does not include separately billed tests performed on this date of service.
Subjective Data
-
Date of Service:
Date of Service: June 26, 2025
Chief Complaint: Pulmonary Follow Up
Subjective:
More awake today but overall clinically unchanged
at bedside
Objective Data
Data Reviewed
Vital Signs / I&O / Oxygen:
Vital Signs
Temp Pulse Resp BP Pulse Ox
97.9 F 99 22 102/87 95
06/26/25 11:17 06/26/25 08:00 06/26/25 08:00 06/26/25 08:00 06/26/25 08:58
Intake and Output
06/25/25 06/26/25 06/27/25
06:59 06:59 06:59
Intake Total 360 / 360 900 / 900
Output Total 1300 / 1300 1200 / 1200
Balance -940 / -940 -300 / -300
SaO2 [ASV] 100
SaO2 [CPAP/PSV] 98
SaO2 [A/C] 98
SaO2 95
Nasal Cannula flow liters per 2
minute
Physical Exam
General: Poor Appetite and Other (chronically ill appearing, minimally responsive)
HEENT: Normocephalic, Anicteric and Other (dry MM, mouth open)
Cardiovascular: S1-S2 and Regular Rhythm
Respiratory: Clear (decreased overall) and Non-Labored Respirations
GI: Soft, Non Distended and Non Tender
Neurology: Lethargic and Non Verbal (not responding much at this time)
Skin: Warm and Dry
Labs/Micro/Reports
Lab Data
06/26/25 05:37
06/26/25 05:37
Microbiology
06/19/25 15:42 Blood/Venous Blood Culture - Final
No Growth - Final Report
--- NOTE | 2025-06-26 12:18 | W.PN.ID1 ---
Date of Service
Date of Service: June 26, 2025
Today's Communication
Continue antibiotics.
Assessment / Plan
Acute on chronic pulmonary infiltrates
Hx bronchiectasis
Pseudomonas sputum
Neutropenia
Immunosuppression (on mycophenolate)
A-fib
Hx CVA
GERD
HTN
HLD
Valvular disease
Anxiety
Parkinson's disease
Myasthenia gravis
Diverticulitis
Nephrolithiasis
Vertigo
Orthostatic hypotension
Recommendations:
Continue with ciprofloxacin for the present (d#8 abx tx). Would complete a 14-day course in total.
Follow white count and temperature curve.
Continue with supportive measures.
Chief Complaint
-: Pneumonia
Subjective / Review of Systems
Patient seen and examined. Ongoing wet cough.
Review of Systems: No Fever and No Chills
Vital Signs / Physical Exam
Vital Signs
Vital Signs
Temp Pulse Resp BP Pulse Ox
97.9 F 99 22 102/87 95
06/26/25 11:17 06/26/25 08:00 06/26/25 08:00 06/26/25 08:00 06/26/25 08:58
Physical Exam
Constitutional: No Acute Distress, Comfortable, Chronically Ill and Cachetic
Cardiovascular: S1/S2; Negative S3/S4
Pulmonary: Rhonchi (Scattered throughout) and Coarse
Gastrointestinal: Soft, Non Tender and Non Distended
Skin: Negative Rash or Jaundice
Neurological: Awake
Psychological: Calm
Objective Data
Lab Data
Lab Results
06/26/25 05:37
06/26/25 05:37
PT 28.6 Sec (11.4-14.6) H 06/19/25 14:30
INR 2.64 06/19/25 14:30
APTT 70.5 Sec (23.4-35.0) H 06/19/25 14:30
Estimated Creat Clear 56 ml/min 06/26/25 05:37
Total Bilirubin 1.3 mg/dl (0.2-1.3) 06/26/25 05:37
AST 27 U/L (17-59) 06/26/25 05:37
ALT 25 U/L (0-50) 06/26/25 05:37
Alkaline Phosphatase 66 U/L (38-126) 06/26/25 05:37
Most recent labs reviewed.
Micro Results:
06/19/25 15:42 Blood Culture - Final
Blood/Venous No Growth - Final Report
06/20/25 08:25 Respiratory Culture - Final
Bronch Right Lower Lobe Pseudomonas aeruginosa
Gram Stain - Final
06/19/25 16:08 Respiratory Culture - Final
Sputum - Induced Pseudomonas aeruginosa
Pseudomonas aeruginosa#2
Gram Stain - Final
06/20/25 08:25 Legionella Urinary Antigen - Final
Urine Negative for Legionella pneumophila Serogroup 1 antigen.
A negative result does not rule out the possiblity of
Legionella infection due to other serogroups or species of
Legionella. Clinical correlation is recommended.
Streptococcus pneumoniae Antigen (M - Final
Negative for Streptococcus pneumoniae antigen.
A negative result does not exclude infection with
Streptococcus pneumoniae. Clinical correlation is
recommended.
06/20/25 08:25 Nasal Screen MRSA (PCR) - Final
Nose MRSA not detected - performed by PCR methodology.
06/19/25 15:42 Influenza Types A & B (LIVIER) - Final
Nasal Swab Negative for Influenza A & B, NAAT
Negative results must be combined with clinical observations
and patient history.
Nucleic Acid Amplification test (NAAT)performed on the
[employer] platform.
Imaging:
06/21/2025 CXR (portable): stable appearance of support lines and tubes. The airspace opacities projecting over the right mid/lower lung and left lower lung are similar in appearance to prior. No pleural effusion or pneumothorax. See full
dictation for additional detail. Film personally viewed.
Care Review
Plan reviewed with: Physician (Hospitalist)
--- NOTE | 2025-06-26 12:49 | W.PN.CARDCBS ---
Today's Communication / Plan
-
Remains hypoxic and being treated for aspiration pneumonia
Weight is down significantly since admission but proBNP is increased. Consider change from oral to IV Lasix if remains hypoxic after treatment for aspiration pneumonia
Continue rate control of A-fib with low-dose Coreg and Eliquis
Impression / Plan
-
[facility] [employer]: Dr. Santos
Assessment:
Presentation with SOB
PNA
Acute diastolic CHF
Hypotension
Pancytopenia
Admission to 06/01 - 06/05/2025 for UTI, CHF
Sinus bradycardia
Paroxysmal atrial fibrillation
Chronic amiodarone therapy
Chronic Eliquis therapy
Aortic stenosis/insufficiency by echo 06/03/25
History of hypertension
Hyperlipidemia
History of CVA
History of intermittent hematuria
Parkinson's disease
Myasthenia gravis
Bronchiectasis with prior Pseudomonas infection
Hypoalbuminemia
ECHO 10/17/24: EF 55 to 60%, no regional wall motion abnormalities noted, stage II diastolic dysfunction, MAC, moderate MR, moderate with peak/mean gradients 47/30 mmHg, STEPHY 1.3 cm�, moderate TR, PAP 45 mmHg, small pericardial effusion
Echo 06/03/2025: EF 55 to 60%, small pericardial effusion, moderate , mean gradient 25 mmHg, STEPHY 1.3 cm�, mild to moderate AI, mild MR, moderate TR, PAP 58 mmHg, no significant change compared to echo 10/2024
Plan:
He remains hypoxic despite 14 pound weight loss
Of note proBNP increased from 7000-12,000 but hypoxia felt to be due to aspiration
Currently on p.o. Lasix and might need to consider change back to IV if remains hypoxic after treatment for aspiration pneumonia
Continue rate control of A-fib with low-dose Coreg and continue Eliquis, amiodarone has been discontinued
Continue Mestinon for myasthenia.
Progress Note - [employer]
Subjective
Date of Service: June 26, 2025
No complaints
Objective
Labs:
06/26/25 05:37
06/26/25 05:37
Labs
Hgb 9.1 g/dL (13.0-18.0) L 06/26/25 05:37
Hct 30.6 % (39.0-52.0) L 06/26/25 05:37
Plt Count 152 10^3/uL (130-400) D 06/26/25 05:37
PT 28.6 Sec (11.4-14.6) H 06/19/25 14:30
INR 2.64 06/19/25 14:30
APTT 70.5 Sec (23.4-35.0) H 06/19/25 14:30
Sodium 142 mmol/L (135-145) 06/26/25 05:37
Potassium 3.5 mmol/L (3.5-5.1) 06/26/25 05:37
BUN 31 mg/dl (9-20) H 06/26/25 05:37
Creatinine 0.9 mg/dL (0.7-1.3) 06/26/25 05:37
Glucose 63 mg/dl (70-99) L 06/26/25 05:37
Vital Signs and I&O:
Vital Signs
Temp Pulse Resp BP Pulse Ox
97.9 F 88 20 93/70 96
06/26/25 11:17 06/26/25 12:00 06/26/25 12:00 06/26/25 12:00 06/26/25 12:28
Vital Signs
Temp Pulse Resp BP Pulse Ox
97.9 F 88 20 93/70 96
06/26/25 11:17 06/26/25 12:00 06/26/25 12:00 06/26/25 12:00 06/26/25 12:28
Intake & Output
06/24/25 06/25/25 06/26/25 06/27/25
06:59 06:59 06:59 06:59
Intake Total 822.0 / 822.0 360 / 360 900 / 900
Output Total 825 / 825 1300 / 1300 1200 / 1200 450 / 450
Balance -3.0 / -3.0 -940 / -940 -300 / -300 -450 / -450
Physical Exam
Physical Exam
General: Well developed, well nourished in NAD.
Neck: Supple, no JVD, HJR, carotids +2 B/L, no bruits bilaterally.
Heart: Non displaced PMI, irregular, no murmurs, No S3, S4, no rubs.
Lungs: Scattered rhonchi
Extremities: No clubbing, cyanosis or edema bilaterally.
Neuro: Grossly nonfocal, awake, alert and oriented x3.
[2025-06-26] MEDS: MESTINON 90 MG PO (13:16)
[2025-06-26] MEDS: SINEMET 25-100 2 TABLET PO (13:17)
[2025-06-26] MEDS: VITAMIN B-12 PO (13:18)
[2025-06-26] MEDS: ROBITUSSIN 200 MG PO ×2 (13:18→21:42)
--- NOTE | 2025-06-26 14:41 | W.PN.HOSP.TC ---
Addendum entered and electronically signed by Keya Devlin MD 06/26/25 16:48:
I saw and evaluated the patient independently. I reviewed and discussed the resident�s note and agree with findings and plan as documented by Dr. Ag.
GENERAL: chronically ill appearing male in no apparent distress--minimally better than yesterday
HEENT: NC/AT--O2 NC in place
HEART: regular rate and rhythm, +S1, +S2
LUNGS : rhonchi bilaterally with wet sounding cough
ABDOM: soft, nontender, nondistended, + bowel sounds
EXT: no cyanosis, clubbing, or edema
NEUROLOGIC: deconditioned
Acute change in mental status--minimally improved compared to yesterday--spoke with who states that he CAN do this especially in the afternoons if he is getting tired---stat head CT was negative, CXR without change--unclear if patient had
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
Acute hypoxic respiratory failure--likely from volume overload and Pseudomonas pneumonia--wean O2--intubated and now extubated--weak cough--hold diuresis, oral cipro--IS and add vest therapy--apprec pulm/cards--repeat pro BNP 12,200 --apprec ID
input--cont cipro for now
Suspect Acute on chronic HFpEF--apprec cards--weights down 14 lbs since admission--repeat pro BNP 12,200--gave IVF and now will hold since diet replaced--apprec speech
Paroxysmal Atrial Fibrillation--Continue Eliquis--consider stopping amiodarone if remains in A-fib and not ideal candidate for cardioversion at present as per cards
Pancytopenia with immunosuppression--Likely secondary to mycophenolate
Acute on chronic anemia--Status post blood transfusion 1 unit pRBC for HGB of 6.7--trend HGB
hypokalemia--replete
Myasthenia Gravis--Continue Cellcept
Parkinson's Disease--Continue Sinemet
Hyperlipidemia--Continue Statin
Wound--POA--purple area on coccyx suspect due to pressure injury as well as thrombocytopenia--could be deep tissue injury versus a stage I pressure injury--left buttock also red with an ecchymotic stage I pressure injury
DVT proph-- Eliquis resumed
code status-- full code --started speaking with regarding progressive Parkinson's and feeding tubes, etc--spoke again with patient's today regarding full CODE STATUS--she would like us to 'try one time' for resuscitative efforts so remains
full code, although did describe that towards the end, hospitalizations get longer in time between hospitalizations get shorter (this is his third visit since February)
Original Note:
Today's Communication/Plan
-
Switch back to IDDS 5 Minced and Moist diet protocol
Will continue with Ciprofloxacin 500 mg PO BID
Started on IV dextrose 5% / 0.9% sodium chloride 60 m/hr
Continue diuresis
Continue rate control of A-fib with low-dose Coreg and Eliquis
Amiodarone has been discontinued.
Order Neurology Consult
Assessment / Plan
Assessment / Plan
79-year-old male patient presented to the ED on for acute diastolic CHF. At ER was initially treated with noninvasive positive pressure ventilation but ultimately was intubated for increased work of breathing. Cardiology has been
managing acute heart failure with preserved ejection fraction. Is also being treated for pseudomonal pneumonia. Patient has a history of ongoing pancytopenia that progressed during his stay. He also presented with sinus bradycardia. Throughout
his stay patient became more neutropenic was immunosuppressed and extremely lethargic. This morning patient was able to be aroused from sleep to be examined. As per his overnight nurse, patient had no major changes. He continues to be moderately
lethargic. Code his blood glucose levels came back low this morning so she gave him one half amp D50. We later changed his fluids to IV dextrose 5% / 0.9% sodium chloride 60 mL/h. Patient was evaluated by speech therapy and they recommended taking
him off n.p.o. restarting IDDSI 5�minced and moist.
Assessment and Plan:
Acute hypoxic respiratory failure
Speech therapy consulted on patient and advised that he be taken off NPO and put back on IDDS 5 Minced and Moist diet protocol.
Will continue with Ciprofloxacin 500 mg PO BID
proBNP increased from 7180 (06/19/2025) to 20992 (06/25/2025). Repeat proBNP.
Started on IV dextrose 5% / 0.9% sodium chloride 60 mL/h.
Continue PAP at night
Sever sepsis with acute Pneumonia as a source
Ciprofloxacin 500 mg PO BID continued
Vest therapy added
Repeat Chest X Ray ordered on 06/25/2025: Impression: Reticulonodular opacities in both lungs, left greater than right, in keeping with the provided history of Pseudomonas pneumonia
Suspect Acute on chronic HFpEFL
Continue diuresis
Start gentle IV Fluid.
Weight down by 30 pounds during this visit. Consider change from oral to IV Lasix if remains hypoxic after treatment for aspiration pneumonia.
Paroxysmal Atril Fibrillation
Continue rate control of A-fib with low-dose Coreg and Eliquis.
Amiodarone has been discontinued.
Pancytopenia.
Likely secondary to mycophenolate
CDI precautions in place.
WBC count increased overnight from 1.1-2.1. (Improving)
Acute on chronic anemia.
Status post blood transfusion
Stable
Myasthenia Gravis
Continue Cellcept
Parkinson's Disease
Continue Sinemet
Hyperlipidemia
Continue Statin
Wound (CDI)
Purple area on coccyx suspect due to pressure injury as well as thrombocytopenia.
Could be deep tissue injury versus stage I pressure injury
Left buttock also red with an ecchymotic stage I pressure injury.
DVT prophylaxis. Eliquis resumed via G-tube
GI prophylaxis. IV Protonix
status full code -spoke to patient's regarding full CODE STATUS. She expressed her wishes for us to (try one-time) for resuscitative efforts so remains full code.
Anticipated Discharge: 24 - 48 hours
Subjective/Interval History
-
Date of Service: June 26, 2025
79-year-old male patient presented to the ED on for acute diastolic CHF. At ER was initially treated with noninvasive positive pressure ventilation but ultimately was intubated for increased work of breathing. Cardiology has been
managing acute heart failure with preserved ejection fraction. Is also being treated for pseudomonal pneumonia. Patient has a history of ongoing pancytopenia that progressed during his stay. He also presented with sinus bradycardia. Throughout
his stay patient became more neutropenic was immunosuppressed and extremely lethargic. This morning patient was able to be aroused from sleep to be examined. As per his overnight nurse, patient had no major changes. He continues to be moderately
lethargic. Code his blood glucose levels came back low this morning so she gave him one half amp D50. We later changed his fluids to IV dextrose 5% / 0.9% sodium chloride 60 mL/h. Patient was evaluated by speech therapy and they recommended taking
him off n.p.o. restarting IDDSI 5�minced and moist.
Objective Data
-
Labs:
Laboratory Results
06/26/25
05:37
WBC 2.1 L*
Hgb 9.1 L
Hct 30.6 L
Plt Count 152 D
Sodium 142
Potassium 3.5
Chloride 113 H
Carbon Dioxide 31 H
BUN 31 H
Creatinine 0.9
Glucose 63 L
Calcium 7.8 L
Total Bilirubin 1.3
AST 27
ALT 25
Alkaline Phosphatase 66
Vital Signs:
Vital Signs
Temp Pulse Resp BP Pulse Ox
97.9 F 88 20 93/70 96
06/26/25 11:17 06/26/25 12:00 06/26/25 12:00 06/26/25 12:00 06/26/25 12:28
I&O
06/25/25 06/26/25 06/27/25
06:59 06:59 06:59
Intake Total 360 / 360 900 / 900
Output Total 1300 / 1300 1200 / 1200 450 / 450
Balance -940 / -940 -300 / -300 -450 / -450
Most recent chest chest x-ray (06/26/2025): Reticulonodular opacities in both lungs, left greater than right, in keeping with the provided history of Pseudomonas pneumonia. Findings appear slightly increased in the left midlung compared to the
previous checks x-ray from 06/25/2025. There is trace left pleural effusion. No pneumothorax. Stable enlargement of the cardiac silhouette. Chronic degenerative changes of the spine.
Review of Systems
-
Unable to obtain full review of systems at this time due to: Dementia and Acuity
History Source: Family
All other systems: Reviewed and negative
Constitutional: Reports Weight Loss and Fatigue
Physical Exam
-
General: Appears in Distress and Cachectic
HEENT: Normocephalic, Atraumatic and Other
Respiratory: Rhonchi
Cardiac: Regular Rhythm and S1/S2
Breast: Deferred by me
GI: Soft, Nontender, Nondistended and Normal Bowel Sounds
Musculoskeletal: No Clubbing, No Cyanosis and No Edema
Neuro: Other (Deconditioned)
Data Reviewed
-
CT Scan: Report Reviewed by me and Discussed with Physician
MRI: Report Reviewed by me and Discussed with Physician
Labs: Labs Reviewed by me and Discussed with Physician
--- NOTE | 2025-06-26 16:03 | CM ---
Patient seen at bedside with physicians on IMU. Patient more alert today. CM will continue to follow for discharge planning needs.
Plan; home with VN vs SNF; watch for medical treatment plan
[2025-06-26] MEDS: LIPITOR PO (17:25)
--- NOTE | 2025-06-26 17:25 | PTCARENOTE ---
pt with periods where he awakens and then periods of drowsiness. at times able to take po meds at other times too drowsy. iv fluids D5NS infusing at 60 mls/hr.
[2025-06-26] MEDS: CIPRO 500 MG PO (19:32)
[2025-06-26] MEDS: ROBINUL 1 MG PO (19:32)
[2025-06-26] MEDS: ELIQUIS 5 MG PO (19:32)
--- NOTE | 2025-06-26 20:27 | PTCARENOTE ---
Assumed care of Pt from dayshift RN after change of shift report. Pt is arousable to verbal stimuli, opens eyes, engaging in minimal conversation telling this RN his name and birthday. smiling and following simple commands at this time. currently on
2L 02, harsh non productive moist cough at times. sats 95%. q2t maintained. HS oral care preformed. assessment as documented. call light in reach.
[2025-06-26] MEDS: CELLCEPT 1000 MG PO (21:42)
[2025-06-26] MEDS: MESTINON 30 MG PO (21:43)
[2025-06-26] MEDS: MELATONIN 3 MG TUBE (21:43)
[2025-06-27] VITALS (21 sets, daily range): BP systolic 72–116; BP diastolic 43–93; PULSE 91–100; BMI 17.6
[2025-06-27] MEDS: D5/0.9% SODIUM CHLORIDE 1000 IV ×2 (02:13→16:35)
[2025-06-27 05:50] LABS: ALT (SGPT) 20 U/L (0-50); AST (SGOT) 20 U/L (17-59); Albumin 2.2 g/dl (3.5-5.0); Alkaline Phosphatase 58 U/L (38-126); Blood Urea Nitrogen 28 mg/dl (9-20); Calcium 7.4 mg/dl (8.4-10.2); Carbon Dioxide 32 mmol/L (22-30); Chloride 117 mmol/L (98-107); Estimated Creatinine Clearance 63 ml/min; Glucose 103 mg/dl (70-99); Magnesium 2.2 mg/dl (1.6-2.3); Potassium 3.7 mmol/L (3.5-5.1); Sodium 147 mmol/L (135-145); Total Protein 4.6 g/dl (6.3-8.2); eGFR > 60.00
--- NOTE | 2025-06-27 06:46 | W.PN.HOSP.TC ---
Addendum entered and electronically signed by Keya Devlin MD 06/27/25 16:31:
I saw and evaluated the patient independently. I reviewed and discussed the resident�s note and agree with findings and plan as documented by Dr. Ag.
GENERAL: chronically ill appearing male in no apparent distress--better than yesterday--sitting in the chair--more awake
HEENT: NC/AT--O2 NC in place
HEART: regular rate and rhythm, +S1, +S2
LUNGS : rhonchi bilaterally with wet sounding cough
ABDOM: soft, nontender, nondistended, + bowel sounds
EXT: no cyanosis, clubbing, or edema
NEUROLOGIC: deconditioned
Acute change in mental status--improved compared to yesterday---stat head CT was negative, CXR without change--unclear if patient had aspiration event-- MRI of the brain showed LARGE CHRONIC TRANSCORTICAL INFARCT in the LATERAL LEFT FRONTAL
LOBE--daily improvements
Acute hypoxic respiratory failure--likely from volume overload and Pseudomonas pneumonia--wean O2--intubated and now extubated--weak cough--hold diuresis, oral cipro--IS and add vest therapy--apprec pulm/cards--repeat pro BNP 12,200, follow --apprec
ID input--cont cipro for now
Suspect Acute on chronic HFpEF--apprec cards--weights down 14 lbs since admission--repeat pro BNP 12,200--gave IVF and now will stop since diet replaced--apprec speech
Paroxysmal Atrial Fibrillation--Continue Eliquis--consider stopping amiodarone if remains in A-fib and not ideal candidate for cardioversion at present as per cards
Pancytopenia with immunosuppression--Likely secondary to mycophenolate
Acute on chronic anemia--Status post blood transfusion 1 unit pRBC for HGB of 6.7--trend HGB
hypokalemia--replete
Myasthenia Gravis--Continue Cellcept
Parkinson's Disease--Continue Sinemet
Hyperlipidemia--Continue Statin
Wound--POA--purple area on coccyx suspect due to pressure injury as well as thrombocytopenia--could be deep tissue injury versus a stage I pressure injury--left buttock also red with an ecchymotic stage I pressure injury
DVT proph-- Ricki resumed
code status-- full code --started speaking with regarding progressive Parkinson's and feeding tubes, etc--spoke again with patient's today regarding full CODE STATUS--she would like us to 'try one time' for resuscitative efforts so remains
full code, although did describe that towards the end, hospitalizations get longer in time between hospitalizations get shorter (this is his third visit since February)
planning for discharge, likely will need SNF
Original Note:
Today's Communication/Plan
-
79-year-old male patient presented to the ED on for acute diastolic CHF. At ER was initially treated with noninvasive positive pressure ventilation but ultimately was intubated for increased work of breathing. Cardiology has been
managing acute heart failure with preserved ejection fraction. Is also being treated for pseudomonal pneumonia. Patient has a history of ongoing pancytopenia that progressed during his stay. He also presented with sinus bradycardia. Throughout
his stay patient was becoming more neutropenic was immunosuppressed and extremely lethargic. As per his , this was becoming more normal for him especially later in the day. Stat head CT was negative. Chest x-ray was without change. Unclear
if the patient had an aspiration event. MRI of the brain showed large chronic transcortical infarct in the lateral left frontal lobe (an old infarct). Around 06/25/2025, patient started becoming more responsive on visits. IV dextrose 5% / 0.9%
sodium chloride 60 mL/h was added to his medication. As per speech therapy evaluation, patient was taken off of n.p.o. and returned to IDDSI 5�minced and moist diet protocol. No overnight incidences reported. Patient is resting with NAD.
Assessment / Plan
Assessment / Plan
79-year-old male patient presented to the ED on for acute diastolic CHF. At ER was initially treated with noninvasive positive pressure ventilation but ultimately was intubated for increased work of breathing. Cardiology has been
managing acute heart failure with preserved ejection fraction. Is also being treated for pseudomonal pneumonia. Patient has a history of ongoing pancytopenia that progressed during his stay. He also presented with sinus bradycardia. Throughout
his stay patient was becoming more neutropenic was immunosuppressed and extremely lethargic. As per his , this was becoming more normal for him especially later in the day. Stat head CT was negative. Chest x-ray was without change. Unclear
if the patient had an aspiration event. MRI of the brain showed large chronic transcortical infarct in the lateral left frontal lobe (an old infarct). Around 06/25/2025, patient started becoming more responsive on visits. IV dextrose 5% / 0.9%
sodium chloride 60 mL/h was added to his medication. As per speech therapy evaluation, patient was taken off of n.p.o. and returned to IDDSI 5�minced and moist diet protocol. No overnight incidences reported. Patient is resting with NAD.
Assessment and Plan:
Acute hypoxic respiratory failure
Speech therapy consulted on patient and advised that he be taken off NPO and put back on IDDS 5 Minced and Moist diet protocol.
Hold diuresis
proBNP increased from 7180 (06/19/2025) to 15713 (06/25/2025). Repeat proBNP
Continue with Ciprofloxacin 500 mg PO BID
Continue PAP at night
Sever sepsis with acute Pneumonia as a source
Ciprofloxacin 500 mg PO BID continued
Vest therapy added
Repeat Chest X Ray ordered on 06/25/2025: Impression: Reticulonodular opacities in both lungs, left greater than right, in keeping with the provided history of Pseudomonas pneumonia
Suspect Acute on chronic HFpEFL
Gave IVF now will hold since diet replaced.
Paroxysmal Atril Fibrillation
Continue rate control of A-fib with low-dose Coreg and Eliquis.
Amiodarone has been discontinued.
Pancytopenia.
Likely secondary to mycophenolate
CDI precautions in place.
WBC count steadily rising 1.1-2.1.-2.0 (Improving)
Acute on chronic anemia.
Status post blood transfusion
Stable
Hypokalemia
Corrected
Myasthenia Gravis
Continue Cellcept
Parkinson's Disease
Continue Sinemet
Hyperlipidemia
Continue Statin
Wound (CDI)
Purple area on coccyx suspect due to pressure injury as well as thrombocytopenia.
Could be deep tissue injury versus stage I pressure injury
Left buttock also red with an ecchymotic stage I pressure injury.
DVT prophylaxis. Eliquis resumed via G-tube
GI prophylaxis. IV Protonix
status full code -spoke to patient's regarding full CODE STATUS. She expressed her wishes for us to (try one-time) for resuscitative efforts so remains full code.
Anticipated Discharge: 24 - 48 hours
Subjective/Interval History
-
Date of Service: June 27, 2025
79-year-old male patient presented to the ED on for acute diastolic CHF. At ER was initially treated with noninvasive positive pressure ventilation but ultimately was intubated for increased work of breathing. Cardiology has been
managing acute heart failure with preserved ejection fraction. Is also being treated for pseudomonal pneumonia. Patient has a history of ongoing pancytopenia that progressed during his stay. He also presented with sinus bradycardia. Throughout
his stay patient was becoming more neutropenic was immunosuppressed and extremely lethargic. As per his , this was becoming more normal for him especially later in the day. Stat head CT was negative. Chest x-ray was without change. Unclear
if the patient had an aspiration event. MRI of the brain showed large chronic transcortical infarct in the lateral left frontal lobe (an old infarct). Around 06/25/2025, patient started becoming more responsive on visits. IV dextrose 5% / 0.9%
sodium chloride 60 mL/h was added to his medication. As per speech therapy evaluation, patient was taken off of n.p.o. and returned to IDDSI 5�minced and moist diet protocol. No overnight incidences reported. Patient is resting with NAD.
Objective Data
-
Labs:
Laboratory Results
06/27/25
05:13
WBC Pending
Hgb Pending
Hct Pending
Plt Count Pending
Sodium 147 H
Potassium 3.7
Chloride 117 H
Carbon Dioxide 32 H
BUN 28 H
Creatinine 0.8
Glucose 103 H
Calcium 7.4 L
Total Bilirubin 1.1
AST 20
ALT 20
Alkaline Phosphatase 58
Vital Signs:
Vital Signs
Temp Pulse Resp BP Pulse Ox
97.7 F 87 20 94/76 93
06/27/25 03:00 06/27/25 04:00 06/27/25 04:00 06/27/25 04:00 06/27/25 04:00
I&O
06/25/25 06/26/25 06/27/25
06:59 06:59 06:59
Intake Total 360 / 360 900 / 900 840 / 840
Output Total 1300 / 1300 1200 / 1200 1150 / 1150
Balance -940 / -940 -300 / -300 -310 / -310
Review of Systems
-
Unable to obtain full review of systems at this time due to: Dementia and Acuity
History Source: Family
All other systems: Reviewed and negative
Constitutional: Reports Weight Loss and Fatigue
Physical Exam
-
General: Cachectic
HEENT: Normocephalic, Atraumatic and Other
Respiratory: Rhonchi
Cardiac: Regular Rhythm and S1/S2
Breast: Deferred by me
GI: Soft, Nontender, Nondistended and Normal Bowel Sounds
Musculoskeletal: No Clubbing, No Cyanosis and No Edema
Neuro: Other (Deconditioned)
Data Reviewed
-
CT Scan: Report Reviewed by me and Discussed with Physician
MRI: Report Reviewed by me and Discussed with Physician
Labs: Labs Reviewed by me and Discussed with Physician
[2025-06-27] MEDS: DUONEB 3 ML INH ×2 (07:11→19:14)
[2025-06-27] MEDS: SODIUM CHLORIDE 3% FOR INHALATION 1 VIAL INH ×2 (07:11→19:13)
[2025-06-27] MEDS: DELTASONE 7.5 MG PO (08:36)
[2025-06-27 08:37] LABS: Hematocrit 29.0 % (39.0-52.0); Hemoglobin 8.4 g/dL (13.0-18.0); Mean Corp Hgb Conc. 29.0 g/dL (33.0-37.0); Mean Corpuscular Volume 90.3 fL (80.0-94.0); Nucleated Red Blood Cells % 0 % (-); Platelet Count 154 10^3/uL (130-400); Red Cell Dist. Width 17.0 % (11.5-14.5)
[2025-06-27] MEDS: ROBINUL 1 MG PO ×2 (08:37→19:48)
[2025-06-27] MEDS: LEXAPRO 10 MG PO (08:37)
[2025-06-27] MEDS: PREVACID 30 MG PO (08:37)
[2025-06-27] MEDS: FOLVITE 1 MG PO (08:38)
[2025-06-27] MEDS: ELIQUIS 5 MG PO ×2 (08:38→19:48)
[2025-06-27] MEDS: LASIX 40 MG PO (08:38)
[2025-06-27] MEDS: MIRALAX 17 GRAMS PO (08:38)
[2025-06-27] MEDS: CELLCEPT 1500 MG PO (08:40)
[2025-06-27] MEDS: CIPRO 500 MG PO ×2 (08:41→19:48)
[2025-06-27] MEDS: ROBITUSSIN 200 MG PO ×4 (08:41→21:22)
[2025-06-27] MEDS: MESTINON 90 MG PO ×3 (08:53→16:31)
[2025-06-27] MEDS: SINEMET 25-100 2 TABLET PO ×3 (08:53→16:31)
--- NOTE | 2025-06-27 09:26 | PTCARENOTE ---
Pt AAOx1 very confused and forgetful, fed some eggs and took meds crushed in pudding without incident . Bath cloth bath given.
--- NOTE | 2025-06-27 10:53 | W.PN.PUL3 ---
Today's Communication / Plan
-
More awake today, continue CPAP nightly for now, will likely need home set up
Does not qualify as inpatient, would need OP sleep study--we will leave FU instruction in chart
Otherwise continued abx and diuresis per teams
Speech, PT/OT evals ongoing
Discharge planning likely to SNF
Nothing further to offer from our standpoint, we will sign off at this time-pls call with questions
Assessment
-
79 year old M presenting to for cough/SOB. Patient was discharged from the hospital about a month ago for volume overload, suspected heart failure exacerbation and pancytopenia. Patient was having complaints with rattling secretions in his
airway but was having difficulty clearing it up. Patient's spouse also reports that lately sputum had been very foul-smelling, thick and dark in color. No reported fever or chills. Over the last couple of days patient has had significantly
decreased p.o. intake, lethargy and increasing lower extremity edema. Was placed on BIPAP in ER for WOB/hypoxia, intubated 06/19. Admitted to ICU.
06/23 overview: Patient extubated to nasal cannula. Saturating 98% on 4 L supplemental oxygen. MAP of 74. Weaned off pressors. We are following on telemetry floor.
Acute hypoxic respiratory failure
Shock with Acute Pneumonia with h/o Chronic bronchiectasis - shock state resolved
Acute on chronic HFpEF
Lethargy
Pancytopenia, acute on chronic
Metabolic alkalosis
Conditions present prior to admission
Atrial fibrillation on anticoagulation
Hypertension/hyperlipidemia
Bronchiectasis without complication, follows with Dr Ramirez
status post bronchoscopy 10/01/24, positive Pseudomonas
Chronic L pleural effusion, with mild pleural thickening on CT, w/ RLD last TLC 84%, DLCO 55%
Mild aortic stenosis, valve area 1.8 cm� per Echo 01/26/21, now moderate (1.3 cm2)
Parkinson's disease
Myasthenia gravis on chronic immunosuppressant (prednisone, mycophenolate)
On pyridostigmine, followed by [facility] neurology
Chronic aspiration
GERD
Orthostatic hypotension. Chronically on midodrine
History of TIA/CVA
Chronic pancytopenia
Chronic kidney disease (CKD), stage III
tonsillectomy(1957)
repair of middle finger left hand 1981
left wrist surgery 2015
L TKR 01/2021
open right inguinal hernia repair w/ mesh (Pellini)
DH Admit femur fracture 09/01/23
Plan
Acute hypoxic respiratory failure - S/p trial of BiPAP in emergency room, subsequently intubated and mechanically ventilated, 06/19 > Extubated 06/22
Suspect respiratory failure is multifactorial, primarily related to excessive respiratory secretions, pneumonia with underlying bronchiectasis, volume overload as well as neuromuscular weakness due to myasthenia gravis and parkinsonism
Continue nasal cannula, weaning down as tolerated while keeping SpO2 >90-94%, currently 96% on 2L
Continue aggressive pulmonary toilet
Continue PAP nightly and PRN -- will likely need home set up but does not qualify w/o outpatient sleep study
Possible PNA-Worsening right lower lobe consolidation noted on imaging. Patient has chronically consolidated lower lobes (L>R).
Previous CT images from May as well as February 2025 suggestive of chronically consolidated lower lobes with bronchiectatic changes
Reported increased difficulty expectorating lately with large volume sputum production prior to admission
History of chronic pseudomonal colonization. Patient also immunocompromised with chronic steroid and mycophenolate use
06/20, bronchoscopy performed, BAL performed at right lower lobe. Pseudomonas noted on tracheal aspirate and BAL
Vancomycin discontinued, has been receiving Zosyn so far, transition to ciprofloxacin twice a day. Need to complete 14 days of antibiotic therapy.
Continue nebulized hypertonic 3% saline,along with DuoNebs BID. Mucinex p.o. Sports bed for chest percussion. Continue flutter valve and vest therapy twice a day. Stressed the need for ongoing airway clearance particularly with underlying
bronchiectasis and neuromuscular weakness
Excessive oral secretions, suspect related to Mestinon, significantly improved since glycopyrrolate 1 mg p.o. twice daily was started. Continue current therapy
Acute on chronic HFpEF- Patient has significantly elevated BNP, bilateral pedal edema as well as chest x-ray suggestive of pulmonary edema. Also reported history of moderate aortic stenosis.
- Has been on IV Lasix, now transitioned to 40mg PO once daily
- Cardiology service on case
Repeat proBNP, 78174 <- 7180, worsening
Diuresis continued
Pulmonary HTN- Echocardiogram on 06/03/2025, pulmonary artery systolic pressure around 50mmHg (stable c/t prior echo in Oct 2024), moderate tricuspid regurgitation noted.
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 Might have component of group III as well considering underlying mild obstructive airway disease, chronic
bronchiectasis.
Paroxysmal Atrial Fibrillation- Chronically anticoagulated with Eliquis
- Continue with Coreg, monitor for bradycardia as he required epinephrine infusion recently while here in the ICU; epinephrine drip has remained off since AM of 06/22
- Midodrine resumed; continue Mestinon
At risk for SDB if there is snoring
Recommend outpatient sleep study
History of myasthenia gravis and parkinsonism
- After intubation, Placed OG tube and resumed oral medications for myasthenia gravis as well as parkinsonism
- Continue Sinemet, pyridostigmine
- Prednisone switched to stress dose of hydrocortisone, 50 mg IV every 6h (started 06/19 and completed on 06/23). Home dose is 12.5 mg every other day-> now on 7.5 mg daily of since 06/23
- Continue CellCept
- Extubated 06/22
- Diet as per SYSTEMATIC THEOLOGY PROFESSOR
Pancytopenia - Reviewed hematology evaluation during last visit.
[place]cord to be multifactorial related to illness, chronic inflammation, medications (particularly steroids), mycophenolate.
Also concern for bone marrow disorder including MDS.
Continue to transfuse as needed to maintain Hb >7-8 g/dL, and keep platelets >10�20k
DVT prophylaxis. Eliquis
GI prophylaxis. N/A --> will resume PO PPI as he takes this at home
Remains full code, may need GOC discussions if declining post extubation
I had a meaningful discussion with his today in regards to expectations with underlying NMD, she is aware
Data:
CXR 06/2025: Findings suggesting moderate diffuse right-sided pneumonia. Progressed. Probable mild left lower lobe pneumonia. Progressed. Mild cardiomegaly. Stable
ECHO 05/2025: 1. Ejection fraction is 55-60% by visual assessment.
2. Small pericardial effusion is seen.
3. Compared to a prior transthoracic echocardiogram study from October 2024 no significant changes are seen.
4. Thickened calcified trileaflet aortic valve with decreased leaflet excursion. Moderate aortic stenosis with mean pressure gradient of 25 mmHg. Using an left ventricular outflow tract diameter of 2.0 cm., the STEPHY = 1.3 cm2. Mild to moderate
aortic insufficiency.
5. Mild concentric left ventricular hypertrophy.
6. Moderate tricuspid regurgitation. Estimated pulmonary artery pressure of 50 mmHg assuming a right atrial pressure of [address] Chest 02/2025: Trace bilateral pleural effusions. Re-demonstration of confluent consolidation within the bilateral lower lobes, progressed. Patchy subpleural tree-in-bud/groundglass nodules throughout the lower lung zones bilaterally, right
greater than left. No pericardial effusions or enlarged lymph nodes in the thorax. Nondisplaced lateral right seventh rib fracture. Old left rib deformities.
Bronchoscopy 09/2024: Copious, bilateral exudates noted throughout the tracheobronchial tree. BAL performed. Pansensitive Pseudomonas and Layla noted on bronchioloalveolar lavage.
Spirometry 03/2023: Mild obstruction noted. Normal lung volumes. Mild diffusion impairment. FEV1 of 92% predicted.
Total time spent today was 45 minutes for this encounter. Time includes reviewing laboratory test/imaging results, reviewing pertinent medical records, obtaining and reviewing medical history, performing an appropriate exam, ordering medications,
tests and procedures. Time also includes documentation of this encounter, coordinating patient care and communicating with other healthcare professionals. Total time does not include separately billed tests performed on this date of service.
Subjective Data
-
Date of Service:
Date of Service: June 27, 2025
Chief Complaint: Pulmonary Follow Up
Subjective:
No new complaints, sitting in chair
More awake now
Objective Data
Data Reviewed
Vital Signs / I&O / Oxygen:
Vital Signs
Temp Pulse Resp BP Pulse Ox
99.1 F 111 18 97/77 97
06/27/25 09:38 06/27/25 09:00 06/27/25 09:00 06/27/25 08:38 06/27/25 09:00
Intake and Output
06/26/25 06/27/25 06/28/25
06:59 06:59 06:59
Intake Total 900 / 900 840 / 840
Output Total 1200 / 1200 1150 / 1150
Balance -300 / -300 -310 / -310
SaO2 [ASV] 100
SaO2 [CPAP/PSV] 98
SaO2 [A/C] 98
SaO2 97
Nasal Cannula flow liters per 2
minute
Physical Exam
General: Poor Appetite and Other (chronically ill appearing, minimally responsive)
HEENT: Normocephalic, Anicteric and Other (dry MM, mouth open)
Cardiovascular: S1-S2 and Regular Rhythm
Respiratory: Clear (decreased overall) and Non-Labored Respirations
GI: Soft, Non Distended and Non Tender
Neurology: Lethargic and Non Verbal (not responding much at this time)
Skin: Warm and Dry
Labs/Micro/Reports
Lab Data
06/27/25 05:13
06/27/25 05:13
Microbiology
06/19/25 15:42 Blood/Venous Blood Culture - Final
No Growth - Final Report
--- NOTE | 2025-06-27 10:59 | W.PN.ID1 ---
Date of Service
Date of Service: June 27, 2025
Today's Communication
Continue current antibiotics.
Assessment / Plan
Acute on chronic pulmonary infiltrates
Hx bronchiectasis
Sputum with Pseudomonas aeruginosa
Neutropenia
Immunosuppression (on mycophenolate)
A-fib
Hx CVA
GERD
HTN
HLD
Valvular disease
Anxiety
Parkinson's disease
Myasthenia gravis
Diverticulitis
Nephrolithiasis
Vertigo
Orthostatic hypotension
Recommendations:
Continue with ciprofloxacin for the present (d#9 abx tx). Would complete a 14-day course in total.
Follow white count and temperature curve.
Continue with supportive measures.
Chief Complaint
-: Pneumonia
Subjective / Review of Systems
Review of Systems: No Fever, No Chills and Cough
Vital Signs / Physical Exam
Vital Signs
Vital Signs
Temp Pulse Resp BP Pulse Ox
99.1 F 111 18 97/77 97
06/27/25 09:38 06/27/25 09:00 06/27/25 09:00 06/27/25 08:38 06/27/25 09:00
Physical Exam
Constitutional: No Acute Distress, Comfortable, Chronically Ill, Non-toxic and Cachetic
Cardiovascular: S1/S2; Negative S3/S4
Pulmonary: Rhonchi (Scattered throughout), Coarse and Non Labored
Gastrointestinal: Soft, Non Tender and Non Distended
Skin: Negative Rash or Jaundice
Neurological: Awake
Psychological: Calm
Objective Data
Lab Data
Lab Results
06/27/25 05:13
06/27/25 05:13
PT 28.6 Sec (11.4-14.6) H 06/19/25 14:30
INR 2.64 06/19/25 14:30
APTT 70.5 Sec (23.4-35.0) H 06/19/25 14:30
Estimated Creat Clear 63 ml/min 06/27/25 05:13
Total Bilirubin 1.1 mg/dl (0.2-1.3) 06/27/25 05:13
AST 20 U/L (17-59) 06/27/25 05:13
ALT 20 U/L (0-50) 06/27/25 05:13
Alkaline Phosphatase 58 U/L (38-126) 06/27/25 05:13
Most recent labs reviewed.
Micro Results:
06/19/25 15:42 Blood Culture - Final
Blood/Venous No Growth - Final Report
06/20/25 08:25 Respiratory Culture - Final
Bronch Right Lower Lobe Pseudomonas aeruginosa
Gram Stain - Final
06/19/25 16:08 Respiratory Culture - Final
Sputum - Induced Pseudomonas aeruginosa
Pseudomonas aeruginosa#2
Gram Stain - Final
06/20/25 08:25 Legionella Urinary Antigen - Final
Urine Negative for Legionella pneumophila Serogroup 1 antigen.
A negative result does not rule out the possiblity of
Legionella infection due to other serogroups or species of
Legionella. Clinical correlation is recommended.
Streptococcus pneumoniae Antigen (M - Final
Negative for Streptococcus pneumoniae antigen.
A negative result does not exclude infection with
Streptococcus pneumoniae. Clinical correlation is
recommended.
06/20/25 08:25 Nasal Screen MRSA (PCR) - Final
Nose MRSA not detected - performed by PCR methodology.
06/19/25 15:42 Influenza Types A & B (LIVIER) - Final
Nasal Swab Negative for Influenza A & B, NAAT
Negative results must be combined with clinical observations
and patient history.
Nucleic Acid Amplification test (NAAT)performed on the
[employer] platform.
Respiratory Culture Final 06/19/25
Many Pseudomonas aeruginosa Strain #1
Many Pseudomonas aeruginosa Strain #2
Rare Usual Respiratory Eun
Organism 1 Pseudomonas aeruginosa
Organism 2 Pseudomonas aeruginosa#2
P.AERU P.AERU#2
M.I.C. RX M.I.C. RX
--------- --- --------- ---
Aztreonam 8 S <=4 S
Cefepime <=2 S <=2 S
Ceftazidime 4 S <=1 S
Ciprofloxacin <=0.25 S <=0.25 S
Meropenem <=1 S <=1 S
Piperacillin/Tazobactam <=8 S <=8 S
Tobramycin <=2 S <=2 S
Imaging:
06/21/2025 CXR (portable): stable appearance of support lines and tubes. The airspace opacities projecting over the right mid/lower lung and left lower lung are similar in appearance to prior. No pleural effusion or pneumothorax. See full
dictation for additional detail.
Chest X-Ray: Image Reviewed and Report Reviewed
--- NOTE | 2025-06-27 11:40 | W.PN.CARDCBS ---
Today's Communication / Plan
-
Remains in A-fib. Rates are modestly elevated but with hypotension I would not further titrate the carvedilol for now.
His blood pressure remains marginal. Continue midodrine.
Will restart Lasix 40 mg IV twice daily as he remains hypoxic although hypoxemia is likely multifactorial.
Hemoglobin stable at 8.2. Okay to continue Eliquis
Continue Mestinon.
Impression / Plan
-
[facility] So[employer]oda Worker: Dr. Santos
Assessment:
Presentation with SOB
PNA
Acute diastolic CHF
Hypotension
Pancytopenia
Admission to 06/01 - 06/05/2025 for UTI, CHF
Sinus bradycardia
Paroxysmal atrial fibrillation
Chronic amiodarone therapy
Chronic Eliquis therapy
Aortic stenosis/insufficiency by echo 06/03/25
History of hypertension
Hyperlipidemia
History of CVA
History of intermittent hematuria
Parkinson's disease
Myasthenia gravis
Bronchiectasis with prior Pseudomonas infection
Hypoalbuminemia
ECHO 10/17/24: EF 55 to 60%, no regional wall motion abnormalities noted, stage II diastolic dysfunction, MAC, moderate MR, moderate with peak/mean gradients 47/30 mmHg, STEPHY 1.3 cm�, moderate TR, PAP 45 mmHg, small pericardial effusion
Echo 06/03/2025: EF 55 to 60%, small pericardial effusion, moderate , mean gradient 25 mmHg, STEPHY 1.3 cm�, mild to moderate AI, mild MR, moderate TR, PAP 58 mmHg, no significant change compared to echo 10/2024
Plan:
He has lost 15 pounds but proBNP remains elevated. Will switch back to Lasix 40 mg IV twice daily and follow.
Creatinine remains normal but sodium is now mildly elevated. Will continue to follow.
I suspect his hypoxemia is multifactorial including post pneumonia but there also is some low-level congestive heart failure.
Continue rate control of A-fib with low-dose Coreg and continue Eliquis, amiodarone has been discontinued.
He continues to have pancytopenia. Hemoglobin is overall stable at 8.2. Continue to follow
Aortic stenosis remains in the moderate range.
His blood pressure remains marginal. Continue midodrine.
Continue Mestinon for myasthenia.
Progress Note - [employer] Worker
Subjective
Date of Service: June 27, 2025
Still with cough and some mild shortness of breath. Resting in bed. Does not feel his A-fib
Objective
Labs:
06/27/25 05:13
06/27/25 05:13
Labs
Hgb 8.4 g/dL (13.0-18.0) L 06/27/25 05:13
Hct 29.0 % (39.0-52.0) L 06/27/25 05:13
Plt Count 154 10^3/uL (130-400) 06/27/25 05:13
PT 28.6 Sec (11.4-14.6) H 06/19/25 14:30
INR 2.64 06/19/25 14:30
APTT 70.5 Sec (23.4-35.0) H 06/19/25 14:30
Sodium 147 mmol/L (135-145) H 06/27/25 05:13
Potassium 3.7 mmol/L (3.5-5.1) 06/27/25 05:13
BUN 28 mg/dl (9-20) H 06/27/25 05:13
Creatinine 0.8 mg/dL (0.7-1.3) 06/27/25 05:13
Glucose 103 mg/dl (70-99) H 06/27/25 05:13
Vital Signs and I&O:
Vital Signs
Temp Pulse Resp BP Pulse Ox
99.1 F 111 18 97/77 97
06/27/25 09:38 06/27/25 09:00 06/27/25 09:00 06/27/25 08:38 06/27/25 09:00
Vital Signs
Temp Pulse Resp BP Pulse Ox
99.1 F 111 18 97/77 97
06/27/25 09:38 06/27/25 09:00 06/27/25 09:00 06/27/25 08:38 06/27/25 09:00
Intake & Output
06/25/25 06/26/25 06/27/25 06/28/25
06:59 06:59 06:59 06:59
Intake Total 360 / 360 900 / 900 840 / 840
Output Total 1300 / 1300 1200 / 1200 1150 / 1150
Balance -940 / -940 -300 / -300 -310 / -310
Physical Exam
Physical Exam
GEN: No distress, awake
HEENT: supple, anicteric, mmm
LUNGS: scatt rhonchi
CV: Irreg, S1/S2, 2/6 syst LSB, no gallop
ABD: soft, BS+, NT/ND
EXT: No edema
NEURO: Gross non-focal
SKIN: No rash
[2025-06-27] MEDS: VITAMIN B-12 3000 MCG PO (11:44)
--- NOTE | 2025-06-27 16:12 | CM ---
Patient seen at bedside in IMU with physicians. Patient spoke with CM via phone and CM reviewed therapy recommended SNF and CM reviewed [email or web address] and possible options close to home. Patient agreed with plan and will review with her
children and update CM with options in am. CM will continue to follow for discharge planning needs.
Plan; SNF; pending family options/referrals
[2025-06-27] MEDS: LASIX 40 MG IV (16:23)
[2025-06-27] MEDS: LIPITOR 20 MG PO (17:45)
--- NOTE | 2025-06-27 20:16 | PTCARENOTE ---
Assumed care of Pt from dayshift RN after change of shift report. Pt is arousable to verbal stimulation and smiley tonight. Voice is soft, slow speech, answering name and . took pills crushed in pudding without difficulty, aspiration precautions
maintained. HS oral care preformed. CC #[id number] intact draining dark yellow urine. q2t maintained, heels elevated. assessment as documented.
[2025-06-27] MEDS: CELLCEPT 1000 MG PO (21:22)
[2025-06-27] MEDS: MELATONIN 3 MG TUBE (21:22)
[2025-06-27] MEDS: MESTINON 30 MG PO (21:22)
[2025-06-28] VITALS (14 sets, daily range): BP systolic 79–121; BP diastolic 55–91; PULSE 96–97; O2SAT 100; BMI 16.8
[2025-06-28 05:06] LABS: Hematocrit 30.3 % (39.0-52.0); Hemoglobin 9.4 g/dL (13.0-18.0); Mean Corp Hgb Conc. 31.0 g/dL (33.0-37.0); Mean Corpuscular Volume 88.9 fL (80.0-94.0); Nucleated Red Blood Cells % 0 % (-); Platelet Count 171 10^3/uL (130-400); Red Cell Dist. Width 17.0 % (11.5-14.5)
[2025-06-28 05:17] LABS: ALT (SGPT) 16 U/L (0-50); AST (SGOT) 24 U/L (17-59); Albumin 2.5 g/dl (3.5-5.0); Alkaline Phosphatase 66 U/L (38-126); Blood Urea Nitrogen 25 mg/dl (9-20); Calcium 7.5 mg/dl (8.4-10.2); Carbon Dioxide 30 mmol/L (22-30); Chloride 116 mmol/L (98-107); Estimated Creatinine Clearance 54 ml/min; Glucose 112 mg/dl (70-99); Potassium 3.7 mmol/L (3.5-5.1); Sodium 146 mmol/L (135-145); Total Protein 5.1 g/dl (6.3-8.2); eGFR > 60.00
--- NOTE | 2025-06-28 07:00 | W.PN.HOSP.TC ---
Addendum entered and electronically signed by Keya Devlin MD 06/28/25 19:15:
Patient is in need of a semi-electric hospital bed with foam mattress due to the need to elevate head of bed above 30 degrees to prevent aspiration and to facilitate frequent repositioning to prevent bed ulcers and pressure points.
I saw and evaluated the patient independently. I reviewed and discussed the resident�s note and agree with findings and plan as documented by Dr. Ag.
GENERAL: chronically ill appearing male in no apparent distress--better than yesterday--more awake
HEENT: NC/AT--O2 NC in place
HEART: regular rate and rhythm, +S1, +S2
LUNGS : rhonchi bilaterally with wet sounding cough
ABDOM: soft, nontender, nondistended, + bowel sounds
EXT: no cyanosis, clubbing, or edema
NEUROLOGIC: deconditioned
Acute change in mental status--improved compared to yesterday---stat head CT was negative, CXR without change--unclear if patient had aspiration event-- MRI of the brain showed LARGE CHRONIC TRANSCORTICAL INFARCT in the LATERAL LEFT FRONTAL
LOBE--daily improvements
Acute hypoxic respiratory failure--likely from volume overload and Pseudomonas pneumonia--wean O2--intubated and now extubated--weak cough--hold diuresis, oral cipro--IS and add vest therapy--apprec pulm/cards--repeat pro BNP 12,200, follow --apprec
ID input--cont cipro for now--finish course--should have outpt sleep study--home O2 assessment in AM
Suspect Acute on chronic HFpEF--apprec cards--weights down since admission--apprec speech--diuresis per cards
Paroxysmal Atrial Fibrillation--Continue Eliquis--consider stopping amiodarone if remains in A-fib and not ideal candidate for cardioversion at present as per cards
Pancytopenia with immunosuppression--Likely secondary to mycophenolate
Acute on chronic anemia--Status post blood transfusion 1 unit pRBC for HGB of 6.7--trend HGB
hypokalemia--replete
Myasthenia Gravis--Continue Cellcept
Parkinson's Disease--Continue Sinemet
Hyperlipidemia--Continue Statin
Wound--POA--purple area on coccyx suspect due to pressure injury as well as thrombocytopenia--could be deep tissue injury versus a stage I pressure injury--left buttock also red with an ecchymotic stage I pressure injury
DVT proph-- Eliquis resumed
code status-- full code --started speaking with regarding progressive Parkinson's and feeding tubes, etc-- patient's would like us to 'try one time' for resuscitative efforts so remains full code, although did describe that towards the
end, hospitalizations get longer in time between hospitalizations get shorter (this is his third visit since February)
Original Note:
Today's Communication/Plan
-
Continue nightly CPAP�Will need home
Does not qualify as IP�need OP sleep study
Continue 500 mg of ciprofloxacin p.o. twice daily
Continue midodrine 10 mg p.o. 3 times daily
Restart Lasix 40 mg IV twice daily
Continue Eliquis 5 mg p.o. twice daily
Continue Mestinon 30 mg per oral at bedtime
Continue speech/PT/OT
Wait for final decision from family about where patient will be discharged to.
Assessment / Plan
Assessment / Plan
79-year-old male patient presented to the ED on for acute diastolic CHF. At ER was initially treated with noninvasive positive pressure ventilation but ultimately was intubated for increased work of breathing. Cardiology has been
managing acute heart failure with preserved ejection fraction. Is also being treated for pseudomonal pneumonia. Patient has a history of ongoing pancytopenia that progressed during his stay. He also presented with sinus bradycardia. Throughout
his stay patient was becoming more neutropenic was immunosuppressed and extremely lethargic. As per his , this was becoming more normal for him especially later in the day. Stat head CT was negative. Chest x-ray was without change. Unclear
if the patient had an aspiration event. MRI of the brain showed large chronic transcortical infarct in the lateral left frontal lobe (an old infarct). Around 06/25/2025, patient started becoming more responsive on visits. IV dextrose 5% / 0.9%
sodium chloride 60 mL/h was added to his medication. As per speech therapy evaluation, patient was taken off of n.p.o. and returned to IDDSI 5�minced and moist diet protocol. Patient has been making daily improvements. As of 06/28/25 at 7AM,
patient was more awake and interactive. He was still incomprehensible, but he was more responsive for the last few days. As per his nurse, he has been doing okay this morning. No complaints of any constitutional symptoms. His lungs sounded more
clearer than they were 3 days ago.
Assessment and Plan:
Acute hypoxic respiratory failure
Continue with ciprofloxacin 500 mg p.o. twice daily. (Day 9 Abx Tx) -Complete 14-day course total
Restart Lasix 40 mg IV twice daily (remains hypoxic)
Does not qualify as IP�need OP sleep study�Home will leave FU instructions in chart
Continue CPAP at night�Will need home set up
Sever sepsis with acute Pneumonia as a source
Ciprofloxacin 500 mg PO BID continued
Vest therapy added
Repeat Chest X Ray ordered on 06/25/2025: Impression: Reticulonodular opacities in both lungs, left greater than right, in keeping with the provided history of Pseudomonas pneumonia
Suspect Acute on chronic HFpEFL
Gave IVF now will hold since diet replaced.
Paroxysmal Atril Fibrillation
Continue rate control of A-fib with low-dose Coreg and Eliquis.
Amiodarone has been discontinued.
Pancytopenia.
Likely secondary to mycophenolate
CDI precautions in place.
WBC count steadily rising 1.1-2.1.-2.0 (Improving)
Trend Temperature Curve
Acute on chronic anemia
Hbg stable at 8.2
Continue Eliquis.
Hypokalemia
Corrected
Myasthenia Gravis
Continue Mestinon (pyridostigmine bromide)
Parkinson's Disease
Continue Sinemet
Hyperlipidemia
Continue Statin
Wound (CDI)
Purple area on coccyx suspect due to pressure injury as well as thrombocytopenia.
Could be deep tissue injury versus stage I pressure injury
Left buttock also red with an ecchymotic stage I pressure injury.
DVT prophylaxis. Eliquis resumed via G-tube
GI prophylaxis. IV Protonix
status full code -spoke to patient's regarding full CODE STATUS. She expressed her wishes for us to (try one-time) for resuscitative efforts so remains full code.
Anticipated Discharge: Within 24 hours
Subjective/Interval History
-
Date of Service: June 28, 2025
79-year-old male patient presented to the ED on for acute diastolic CHF. At ER was initially treated with noninvasive positive pressure ventilation but ultimately was intubated for increased work of breathing. Cardiology has been
managing acute heart failure with preserved ejection fraction. Is also being treated for pseudomonal pneumonia. Patient has a history of ongoing pancytopenia that progressed during his stay. He also presented with sinus bradycardia. Throughout
his stay patient was becoming more neutropenic was immunosuppressed and extremely lethargic. As per his , this was becoming more normal for him especially later in the day. Stat head CT was negative. Chest x-ray was without change. Unclear
if the patient had an aspiration event. MRI of the brain showed large chronic transcortical infarct in the lateral left frontal lobe (an old infarct). Around 06/25/2025, patient started becoming more responsive on visits. IV dextrose 5% / 0.9%
sodium chloride 60 mL/h was added to his medication. As per speech therapy evaluation, patient was taken off of n.p.o. and returned to IDDSI 5�minced and moist diet protocol. Patient has been making daily improvements. As of 06/28/25 at 7AM,
patient was more awake and interactive. He was still incomprehensible, but he was more responsive for the last few days. As per his nurse, he has been doing okay this morning. No complaints of any constitutional symptoms. His lungs sounded more
clearer than they were 3 days ago.
Objective Data
-
Labs:
Laboratory Results
06/28/25
04:38
WBC 2.3 L*
Hgb 9.4 L
Hct 30.3 L
Plt Count 171
Sodium 146 H
Potassium 3.7
Chloride 116 H
Carbon Dioxide 30
BUN 25 H
Creatinine 0.9
Glucose 112 H
Calcium 7.5 L
Total Bilirubin 1.2
AST 24
ALT 16
Alkaline Phosphatase 66
Vital Signs:
Vital Signs
Temp Pulse Resp BP Pulse Ox
97.4 F 90 20 100/78 97
06/28/25 03:12 06/28/25 03:00 06/28/25 02:00 06/28/25 02:00 06/28/25 03:00
I&O
06/27/25 06/28/25 06/29/25
06:59 06:59 06:59
Intake Total 840 / 840 720 / 720
Output Total 1150 / 1150 1900 / 1900
Balance -310 / -310 -1180 / -1180
Review of Systems
-
Unable to obtain full review of systems at this time due to: Dementia and Acuity
History Source: Family
All other systems: Reviewed and negative
Constitutional: Reports Weight Loss and Fatigue
Physical Exam
-
General: No Apparent Distress, Appears Chronically Ill and Cachectic
HEENT: Normocephalic, Atraumatic and Other
Respiratory: Other (Very mild rhonchi)
Cardiac: Regular Rhythm and S1/S2
Breast: Deferred by me
GI: Soft, Nontender, Nondistended and Normal Bowel Sounds
Musculoskeletal: No Clubbing, No Cyanosis and No Edema
Neuro: Other (Deconditioned)
Data Reviewed
-
CT Scan: Report Reviewed by me and Discussed with Physician
MRI: Report Reviewed by me and Discussed with Physician
Labs: Labs Reviewed by me and Discussed with Physician
[2025-06-28] MEDS: DUONEB 3 ML INH (08:00)
[2025-06-28] MEDS: SODIUM CHLORIDE 3% FOR INHALATION 1 VIAL INH (08:00)
[2025-06-28] MEDS: CELLCEPT 1500 MG PO (08:26)
[2025-06-28] MEDS: ROBITUSSIN 200 MG PO ×4 (08:27→20:42)
[2025-06-28] MEDS: MIRALAX 17 GRAMS PO (08:28)
[2025-06-28] MEDS: DELTASONE 7.5 MG PO (08:29)
[2025-06-28] MEDS: MESTINON 90 MG PO ×3 (08:31→16:57)
[2025-06-28] MEDS: SINEMET 25-100 2 TABLET PO ×3 (08:31→16:58)
[2025-06-28] MEDS: ROBINUL 1 MG PO ×2 (08:32→20:42)
[2025-06-28] MEDS: LEXAPRO 10 MG PO (08:32)
[2025-06-28] MEDS: PREVACID 30 MG PO (08:33)
[2025-06-28] MEDS: LASIX 40 MG IV ×2 (08:33→16:52)
[2025-06-28] MEDS: CIPRO 500 MG PO ×2 (08:34→20:43)
[2025-06-28] MEDS: ELIQUIS 5 MG PO ×2 (08:34→20:43)
[2025-06-28] MEDS: FOLVITE 1 MG PO (08:34)
--- NOTE | 2025-06-28 09:35 | W.PN.CARDCBS ---
Today's Communication / Plan
-
Continue IV Lasix for hypoxemia and elevated proBNP
Continue antibiotics for aspiration ammonia
Continue rate controlled A-fib at low-dose Coreg and Eliquis
Impression / Plan
-
[facility] [employer] Machine Setter: Dr. Santos
Assessment:
Presentation with SOB
PNA
Acute diastolic CHF
Hypotension
Pancytopenia
Admission to 06/01 - 06/05/2025 for UTI, CHF
Sinus bradycardia
Paroxysmal atrial fibrillation
Chronic amiodarone therapy
Chronic Eliquis therapy
Aortic stenosis/insufficiency by echo 06/03/25
History of hypertension
Hyperlipidemia
History of CVA
History of intermittent hematuria
Parkinson's disease
Myasthenia gravis
Bronchiectasis with prior Pseudomonas infection
Hypoalbuminemia
ECHO 10/17/24: EF 55 to 60%, no regional wall motion abnormalities noted, stage II diastolic dysfunction, MAC, moderate MR, moderate with peak/mean gradients 47/30 mmHg, STEPHY 1.3 cm�, moderate TR, PAP 45 mmHg, small pericardial effusion
Echo 06/03/2025: EF 55 to 60%, small pericardial effusion, moderate , mean gradient 25 mmHg, STEPHY 1.3 cm�, mild to moderate AI, mild MR, moderate TR, PAP 58 mmHg, no significant change compared to echo 10/2024
Plan:
Lasix was restarted on 06/27 due to elevated BNP and hypoxemia
Weight is down 6 pounds in the past 24 hours with stable renal function
Continue IV Lasix
He remains on 2 L of oxygen but appears improved
Continue antibiotics for aspiration pneumonia as well
Continue rate control of A-fib with low-dose Coreg and Eliquis
His blood pressure remains marginal. Continue midodrine.
Continue Mestinon for myasthenia.
Progress Note - [employer] Setter
Subjective
Date of Service: June 28, 2025
No complaints
Objective
Labs:
06/28/25 04:38
06/28/25 04:38
Labs
Hgb 9.4 g/dL (13.0-18.0) L 06/28/25 04:38
Hct 30.3 % (39.0-52.0) L 06/28/25 04:38
Plt Count 171 10^3/uL (130-400) 06/28/25 04:38
PT 28.6 Sec (11.4-14.6) H 06/19/25 14:30
INR 2.64 06/19/25 14:30
APTT 70.5 Sec (23.4-35.0) H 06/19/25 14:30
Sodium 146 mmol/L (135-145) H 06/28/25 04:38
Potassium 3.7 mmol/L (3.5-5.1) 06/28/25 04:38
BUN 25 mg/dl (9-20) H 06/28/25 04:38
Creatinine 0.9 mg/dL (0.7-1.3) 06/28/25 04:38
Glucose 112 mg/dl (70-99) H 06/28/25 04:38
Vital Signs and I&O:
Vital Signs
Temp Pulse Resp BP Pulse Ox
97.3 F 102 19 106/71 93
06/28/25 08:32 06/28/25 09:00 06/28/25 09:00 06/28/25 08:29 06/28/25 09:24
Vital Signs
Temp Pulse Resp BP Pulse Ox
97.3 F 102 19 106/71 93
06/28/25 08:32 06/28/25 09:00 06/28/25 09:00 06/28/25 08:29 06/28/25 09:24
Intake & Output
06/26/25 06/27/25 06/28/25 06/29/25
06:59 06:59 06:59 06:59
Intake Total 900 / 900 840 / 840 720 / 720
Output Total 1200 / 1200 1150 / 1150 1900 / 1900
Balance -300 / -300 -310 / -310 -1180 / -1180
Physical Exam
Physical Exam
General: Well developed, well nourished in NAD.
Neck: Supple, no JVD, HJR, carotids +2 B/L, no bruits bilaterally.
Heart: Non displaced PMI, irregular,, no murmurs, No S3, S4, no rubs.
Lungs: Scattered rhonchi
Extremities: No clubbing, cyanosis or edema bilaterally.
Neuro: Grossly nonfocal, awake, alert and oriented x3.
[2025-06-28 10:16] LABS: B.E. 3.3 mmol/L; HCO3 26.3 mmol/L (21-28); O2 Saturation % 96.0 % (94-98); PCO2 33 mmHg (35-48); PO2 76 mmHg (83-108)
--- NOTE | 2025-06-28 11:02 | W.PN.ID1 ---
Date of Service
Date of Service: June 28, 2025
Today's Communication
Continue current course of antibiotics.
Assessment / Plan
Acute on chronic pulmonary infiltrates
Hx bronchiectasis
Sputum with Pseudomonas aeruginosa
Neutropenia
Immunosuppression (on mycophenolate)
A-fib
Hx CVA
GERD
HTN
HLD
Valvular disease
Anxiety
Parkinson's disease
Myasthenia gravis
Diverticulitis
Nephrolithiasis
Vertigo
Orthostatic hypotension
Recommendations:
Continue with ciprofloxacin for the present (d#10 abx tx). Would complete a 14-day course in total.
Continue with supportive measures.
Little more to offer from a Infectious Diseases standpoint.
Will see again at your request
����������������������������������������������������������
Chief Complaint
-: Pneumonia
Subjective / Review of Systems
Review of Systems: No Fever, No Chills, Cough and No Sputum Production
Vital Signs / Physical Exam
Vital Signs
Vital Signs
Temp Pulse Resp BP Pulse Ox
97.3 F 102 19 106/71 93
06/28/25 08:32 06/28/25 09:00 06/28/25 09:00 06/28/25 08:29 06/28/25 09:24
Physical Exam
Constitutional: No Acute Distress, Comfortable, Chronically Ill, Non-toxic and Cachetic
Cardiovascular: S1/S2; Negative S3/S4
Pulmonary: Rhonchi (Scattered throughout), Coarse and Non Labored
Gastrointestinal: Soft, Non Tender and Non Distended
Skin: Negative Rash or Jaundice
Neurological: Awake
Psychological: Calm
Objective Data
Lab Data
Lab Results
06/28/25 04:38
06/28/25 04:38
PT 28.6 Sec (11.4-14.6) H 06/19/25 14:30
INR 2.64 06/19/25 14:30
APTT 70.5 Sec (23.4-35.0) H 06/19/25 14:30
Estimated Creat Clear 54 ml/min 06/28/25 04:38
Total Bilirubin 1.2 mg/dl (0.2-1.3) 06/28/25 04:38
AST 24 U/L (17-59) 06/28/25 04:38
ALT 16 U/L (0-50) 06/28/25 04:38
Alkaline Phosphatase 66 U/L (38-126) 06/28/25 04:38
Most recent labs reviewed.
Micro Results:
06/19/25 15:42 Blood Culture - Final
Blood/Venous No Growth - Final Report
06/20/25 08:25 Respiratory Culture - Final
Bronch Right Lower Lobe Pseudomonas aeruginosa
Gram Stain - Final
06/19/25 16:08 Respiratory Culture - Final
Sputum - Induced Pseudomonas aeruginosa
Pseudomonas aeruginosa#2
Gram Stain - Final
06/20/25 08:25 Legionella Urinary Antigen - Final
Urine Negative for Legionella pneumophila Serogroup 1 antigen.
A negative result does not rule out the possiblity of
Legionella infection due to other serogroups or species of
Legionella. Clinical correlation is recommended.
Streptococcus pneumoniae Antigen (M - Final
Negative for Streptococcus pneumoniae antigen.
A negative result does not exclude infection with
Streptococcus pneumoniae. Clinical correlation is
recommended.
06/20/25 08:25 Nasal Screen MRSA (PCR) - Final
Nose MRSA not detected - performed by PCR methodology.
06/19/25 15:42 Influenza Types A & B ([facility]IV[facility]) - Final
Nasal Swab Negative for Influenza A & B, NAAT
Negative results must be combined with clinical observations
and patient history.
Nucleic Acid Amplification test (NAAT)performed on the
UEIS platform.
Respiratory Culture Final 06/19/25
Many Pseudomonas aeruginosa Strain #1
Many Pseudomonas aeruginosa Strain #2
Rare Usual Respiratory Eun
Organism 1 Pseudomonas aeruginosa
Organism 2 Pseudomonas aeruginosa#2
P.AERU P.AERU#2
M.I.C. RX M.I.C. RX
--------- --- --------- ---
Aztreonam 8 S <=4 S
Cefepime <=2 S <=2 S
Ceftazidime 4 S <=1 S
Ciprofloxacin <=0.25 S <=0.25 S
Meropenem <=1 S <=1 S
Piperacillin/Tazobactam <=8 S <=8 S
Tobramycin <=2 S <=2 S
Imaging:
06/21/2025 CXR (portable): stable appearance of support lines and tubes. The airspace opacities projecting over the right mid/lower lung and left lower lung are similar in appearance to prior. No pleural effusion or pneumothorax. See full
dictation for additional detail.
[2025-06-28] MEDS: VITAMIN B-12 3000 MCG PO (12:09)
--- NOTE | 2025-06-28 14:17 | CM ---
CM spoke with patient son at bedside. Per son patient family plan is for discharge home with transport to take patient to 2nd floor with [facility] and home O2/CPAP. Son not able to provide name of agency family wants to use for the home O2 and
is not sure which agency will provide aides/nursing for 28/03 when son is not available. CM left for patient requesting update/confirmation about agencies and home health. CM will send referral to [facility] for home health. Son indicated
that he was aware of patient dependent status at this time and that his sister really did not want patient to go to SNF. CM provided IMM form for patient son to share with his mother and CM will continue to follow for discharge planning needs.
Plan; home with [facility]; pending acceptance and home O2/CPAP will need to be arranged.
--- NOTE | 2025-06-28 14:46 | WOUNDNOTE ---
SACRAL/COCCYX (with photo flash)
--- NOTE | 2025-06-28 14:47 | WOUNDNOTE ---
WO RN note: Patient more alert than Tuesday. Patient extremely thin. Coccyx with 2 purple areas, center one open with light yellow fibrin appearance. L buttocks stage 1 pressure injury resolving. Lip bruises slightly less purple, not open. Skin on
heels intact. Patient ate 100% breakfast documented but not much eaten for lunch so far. Protective foam dressings maintained on heels. Sacral shaped silicone border foam changed on sacral/coccyx. Silicone border foam to L buttocks. PT Gordon and OT
working with patient. Patient has air chair cushion and a foam turning wedge. Requested therapists to position patient on a 30 degree turn position to off load sacrum with heels elevated if patient remains in bed. Current wound care appropriate.
Healing potential poor d/t overall medical condition, cachexia. Will follow as needed.
--- NOTE | 2025-06-28 15:45 | CM ---
Addendum entered by Evelyn Vazquez 06/28/25 17:21:
updated.
Addendum entered by Evelyn Vazquez 06/28/25 17:16:
No call back from [facility] at this time.
Addendum entered by Evelyn Vazquez 06/28/25 16:24:
referral for hospital bed and home O2 sent to [facility] at [phone]/fax [phone]; pending response.
Original Note:
Patient seen at bedside with physicians on IMU. CM returned and discussed with patient son discharge planning needs. Patient wants patient to return to home with [facility] ; SNF pathway is being requested with hospital bed, home O2. CM
also spoke with patient about home health aides and she is thinking about the options. Patient now also asking for hospital bed. CM updated physician and will call to [facility] to inquire about information for home SNF pathway.
Patient did not have any preferences for home O2 or DME providers as well. Patient will need outpatient assessment for CPAP per Pulmonology and patient indicated that she understood.
CM provided IMM and reviewed with patient son. Patient son requested patient transport home to second floor. CM will continue to follow for discharge planning needs.
Plan; home with [facility]; SNF pathway if possible with hospital bed/home O2.
[2025-06-28] MEDS: LIPITOR 20 MG PO (16:58)
[2025-06-28] MEDS: MELATONIN 3 MG TUBE (20:42)
[2025-06-28] MEDS: CELLCEPT 1000 MG PO (20:42)
[2025-06-28] MEDS: MESTINON 30 MG PO (20:43)
--- NOTE | 2025-06-28 23:05 | PTCARENOTE ---
Pt refusing BIPAP at this time, resting comfortably in bed. VSS. Care ongoing
[2025-06-29] VITALS (18 sets, daily range): BP systolic 57–136; BP diastolic 37–100; BMI 16.4
[2025-06-29 07:36] LABS: Hematocrit 30.8 % (39.0-52.0); Hemoglobin 9.5 g/dL (13.0-18.0); Mean Corp Hgb Conc. 30.8 g/dL (33.0-37.0); Mean Corpuscular Volume 88.5 fL (80.0-94.0); Nucleated Red Blood Cells % 0 % (-); Platelet Count 217 10^3/uL (130-400); Red Cell Dist. Width 16.8 % (11.5-14.5)
[2025-06-29 08:08] LABS: ALT (SGPT) 15 U/L (0-50); AST (SGOT) 21 U/L (17-59); Albumin 2.6 g/dl (3.5-5.0); Alkaline Phosphatase 72 U/L (38-126); Blood Urea Nitrogen 27 mg/dl (9-20); Calcium 7.7 mg/dl (8.4-10.2); Carbon Dioxide 34 mmol/L (22-30); Chloride 112 mmol/L (98-107); Estimated Creatinine Clearance 40 ml/min; Glucose 78 mg/dl (70-99); Magnesium 2.2 mg/dl (1.6-2.3); Potassium 4.2 mmol/L (3.5-5.1); Sodium 145 mmol/L (135-145); Total Protein 5.2 g/dl (6.3-8.2); eGFR > 60.00
--- NOTE | 2025-06-29 09:02 | W.PN.CARDCBS ---
Today's Communication / Plan
-
Hypoxemia has improved
Continue IV Lasix and consider change to oral Lasix in the next 24 to 48 hours
Continue rate control of A-fib
Continue treatment for aspiration pneumonia as well
Impression / Plan
-
[facility] Sales Marketing Coordinator: Dr. Santos
Assessment:
Presentation with SOB
PNA
Acute diastolic CHF
Hypotension
Pancytopenia
Admission to 06/01 - 06/05/2025 for UTI, CHF
Sinus bradycardia
Paroxysmal atrial fibrillation
Chronic amiodarone therapy
Chronic Eliquis therapy
Aortic stenosis/insufficiency by echo 06/03/25
History of hypertension
Hyperlipidemia
History of CVA
History of intermittent hematuria
Parkinson's disease
Myasthenia gravis
Bronchiectasis with prior Pseudomonas infection
Hypoalbuminemia
ECHO 10/17/24: EF 55 to 60%, no regional wall motion abnormalities noted, stage II diastolic dysfunction, MAC, moderate MR, moderate with peak/mean gradients 47/30 mmHg, STEPHY 1.3 cm�, moderate TR, PAP 45 mmHg, small pericardial effusion
Echo 06/03/2025: EF 55 to 60%, small pericardial effusion, moderate , mean gradient 25 mmHg, STEPHY 1.3 cm�, mild to moderate AI, mild MR, moderate TR, PAP 58 mmHg, no significant change compared to echo 10/2024
Plan:
Lasix was restarted on 06/27 due to elevated BNP and hypoxemia
Weight is down 9 pounds in the past 48 hours with stable renal function and has been on room air
Continue IV Lasix and might consider change to oral Lasix in the next 24 to 48 hours
Continue antibiotics for aspiration pneumonia as well
Continue rate control of A-fib with low-dose Coreg and Eliquis
His blood pressure remains marginal. Continue midodrine.
Continue Mestinon for myasthenia.
Progress Note - Sales Marketing Coordinator
Subjective
Date of Service: June 29, 2025
No complaints
Objective
Labs:
06/29/25 06:01
06/29/25 06:01
Labs
Hgb 9.5 g/dL (13.0-18.0) L 06/29/25 06:01
Hct 30.8 % (39.0-52.0) L 06/29/25 06:01
Plt Count 217 10^3/uL (130-400) D 06/29/25 06:01
PT 28.6 Sec (11.4-14.6) H 06/19/25 14:30
INR 2.64 06/19/25 14:30
APTT 70.5 Sec (23.4-35.0) H 06/19/25 14:30
Sodium 145 mmol/L (135-145) 06/29/25 06:01
Potassium 4.2 mmol/L (3.5-5.1) 06/29/25 06:01
BUN 27 mg/dl (9-20) H 06/29/25 06:01
Creatinine 1.2 mg/dL (0.7-1.3) 06/29/25 06:01
Glucose 78 mg/dl (70-99) 06/29/25 06:01
Vital Signs and I&O:
Vital Signs
Temp Pulse Resp BP Pulse Ox
97.3 F 94 15 95/74 98
06/29/25 02:54 06/29/25 04:00 06/29/25 04:00 06/29/25 04:00 06/29/25 04:00
Vital Signs
Temp Pulse Resp BP Pulse Ox
97.3 F 94 15 95/74 98
06/29/25 02:54 06/29/25 04:00 06/29/25 04:00 06/29/25 04:00 06/29/25 04:00
Intake & Output
06/27/25 06/28/25 06/29/25 06/30/25
06:59 06:59 06:59 06:59
Intake Total 840 / 840 720 / 720 175 / 175
Output Total 1150 / 1150 1900 / 1900 1700 / 1700
Balance -310 / -310 -1180 / -1180 -1700 / -1700 175 / 175
Physical Exam
Physical Exam
General: Well developed, well nourished in NAD.
Neck: Supple, no JVD, HJR, carotids +2 B/L, no bruits bilaterally.
Heart: Non displaced PMI, irregular, no murmurs, No S3, S4, no rubs.
Lungs: Scattered rhonchi
Extremities: No clubbing, cyanosis or edema bilaterally.
Neuro: Grossly nonfocal, awake, alert and oriented x3.
[2025-06-29] MEDS: CELLCEPT 1500 MG PO (09:05)
[2025-06-29] MEDS: DELTASONE 7.5 MG PO (09:09)
[2025-06-29] MEDS: CIPRO 500 MG PO ×2 (09:10→19:52)
[2025-06-29] MEDS: PREVACID 30 MG PO (09:10)
[2025-06-29] MEDS: LEXAPRO 10 MG PO (09:10)
[2025-06-29] MEDS: ELIQUIS 5 MG PO ×2 (09:11→19:52)
[2025-06-29] MEDS: FOLVITE 1 MG PO (09:11)
[2025-06-29] MEDS: ROBINUL 1 MG PO ×2 (09:11→19:52)
[2025-06-29] MEDS: ROBITUSSIN 200 MG PO ×4 (09:12→22:59)
[2025-06-29] MEDS: LASIX 40 MG IV ×2 (09:12→16:31)
[2025-06-29] MEDS: SINEMET 25-100 2 TABLET PO ×3 (09:12→16:31)
[2025-06-29] MEDS: MESTINON 90 MG PO ×3 (09:13→16:31)
[2025-06-29] MEDS: MIRALAX 17 GRAMS PO (09:15)
[2025-06-29] MEDS: VITAMIN B-12 3000 MCG PO (12:14)
--- NOTE | 2025-06-29 15:19 | PTCARENOTE ---
Verbal report received from Karl Lopez. pt sleeping at this time. remains on shift leader, is currently on RA sating 95%. daughter at bedside, updated on plan of care. MD Fang just left bedside. pt with poor oral intake today thus far,
is drowsier compared to yesterday per daughter, 'i feel like he is having an off day.' plan of care continues to be followed. daughter reports plan is to take pt home, they are awaiting for hospital bed to be delivered.
--- NOTE | 2025-06-29 15:58 | W.PN.HOSP.TC ---
Addendum entered and electronically signed by Keya Devlin MD 06/29/25 17:59:
Patient is in need of a semi-electric hospital bed with foam mattress due to the need to elevate head of bed above 30 degrees to prevent aspiration and to facilitate frequent repositioning to prevent bed ulcers and pressure points.
I saw and evaluated the patient independently. I reviewed and discussed the resident�s note and agree with findings and plan as documented by Dr. gA.
GENERAL: chronically ill appearing male in no apparent distress--more awake
HEENT: NC/AT--O2 NC in place, weaning to off
HEART: irreg irreg
LUNGS : rhonchi bilaterally with wet sounding cough much improved--clear
ABDOM: soft, nontender, nondistended, + bowel sounds
EXT: no cyanosis, clubbing, or edema
NEUROLOGIC: deconditioned
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
Acute hypoxic respiratory failure--likely from volume overload and Pseudomonas pneumonia--weaned O2--intubated and now extubated--weak cough--hold diuresis, oral cipro--IS and add vest therapy--apprec pulm/cards--repeat pro BNP 12,200, follow
--apprec ID input--cont cipro--finish course--should have outpt sleep study--home O2 assessment shows pt does not qualify for home O2
Suspect Acute on chronic HFpEF--apprec cards--weights down since admission--apprec speech--diuresis per cards
Paroxysmal Atrial Fibrillation--Continue Eliquis--consider stopping amiodarone if remains in A-fib and not ideal candidate for cardioversion at present as per cards
Pancytopenia with immunosuppression--Likely secondary to mycophenolate
Acute on chronic anemia--Status post blood transfusion 1 unit pRBC for HGB of 6.7--trend HGB
hypokalemia--replete
Myasthenia Gravis--Continue Cellcept
Parkinson's Disease--Continue Sinemet
Hyperlipidemia--Continue Statin
Wound--POA--purple area on coccyx suspect due to pressure injury as well as thrombocytopenia--could be deep tissue injury versus a stage I pressure injury--left buttock also red with an ecchymotic stage I pressure injury
DVT proph-- Eliquis resumed
code status-- full code --started speaking with regarding progressive Parkinson's and feeding tubes, etc-- patient's would like us to 'try one time' for resuscitative efforts so remains full code, although did describe that towards the
end, hospitalizations get longer in time between hospitalizations get shorter (this is his third visit since February)
family insistent on taking pt home despite that he ia a maximum 2 person assist--hospital bed to be delivered tomorrow
Original Note:
Today's Communication/Plan
-
Transfer order put in to move patient to telemetry.
Continue nightly BiPAP
Need OP sleep study
Continue 500 mg of ciprofloxacin p.o. twice daily
Continue midodrine 10 mg p.o. 3 times daily
Continue Lasix 40 mg IV twice daily (consider switching to oral Lasix in the next 24 to 48 hours).
Continue Eliquis 5 mg p.o. twice daily
Continue Mestinon 30 mg per oral at bedtime
Continue speech/PT/OT
Wait for final decision from family about where patient will be discharged to.
Assessment / Plan
Assessment / Plan
79-year-old male patient presented to the ED on 06/19/2025 for Acute Diastolic CHF. At ER was initially treated with noninvasive positive pressure ventilation but ultimately was intubated for increased work of breathing. Cardiology has been
managing acute heart failure with preserved ejection fraction. Is also being treated for pseudomonal pneumonia. Patient has a history of ongoing pancytopenia that progressed during his stay. He also presented with sinus bradycardia. Throughout
his stay patient was becoming more neutropenic was immunosuppressed and extremely lethargic. As per his , this was becoming more normal for him especially later in the day. Stat head CT was negative. Chest x-ray was without change. Unclear
if the patient had an aspiration event. MRI of the brain showed large chronic transcortical infarct in the lateral left frontal lobe (an old infarct). Around 06/25/2025, patient started becoming more responsive on visits. IV dextrose 5% / 0.9%
sodium chloride 60 mL/h was added to his medication. As per speech therapy evaluation, patient was taken off of n.p.o. and returned to IDDSI 5�minced and moist diet protocol. Patient has been making daily improvements. He has been becoming less
lethargic, more communicative, and his lungs have been sounding clearer. As of 06/29/2025, he has been continued to improve, but his nurse states that he refused to use his BiPAP last night. Patient currently denies any nausea, vomiting, fever,
chills. His weight loss is being strictly monitored. As discharge is considered, decision must be made whether patient is going home or to a SNF.
Assessment and Plan:
Acute hypoxic respiratory failure
Continue with ciprofloxacin 500 mg p.o. twice daily. (Day 9 Abx Tx) -Complete 14-day course total
Continue Lasix 40 mg IV twice daily (remains hypoxic)
Does not qualify as IP�need OP sleep study�Home will leave FU instructions in chart
Continue BIPAP at night�Will need home set up
Should have home O2 assessment done
Transfer order put in for telemetry
Sever sepsis with acute Pneumonia as a source
Ciprofloxacin 500 mg PO BID continued
Vest therapy added
Repeat Chest X Ray ordered on 06/25/2025: Impression: Reticulonodular opacities in both lungs, left greater than right, in keeping with the provided history of Pseudomonas pneumonia
Suspect Acute on chronic HFpEF
Gave IVF now will hold since diet replaced.
Continue to monitor weight.
Paroxysmal Atril Fibrillation
Continue rate control of A-fib with low-dose Coreg and Eliquis.
Pancytopenia.
Likely secondary to mycophenolate
WBC count steadily rising 1.1-2.1.-2.0 (Improving)
Acute on chronic anemia
Hbg stable at 8.2
Continue Eliquis.
Hypokalemia
Corrected
Myasthenia Gravis
Continue Mestinon (pyridostigmine bromide)
Parkinson's Disease
Continue Sinemet
Hyperlipidemia
Continue Statin
Wound (CDI)
Purple area on coccyx suspect due to pressure injury as well as thrombocytopenia.
Could be deep tissue injury versus stage I pressure injury
Left buttock also red with an ecchymotic stage I pressure injury.
Patient is in need of a semi-electric hospital bed with foam mattress due to the need to elevate the head of the bed 30 degrees to prevent aspiration and simultaneously for frequent repositioning to prevent bed ulcers and pressure points.
DVT prophylaxis. Eliquis resumed via G-tube
GI prophylaxis. IV Protonix
status full code -spoke to patient's regarding full CODE STATUS. She expressed her wishes for us to (try one-time) for resuscitative efforts so remains full code.
Anticipated Discharge: 24 - 48 hours
Subjective/Interval History
-
Date of Service: June 29, 2025
79-year-old male patient presented to the ED on 06/19/2025 for Acute Diastolic CHF. At ER was initially treated with noninvasive positive pressure ventilation but ultimately was intubated for increased work of breathing. Cardiology has been
managing acute heart failure with preserved ejection fraction. Is also being treated for pseudomonal pneumonia. Patient has a history of ongoing pancytopenia that progressed during his stay. He also presented with sinus bradycardia. Throughout
his stay patient was becoming more neutropenic was immunosuppressed and extremely lethargic. As per his , this was becoming more normal for him especially later in the day. Stat head CT was negative. Chest x-ray was without change. Unclear
if the patient had an aspiration event. MRI of the brain showed large chronic transcortical infarct in the lateral left frontal lobe (an old infarct). Around 06/25/2025, patient started becoming more responsive on visits. IV dextrose 5% / 0.9%
sodium chloride 60 mL/h was added to his medication. As per speech therapy evaluation, patient was taken off of n.p.o. and returned to [facility] 5�minced and moist diet protocol. Patient has been making daily improvements. He has been becoming less
lethargic, more communicative, and his lungs have been sounding clearer. As of 06/29/2025, he has been continued to improve, but his nurse states that he refused to use his BiPAP last night. Patient currently denies any nausea, vomiting, fever,
chills. His weight loss is being strictly monitored. As discharge is considered, decision must be made whether patient is going home or to a SNF.
Objective Data
-
Labs:
Laboratory Results
06/29/25 06/29/25
03:47 06:01
WBC Cancelled 2.3 L*
Hgb Cancelled 9.5 L
Hct Cancelled 30.8 L
Plt Count Cancelled 217 D
Sodium Cancelled 145
Potassium Cancelled 4.2
Chloride Cancelled 112 H
Carbon Dioxide Cancelled 34 H
BUN Cancelled 27 H
Creatinine Cancelled 1.2
Glucose Cancelled 78
Calcium Cancelled 7.7 L
Total Bilirubin Cancelled 1.2
AST Cancelled 21
ALT Cancelled 15
Alkaline Phosphatase Cancelled 72
Vital Signs:
Vital Signs
Temp Pulse Resp BP Pulse Ox
98.9 F 83 30 107/80 95
06/29/25 15:00 06/29/25 15:00 06/29/25 15:00 06/29/25 14:00 06/29/25 15:00
I&O
Review of Systems
-
Unable to obtain full review of systems at this time due to: Dementia and Acuity
History Source: Family
All other systems: Reviewed and negative
Constitutional: Reports Weight Loss and Fatigue
Physical Exam
-
General: No Apparent Distress, Appears Chronically Ill and Cachectic
HEENT: Normocephalic, Atraumatic and Other
Cardiac: Regular Rhythm and S1/S2
Breast: Deferred by me
GI: Soft, Nontender, Nondistended and Normal Bowel Sounds
Musculoskeletal: No Clubbing, No Cyanosis and No Edema
Neuro: Tremors and Slurred Speech
Psych: Calm
Data Reviewed
-
CT Scan: Report Reviewed by me and Discussed with Physician
MRI: Report Reviewed by me and Discussed with Physician
Labs: Labs Reviewed by me and Discussed with Physician
[2025-06-29] MEDS: LIPITOR 20 MG PO (17:24)
--- NOTE | 2025-06-29 17:40 | CM ---
Called [facility] concerning delivery of hospital bed. No longer needs the O2. [facility] after hours bilingual medical receptionist took message and will forward message. They will call the daughter with requested delivery on Tuesday06/30/25.
[2025-06-29] MEDS: MESTINON 30 MG PO (22:58)
[2025-06-29] MEDS: MELATONIN 3 MG TUBE (22:58)
--- NOTE | 2025-06-29 23:07 | PTCARENOTE ---
Patient's ordered 2200 Cellcept dose not available in [facility]. Pharmacy made aware. will give med when get from pharmacy. Patient is sleeping at this time.
[2025-06-29] MEDS: CELLCEPT 1000 MG PO (23:26)
[2025-06-30] VITALS (18 sets, daily range): BP systolic 74–129; BP diastolic 46–85; BMI 16.2
[2025-06-30 03:56] LABS: Hematocrit 32.2 % (39.0-52.0); Hemoglobin 9.6 g/dL (13.0-18.0); Mean Corp Hgb Conc. 29.8 g/dL (33.0-37.0); Mean Corpuscular Volume 89.4 fL (80.0-94.0); Platelet Count 218 10^3/uL (130-400); Red Cell Dist. Width 17.2 % (11.5-14.5)
[2025-06-30] MEDS: SENOKOT-S 1 TABLET PO (03:57)
--- NOTE | 2025-06-30 04:14 | PTCARENOTE ---
Addendum entered by Tina Escobedo RN 06/30/25 04:17:
New order for midodrine 5mg PO now
Original Note:
Bp- 82/62, MAP- 70, HR- 107. Patient is asymptomatic/ sleeping. ROVERTO Mcfarland made aware
[2025-06-30 04:25] LABS: Blood Urea Nitrogen 38 mg/dl (9-20); Calcium 7.9 mg/dl (8.4-10.2); Carbon Dioxide 30 mmol/L (22-30); Chloride 112 mmol/L (98-107); Estimated Creatinine Clearance 37 ml/min; Glucose 87 mg/dl (70-99); Magnesium 2.2 mg/dl (1.6-2.3); Potassium 3.7 mmol/L (3.5-5.1); Sodium 140 mmol/L (135-145); eGFR 56.58
[2025-06-30] MEDS: LASIX 40 MG IV ×2 (08:55→15:54)
[2025-06-30] MEDS: MIRALAX 17 GRAMS PO (08:55)
[2025-06-30] MEDS: CELLCEPT 1500 MG PO (08:55)
[2025-06-30] MEDS: ELIQUIS 5 MG PO ×2 (08:56→19:21)
[2025-06-30] MEDS: FOLVITE 1 MG PO (08:56)
[2025-06-30] MEDS: ROBITUSSIN 200 MG PO ×4 (08:56→22:07)
[2025-06-30] MEDS: DELTASONE 7.5 MG PO (08:56)
[2025-06-30] MEDS: CIPRO 500 MG PO ×2 (08:57→19:21)
[2025-06-30] MEDS: LEXAPRO 10 MG PO (08:57)
[2025-06-30] MEDS: ROBINUL 1 MG PO ×2 (08:57→19:22)
[2025-06-30] MEDS: MESTINON 90 MG PO ×3 (09:00→15:54)
[2025-06-30] MEDS: SINEMET 25-100 2 TABLET PO ×3 (09:01→15:54)
--- NOTE | 2025-06-30 09:55 | W.PN.CARDCBS ---
Today's Communication / Plan
-
Continue IV Lasix for continued hypoxemia and remains on 2 L of oxygen
Continue antibiotics for aspiration pneumonia
Impression / Plan
-
[facility] Ref[facility] Mixer: Dr. Santos
Assessment:
Presentation with SOB
PNA
Acute diastolic CHF
Hypotension
Pancytopenia
Admission to 06/01 - 06/05/2025 for UTI, CHF
Sinus bradycardia
Paroxysmal atrial fibrillation
Chronic amiodarone therapy
Chronic Eliquis therapy
Aortic stenosis/insufficiency by echo 06/03/25
History of hypertension
Hyperlipidemia
History of CVA
History of intermittent hematuria
Parkinson's disease
Myasthenia gravis
Bronchiectasis with prior Pseudomonas infection
Hypoalbuminemia
ECHO 10/17/24: EF 55 to 60%, no regional wall motion abnormalities noted, stage II diastolic dysfunction, MAC, moderate MR, moderate with peak/mean gradients 47/30 mmHg, STEPHY 1.3 cm�, moderate TR, PAP 45 mmHg, small pericardial effusion
Echo 06/03/2025: EF 55 to 60%, small pericardial effusion, moderate , mean gradient 25 mmHg, STEPHY 1.3 cm�, mild to moderate AI, mild MR, moderate TR, PAP 58 mmHg, no significant change compared to echo 10/2024
Plan:
Lasix was restarted on 06/27 due to elevated BNP and hypoxemia
Weight is down 10 pounds in the past 72 hours with stable renal function
He is now on 2 L of oxygen and will continue IV Lasix
Continue antibiotics for aspiration pneumonia as well
Continue rate control of A-fib with low-dose Coreg and Eliquis
His blood pressure remains marginal. Continue midodrine.
Continue Mestinon for myasthenia.
Progress Note - Refractory Mixer
Subjective
Date of Service: June 30, 2025
No complaints but appears confused
Objective
Labs:
06/30/25 03:44
06/30/25 03:44
Labs
Hgb 9.6 g/dL (13.0-18.0) L 06/30/25 03:44
Hct 32.2 % (39.0-52.0) L 06/30/25 03:44
Plt Count 218 10^3/uL (130-400) 06/30/25 03:44
PT 28.6 Sec (11.4-14.6) H 06/19/25 14:30
INR 2.64 06/19/25 14:30
APTT 70.5 Sec (23.4-35.0) H 06/19/25 14:30
Sodium 140 mmol/L (135-145) 06/30/25 03:44
Potassium 3.7 mmol/L (3.5-5.1) 06/30/25 03:44
BUN 38 mg/dl (9-20) H 06/30/25 03:44
Creatinine 1.3 mg/dL (0.7-1.3) 06/30/25 03:44
Glucose 87 mg/dl (70-99) 06/30/25 03:44
Vital Signs and I&O:
Vital Signs
Temp Pulse Resp BP Pulse Ox
100.3 F 98 23 108/72 98
06/30/25 07:51 06/30/25 08:56 06/30/25 06:27 06/30/25 08:56 06/30/25 05:52
Vital Signs
Temp Pulse Resp BP Pulse Ox
100.3 F 98 23 108/72 98
06/30/25 07:51 06/30/25 08:56 06/30/25 06:27 06/30/25 08:56 06/30/25 05:52
Intake & Output
06/28/25 06/29/25 06/30/25 07/01/25
06:59 06:59 06:59 06:59
Intake Total 720 / 720 675 / 675
Output Total 1900 / 1900 1700 / 1700 2250 / 2250
Balance -1180 / -1180 -1700 / -1700 -1575 / -1575
Physical Exam
Physical Exam
General: Awake but confused
Neck: Supple, no JVD, HJR, carotids +2 B/L, no bruits bilaterally.
Heart: Non displaced PMI, irregular, no murmurs, No S3, S4, no rubs.
Lungs: Scattered rhonchi
Extremities: No clubbing, cyanosis or edema bilaterally.
Neuro: Awake but confused
[2025-06-30] MEDS: VITAMIN B-12 3000 MCG PO (13:14)
[2025-06-30] MEDS: PREVACID 30 MG PO (13:14)
--- NOTE | 2025-06-30 13:28 | PTCARENOTE ---
Patient's at bedside and updated by medical team. Also spoke with case management regarding discharge. Pt drowsy but wakes up to voice. Did trial patient off oxygen and SPO2 dropped to 86%. Pt with poor appetite, eating little breakfast.
will try to get him to eat lunch. He does have a wet/gurgly voice. Pt has a weak, mosit cough, unable to bring anything up. Bp's are soft at times, Midodrine given per MAR. Assessment, care and VS as charted.
--- NOTE | 2025-06-30 14:10 | W.PN.HOSP.TC ---
Addendum entered and electronically signed by Keya Devlin MD 06/30/25 14:37:
Patient is in need of oxygen at 2 liters/minute via nasal cannula continuously due to pulse oximetry of 86% on room air at rest. Oxygen will help to improve hypoxemia. Patient is not mobile within the home. DuoNeb therapy has been tried and is
ineffective in treating hypoxemia related symptoms. Oxygen is needed to improve symptoms.
Patient is in need of a semi-electric hospital bed with foam mattress due to the need to elevate head of bed above 30 degrees to prevent aspiration and to facilitate frequent repositioning to prevent bed ulcers and pressure points.
I saw and evaluated the patient independently. I reviewed and discussed the resident�s note and agree with findings and plan as documented by Dr. Ag.
GENERAL: chronically ill appearing male in no apparent distress--more awake
HEENT: NC/AT--O2 NC in place
HEART: irreg irreg
LUNGS : rhonchi bilaterally with wet sounding cough much improved
ABDOM: soft, nontender, nondistended, + bowel sounds
EXT: no cyanosis, clubbing, or edema
NEUROLOGIC: deconditioned
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
Acute hypoxic respiratory failure--likely from volume overload and Pseudomonas pneumonia--weaned O2--intubated and now extubated--weak cough--diuresis as per cards, oral cipro (day 08/18)--IS--apprec pulm/cards--repeat pro BNP 12,200, follow, down
to 9760--apprec ID/cards input--should have outpt sleep study--home O2 assessment shows pt does qualify for home O2
Suspect Acute on chronic HFpEF--apprec cards--weights down since admission (66.5kg to 58.7 kg)--apprec speech--diuresis per cards
chronic hypotension--pt does have BPs that run low--cont midodrine 10mg TID (despite that still with BPs in the 80s systolic)
Paroxysmal Atrial Fibrillation--Continue Eliquis--consider stopping amiodarone if remains in A-fib and not ideal candidate for cardioversion at present as per cards
Pancytopenia with immunosuppression--Likely secondary to mycophenolate
Acute on chronic anemia--Status post blood transfusion 1 unit pRBC for HGB of 6.7--HGB has remained stable
hypokalemia--replete
Myasthenia Gravis--Continue Cellcept
Parkinson's Disease--Continue Sinemet
Hyperlipidemia--Continue Statin
Wounds--POA--purple area on coccyx suspect due to pressure injury as well as thrombocytopenia--could be deep tissue injury versus a stage I pressure injury--left buttock also red with an ecchymotic stage I pressure injury
DVT proph-- Eliquis resumed
code status-- full code --started speaking with regarding progressive Parkinson's and feeding tubes, etc-- patient's would like us to 'try one time' for resuscitative efforts so remains full code, although did describe that towards the
end, hospitalizations get longer in time between hospitalizations get shorter (this is his third visit since February)
family insistent on taking pt home despite that he is a maximum 2 person assist--hospital bed to be delivered tomorrow and now O2
Original Note:
Today's Communication/Plan
-
Patient oxygen level off of the nasal catheter consistently drops below 88%, qualifying him for home oxygen.
Patient's medications will be converted from IV to oral for his planned D/C tomorrow.
Patient will be going home with his tomorrow after his electric bed arrives.
Coordinate with CM.
Assessment / Plan
Assessment / Plan
79-year-old male patient presented to the ED on 06/19/2025 for Acute Diastolic CHF. At ER was initially treated with noninvasive positive pressure ventilation but ultimately was intubated for increased work of breathing. Cardiology has been
managing acute heart failure with preserved ejection fraction. Is also being treated for pseudomonal pneumonia. Patient has a history of ongoing pancytopenia that progressed during his stay. He also presented with sinus bradycardia. Throughout
his stay patient was becoming more neutropenic was immunosuppressed and extremely lethargic. As per his , this was becoming more normal for him especially later in the day. Stat head CT was negative. Chest x-ray was without change. Unclear
if the patient had an aspiration event. MRI of the brain showed large chronic transcortical infarct in the lateral left frontal lobe (an old infarct). Around 06/25/2025, patient started becoming more responsive on visits. IV dextrose 5% / 0.9%
sodium chloride 60 mL/h was added to his medication. As per speech therapy evaluation, patient was taken off of n.p.o. and returned to IDDSI 5�minced and moist diet protocol. Patient has been making daily improvements. He has been becoming less
lethargic, more communicative, and his lungs have been sounding clearer. As of 06/30/2025, he has been continued to improve, but his nurse states that he refused to use his BiPAP last night again. Patient currently denies any nausea, vomiting,
fever, chills. His weight loss is being strictly monitored. Patient will be discharged to his home in the care of his tomorrow when his special hospital bed arrives. His O2 levels consistently drop below 88% when he is off of the nasal
catheter, so he qualifies for home oxygen. He seems very pleased to hear he's heading home.
Assessment and Plan:
Acute hypoxic respiratory failure
Continue with ciprofloxacin 500 mg p.o. twice daily. (Day 11 Abx Tx) -Complete 14-day course total
Continue Lasix 40 mg IV twice daily (remains hypoxic)
Continue BIPAP at night�Will need home set up
Should have home O2 assessment done
Sever sepsis with acute Pneumonia as a source
Ciprofloxacin 500 mg PO BID continued
Vest therapy added
Repeat Chest X Ray ordered on 06/25/2025: Impression: Reticulonodular opacities in both lungs, left greater than right, in keeping with the provided history of Pseudomonas pneumonia
Suspect Acute on chronic HFpEF
Gave IVF now will hold since diet replaced.
Continue to monitor weight.
Paroxysmal Atril Fibrillation
Continue rate control of A-fib with low-dose Coreg and Eliquis.
Pancytopenia.
Likely secondary to mycophenolate
WBC count steadily rising 1.1-2.1.-2.0-2.4 (Improving)
Acute on chronic anemia
Hbg stable at 9.6
Continue Eliquis.
Hypokalemia
Corrected
Myasthenia Gravis
Continue Mestinon (pyridostigmine bromide)
Parkinson's Disease
Continue Sinemet
Hyperlipidemia
Continue Statin
Wound (CDI)
Purple area on coccyx suspect due to pressure injury as well as thrombocytopenia.
Could be deep tissue injury versus stage I pressure injury
Left buttock also red with an ecchymotic stage I pressure injury.
Patient is in need of a semi-electric hospital bed with foam mattress due to the need to elevate the head of the bed 30 degrees to prevent aspiration and simultaneously for frequent repositioning to prevent bed ulcers and pressure points.
DVT prophylaxis. Eliquis resumed via G-tube
GI prophylaxis. IV Protonix
status full code -spoke to patient's regarding full CODE STATUS. She expressed her wishes for us to (try one-time) for resuscitative efforts so remains full code.
Anticipated Discharge: 24 - 48 hours
Subjective/Interval History
-
Date of Service: June 30, 2025
Patient did not use BiPAP again last night.
No other overnight events
Patient happy to be going home.
Objective Data
-
Labs:
Laboratory Results
06/30/25
03:44
WBC 2.4 L*
Hgb 9.6 L
Hct 32.2 L
Plt Count 218
Sodium 140
Potassium 3.7
Chloride 112 H
Carbon Dioxide 30
BUN 38 H
Creatinine 1.3
Glucose 87
Calcium 7.9 L
Vital Signs:
Vital Signs
Temp Pulse Resp BP Pulse Ox
97.4 F 104 25 90/74 93
06/30/25 12:30 06/30/25 13:22 06/30/25 13:22 06/30/25 13:22 06/30/25 13:22
I&O
06/29/25 06/30/25 07/01/25
06:59 06:59 06:59
Intake Total 675 / 675
Output Total 1700 / 1700 2250 / 2250 200 / 200
Balance -1700 / -1700 -1575 / -1575 -200 / -200
Review of Systems
-
Unable to obtain full review of systems at this time due to: Dementia and Acuity
History Source: Family
All other systems: Reviewed and negative
Constitutional: Reports Weight Loss and Fatigue
Physical Exam
-
General: No Apparent Distress, Appears Chronically Ill and Cachectic
HEENT: Normocephalic, Atraumatic and Other
Cardiac: Regular Rhythm and S1/S2
Breast: Deferred by me
GI: Soft, Nontender, Nondistended and Normal Bowel Sounds
Musculoskeletal: No Clubbing, No Cyanosis and No Edema
Neuro: Tremors and Slurred Speech
Psych: Calm
Data Reviewed
-
CT Scan: Report Reviewed by me and Discussed with Physician
MRI: Report Reviewed by me and Discussed with Physician
Labs: Labs Reviewed by me and Discussed with Physician
--- NOTE | 2025-06-30 16:32 | PTCARENOTE ---
rec'd pt from IMU. pt rec'd in ordered bed. pt denies pain. repositioned for comfort. call p[facility] reach.
[2025-06-30] MEDS: LIPITOR 20 MG PO (17:23)
[2025-06-30] MEDS: MELATONIN 3 MG TUBE (22:07)
[2025-06-30] MEDS: MESTINON 30 MG PO (22:07)
[2025-06-30] MEDS: CELLCEPT 1000 MG PO (22:32)
[2025-07-01] VITALS (9 sets, daily range): BP systolic 81–99; BP diastolic 49–66; PULSE 90–110; BMI 15.3
--- NOTE | 2025-07-01 07:17 | W.PN.HOSP.TC ---
Addendum entered and electronically signed by Edilberto Burnette MD 07/01/25 20:22:
Attending Addendum-
I saw and evaluated the patient. I reviewed the resident�s note and agree with findings and plan as documented in the resident�s note. Sub: Patient not speaking but follows commands. Unclear baseline. No complaints. Full 12 point ROS reviewed and
negative except as documented Exam: Vitals reviewed in chart GEN-cachectic frail appearing heart irreg irreg 3/6 SM @ [facility]USB Lungs fine crackles at bases Heent mouth cracked lips dry abd soft NT ND pos BS Le no edema Skin dry tenting Neuro aphasic,
follows commands intermittently
Plan:
# Acute change in mental status
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
-back to baseline per famly
#Acute hypoxic respiratory failure likely from volume overload and Pseudomonas pneumonia--wean O2 for sats > 92%, was intubated and now extubated
- attempt to wean for sats > 92%
- cont cipro (day )--IS--apprec pulm/cards
- eval for home o2
#Acute on chronic HFpEF
-last echo 05/2025- ef 55-60% apprec cards-weights down since admission (65kg to 51 kg)
-appears hypovolemic hold lasix for today
-restart PO lasix in am depending on BMP
# [place]
- prerenal due to hypotension and hypovolemia and lasix
- hold lasix
- repeat BMP in am
# Hypernatremia- from dehydration- hold lasix repeat BMP in am
# Chronic hypotension--pt does have BPs that run low--cont midodrine 10mg TID
# Paroxysmal Atrial Fibrillation
-Continue Eliquis-not ideal candidate for cardioversion at present per cards
-hold amiodarone, hold coreg, T/C digoxin
# Pancytopenia with immunosuppression--Likely secondary to mycophenolate- CTM improving
# Acute on chronic anemia--Status post blood transfusion 1 unit pRBC for HGB of 6.7--HGB has remained stable
# Myasthenia Gravis--Continue Cellcept
# Parkinson's Disease--Continue Sinemet
# Hyperlipidemia--Continue Statin
# Wounds--POA--purple area on coccyx suspect due to pressure injury, left buttock also red with an ecchymotic stage I pressure injury
DVT proph-- Eliquis
code status--full code -d/w with
Dispo- SNF appropriate but family insistent on taking pt home despite that he is a maximum 2 person assist--hospital bed to be delivered and now O2 DC in am if labs improving * high risk readmission
Time spent coordinating care, review of plan of care with resident, personally reviewed records in EMR, med rec, consults, notes, labs, radiology, d/w nursing � 52 mins
Original Note:
Today's Communication/Plan
-
Continue full antibiotic regimen of ciprofloxacin 500 mg p.o. twice daily (currently on day 08/18)�complete full 14-day course.
Hold IV Lasix 40 mg for the night until morning labs come back
Reorder cmp to check creatinine in AM
Reach out to pharmacy if his medications have to be changed to renal dosing.
Contact his and update her on her husbands current condition.
Assessment / Plan
Assessment / Plan
79-year-old male patient presented to the ED on 06/19/2025 for Acute Diastolic CHF. At ER was initially treated with noninvasive positive pressure ventilation but ultimately was intubated for increased work of breathing. Cardiology has been
managing acute heart failure with preserved ejection fraction. Is also being treated for pseudomonal pneumonia. Patient has a history of ongoing pancytopenia that progressed during his stay. He also presented with sinus bradycardia. Throughout
his stay patient was becoming more neutropenic was immunosuppressed and extremely lethargic. As per his , this was becoming more normal for him especially later in the day. Stat head CT was negative. Chest x-ray was without change. Unclear
if the patient had an aspiration event. MRI of the brain showed large chronic transcortical infarct in the lateral left frontal lobe (an old infarct). Around 06/25/2025, patient started becoming more responsive on visits. IV dextrose 5% / 0.9%
sodium chloride 60 mL/h was added to his medication. As per speech therapy evaluation, patient was taken off of n.p.o. and returned to IDDSI 5�minced and moist diet protocol. Patient has been making daily improvements. He has been becoming less
lethargic, more communicative, and his lungs have been sounding clearer. As of 06/30/2025, he has been continuing to improve, but his nurse states that he refused to use his BiPAP last night again. Patient denies any nausea, vomiting, fever,
chills. His weight loss is being strictly monitored. Patient will be discharged to his home in the care of his tomorrow when his special hospital bed arrives. His O2 levels consistently drop below 88% when he is off of the nasal catheter, so
he qualifies for home oxygen. He seems very pleased to hear he's heading home. This mornings labs illustrated some significant changes that suggest patient can not be discharge right away. Patients fluid balance is off. He is now going thru the
process of overdiuresis with his sodium increasing from 140--146. His serum creatinine changed from 1.3--1.6 and his blood pressure is 91/63. Patients and son need to called and the situation.
Assessment and Plan:
Acute hypoxic respiratory failure
Continue with ciprofloxacin 500 mg p.o. twice daily. (Day 12 Abx Tx) -Complete 14-day course total
IV Lasik 40 mg was stopped just for the night. Will restart tomorrow if creatinine numbers improve.
Continue BIPAP at night�Will need home set up
Acute Kidney Injury
Overcorrected on the volume diuresis
No he is volume repleted as evidenced by updated labs
Serum sodium increased from 140--146
Serum creatinine increased from 1.3--1.6
IV Lasik 40 mg hold until AM
CMP reordered for repeat creatinine in AM
Call pharmacy and see if they want to renally dose his Eliquis down to 2.5 mg BID from his current 5 mg BID dose in AM. (All other meds are ok for now as per pharm).
Sever sepsis with acute Pneumonia as a source
Ciprofloxacin 500 mg PO BID continued
Vest therapy added
Repeat Chest X Ray ordered on 06/25/2025: Impression: Reticulonodular opacities in both lungs, left greater than right, in keeping with the provided history of Pseudomonas pneumonia
Suspect Acute on chronic HFpEF
Gave IVF now will hold since diet replaced.
Continue to monitor weight.
Paroxysmal Atril Fibrillation
Continue rate control of A-fib with low-dose Coreg and Eliquis.
Pancytopenia.
Likely secondary to mycophenolate
WBC count steadily rising 1.1-2.1.-2.0-2.4 (Improving)
Acute on chronic anemia
Hbg stable at 9.6
Continue Eliquis.
Hypokalemia
Corrected
Myasthenia Gravis
Continue Mestinon (pyridostigmine bromide)
Parkinson's Disease
Continue Sinemet
Hyperlipidemia
Continue Statin
Wound (CDI)
Purple area on coccyx suspect due to pressure injury as well as thrombocytopenia.
Could be deep tissue injury versus stage I pressure injury
Left buttock also red with an ecchymotic stage I pressure injury.
Patient is in need of a semi-electric hospital bed with foam mattress due to the need to elevate the head of the bed 30 degrees to prevent aspiration and simultaneously for frequent repositioning to prevent bed ulcers and pressure points.
DVT prophylaxis. Eliquis resumed via G-tube
GI prophylaxis. IV Protonix
status full code -spoke to patient's regarding full CODE STATUS. She expressed her wishes for us to (try one-time) for resuscitative efforts so remains full code.
Anticipated Discharge: Today
Subjective/Interval History
-
Date of Service: July 01, 2025
Overnight Events:
This morning his BP was 81/49
Midodrine was given
AM dose of Lasix held
Objective Data
-
Labs:
Laboratory Results
07/01/25
06:00
WBC Pending
Hgb Pending
Hct Pending
Plt Count Pending
Sodium Pending
Potassium Pending
Chloride Pending
Carbon Dioxide Pending
BUN Pending
Creatinine Pending
Glucose Pending
Calcium Pending
Total Bilirubin Pending
AST Pending
ALT Pending
Alkaline Phosphatase Pending
Vital Signs:
Vital Signs
Temp Pulse Resp BP Pulse Ox
97.9 F 80 20 87/57 98
07/01/25 03:00 07/01/25 03:00 07/01/25 03:00 07/01/25 03:00 07/01/25 03:00
I&O
06/30/25 07/01/25 07/02/25
06:59 06:59 06:59
Intake Total 675 / 675
Output Total 2250 / 2250 1999
Balance -1575 / -1575 -1999
Review of Systems
-
Unable to obtain full review of systems at this time due to: Dementia and Acuity
History Source: Family
All other systems: Reviewed and negative
Constitutional: Reports Weight Loss and Fatigue
Physical Exam
-
General: No Apparent Distress, Appears Chronically Ill and Cachectic
HEENT: Normocephalic and Atraumatic
Respiratory: Clear to Auscultation
Cardiac: Regular Rhythm and S1/S2
Breast: Deferred by me
GI: Soft, Nontender, Nondistended and Normal Bowel Sounds
Musculoskeletal: No Clubbing, No Cyanosis and No Edema
Skin: Decubitus Ulcers
Neuro: Tremors and Slurred Speech
Psych: Calm and Other (Parkinsons Disease Progression)
Data Reviewed
-
CT Scan: Report Reviewed by me and Discussed with Physician
MRI: Report Reviewed by me and Discussed with Physician
Labs: Labs Reviewed by me and Discussed with Physician
[2025-07-01 08:01] LABS: Hematocrit 33.8 % (39.0-52.0); Hemoglobin 10.0 g/dL (13.0-18.0); Mean Corp Hgb Conc. 29.6 g/dL (33.0-37.0); Mean Corpuscular Volume 89.9 fL (80.0-94.0); Nucleated Red Blood Cells % 0 % (-); Platelet Count 216 10^3/uL (130-400); Red Cell Dist. Width 17.5 % (11.5-14.5)
[2025-07-01] MEDS: DELTASONE 7.5 MG PO (08:18)
[2025-07-01] MEDS: PREVACID 30 MG PO (08:19)
[2025-07-01] MEDS: CIPRO 500 MG PO ×2 (08:19→19:55)
[2025-07-01] MEDS: ELIQUIS 5 MG PO ×2 (08:20→19:54)
[2025-07-01] MEDS: FOLVITE 1 MG PO (08:20)
[2025-07-01] MEDS: ROBINUL 1 MG PO ×2 (08:20→19:54)
[2025-07-01] MEDS: ROBITUSSIN 200 MG PO ×3 (08:22→22:09)
[2025-07-01] MEDS: MIRALAX 17 GRAMS PO (08:22)
[2025-07-01] MEDS: CELLCEPT 1500 MG PO (08:23)
[2025-07-01 08:33] LABS: ALT (SGPT) 14 U/L (0-50); AST (SGOT) 29 U/L (17-59); Albumin 2.8 g/dl (3.5-5.0); Alkaline Phosphatase 79 U/L (38-126); Blood Urea Nitrogen 51 mg/dl (9-20); Calcium 7.9 mg/dl (8.4-10.2); Carbon Dioxide 32 mmol/L (22-30); Chloride 111 mmol/L (98-107); Estimated Creatinine Clearance 28 ml/min; Glucose 79 mg/dl (70-99); Magnesium 2.4 mg/dl (1.6-2.3); Potassium 3.7 mmol/L (3.5-5.1); Sodium 146 mmol/L (135-145); Total Protein 5.4 g/dl (6.3-8.2); eGFR 44.10
[2025-07-01] MEDS: LASIX IV ×2 (08:42→16:28)
[2025-07-01] MEDS: LEXAPRO 10 MG PO (09:59)
[2025-07-01] MEDS: SINEMET 25-100 PO ×2 (09:59→10:14)
[2025-07-01] MEDS: MESTINON PO ×2 (10:00→10:15)
--- NOTE | 2025-07-01 10:31 | W.PN.CARDCBS ---
Addendum entered and electronically signed by Maco Genao MD 07/01/25 18:32:
79-year-old man admitted June 19 with acute on chronic HFpEF, pneumonia.
PMH/PSH: Paroxysmal A-fib on amiodarone, history of stroke, aortic stenosis, bronchiectasis, myasthenia gravis, Parkinson's, hypertension, hyperlipidemia, hematuria
Current meds: Sinemet, carvedilol 3.125 twice daily, prednisone 7.5 mg daily, Cipro, midodrine 10 mg 3 times daily, apixaban 5 mg twice daily, atorvastatin 20 mg a day, Lexapro, CellCept, prednisone stick mean, B12, Prevacid, furosemide 40 mg IV
twice daily, amiodarone has been stopped
91/60, pulse 74, respiratory rate 18, afebrile, frail, elderly, cachectic, offers no complaints lungs are clear, tachycardic rate and rhythm, currently on furosemide 40 mg IV twice daily, on amiodarone with rapid heart rate
White count 2.6, hemoglobin 10,BUN and creatinine 51 and 1.6, creatinine had been 1.3, potassium 3.7, proBNP today 10,000, had been 12,200 on the , was 3200 May 31
ECG : A-fib
Impression:
Acute on chronic HFpEF
Recent UTI
Pneumonia atrial fibrillation with rapid ventricular response
Moderate aortic stenosis
Moderate mitral regurgitation
Mild to moderate aortic regurgitation
Moderate to severe pulmonary hypertension
Parkinson's
Myasthenia
Bronchiectasis/Pseudomonas bronchitis
Hematuria
History of stroke
Change in mental status
Hypertension
Hyperlipidemia
[place] on CKD
Other diagnoses, findings, recommendations, etc. as below. Reviewed in detail and agree, unless otherwise specified
Plan:
Little to add at this point.
Goals of care would be worth discussing. At present plan is for patient to get home. He is a full code.
In the meantime:
Transition to oral furosemide despite elevated proBNP, 40 mg daily.
Patient is hypotensive with rapid ventricular response. Amiodarone has been stopped, would add low-dose digoxin, 62.5 mcg 4 days a week with follow-up dig level. Uptitrate as possible.
Patient is modestly anemic, on prednisone, still on apixaban. If creatinine remains at 1.6 apixaban should be decreased to 2.5 mg daily. Long-term utility of apixaban is questionable given bleeding risk and anemia
Prognosis remains poor.
Original Note:
Today's Communication / Plan
-
Recheck BMP in a.m. and then start Lasix 40 mg p.o. daily if Cre is improved
Impression / Plan
-
PCP: Dr. Venegas
Primary Rent And Housing Investigator: Dr. Santos
Impression:
Presentation with SOB 06/19/2025
Recent admission for UTI and acute HFpEF 05/31/2025 until 06/05/2025
PNA
Acute HFpEF
Hypotension
Pancytopenia
Sinus bradycardia
Paroxysmal atrial fibrillation
Chronic amiodarone therapy
Chronic Eliquis therapy
Aortic stenosis/insufficiency by echo 06/03/25
History of hypertension
Hyperlipidemia
History of CVA
History of intermittent hematuria
Parkinson's disease
Myasthenia gravis
Bronchiectasis with prior Pseudomonas infection
Hypoalbuminemia
ECHO 10/17/24: EF 55 to 60%, no regional wall motion abnormalities noted, stage II diastolic dysfunction, MAC, moderate MR, moderate with peak/mean gradients 47/30 mmHg, STEPHY 1.3 cm�, moderate TR, PAP 45 mmHg, small pericardial effusion
Echo 06/03/2025: EF 55 to 60%, small pericardial effusion, moderate , mean gradient 25 mmHg, STEPHY 1.3 cm�, mild to moderate AI, mild MR, moderate TR, PAP 58 mmHg, no significant change compared to echo 10/2024
Plan:
-Patient admitted with generalized weakness and concern for UTI on 05/31/2025 until 06/05/2025 and cardiology was involved at that time for possible junctional rhythm and patient was managed for acute HFpEF. Patient returns now 06/19/2025 with SOB
and cardiology consulted again.
-Telemetry reviewed by me is A-fib on 07/01/2025
-Previous dose of amiodarone 100 mg daily was stopped due to sinus bradycardia 05/2025
-New to carvedilol 3.125 mg BID this admission, but that has been on hold since 06/25/2025 due to hypotension
-Start digoxin 0.0625 mg every SuTuThSa, orders placed by me first dose ordered by me 07/01/2025
-Outpatient dose of Eliquis 5 mg BID has been continued
-Patient was being diuresed with Lasix 40 mg IV BID, but Cre increased from 1.3-1.6 on my review of labs 07/01/2025 and so Lasix is now on hold. Pending labs on 07/02/2025, recommend restarting Lasix 40 mg PO daily on 07/02/2025. Patient was not
taking a diuretic prior to admission.
-Patient and anxious for discharge to home on 07/02/2025 and have elected to go home with home PT as they are well equipped at home to handle his needs given myasthenia gravis and Parkinson's disease diagnoses
Progress Note - Rent And Housing Investigator
Subjective
Date of Service: July 01, 2025
He feels well, he is very disappointed to hear he will be going home today
Objective
Labs:
07/01/25 07:26
07/01/25 07:26
Labs
Hgb 10.0 g/dL (13.0-18.0) L 07/01/25 07:26
Hct 33.8 % (39.0-52.0) L 07/01/25 07:26
Plt Count 216 10^3/uL (130-400) 07/01/25 07:26
PT 28.6 Sec (11.4-14.6) H 06/19/25 14:30
INR 2.64 06/19/25 14:30
APTT 70.5 Sec (23.4-35.0) H 06/19/25 14:30
Sodium 146 mmol/L (135-145) H 07/01/25 07:26
Potassium 3.7 mmol/L (3.5-5.1) 07/01/25 07:26
BUN 51 mg/dl (9-20) H 07/01/25 07:26
Creatinine 1.6 mg/dL (0.7-1.3) H 07/01/25 07:26
Glucose 79 mg/dl (70-99) 07/01/25 07:26
Vital Signs and I&O:
Vital Signs
Temp Pulse Resp BP Pulse Ox
98.1 F 78 20 81/49 94
07/01/25 07:05 07/01/25 07:05 07/01/25 07:05 07/01/25 07:05 07/01/25 07:05
Vital Signs
Temp Pulse Resp BP Pulse Ox
98.1 F 78 20 81/49 94
07/01/25 07:05 07/01/25 07:05 07/01/25 07:05 07/01/25 07:05 07/01/25 07:05
Intake & Output
06/29/25 06/30/25 07/01/25 07/02/25
06:59 06:59 06:59 06:59
Intake Total 675 / 675
Output Total 1700 / 1700 2250 / 2250 1999
Balance -1700 / -1700 -1575 / -1575 -1999
Physical Exam
Physical Exam
GEN: AAOx3
LUNGS: 2 L NC.
CV: Afib on tele
[2025-07-01] MEDS: SINEMET 25-100 2 TABLET PO ×3 (10:41→17:12)
[2025-07-01] MEDS: MESTINON 90 MG PO ×3 (10:41→17:14)
--- NOTE | 2025-07-01 11:14 | CM ---
CM reviewed chart, spoke with patients , [employer].
Per , hospital bed was not delivered, spoke with Gordon from [facility] ( , ) per Gordon they did not receive script/clinicals.
Patient will require oxygen upon d.c - updated home O2 assessment completed, faxed to DME company.
would like patient d/c home today, aware hospital bed would not be delivered.
Confirmed home address, one step to enter.
confirmed patient will resume services with [facility], updates through [employer].
IMM verbally reviewed, placed in chart.
Per Hospitalist, patient not stable for d/c today- request to call .
CM will continue to follow.
Plan; home with , DME to be delivered (hospital bed, Oxygen 4L through [employer]), [facility], ambulance transport required
[2025-07-01] MEDS: VITAMIN B-12 3000 MCG PO (13:26)
[2025-07-01] MEDS: ROBITUSSIN PO (14:21)
[2025-07-01] MEDS: LIPITOR 20 MG PO (17:10)
[2025-07-01] MEDS: TYLENOL ORAL SOLUTION 650 MG PO (20:31)
[2025-07-01] MEDS: MESTINON 30 MG PO (22:07)
[2025-07-01] MEDS: MELATONIN 3 MG TUBE (22:09)
[2025-07-01] MEDS: CELLCEPT 1000 MG PO (22:10)
[2025-07-02 03:14] VITALS: BP 88/60
[2025-07-02 06:00] VITALS: BMI 15.3
[2025-07-02] MEDS: ROBITUSSIN 200 MG PO ×2 (07:57→13:09)
[2025-07-02 07:58] LABS: Hematocrit 31.1 % (39.0-52.0); Hemoglobin 9.5 g/dL (13.0-18.0); Mean Corp Hgb Conc. 30.5 g/dL (33.0-37.0); Mean Corpuscular Volume 85.9 fL (80.0-94.0); Nucleated Red Blood Cells % 0 % (-); Platelet Count 217 10^3/uL (130-400); Red Cell Dist. Width 17.4 % (11.5-14.5)
[2025-07-02] MEDS: CIPRO 500 MG PO (07:58)
[2025-07-02] MEDS: DELTASONE 7.5 MG PO (07:58)
[2025-07-02] MEDS: PREVACID 30 MG PO (07:58)
[2025-07-02] MEDS: LEXAPRO 10 MG PO (07:58)
[2025-07-02] MEDS: ELIQUIS 5 MG PO (08:00)
[2025-07-02] MEDS: FOLVITE 1 MG PO (08:00)
[2025-07-02] MEDS: ROBINUL 1 MG PO (08:00)
[2025-07-02] MEDS: MIRALAX 17 GRAMS PO (08:02)
[2025-07-02 08:04] VITALS: BP 95/79
[2025-07-02] MEDS: MESTINON 90 MG PO ×2 (08:07→13:35)
[2025-07-02] MEDS: CELLCEPT 1500 MG PO (08:22)
[2025-07-02] MEDS: LASIX IV (08:31)
[2025-07-02] MEDS: SINEMET 25-100 2 TABLET PO ×2 (08:32→13:09)
[2025-07-02 08:40] LABS: ALT (SGPT) 13 U/L (0-50); AST (SGOT) 27 U/L (17-59); Albumin 2.8 g/dl (3.5-5.0); Alkaline Phosphatase 81 U/L (38-126); Blood Urea Nitrogen 60 mg/dl (9-20); Calcium 8.1 mg/dl (8.4-10.2); Carbon Dioxide 29 mmol/L (22-30); Chloride 113 mmol/L (98-107); Estimated Creatinine Clearance 30 ml/min; Glucose 88 mg/dl (70-99); Magnesium 2.6 mg/dl (1.6-2.3); Potassium 3.7 mmol/L (3.5-5.1); Sodium 142 mmol/L (135-145); Total Protein 5.7 g/dl (6.3-8.2); eGFR 47.65
[2025-07-02 10:50] VITALS: BP 87/64
--- NOTE | 2025-07-02 12:17 | CM ---
Addendum entered by Kezia Maharaj 07/02/25 12:51:
Patient scheduled for 4:00 p.m. ambulance transport, updated.
Original Note:
CM reviewed chart, patient for d/c today.
CM spoke with patients , [employer], O2 and Hospital bed delivered through [employer].
Patient will require ambulance transport home.
IMM reviewed 07/01.
Updates to [facility] on d/c planning.
CM will continue to follow.
Plan; home with [facility], ambulance transport
C[facility]
[2025-07-02] MEDS: VITAMIN B-12 3000 MCG PO (13:11)
[2025-07-02 15:30] VITALS: BP 97/66
--- NOTE | 2025-07-02 15:39 | W.PN.CARDCBS ---
Addendum entered and electronically signed by Maco Genao MD 07/02/25 17:23:
79-year-old man admitted June 19 with acute on chronic HFpEF, pneumonia.
PMH/PSH: Paroxysmal A-fib on amiodarone, history of stroke, aortic stenosis, bronchiectasis, myasthenia gravis, Parkinson's, hypertension, hyperlipidemia, hematuria
Meds: Reviewed
97/66, pulse 90, respiratory rate 18, afebrile, weight is 51.2 kg, cachectic, frail, slightly more alert than yesterday, lungs relatively clear, tachycardic, not severely so, aortic stenosis murmur, JVD okay, not much edema
Hemoglobin 9.5, white count 2.6, platelets 217, BUN and creatinine are 60 and 1.5, suspect GFR truly close to stage V given cachexia
Impression:
As noted below. Findings, assessments, recommendations reviewed in detail and agree, unless otherwise specified.
Plan:
He seems relatively comfortable, options limited and prognosis is poor
Agree with discharge.
Currently on digoxin 62.5 mcg daily and furosemide 40 mg daily as well as apixaban 5 mg twice daily. May need to decrease apixaban to 2.5 mg twice daily based on follow-up renal studies. Patient also on midodrine 5 mg 3 times daily, discharged
without carvedilol. He is on atorvastatin, utility of which may be very limited.
Will need follow-up BMP and dig level
We will arrange for cardiac follow-up.
Original Note:
Today's Communication / Plan
-
Continue digoxin 0.0625 mg daily upon discharge to home
Continue Lasix 40 mg PO daily upon discharge to home
Impression / Plan
-
PCP: Dr. Venegas
Primary Lugger: Dr. Santos
Impression:
Presentation with SOB 06/19/2025
Recent admission for UTI and acute HFpEF 05/31/2025 until 06/05/2025
PNA
Acute HFpEF
Hypotension
Pancytopenia
Sinus bradycardia
Paroxysmal atrial fibrillation
Chronic amiodarone therapy
Chronic Eliquis therapy
Aortic stenosis/insufficiency by echo 06/03/25
History of hypertension
Hyperlipidemia
History of CVA
History of intermittent hematuria
Parkinson's disease
Myasthenia gravis
Bronchiectasis with prior Pseudomonas infection
Hypoalbuminemia
Echo 10/17/24: EF 55 to 60%, no regional wall motion abnormalities noted, stage II diastolic dysfunction, MAC, moderate MR, moderate with peak/mean gradients 47/30 mmHg, STEPHY 1.3 cm�, moderate TR, PAP 45 mmHg, small pericardial effusion
Echo 06/03/2025: EF 55 to 60%, small pericardial effusion, moderate , mean gradient 25 mmHg, STEPHY 1.3 cm�, mild to moderate AI, mild MR, moderate TR, PAP 58 mmHg, no significant change compared to echo 10/2024
Plan:
-Patient admitted with generalized weakness and concern for UTI on 05/31/2025 until 06/05/2025 and cardiology was involved at that time for possible junctional rhythm and patient was managed for acute HFpEF. Patient returns now 06/19/2025 with SOB
and cardiology consulted again.
-Weight is stable at 112 lbs on my review of VS 07/02/2025. Patient weighed 142 lbs on admission and is down to 112 lbs on 07/02/2025, but all weights are being obtained using bed scale due to Parkinson's disease and mobility issues.
-Patient was diuresed with Lasix 40 mg IV BID and recommend Lasix 40 mg PO daily upon discharge to home.
-EF 55 to 60% by echo 06/03/2025
-Patient with paroxysmal to persistent A-fib. Previous dose of amiodarone 100 mg daily was stopped due to sinus bradycardia 05/2025
-New to carvedilol 3.125 mg BID this admission, but that has been on hold since 06/25/2025 due to hypotension
-Start digoxin 0.0625 mg every SuTuThSa, orders placed by me. Check digoxin level in 1 week.
-Outpatient dose of Eliquis 5 mg BID has been continued
-Patient and anxious for discharge to home on 07/02/2025 and have elected to go home with home PT as they are well equipped at home to handle his needs given myasthenia gravis and Parkinson's disease diagnoses
Progress Note - Lugger
Subjective
Date of Service: July 02, 2025
Patient is anxious for discharge to home
Objective
Labs:
07/02/25 07:29
07/02/25 07:
Labs
Hgb 9.5 g/dL (13.0-18.0) L 07/02/25 07:
Hct 31.1 % (39.0-52.0) L 07/02/25 07:29
Plt Count 217 10^3/uL (130-400) 07/02/25 07:
PT 28.6 Sec (11.4-14.6) H 06/19/25 14:30
INR 2.64 06/19/25 14:30
APTT 70.5 Sec (23.4-35.0) H 06/19/25 14:30
Sodium 142 mmol/L (135-145) 07/02/25 07:29
Potassium 3.7 mmol/L (3.5-5.1) 07/02/25 07:29
BUN 60 mg/dl (9-20) H 07/02/25 07:29
Creatinine 1.5 mg/dL (0.7-1.3) H 07/02/25 07:29
Glucose 88 mg/dl (70-99) 07/02/25 07:29
Vital Signs and I&O:
Vital Signs
Temp Pulse Resp BP Pulse Ox
97.7 F 88 24 87/64 96
07/02/25 10:50 07/02/25 10:50 07/02/25 10:50 07/02/25 10:50 07/02/25 10:50
Vital Signs
Temp Pulse Resp BP Pulse Ox
97.7 F 88 24 87/64 96
07/02/25 10:50 07/02/25 10:50 07/02/25 10:50 07/02/25 10:50 07/02/25 10:50
Intake & Output
06/30/25 07/01/25 07/02/25 07/03/25
06:59 06:59 06:59 06:59
Intake Total 675 / 675 360 / 360
Output Total 2250 / 2250 1999 375 / 375
Balance -1575 / -1575 -1999 / -1999 -
Physical Exam
Physical Exam
GEN: AAOx3
LUNGS: 2 L NC.
CV: Afib on tele
--- NOTE | 2025-07-02 16:02 | W.PN.HOSP.TC ---
Addendum entered and electronically signed by Edilberto Burnette MD 07/02/25 20:53:
Attending Addendum-
I saw and evaluated the patient. I reviewed the resident�s note and agree with findings and plan as documented in the resident�s note. Sub: Patient speaking coherently and following commands. Ready to go home. No complaints. Full 12 point ROS
reviewed and negative except as documented Exam: Vitals reviewed in chart GEN-cachectic frail appearing heart irreg irreg 3/6 SM @ RUSB Lungs fine crackles at bases HEENT mouth lips dry abd soft NT ND pos BS Le no edema Skin dry tenting Neuro
aphasic, follows commands intermittently
Plan:
# Acute change in mental status
-has not been getting home Sinemet dose
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
-back to baseline per family
#Acute hypoxic respiratory failure likely from volume overload and Pseudomonas pneumonia--wean O2 for sats > 92%, was intubated and now extubated
- attempt to wean for sats > 92%
- cont cipro (day )--IS--apprec pulm/cards
- requires home o2-DME ordered
#Acute on chronic HFpEF
-resolved
-last echo 05/2025- ef 55-60% apprec cards-weights down since admission (65kg to 51 kg)
-appears hypovolemic
-restarted PO lasix
# [place]
- resolving
- prerenal due to hypotension and hypovolemia and lasix
- repeat BMP as op
# Hypernatremia- from dehydration- resolved
# Chronic hypotension--pt does have BPs that run low--cont midodrine 10mg TID
# Paroxysmal Atrial Fibrillation
-Continue Eliquis-not ideal candidate for cardioversion at present per cards
-dc amiodarone and coreg, digoxin started by cards first dose given prior to DC f/u for dig level
# Pancytopenia with immunosuppression--Likely secondary to mycophenolate- CTM improving
# Acute on chronic anemia--Status post blood transfusion 1 unit pRBC for HGB of 6.7--HGB has remained stable
# Myasthenia Gravis--Continue Cellcept
# Parkinson's Disease--Continue Sinemet
# Hyperlipidemia--Continue Statin
# Wounds--POA--purple area on coccyx suspect due to pressure injury, left buttock also red with an ecchymotic stage I pressure injury
DVT proph-- Eliquis
code status--full code -d/w with
Dispo- SNF appropriate but family insistent on taking pt home despite that he is a maximum 2 person assist--hospital bed to be delivered and now O2, DC home with * high risk readmission
Time spent coordinating care, DC planning, review of DC plan of care with resident, transition of care, review of records, med rec/scripts sent electronically, consults, notes, d/w consultants, nursing, family cards, and CM� 32 mins >50% of this
time was devoted to counseling and coordination of care
Original Note:
Today's Communication/Plan
-
Updated labs trending in right direction
All consults have signed off
Medication were reconciled for patient transfer out of hospital
Discharge prepared
Assessment / Plan
Assessment / Plan
79-year-old male patient presented to the ED on 06/19/2025 for Acute Diastolic CHF. At ER was initially treated with noninvasive positive pressure ventilation but ultimately was intubated for increased work of breathing. Cardiology has been
managing acute heart failure with preserved ejection fraction. Is also being treated for pseudomonal pneumonia. Patient has a history of ongoing pancytopenia that progressed during his stay. He also presented with sinus bradycardia. Throughout
his stay patient was becoming more neutropenic was immunosuppressed and extremely lethargic. As per his , this was becoming more normal for him especially later in the day. Stat head CT was negative. Chest x-ray was without change. Unclear
if the patient had an aspiration event. MRI of the brain showed large chronic transcortical infarct in the lateral left frontal lobe (an old infarct). Around 06/25/2025, patient started becoming more responsive on visits. IV dextrose 5% / 0.9%
sodium chloride 60 mL/h was added to his medication. As per speech therapy evaluation, patient was taken off of n.p.o. and returned to [facility] 5�minced and moist diet protocol. Patient has been making daily improvements. He has been becoming less
lethargic, more communicative, and his lungs have been sounding clearer. As of 06/30/2025, he has been continuing to improve, but his nurse states that he refused to use his BiPAP last night again. Patient denies any nausea, vomiting, fever,
chills. His weight loss is being strictly monitored. Patient will be discharged to his home in the care of his tomorrow when his special hospital bed arrives. His O2 levels consistently drop below 88% when he is off of the nasal catheter, so
he qualifies for home oxygen. He seems very pleased to hear he's heading home. This mornings labs illustrated some significant changes that suggest patient can not be discharge right away. Patients fluid balance is off. He is now going thru the
process of overdiuresis with his sodium increasing from 140--146. His serum creatinine changed from 1.3--1.6 and his blood pressure is 91/63. His and son are informed as to why patient can't be discharged yet. As of 07/02/2025, Mr. Segura
denies any constitutional symptoms like nausea or vomiting and his labwork is trending in a better direction. Patients family has his home set up ready for him and are ready to pick him up so he will be discharged today.
Assessment and Plan:
Acute hypoxic respiratory failure
Completed 14-day course of ciprofloxacin 500 mg p.o. twice daily-- Cipro discontinued
Lasix 40 mg p.o. daily was prescribed for patient for at home use.
Continue BIPAP at night�Will need home set up
Acute Kidney Injury
Serum sodium increased from 140--146--142
Serum creatinine increased from 1.3--1.6��1.5
Updated labs show patient's kidney status improving��ready for DC
Sever sepsis with acute Pneumonia as a source
Completed 14-day course of ciprofloxacin 500 mg p.o. twice daily-- Cipro discontinued
Vest therapy added
Suspect Acute on chronic HFpEF
Resolved
Paroxysmal Atril Fibrillation
Continue rate control of A-fib with low-dose Coreg and Eliquis.
Pancytopenia.
Likely secondary to mycophenolate
WBC count steadily rising 1.1-2.1.-2.0-2.4-2.6 (Improving)
Acute on chronic anemia
Hbg stable at 9.5
Continue Eliquis.
Hypokalemia
Corrected
Myasthenia Gravis
Continue Mestinon (pyridostigmine bromide)
Parkinson's Disease
Continue Sinemet
Hyperlipidemia
Continue Statin
Wound (CDI)
Purple area on coccyx suspect due to pressure injury as well as thrombocytopenia.
Could be deep tissue injury versus stage I pressure injury
Left buttock also red with an ecchymotic stage I pressure injury.
Patient is in need of a semi-electric hospital bed with foam mattress due to the need to elevate the head of the bed 30 degrees to prevent aspiration and simultaneously for frequent repositioning to prevent bed ulcers and pressure points.
DVT prophylaxis. Eliquis resumed via G-tube
GI prophylaxis. IV Protonix
status full code -spoke to patient's regarding full CODE STATUS. She expressed her wishes for us to (try one-time) for resuscitative efforts so remains full code.
Anticipated Discharge: Today
Subjective/Interval History
-
Date of Service: July 02, 2025
There were no overnight events reported.
Objective Data
-
Labs:
Laboratory Results
07/02/25
07:29
WBC 2.6 L
Hgb 9.5 L
Hct 31.1 L
Plt Count 217
Sodium 142
Potassium 3.7
Chloride 113 H
Carbon Dioxide 29
BUN 60 H
Creatinine 1.5 H
Glucose 88
Calcium 8.1 L
Total Bilirubin 1.8 H
AST 27
ALT 13
Alkaline Phosphatase 81
Vital Signs:
Vital Signs
Temp Pulse Resp BP Pulse Ox
97.7 F 88 24 87/64 96
07/02/25 10:50 07/02/25 10:50 07/02/25 10:50 07/02/25 10:50 07/02/25 10:50
I&O
07/01/25 07/02/25 07/03/25
06:59 06:59 06:59
Intake Total 360 / 360
Output Total 1999 375 / 375
Balance -1999 -
Review of Systems
-
Unable to obtain full review of systems at this time due to: Dementia and Acuity
History Source: Family
All other systems: Reviewed and negative
Constitutional: Reports Weight Loss and Fatigue
Physical Exam
-
General: No Apparent Distress, Appears Chronically Ill and Cachectic
HEENT: Normocephalic and Atraumatic
Respiratory: Clear to Auscultation
Cardiac: Regular Rhythm and S1/S2
Breast: Deferred by me
GI: Soft, Nontender, Nondistended and Normal Bowel Sounds
Musculoskeletal: No Clubbing, No Cyanosis and No Edema
Skin: Decubitus Ulcers
Neuro: Tremors and Slurred Speech
Psych: Calm and Other (Parkinsons Disease Progression)
Data Reviewed
-
CT Scan: Report Reviewed by me and Discussed with Physician
MRI: Report Reviewed by me and Discussed with Physician
Labs: Labs Reviewed by me and Discussed with Physician
[2025-07-02] MEDS: LANOXIN 62.5 MCG PO (16:05)
--- NOTE | 2025-07-02 16:23 | W.DCSUMMARY ---
Addendum entered and electronically signed by Edilberto Burnette MD 07/02/25 20:54:
Read, reviewed, and agree. See same day progress note for additional details.
Jamie Burnette MD
Original Note:
Documented by User: [place] Ag MD, Resident 07/02/25 16:25
Discharge Summary
Discharge Data
Date of Admission: 06/19/25
Date of Discharge: 07/02/25
-
Pending Results: No
Hospital Course
79-year-old male patient presented to the ED on 06/19/2025 for Acute Diastolic CHF. At ER was initially treated with noninvasive positive pressure ventilation but ultimately was intubated for increased work of breathing. Cardiology has been
managing acute heart failure with preserved ejection fraction. Is also being treated for pseudomonal pneumonia. Patient has a history of ongoing pancytopenia that progressed during his stay. He also presented with sinus bradycardia. Throughout
his stay patient was becoming more neutropenic was immunosuppressed and extremely lethargic. As per his , this was becoming more normal for him especially later in the day. Stat head CT was negative. Chest x-ray was without change. Unclear
if the patient had an aspiration event. MRI of the brain showed large chronic transcortical infarct in the lateral left frontal lobe (an old infarct). Around 06/25/2025, patient started becoming more responsive on visits. IV dextrose 5% / 0.9%
sodium chloride 60 mL/h was added to his medication. As per speech therapy evaluation, patient was taken off of n.p.o. and returned to [facility] 5�minced and moist diet protocol. Patient has been making daily improvements. He has been becoming less
lethargic, more communicative, and his lungs have been sounding clearer. As of 06/30/2025, he has been continuing to improve, but his nurse states that he refused to use his BiPAP last night again. Patient denies any nausea, vomiting, fever,
chills. His weight loss is being strictly monitored. Patient will be discharged to his home in the care of his tomorrow when his special hospital bed arrives. His O2 levels consistently drop below 88% when he is off of the nasal catheter, so
he qualifies for home oxygen. He seems very pleased to hear he's heading home. This mornings labs illustrated some significant changes that suggest patient can not be discharge right away. Patients fluid balance is off. He is now going thru the
process of overdiuresis with his sodium increasing from 140--146. His serum creatinine changed from 1.3--1.6 and his blood pressure is 91/63. His and son are informed as to why patient can't be discharged yet. As of 07/02/2025, Mr. Segura
denies any constitutional symptoms like nausea or vomiting and his labwork is trending in a better direction. Patients family has his home set up ready for him and are ready to pick him up so he will be discharged today.
Discharge Plan
-
Patient Disposition: Home with Home Care
Discharge Diagnosis/Procedures: Acute hypoxemic respiratory failure, acute change in mental status, acute on chronic heart failure with preserved ejection fraction exacerbation, paroxysmal atrial fibrillation, pancytopenia with immunosuppression,
acute on chronic anemia, hypokalemia, myasthenia gravis, Parkinson's disease, hyperlipidemia, wounds (present on admission)�coccyx/left buttock
Condition: Fair
Diet: As tolerated and Other diet
Additional Diets: minced and moist
Activity: As tolerated
Driving Restrictions: No driving
Bathing Restrictions: None
Blood Work: cbc and cmp with pcp in one week
Other Services: VN, PT, OT and ST
Activity Restrictions/Additional Instructions:
Wound Care Instructions
Coccyx pressure injury-clean with saline, sacral shaped silicone border foam, change q 3 days and prn loosened dressing.
L buttocks-clean with saline, silicone border foam, change q 3 days and prn loosened dressing.
Zinc barrier ointment to megan skin bid and prn incontinence.
Air mattress
Turning schedule
Elevate heels off bed with pillows.
Pressure redistributing chair cushion (i.e. Air, Roho).
Follow up at wound care center call for an appointment.
Referrals:
Maco Santos MD [Active, Cardiology]
Referral Note: The cardiology office will call you with an appointment to be seen sooner than your currently scheduled appointment on 09/10/2025.
Maggie Garcia DO [Active, Pulmonary Medicine] - in four to six weeks
Referral Note: sleep study
Tomas Venegas DO [Family Provider, Internal Medicine] - in less than 1 week
Additional Discharge Medication Instructions: Please take furosemide Lasix 40 mg once daily as instructed.
Start taking digoxin 62.5 mcg every Tuesday, Tuesday, and Tuesday
Prescriptions:
New
furosemide [Lasix] 40 mg tablet
40 mg PO DAILY Qty: 30 0RF
digoxin 62.5 mcg (0.0625 mg) tablet
62.5 mcg PO DAILY Qty: 28 11RF
Continued
prednisone 10 MG tablet
12.5 mg PO Q48H
atorvastatin 20 mg Tablet
20 mg PO QPM Qty: 30 0RF
ipratropium-albuterol 0.5 mg-3 mg(2.5 mg base)/3 mL solution for nebulization
3 ml INHALATION TID Qty: 60 0RF
carbidopa-levodopa 50-200 mg Tablet Extended Release
1 tab PO HS Qty: 30 0RF
midodrine 5 mg Tablet
5 mg PO TID@0800,1300,1800 Qty: 90 0RF
cyanocobalamin (vitamin B-12) 1,000 mcg Tablet
3,000 mcg PO DAILY@1230 Qty: 30 0RF
mycophenolate mofetil 500 MG tablet
1,000 mg PO HS Qty: 30 0RF
mycophenolate mofetil [CellCept] 500 mg Tablet
1,500 mg PO DAILY Qty: 30 0RF
pantoprazole 40 mg Tablet,Delayed Release (Dr/Ec)
40 mg PO DAILY Qty: 30 0RF
pyridostigmine bromide 60 MG tablet
30 mg PO HS Qty: 30 0RF
pyridostigmine bromide 60 MG tablet
90 mg PO TID@08,12,1630 Qty: 270 0RF
folic acid 1 mg Tablet
1 mg PO DAILY Qty: 30 0RF
carbidopa-levodopa 25-100 mg Tablet
2 tab PO TID@0830,1230,1630 Qty: 180 0RF
escitalopram oxalate 10 MG tablet
10 mg PO DAILY Qty: 30 0RF
calcium carbonate-vitamin D3 [Calcium 600 + D(3)] 600 mg-10 mcg (400 unit) Tablet
2 tab PO BID@1230,1930 Qty: 60 0RF
melatonin 5 mg Tablet
5 mg PO HS Qty: 30 0RF
Eliquis 5 mg Tablet
5 mg PO BID Qty: 60 0RF
magnesium oxide 400 mg magnesium Tablet
800 mg PO BID Qty: 60 0RF
Discharge Orders:
Discharge Patient (As Directed); Ordered 07/02/25
Ordered By: [place] Ag
Discharge Date and Time
Discharge Date/Time: 07/02/25 16:44
Print Language: CITIZEN [place]

Documented by User: Edilberto Burnette MD 07/02/25 20:47
Discharge Summary
Discharge Data
Date of Admission: 06/19/25
Date of Discharge: 07/02/25
Discharge Plan
-
Patient Disposition: Home with Home Care
Discharge Diagnosis/Procedures: Acute hypoxemic respiratory failure, acute change in mental status, acute on chronic heart failure with preserved ejection fraction exacerbation, paroxysmal atrial fibrillation, pancytopenia with immunosuppression,
acute on chronic anemia, hypokalemia, myasthenia gravis, Parkinson's disease, hyperlipidemia, wounds (present on admission)�coccyx/left buttock
Condition: Fair
Diet: As tolerated and Other diet
Additional Diets: minced and moist
Activity: As tolerated
Driving Restrictions: No driving
Bathing Restrictions: None
Blood Work: cbc and cmp with pcp in one week
Other Services: VN, PT, OT and ST
Activity Restrictions/Additional Instructions:
Wound Care Instructions
Coccyx pressure injury-clean with saline, sacral shaped silicone border foam, change q 3 days and prn loosened dressing.
L buttocks-clean with saline, silicone border foam, change q 3 days and prn loosened dressing.
Zinc barrier ointment to megan skin bid and prn incontinence.
Air mattress
Turning schedule
Elevate heels off bed with pillows.
Pressure redistributing chair cushion (i.e. Air, Roho).
Follow up at wound care center call for an appointment.
Referrals:
Maco Santos MD [Active, Cardiology]
Referral Note: The cardiology office will call you with an appointment to be seen sooner than your currently scheduled appointment on 09/10/2025.
Maggie Garcia DO [Active, Pulmonary Medicine] - in four to six weeks
Referral Note: sleep study
Tomas Venegas DO [Family Provider, Internal Medicine] - in less than 1 week
Additional Discharge Medication Instructions: Please take furosemide Lasix 40 mg once daily as instructed.
Start taking digoxin 62.5 mcg every Tuesday, Tuesday, and Tuesday
Prescriptions:
New
furosemide [Lasix] 40 mg tablet
40 mg PO DAILY Qty: 30 0RF
digoxin 62.5 mcg (0.0625 mg) tablet
62.5 mcg PO DAILY Qty: 28 11RF
Continued
prednisone 10 MG tablet
12.5 mg PO Q48H
atorvastatin 20 mg Tablet
20 mg PO QPM Qty: 30 0RF
ipratropium-albuterol 0.5 mg-3 mg(2.5 mg base)/3 mL solution for nebulization
3 ml INHALATION TID Qty: 60 0RF
carbidopa-levodopa 50-200 mg Tablet Extended Release
1 tab PO HS Qty: 30 0RF
midodrine 5 mg Tablet
5 mg PO TID@0800,1300,1800 Qty: 90 0RF
cyanocobalamin (vitamin B-12) 1,000 mcg Tablet
3,000 mcg PO DAILY@1230 Qty: 30 0RF
mycophenolate mofetil 500 MG tablet
1,000 mg PO HS Qty: 30 0RF
mycophenolate mofetil [CellCept] 500 mg Tablet
1,500 mg PO DAILY Qty: 30 0RF
pantoprazole 40 mg Tablet,Delayed Release (Dr/Ec)
40 mg PO DAILY Qty: 30 0RF
pyridostigmine bromide 60 MG tablet
30 mg PO HS Qty: 30 0RF
pyridostigmine bromide 60 MG tablet
90 mg PO TID@08,12,1630 Qty: 270 0RF
folic acid 1 mg Tablet
1 mg PO DAILY Qty: 30 0RF
carbidopa-levodopa 25-100 mg Tablet
2 tab PO TID@0830,1230,1630 Qty: 180 0RF
escitalopram oxalate 10 MG tablet
10 mg PO DAILY Qty: 30 0RF
calcium carbonate-vitamin D3 [Calcium 600 + D(3)] 600 mg-10 mcg (400 unit) Tablet
2 tab PO BID@1230,1930 Qty: 60 0RF
melatonin 5 mg Tablet
5 mg PO HS Qty: 30 0RF
Eliquis 5 mg Tablet
5 mg PO BID Qty: 60 0RF
magnesium oxide 400 mg magnesium Tablet
800 mg PO BID Qty: 60 0RF
Discharge Orders:
Discharge Patient (As Directed); Ordered 07/02/25
Ordered By: [place] Ag
Discharge Date and Time
Discharge Date/Time: 07/02/25 16:44
Print Language: CITIZEN [place]
--- NOTE | 2025-07-03 09:47 | W.HF.CON ---
Heart Failure
- LV Function
Left ventricular function study result: LV Ejection fraction >/= 50% (ECHO 06/03/25)
Ejection Fraction Percentage: 55-60
- ARNI
Patient already on ARNI: No
Heart Failure ARNI Not Indicated: LV Ejection Fraction >/= 40%
- ACEI/ARB
Patient already on ACEI/ARB: No
Heart Failure ACEI/ARB Not Indicated: LV Ejection Fraction > 40%
- Beta Liana
Patient already on Evidence Based Beta Liana: No
Heart Failure Evidence Based Beta Liana Not Indicated: LV Ejection Fraction > 40%
- Mineralocorticord Receptor Antagonist
Patient already on MRA: No
Heart Failure MRA Not Indicated: LV Ejection Fraction > 40%
- SGLT-2 Inhibitor
Patient already on SGLT-2 Inhibitor: No
Heart Failure SGLT-2 Inhibitor Contraindication: Patient Refusal (UTIs)
- Afib Anticoagulation
Patient already on Anticoagulation for Afib: Yes
- NYHA CHF Classification
NYHA CHF Classification Level: Class III - Symptoms w/ min exertion, interferes w/ nml daily activity
- ACC/AHA Stage
ACC/AHA Stage: Stage C: Symptomatic Heart Failure
== END 2025-07-02 16:44 | disposition home health service (06) | DRG 871 ==
LOC: 4 WEST ACU 16:21
PROVIDERS: Internal Medicine; Internal Medicine Critical Care Medicine; Nurse Practitioner Family; Specialist Research Data Abstracter/Coder; ADMITTING PHYSICIAN Student in an Organized Health Care Education/Training Program; ATTENDING PHYSICIAN Family Medicine; CONSULT PHYSICIAN Internal Medicine; CONSULT PHYSICIAN Internal Medicine Infectious Disease; EMERGENCY PHYSICIAN Emergency Medicine; FAMILY PHYSICIAN Internal Medicine
PROC: 5A09357 Assistance with Respiratory Ventilation, Less than 24 Consecutive Hours, Continuous Positive Airway Pressure (ICD-10-PCS; 2025-06-19)
PROC: 5A1945Z Respiratory Ventilation, 24-96 Consecutive Hours (ICD-10-PCS; 2025-06-19)
PROC: 0BH17EZ Insertion of Endotracheal Airway into Trachea, Via Natural or Artificial Opening (ICD-10-PCS; 2025-06-19)
PROC: 0DH67UZ Insertion of Feeding Device into Stomach, Via Natural or Artificial Opening (ICD-10-PCS; 2025-06-19)
PROC: 0B9F8ZX Drainage of Right Lower Lung Lobe, Via Natural or Artificial Opening Endoscopic, Diagnostic (ICD-10-PCS; 2025-06-20)
PROC: 30233N1 Transfusion of Nonautologous Red Blood Cells into Peripheral Vein, Percutaneous Approach (ICD-10-PCS; 2025-06-21)
DX: A41.52 Sepsis due to Pseudomonas (principal); E43 Unspecified severe protein-calorie malnutrition; I50.33 Acute on chronic diastolic (congestive) heart failure; J15.1 Pneumonia due to Pseudomonas; J96.01 Acute respiratory failure with hypoxia; R65.21 Severe sepsis with septic shock; J69.0 Pneumonitis due to inhalation of food and vomit; D61.818 Other pancytopenia; J47.0 Bronchiectasis with acute lower respiratory infection; Z68.1 Body mass index [BMI] 19.9 or less, adult; I13.0 Hypertensive heart and chronic kidney disease with heart failure and stage 1 through stage 4 chronic kidney disease, or unspecified chronic kidney disease; N17.9 Acute kidney failure, unspecified; E87.0 Hyperosmolality and hypernatremia; D84.9 Immunodeficiency, unspecified; G70.00 Myasthenia gravis without (acute) exacerbation; I48.0 Paroxysmal atrial fibrillation; K21.9 Gastro-esophageal reflux disease without esophagitis; E78.00 Pure hypercholesterolemia, unspecified; F41.9 Anxiety disorder, unspecified; G20.A1 Parkinson's disease without dyskinesia, without mention of fluctuations; I95.1 Orthostatic hypotension; I35.0 Nonrheumatic aortic (valve) stenosis; N18.30 Chronic kidney disease, stage 3 unspecified; I27.20 Pulmonary hypertension, unspecified; E87.6 Hypokalemia; D69.6 Thrombocytopenia, unspecified; L89.321 Pressure ulcer of left buttock, stage 1; I07.1 Rheumatic tricuspid insufficiency; E88.09 Other disorders of plasma-protein metabolism, not elsewhere classified; I95.89 Other hypotension; Z96.652 Presence of left artificial knee joint; Z87.442 Personal history of urinary calculi; Z87.19 Personal history of other diseases of the digestive system; Z79.624 Long term (current) use of inhibitors of nucleotide synthesis; Z79.01 Long term (current) use of anticoagulants; Z79.51 Long term (current) use of inhaled steroids; Z86.73 Personal history of transient ischemic attack (TIA), and cerebral infarction without residual deficits; Z88.1 Allergy status to other antibiotic agents; Z88.8 Allergy status to other drugs, medicaments and biological substances; Z11.52 Encounter for screening for COVID-19; Z86.0100 Personal history of colon polyps, unspecified; Z79.899 Other long term (current) drug therapy
CPT/HCPCS: 31500; 36600; 70450; 70553; 71045; 74018; 80048; 80053; 82805; 82962; 83735; 83880; 84100; 84145; 84478; 84484; 85025; 85027; 85610; 85730; 86850; 86900; 86901; 86920; 87040; 87070; 87077; 87186; 87205; 87449; 87502; 87641; 87811; 87899; 92526; 92610; 93005; 93970; 94002; 94003; 94640; 94660; 94669; 96374; 96375; 96376; 97110; 97163; 97167; 97530; 97535; 99291; A9575; P9016